=== PATIENT | male | born 1945 | race Caucasian/White ===

== ENCOUNTER 2017-04-16 01:32 | Inpatient (IN) | payer MEDICARE, OTHER ==
[~2017-04-16] VITALS: Ht 165.1 cm; Wt 58.0 kg
[~2017-04-16 01:32] MED LIST: CLOP75TA27 PO; GLU5XL PO; LISI40TA PO; METF500T4 PO; PIOG15TA4 PO; SIMV40TA3 PO
[2017-04-16] MEDS ORDERED: CEFEPIME 2GM/50 ML (PMX) 50 ML IVPB STA (02:23)
[2017-04-16] MEDS ORDERED: SODIUM CHLORIDE 0.9% 1L BAG IV* STA (02:23)
[2017-04-16 02:50] LABS: ADD SCAN DIFF NO
[2017-04-16 02:56] LABS: BASOPHILS % 0.2 % (0.0-2.0); EOSINOPHILS # 0.1 10^3/ul (0.0-0.5); EOSINOPHILS % 1.2 % (0.0-7.0); HEMATOCRIT 32.9 % (42.0-52.0); LYMPHOCYTES # 0.9 10^3/ul (0.8-2.9); LYMPHOCYTES % 8.9 % (15.0-51.0); MEAN CORPUSCULAR HGB CONC 33.4 g/dl (32.0-37.0); MEAN CORPUSCULAR VOLUME 86.8 fl (82.0-101.0); MEAN PLATELET VOLUME 12.1 fl (7.4-10.4); MONOCYTE # 1.3 10^3/ul (0.3-0.9); MONOCYTES % 12.8 % (0.0-11.0); NEUTROPHIL # 7.6 10^3/ul (1.6-7.5); NEUTROPHILS % 76.3 % (39.0-77.0); PLATELET COUNT 203 10^3/UL (140-415); RED BLOOD COUNT 3.79 10^6/ul (4.70-6.10); RED CELL DISTRIBUTION WIDTH 13.4 % (11.5-14.5); WHITE BLOOD COUNT 9.9 10^3/ul (4.8-10.8)
[2017-04-16 03:18] LABS: ALBUMIN 4.4 g/dl (3.3-4.9); ALBUMIN/GLOBULIN RATIO 1.25; BILIRUBIN,INDIRECT 0.6 mg/dl (0-1.1); BILIRUBIN,TOTAL 0.6 mg/dl (0.2-1.3); CALCIUM 8.8 mg/dl (8.4-10.2); CREATININE 1.98 mg/dl (0.61-1.24); POTASSIUM 4.2 mmol/L (3.5-5.1); TOTAL PROTEIN 7.9 g/dl (6.1-8.1)
[2017-04-16 03:29] LABS: TROPONIN-I 0.027 ng/ml (0.00-0.12)
[2017-04-16] MEDS ORDERED: ACETAMINOPHEN 500 MG TAB PO STA (03:39)
[2017-04-16 03:42] LABS: ADD UMIC YES; UR ASCORBIC ACID NEGATIVE (NEGATIVE); UR BACTERIA FEW /HPF (NONE SEEN); UR BILIRUBIN (Dip) NEGATIVE (NEGATIVE); UR BLOOD (Dip) 2+ mg/dL (NEGATIVE); UR CLARITY CLOUDY (CLEAR); UR COLOR YELLOW (YELLOW); UR GLUCOSE (Dip) 3+ mg/dL (NEGATIVE); UR KETONES (Dip) NEGATIVE (NEGATIVE); UR LEUKOCYTE ESTERASE (Dip) 3+ Leu/ul (NEGATIVE); UR NITRITE (Dip) NEGATIVE (NEGATIVE); UR RBC 16 /HPF (0-5); UR SPECIFIC GRAVITY (Dip) 1.009 (1.003-1.030); UR TOTAL PROTEIN (Dip) 2+ mg/dl (NEGATIVE); UR UROBILINOGEN (Dip) NEGATIVE (NEGATIVE); UR WBC CLUMPS MANY /HPF (NONE SEEN)
[2017-04-16] MEDS ORDERED: SOD CHLORIDE 0.9% 1,000 ML IV ONE (04:00)
--- NOTE | 2017-04-16 04:02 | RADRPT ---
PROCEDURE: CHEST - 1 VIEW CLINICAL INDICATION: 72-year-old male with shortness of breath and sepsis. TECHNIQUE: A single frontal AP portable view of the chest was performed. The images were reviewed on a PACS workstation. COMPARISON: Chest x-ray October 09, 2013. FINDINGS: The cardiomediastinal silhouette is within normal limits. There is a shallow inspiration. There is eventration of the right hemidiaphragm. There is minimal bibasilar subsegmental atelectasis. Ther e are small metallic radiopaque densities overlying the upper thorax and right lateral upper lung zo ne consistent with shrapnel as previously visualized. There is no evidence for an infiltrate. There is no evidence for congestive heart failure. There is no evidence for pneumothorax. The osseous str uctures are intact. IMPRESSION: 1. Shallow inspiration with minimal bibasilar subsegmental atelectasis. 2. Small foci of shrapnel overlying the mediastinal region and right lateral upper lung zone. .Varun Low MD, MD Date Time Electronically viewed and signed by .Varun Low MD, on 04/16/2017 04:02 .M/
[2017-04-16 04:16] LABS: INR 1.01; PROTIME 13.3 Sec (12.2-14.2)
[2017-04-16 04:17] LABS: PARTIAL THROMBOPLASTIN TIME 33.8 Sec (25.0-35.0)
[2017-04-16] MEDS ORDERED: ACETAMINOPHEN 325 MG TAB PO PRN (04:30)
[2017-04-16] MEDS ORDERED: ONDANSETRON 4 MG INJ IV PRN ×2 (04:30→07:00)
[2017-04-16 04:39] VITALS: TEMP 99.2
--- NOTE | 2017-04-16 05:44 | ERA ---
ER Documentation Chief Complaint Date/Time DATE: 04/16/17 TIME: 05:37 Chief Complaint cough, pain with urination for 4 days HPI This 72-year-old male presents with painful urination for 4 days as well as a cough. Has felt lightheaded as well. Has suprapubic abdominal pain and has had trouble urinating. Is also had chills and fever. Denies chest pain or shortness of breath . Family is present at bedside. ROS All systems reviewed and are negative except as per history of present illness. 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) Hx Respiratory Disorders: No Hx Cardiac Disorders: Yes (HTN) Hx Psychiatric Problems: No Hx Miscellaneous Medical Probl: Yes (DM) Hx Alcohol Use: Yes Hx Substance Use: No Hx Tobacco Use: Yes Smoking Status: Former smoker Physical Exam Vitals Vital Signs Date Time Temp Pulse Resp B/P Pulse Ox O2 Delivery O2 Flow Rate FiO2 04/16/17 04:39 99.2 79 18 109/54 97 Room Air 04/16/17 03:03 Nasal Cannula 2 04/16/17 03:03 102.1 81 20 146/83 96 Room Air 04/16/17 01:46 102.0 77 16 135/67 94 Physical Exam Const: [] Mild distress, appears uncomfortable Head: Atraumatic Eyes: Normal Conjunctiva ENT: Normal External Ears, Nose and Mouth. Neck: Full range of motion..~ No meningismus. Resp: Clear to auscultation bilaterally Cardio: Regular rate and rhythm, no murmurs Abd: Soft, mild suprapubic tenderness without guarding or rebound non distended. Normal bowel sounds Skin: No petechiae or rashes, warm to the touch, mild diaphoretic Back: No midline or flank tenderness Ext: No cyanosis, or edema Neur: Awake and alert and oriented 3, no focal deficits Psych: Normal Mood and Affect Result Diagram: 04/16/17 0230 04/16/17 0230 Results 24 hrs Laboratory Tests Test 04/16/17 02:20 04/16/17 02:30 04/16/17 03:00 04/16/17 04:30 Prothrombin Time 13.3Sec Prothrombin Time Ratio 1.0 INR International Normalized Ratio 1.01 Activated Partial Thromboplast Time 33.8Sec White Blood Count 9.910^3/ul Red Blood Count 3.7910^6/ul Hemoglobin 11.0g/dl Hematocrit 32.9% Mean Corpuscular Volume 86.8fl Mean Corpuscular Hemoglobin 29.0pg Mean Corpuscular Hemoglobin Concent 33.4g/dl Red Cell Distribution Width 13.4% Platelet Count 15901^3/UL Mean Platelet Volume 12.1fl Neutrophils % 76.3% Lymphocytes % 8.9% Monocytes % 12.8% Eosinophils % 1.2% Basophils % 0.2% Nucleated Red Blood Cells % 0.0/100WBC Neutrophils # 7.610^3/ul Lymphocytes # 0.910^3/ul Monocytes # 1.310^3/ul Eosinophils # 0.110^3/ul Basophils # 0.010^3/ul Nucleated Red Blood Cells # 0.010^3/ul Sodium Level 124mmol/L Potassium Level 4.2mmol/L Chloride Level 92mmol/L Carbon Dioxide Level 21mmol/L Anion Gap 15 Blood Urea Nitrogen 41mg/dl Creatinine 1.98mg/dl Glucose Level 293mg/dl Lactic Acid Level 1.1mmol/L 0.8mmol/L Calcium Level 8.8mg/dl Total Bilirubin 0.6mg/dl Direct Bilirubin 0.00mg/dl Indirect Bilirubin 0.6mg/dl Aspartate Amino Transf (AST/SGOT) 30IU/L Alanine Aminotransferase (ALT/SGPT) 36IU/L Alkaline Phosphatase 117IU/L Troponin I 0.027ng/ml Total Protein 7.9g/dl Albumin 4.4g/dl Globulin 3.50g/dl Albumin/Globulin Ratio 1.25 Urine Color YELLOW Urine Clarity CLOUDY Urine pH 5.0 Urine Specific Ackerman 1.009 Urine Ketones NEGATIVEmg/dL Urine Nitrite NEGATIVEmg/dL Urine Bilirubin NEGATIVEmg/dL Urine Urobilinogen NEGATIVEmg/dL Urine Leukocyte Esterase 3+Estephanie/ul Urine Microscopic RBC 16/HPF Urine Microscopic WBC > 182/HPF Urine Bacteria FEW/HPF Urine Hemoglobin 2+mg/dL Urine Glucose 3+mg/dL Urine Total Protein 2+mg/dl Current Medications Medications (Trade) Dose Ordered Sig/Birdie Route PRN Reason Start Time Stop Time Status Last Admin Dose Admin Sodium Chloride 1920 ml 1,920 ml BOLUS OVER 2 HOURS STAT IV* 04/16/17 02:23 04/16/17 02:24 DC 04/16/17 02:49 Cefepime HCl 50 ml @ 100 mls/hr ONCE STAT IVPB 04/16/17 02:23 04/16/17 02:52 DC 04/16/17 02:50 Sodium Chloride (NS) 1,000 ml @ 1,000 mls/hr Q1H ONCE IV 04/16/17 04:00 04/16/17 04:59 DC 04/16/17 03:50 Acetaminophen (Tylenol Tab) 1,000 mg ONCE STAT PO 04/16/17 03:39 04/16/17 03:44 DC 04/16/17 03:49 Ondansetron HCl (Zofran Inj) 4 mg BRIDGE ORDER PRN IV NAUSEA AND/OR VOMITING 04/16/17 04:30 04/17/17 04:29 Acetaminophen (Tylenol Tab) 650 mg ER BRIDGE PRN PO MILD PAIN/FEVER 04/16/17 04:30 04/17/17 04:29 Procedures/MDM UTI with acute kidney injury and hyponatremia. Patient was given cefepime IV for his urinary tract infection. Part of the hyponatremia pseudohyponatremia with sodium greater than 127 when corrected. Patient has had stable vital signs. He will need to be admitted for further hydration for protection of his kidneys as well as IV antibiotics for the urinary tract infection in the elderly diabetic male with poorly controlled sugars. I spoke with Dr. Henson who will be admitting the patient to medical surgical floor EKG interpretation: Normal sinus rhythm rate of 81, normal axis, no ST or T- wave changes concerning for acute ischemia, normal intervals assembler metal building interpretation: Normal sinus rhythm without arrhythmias Chest x-ray interpretation: I see no acute process, no widened mediastinum, no pneumothorax, no infiltrates, no fractures Departure Diagnosis: Primary Impression: UTI (urinary tract infection) Additional Impressions: Acute kidney injury Hyponatremia MAGDALENA WRIGHT DO Apr 16, 2017 05:44
[2017-04-16 06:15] VITALS: Ht 165.1 cm; Wt 58.0 kg
[2017-04-16 06:34] VITALS: BP 110/58; RESP 20
[2017-04-16] MEDS ORDERED: morphine 2 MG INJ IV PRN (07:00)
[2017-04-16] MEDS ORDERED: DEXTROSE 50% 50 ML SYRINGE IV PRN ×2 (08:00)
[2017-04-16] MEDS ORDERED: GLUCAGON 1 MG INJ IM PRN (08:00)
[2017-04-16] MEDS ORDERED: GLUCOSE GEL 15 GRAM TUBE PO PRN ×2 (08:00)
[2017-04-16] MEDS ORDERED: GLUCOSE GEL 15 GRAM TUBE BUCCAL PRN (08:00)
[2017-04-16 08:11] VITALS: BP 110/56; RESP 16
[2017-04-16] MEDS: SOD CHLORIDE 0.9% 1,000 ML IV SCH ×3 (08:34→19:38)
[2017-04-16] MEDS: INSULIN ASPART [NOVOLOG] 3 ML PEN SC SCH ×4 (08:45→22:09)
--- NOTE | 2017-04-16 11:24 | HP ---
Date/Time of Note Date/Time of Note DATE: 04/16/17 TIME: 11:21 Assessment/Plan VTE Prophylaxis VTE Prophylaxis Intervention: other Lines/Catheters IV [facility] Saline Lock Urinary Cath still in place: No Assessment/Plan Chief Complaint/Hosp Course 1) uti - intravenous antibiotics 2) diabetes - monitor blood sugar 3) hypertension - monitor blood sugar Problems: HPI/ROS Admit Date/Time Admit Date/Time Apr 16, 2017 at 04:16 Hx of Present Illness Patient with hypertension, hypercholesterolemia, diabetes comes in with evidence of fever, dysuria. Patient was found to have an urinary tract infection and was admitted for intravenous antibiotics. PMH/Family/Social Past Medical History Medical History: diabetes, high cholesterol, hypertension Social History Smoking Status: Former smoker Exam/Review of Systems Vital Signs Vitals Vital Signs Date Time Temp Pulse Resp B/P Pulse Ox O2 Delivery O2 Flow Rate FiO2 04/16/17 08:11 98.2 64 16 110/56 97 04/16/17 04:39 Room Air 04/16/17 03:03 2 Exam Constitutional: well developed Head: atraumatic, normocephalic Neck: supple Respiratory: clear to auscultation Cardiovascular: regular rate and rhythm Gastrointestinal: non-tender, soft Extremities: normal pulses Labs Result Diagram: 04/16/17 0230 04/16/17 0742 Medications Medications Current Medications Diagnostic Test (Pha) (Accu-Chek) 1 ea 02 XX ; Start 04/17/17 at 02:00 Diagnostic Test (Pha) 1 ea 1 ea 02 XX ; Start 04/17/17 at 02:00 Sodium Chloride (NS) 1,000 ml @ 100 mls/hr Q10H IV Last administered on t 08:34; Admin Dose 100 MLS/HR; Start 04/16/17 at 07:00 Morphine Sulfate (morphine) 2 mg Q4H PRN IV PAIN; Start 04/16/17 at 07:00 Ondansetron HCl (Zofran Inj) 4 mg Q6H PRN IV NAUSEA AND/OR VOMITING; Start 04/16 at 07:00 Miscellaneous Information 1 ea NOTE XX ; Start 04/16/17 at 08:00 Glucose (Glutose) 15 gm Q15M PRN PO DECREASED GLUCOSE; Start 04/16/17 at 08:00 Glucose (Glutose) 22.5 gm Q15M PRN PO DECREASED GLUCOSE; Start 04/16/17 at 08:00 Dextrose (D50w Syringe) 25 ml Q15M PRN IV DECREASED GLUCOSE; Start 04/16/17 at 08:00 Dextrose (D50w Syringe) 50 ml Q15M PRN IV DECREASED GLUCOSE; Start 04/16/17 at 08:00 Glucagon (Glucagen) 1 mg Q15M PRN IM DECREASED GLUCOSE; Start 04/16/17 at 08:00 Glucose (Glutose) 15 gm Q15M PRN BUCCAL DECREASED GLUCOSE; Start 04/16/17 at 08: 00 MICHELE RUIZ Apr 16, 2017 11:24
[2017-04-16] MEDS: CLOPIDOGREL 75 MG TAB PO SCH (11:53)
[2017-04-16] MEDS ORDERED: LEVOFLOXACIN 500MG/D5W (PMX) 100 ML IVPB SCH (12:00)
[2017-04-16] MEDS: PIOGLITAZONE 15 MG TAB PO SCH (13:25)
[2017-04-16] MEDS: glipiZIDE (XL) 2.5 MG TAB PO SCH (17:31)
[2017-04-16 20:00] VITALS: BP 132/63; RESP 18
[2017-04-16] MEDS: LISINOPRIL 20 MG TAB PO SCH (22:04)
[2017-04-16] MEDS: ATORVASTATIN 20 MG TAB PO SCH (22:04)
[2017-04-17] VITALS (7 sets, daily range): BP systolic 96–146; BP diastolic 57–91; PULSE 90–112; RESP 18–27
[2017-04-17] MEDS: GUAIFENESIN 20 MG/ML 5ML CUP PO PRN ×2 (01:26→13:02)
[2017-04-17] MEDS ORDERED: ACCU-CHEK XX SCH (02:00)
[2017-04-17] MEDS: ACCU-CHEK XX SCH (02:00)
[2017-04-17] MEDS ORDERED: ACETAMINOPHEN 325 MG TAB PO PRN (03:30)
[2017-04-17] MEDS: SOD CHLORIDE 0.9% 1,000 ML IV SCH ×2 (05:34→17:23)
[2017-04-17] MEDS: INSULIN ASPART [NOVOLOG] 3 ML PEN SC SCH ×4 (08:15→21:02)
[2017-04-17] MEDS: glipiZIDE (XL) 2.5 MG TAB PO SCH ×3 (08:23→17:45)
[2017-04-17] MEDS: PIOGLITAZONE 15 MG TAB PO SCH (08:24)
[2017-04-17] MEDS: LISINOPRIL 20 MG TAB PO SCH ×2 (08:24→20:49)
[2017-04-17] MEDS: CLOPIDOGREL 75 MG TAB PO SCH (08:24)
[2017-04-17 11:53] LABS: ADD SCAN DIFF NO
[2017-04-17 12:08] LABS: BASOPHILS % 0.3 % (0.0-2.0); EOSINOPHILS # 0.2 10^3/ul (0.0-0.5); EOSINOPHILS % 2.4 % (0.0-7.0); HEMATOCRIT 29.1 % (42.0-52.0); HEMOGLOBIN 9.7 g/dl (14.0-18.0); LYMPHOCYTES # 1.1 10^3/ul (0.8-2.9); LYMPHOCYTES % 12.5 % (15.0-51.0); MEAN CORPUSCULAR HEMOGLOBIN 29.8 pg (29.0-33.0); MEAN CORPUSCULAR HGB CONC 33.3 g/dl (32.0-37.0); MEAN CORPUSCULAR VOLUME 89.3 fl (82.0-101.0); MEAN PLATELET VOLUME 11.6 fl (7.4-10.4); MONOCYTE # 1.4 10^3/ul (0.3-0.9); MONOCYTES % 15.3 % (0.0-11.0); NEUTROPHIL # 6.3 10^3/ul (1.6-7.5); NEUTROPHILS % 69.2 % (39.0-77.0); PLATELET COUNT 206 10^3/UL (140-415); RED BLOOD COUNT 3.26 10^6/ul (4.70-6.10)
[2017-04-17 12:40] LABS: CALCIUM 7.7 mg/dl (8.4-10.2); CREATININE 1.25 mg/dl (0.61-1.24); POTASSIUM 4.4 mmol/L (3.5-5.1)
[2017-04-17] MEDS ORDERED: VANCOMYCIN IV PER PHARMACY XX SCH (16:00)
[2017-04-17] MEDS ORDERED: VANCOMYCIN 1 GM (PMX) 250 ML IVPB ONE (16:30)
[2017-04-17] MEDS ORDERED: ALBUTEROL 0.083% (NEB) 2.5 MG/3 ML AMP ONE (17:42)
[2017-04-17] MEDS ORDERED: ALBUTEROL/IPRATROPIUM (NEB) 3 ML AMP HHN STA (17:45)
[2017-04-17] MEDS ORDERED: FUROSEMIDE 20 MG INJ IV ONE (18:00)
[2017-04-17] MEDS ORDERED: FUROSEMIDE 40 MG INJ ONE (18:17)
[2017-04-17] MEDS ORDERED: LEVALBUTEROL (NEB) 1.25 MG/0.5 ML AMP ONE (18:22)
[2017-04-17] MEDS ORDERED: FUROSEMIDE 40 MG INJ IV ONE ×2 (18:30→19:00)
[2017-04-17] MEDS ORDERED: LEVALBUTEROL (NEB) 1.25 MG/0.5 ML AMP HHN ONE (18:30)
--- NOTE | 2017-04-17 18:48 | RADRPT ---
PROCEDURE: XR Chest. CLINICAL INDICATION: Dyspnea and wheezing. TECHNIQUE: PA and Lateral views of the chest were obtained. COMPARISON: 10/09/2013. FINDINGS: Cardiomegaly. Bilateral patchy air space disease, right much greater than left. No signs of pleural fluid or pneumothorax are seen. The osseous structures and soft tissues are unremarkable. IMPRESSION: Bilateral patchy pneumonias, right much greater than left. RPTAT: [facility]U Physician Nigel Date Time Electronically viewed and signed by Jim Owens Physician on 04/17/2017 18:47 RS/
--- NOTE | 2017-04-17 18:49 | QN ---
Documentation Comment RADIATION PHYSICIST Note Date: April 17, 2017 Indication: acute SOB Findings: Acute shortness of breath with tachycardia and elevated blood pressures in the patient admitted for urinary tract infection and acute kidney disease Patient is on IV normal saline at 100 cc/h Vitals: 3 view revealed elevated systolic blood pressure in the 180s, elevated diastolics in the 110s, elevated pulse rate in the 130s, and oxygen saturations at 95% but requiring facemask at 100% FiO2 Quick Physical Exam: GENERAL: Alert, oriented, significant respiratory distress, patient states that he feels like an elephant is sitting on his chest HEENT: NC/AT, ANUSHA SKIN: Gross inspection of the skin reveals no rashes, ulcerations or petechiae. NECK: Supple and symmetric. CHEST: Normal AP diameter and movement . LUNGS: Auscultation of the lungs revealed diffuse crackles and rhonchi with diminished breath sounds CARDIOVASCULAR: Tachycardia without murmurs radial pulses were 2+ and symmetric. ABDOMEN: Soft and nontender with normal bowel sounds. No ascites was noted. MUSCULOSKELETAL: There was no tenderness or effusions noted. Muscle strength and tone were normal. EXTREMITIES: No cyanosis, clubbing or edema. NEUROLOGIC: Anxious, no gross focal deficit PSYCHIATRIC:Unable to assess LABs: Recent Labs were reviewed and compared with prior and the following interventions were done 1. IV Lasix 40 mg was given 2. IV metoprolol 2.5 mg 3. Xopenex breathing treatment 4. Stat chest x-ray which was reviewed by myself at bedside that showed significant pulmonary edema Results: Patient improved with Lasix and beta-jabier therapy, vital signs also improved slightly heart rate came down to the 110s. Patient's primary attending Dr. Paz came to the bedside, review chest x- ray together, Dr. Paz prefers patient to be transferred to the intensive care unit for continued diuresis and management. Recommendations are for complete ACS rule out, continue diuresis. Care handed off to him. Critical care time: 25mins Please review chart and notes for further information if needed DILIP BOWER Apr 17, 2017 18:49
--- NOTE | 2017-04-17 18:52 | PN ---
Date/Time of Note Date/Time of Note DATE: 04/17/17 TIME: 18:44 Assessment/Plan VTE Prophylaxis VTE Prophylaxis Intervention: SCD's Lines/Catheters IV Catheter Type (from Nrs): Peripheral IV Urinary Cath still in place: No Assessment/Plan Chief Complaint/Hosp Course Patient seen earlier today with no complaints, was comfortable and supplemental oxygen, afebrile good urine output from Carmona catheter. Later in the day RN called me with patient's complains of shortness of breath, will obtain chest x- ray stat, breathing treatment as needed, administer Lasix, will obtain cardiac enzymes every 8 hours 3, twelve-lead EKG to rule out acute coronary syndrome. Problems: Assessment/Plan -UTI, continue current antibiotics follow-up on urine culture, Dr. Hodge is following infection disease consultation. -Coronary artery disease status post PTCI, continue Plavix. -Hypertension, continue lisinopril. -CVA with left-sided residual weakness -COPD, continue breathing treatments -Chronic kidney disease, avoid nephrotoxic medication. -Diabetes mellitus type 2, continue Lantus and NovoLog. Further recommendations based on clinical course. Plan of care discussed with Dr. Paz. Exam/Review of Systems Vital Signs Vitals Vital Signs Date Time Temp Pulse Resp B/P Pulse Ox O2 Delivery O2 Flow Rate FiO2 04/17/17 18:36 132 04/17/17 18:27 33 Non Rebreather Mask 15.0 04/17/17 18:03 88 04/17/17 18:01 36 04/17/17 07:36 97.5 131/62 Intake and Output 04/16/17 04/16/17 04/17/17 14:59 22:59 06:59 Intake Total 1700 ml 1820 ml Output Total 600 ml Balance 1100 ml 1820 ml Exam Constitutional: alert, oriented Head: normocephalic Neck: supple Respiratory: diminished breath sounds Cardiovascular: nl pulses Gastrointestinal: non-tender, soft Genitourinary - Male: other (Carmona catheter) Musculoskeletal: muscle weakness Extremities: normal pulses Skin: nl turgor Results Result Diagram: 04/17/17 1110 04/17/17 1110 Results 24 hrs Laboratory Tests Test 04/16/17 22:08 04/17/17 08:25 04/17/17 11:10 04/17/17 12:19 Bedside Glucose 99 76 134 White Blood Count 9.0 Red Blood Count 3.26 L Hemoglobin 9.7 L Hematocrit 29.1 L Mean Corpuscular Volume 89.3 Mean Corpuscular Hemoglobin 29.8 Mean Corpuscular Hemoglobin Concent 33.3 Red Cell Distribution Width 14.0 Platelet Count 206 Mean Platelet Volume 11.6 H Neutrophils % 69.2 Lymphocytes % 12.5 L Monocytes % 15.3 H Eosinophils % 2.4 Basophils % 0.3 Nucleated Red Blood Cells % 0.0 Neutrophils # 6.3 Lymphocytes # 1.1 Monocytes # 1.4 H Eosinophils # 0.2 Basophils # 0.0 Nucleated Red Blood Cells # 0.0 Sodium Level 133 L Potassium Level 4.4 Chloride Level 110 # Carbon Dioxide Level 19 L Anion Gap 8 Blood Urea Nitrogen 24 #H Creatinine 1.25 H Glucose Level 151 # Calcium Level 7.7 L Test 04/17/17 17:31 Bedside Glucose 146 Medications Medications Current Medications Diagnostic Test (Pha) (Accu-Chek) 1 ea 02 XX ; Start 04/17/17 at 02:00 Morphine Sulfate (morphine) 2 mg Q4H PRN IV PAIN; Start 04/16/17 at 07:00 Ondansetron HCl (Zofran Inj) 4 mg Q6H PRN IV NAUSEA AND/OR VOMITING; Start 04/16 at 07:00 Miscellaneous Information 1 ea NOTE XX ; Start 04/16/17 at 08:00 Glucose (Glutose) 15 gm Q15M PRN PO DECREASED GLUCOSE; Start 04/16/17 at 08:00 Glucose (Glutose) 22.5 gm Q15M PRN PO DECREASED GLUCOSE; Start 04/16/17 at 08:00 Dextrose (D50w Syringe) 25 ml Q15M PRN IV DECREASED GLUCOSE; Start 04/16/17 at 08:00 Dextrose (D50w Syringe) 50 ml Q15M PRN IV DECREASED GLUCOSE; Start 04/16/17 at 08:00 Glucagon (Glucagen) 1 mg Q15M PRN IM DECREASED GLUCOSE; Start 04/16/17 at 08:00 Glucose (Glutose) 15 gm Q15M PRN BUCCAL DECREASED GLUCOSE; Start 04/16/17 at 08: 00 Clopidogrel Bisulfate (plaVIX) 75 mg DAILY PO Last administered on 04/17/17t 08 :24; Admin Dose 75 MG; Start 04/16/17 at 11:30 Lisinopril (Zestril) 40 mg BID PO Last administered on 04/17/17 08:24; Admin Dose 40 MG; Start 04/16/17 at 21:00 Pioglitazone HCl (Actos) 15 mg DAILY PO Last administered on 04/17/17 08:24; Admin Dose 15 MG; Start 04/16/17 at 12:00 Atorvastatin Calcium 20 mg 20 mg DAILY@21 PO Last administered on 04/16/17 22: 04; Admin Dose 20 MG; Start 04/16/17 at 21:00 Levofloxacin/ Dextrose (Levaquin 500mg/ D5W 100 ml (Pmx)) 100 ml @ 100 mls/hr Q48H IVPB Last administered on 04/16/17 11:54; Admin Dose 100 MLS/HR; Start 04/16/17 at 12:00 Guaifenesin (Robitussin Liquid Cup) 100 mg Q6 PRN PO COUGH Last administered on 04/17/17 13:02; Admin Dose 100 MG; Start 04/17/17 at 01:30 Acetaminophen 650 mg 650 mg Q6H PRN PO PAIN AND OR ELEVATED TEMP; Start at 03:30 Vancomycin HCl/ Sodium Chloride (Vancocin/NS) 150 ml @ 75 mls/hr Q24H IVPB ; Start 04/18/17 at 18:00 Docusate Sodium (Colace) 100 mg BID PO ; Start 04/17/17 at 21:00 Polyethylene Glycol (Miralax) 17 gm DAILY PRN PO CONSTIPATION; Start 04/17/17 at 18:30 Miscellaneous Information (* Miscellaneous Pharmacy Order) Discontinue current oral sulfonylur... ONCE ONCE XX ; Start 04/17/17 at 19:00; Stop 04/17/17 at 19: 01; Status UNV Diagnostic Test (Pha) (Accu-Chek) 1 XX ; Start 04/18/17 at 02:00; Status UNV Insulin Glargine (Lantus) 9 unit DAILY@08 SC ; Start 04/18/17 at 08:00; Status UNV Miscellaneous Information (* Miscellaneous Pharmacy Order) HYPOGLYCEMIA PROTOCOL w... ONCE ONCE XX ; Start 04/17/17 at 19:00; Stop 04/17/17 at 19:01; Status UNV Miscellaneous Information (* Miscellaneous Pharmacy Order) Discontinue all previ... ONCE ONCE XX ; Start 04/17/17 at 19:00; Stop 04/17/17 at 19:01; Status UNV Furosemide (Lasix) 40 mg ONCE ONCE IV ; Start 04/17/17 at 19:00; Stop 04/17/17 at 19:01; Status UNV CALVIN CIFUENTES Apr 17, 2017 18:52
[2017-04-17] MEDS ORDERED: METOPROLOL 5 MG INJ IV PRN (20:30)
[2017-04-17] MEDS ORDERED: hydrALAzine 20 MG INJ IV PRN (20:30)
[2017-04-17] MEDS: DOCUSATE SODIUM 100 MG CAP PO SCH (20:48)
[2017-04-17] MEDS: ATORVASTATIN 20 MG TAB PO SCH (20:49)
[2017-04-17] MEDS ORDERED: ALBUTEROL/IPRATROPIUM (NEB) 3 ML AMP HHN PRN (21:30)
[2017-04-18] VITALS (24 sets, daily range): BP systolic 89–127; BP diastolic 42–79; PULSE 57–81; RESP 13–21
[2017-04-18 01:40] LABS: CK-MB 10.2 ng/ml (0.0-2.4)
[2017-04-18 01:43] LABS: TROPONIN-I 5.62 ng/ml (0.00-0.12)
[2017-04-18] MEDS ORDERED: ACCU-CHEK XX SCH (02:00)
[2017-04-18] MEDS: ACCU-CHEK XX SCH (02:11)
[2017-04-18 05:46] LABS: ADD SCAN DIFF NO
[2017-04-18 05:49] LABS: BASOPHILS % 0.2 % (0.0-2.0); EOSINOPHILS % 0.1 % (0.0-7.0); HEMATOCRIT 32.3 % (42.0-52.0); HEMOGLOBIN 10.4 g/dl (14.0-18.0); LYMPHOCYTES # 1.4 10^3/ul (0.8-2.9); LYMPHOCYTES % 11.6 % (15.0-51.0); MEAN CORPUSCULAR HEMOGLOBIN 29.1 pg (29.0-33.0); MEAN CORPUSCULAR HGB CONC 32.2 g/dl (32.0-37.0); MEAN CORPUSCULAR VOLUME 90.2 fl (82.0-101.0); MEAN PLATELET VOLUME 11.1 fl (7.4-10.4); MONOCYTES % 7.9 % (0.0-11.0); NEUTROPHIL # 9.6 10^3/ul (1.6-7.5); NEUTROPHILS % 79.6 % (39.0-77.0); PLATELET COUNT 272 10^3/UL (140-415); RED BLOOD COUNT 3.58 10^6/ul (4.70-6.10); RED CELL DISTRIBUTION WIDTH 14.3 % (11.5-14.5); WHITE BLOOD COUNT 12.1 10^3/ul (4.8-10.8)
[2017-04-18] MEDS: DIGOXIN 500 MCG INJ IV SCH ×2 (06:00)
[2017-04-18 06:26] LABS: CALCIUM 8.4 mg/dl (8.4-10.2); CREATININE 1.49 mg/dl (0.61-1.24); POTASSIUM 4.5 mmol/L (3.5-5.1)
[2017-04-18 06:59] LABS: CK-MB 11.9 ng/ml (0.0-2.4); TROPONIN-I 5.64 ng/ml (0.00-0.12)
[2017-04-18] MEDS ORDERED: METOPROLOL 5 MG INJ ONE (07:00)
[2017-04-18] MEDS ORDERED: INSULIN GLARGINE [LANtus] 3 ML PEN SC SCH (08:00)
[2017-04-18] MEDS: LISINOPRIL 20 MG TAB PO SCH ×2 (09:00→20:50)
[2017-04-18] MEDS: DOCUSATE SODIUM 100 MG CAP PO SCH ×2 (09:07→20:51)
[2017-04-18] MEDS: ASPIRIN 81 MG TAB PO SCH (09:07)
[2017-04-18] MEDS: CLOPIDOGREL 75 MG TAB PO SCH (09:07)
[2017-04-18] MEDS: INSULIN ASPART [NOVOLOG] 3 ML PEN SC SCH ×7 (09:18→20:54)
[2017-04-18] MEDS: PIOGLITAZONE 15 MG TAB PO SCH (09:33)
--- NOTE | 2017-04-18 11:11 | RADRPT ---
Echocardiogram Report Patient Name: CHOLO DOUGLAS Gender: Male Date: 1945 Study Date: 18-Apr-2017 Steward/Stewardess Wine: Shilpa [facility] Location: 103 Ref. Physician: QUIANA MURCIA Quality: Adequate Procedures: Transthoracic echocardiogram with complete 2D, M-Mode, and doppler examination. Indications: Congestive Heart Failure. 2D/M Mode Doppler Measurement Value Normal Ranges Measurement Value Normal Ranges LVIDd 2D 4.3 3.5 - 5.6 cm AV Peak Miko 1.0 m/sec LVIDs 2D 3.1 2.1 - 4.1 cm AV Peak PG 4.0 mmHg FS 2D 27.4 % LVOT Peak Miko 0.7 m/sec LVPWd 2D 1.3 0.6 - 1.1 cm LVOT Peak PG 2.0 mmHg IVSd 2D 1.3 0.6 - 1.1 cm MV E Peak Miko 0.6 m/sec IVS/LVPW 2D 1.0 MV A Peak Miko 0.8 m/sec AoR Diam 2D 3.3 2.0 - 3.7 cm MV E/A 0.7 LA/Ao 2D 1 0 - 1 MV Decel Time 215 msec EDV 2D 80.1 cm3 MV E/A 0.7 ESV 2D 30.7 cm3 MR Peak PG 52.0 mmHg LA Dimen 2D 4.1 2.3 - 4.0 cm MR Peak Miko 3.6 m/sec TR Peak Miko 3.7 m/sec TR Peak PG 54.0 mmHg RVSP 57.0 mmHg Findings Left Ventricle: Normal left ventricular systolic function. Normal left ventricular cavity size. Mild concentric left ventricular hypertrophy. Ejection fraction is visually estimated at 25 %. Tissue Doppler/Mitral Doppler indices are consistent with impaired relaxation (Stage I diastolic dysfunction). Right Ventricle: Normal right ventricular size. Normal right ventricular systolic function. Left Atrium: There is mild enlargement of left atrium. Right Atrium: The right atrium is normal in size. Mitral Valve: Mitral valve leaflets appear mildly thickened. Mild mitral annular calcification. Mild mitral valve regurgitation. Aortic Valve: No significant aortic stenosis or insufficiency. Aortic cusps appear mildly calcified. Tricuspid Valve: Normal appearance of the tricuspid valve. Estimated peak PA systolic pressure 57 mmHg. There is mild tricuspid regurgitation. Pulmonic Valve: Pulmonic valve not well visualized. There is trace pulmonic regurgitation. Pericardium: Normal pericardium with no significant pericardial effusion. Aorta: Normal aortic root. IVC: Normal size and normal respiratory collapse consistent with normal right atrial pressure. Conclusions 1.Normal left ventricular systolic function. Normal left ventricular cavity size. Mild concentric left ventricular hypertrophy. Ejection fraction is visually estimated at 25 %. Tissue Doppler/Mitral Doppler indices are consistent with impaired relaxation (Stage I diastolic dysfunction). 2.Mitral valve leaflets appear mildly thickened. Mild mitral annular calcification. Mild mitral valve regurgitation. 3.No significant aortic stenosis or insufficiency. Aortic cusps appear mildly calcified. 4.Normal appearance of the tricuspid valve. Estimated peak PA systolic pressure 57 mmHg. There is mild tricuspid regurgitation. Electronically Signed By: Eduin Le 18-Apr-2017 11:10:47 -0700 Patient Name: CHOLO DOUGLAS Study Date: 18-Apr-2017 [id number]
[2017-04-18] MEDS: LEVOFLOXACIN 250MG/D5W (PMX) 50 ML IVPB SCH (11:19)
--- NOTE | 2017-04-18 11:35 | CONS ---
Date/Time of Note Date/Time of Note DATE: 04/18/17 TIME: 11:32 Assessment/Plan Assessment/Plan Additional Assessment/Plan 1. CHF - syst HF - low RF 25%, con't to keep euvolemic. 2. UT - on anti-bx . Dr. Hodge is following infection disease consultation. 3. Coronary artery disease status post PTCI, continue Plavix- no CP now. 4. Hypertension, continue lisinopril. BETTER now. 5. CVA with left-sided residual weakness 6. COPD, continue breathing treatments 7 . Chronic kidney disease, avoid nephrotoxic medication. Consultation Date/Type/Reason Admit Date/Time Apr 16, 2017 at 04:16 Initial Consult Date 24 HR Interval Summary Free Text/Dictation No acute change - con't ICU care. ROS: No fever, no chills, no nausea, no vomiting, no diarrhea/constipation No recent weight changes No chest pain, no PND, no orthopnea No dizziness, blurred vision No thirst, no heat or cold intolerance (per nurse) Exam/Review of Systems Vital Signs Vitals Vital Signs Date Time Temp Pulse Resp B/P Pulse Ox O2 Delivery O2 Flow Rate FiO2 04/18/17 08:00 57 04/18/17 07:00 18 115/71 98 Nasal Cannula 3.0 04/18/17 05:43 21 04/18/17 04:00 96.1 Intake and Output 04/17/17 04/17/17 04/18/17 15:00 23:00 07:00 Intake Total 2730 ml 0 ml Output Total 1100 ml 805 ml Balance 1630 ml -805 ml Exam General: WN/WD/NAD, AOx comfortable HEENT: Unicetric/atraumatic/EOMI (does not follow commands) NECK: JVD elevated, no thyromegaly Lymph: no lymphadenopathy HEART: regular with no S3, II/ systolic murmur at apex LUNGS: Coarse sounds ABD: soft, NT, ND, +BS : Intact Neuro: non focal SKIN: chronic changes EXT: trace edema Results Result Diagram: 04/18/17 0525 04/18/17 0525 Results 24 hrs Laboratory Tests Test 04/17/17 12:19 04/17/17 17:31 04/17/17 18:30 04/17/17 20:58 Bedside Glucose 134 146 200 Troponin I 0.080 Test 04/18/17 00:48 04/18/17 02:10 04/18/17 05:25 04/18/17 08:59 Creatine Kinase 338 H 333 H Creatine Kinase Index 3.0 3.6 Creatinine Kinase MB (Mass) 10.20 H 11.90 H Troponin I 5.620 *H 5.640 *H Bedside Glucose 195 162 White Blood Count 12.1 #H Red Blood Count 3.58 L Hemoglobin 10.4 L Hematocrit 32.3 L Mean Corpuscular Volume 90.2 Mean Corpuscular Hemoglobin 29.1 Mean Corpuscular Hemoglobin Concent 32.2 Red Cell Distribution Width 14.3 Platelet Count 272 # Mean Platelet Volume 11.1 H Neutrophils % 79.6 H Lymphocytes % 11.6 L Monocytes % 7.9 Eosinophils % 0.1 Basophils % 0.2 Nucleated Red Blood Cells % 0.0 Neutrophils # 9.6 H Lymphocytes # 1.4 Monocytes # 1.0 H Eosinophils # 0.0 Basophils # 0.0 Nucleated Red Blood Cells # 0.0 Sodium Level 136 Potassium Level 4.5 Chloride Level 106 Carbon Dioxide Level 20 L Anion Gap 15 # Blood Urea Nitrogen 28 H Creatinine 1.49 H Glucose Level 212 Hemoglobin A1c 8.6 H Calcium Level 8.4 Medications Medications Current Medications Diagnostic Test (Pha) (Accu-Chek) 1 ea 02 XX Last administered on 04/18/17t 02: 11; Admin Dose 1 EA; Start 04/17/17 at 02:00 Morphine Sulfate (morphine) 2 mg Q4H PRN IV PAIN; Start 04/16/17 at 07:00 Ondansetron HCl (Zofran Inj) 4 mg Q6H PRN IV NAUSEA AND/OR VOMITING; Start 04/16 at 07:00 Miscellaneous Information 1 ea NOTE XX ; Start 04/16/17 at 08:00 Glucose (Glutose) 15 gm Q15M PRN PO DECREASED GLUCOSE; Start 04/16/17 at 08:00 Glucose (Glutose) 22.5 gm Q15M PRN PO DECREASED GLUCOSE; Start 04/16/17 at 08:00 Dextrose (D50w Syringe) 25 ml Q15M PRN IV DECREASED GLUCOSE; Start 04/16/17 at 08:00 Dextrose (D50w Syringe) 50 ml Q15M PRN IV DECREASED GLUCOSE; Start 04/16/17 at 08:00 Glucagon (Glucagen) 1 mg Q15M PRN IM DECREASED GLUCOSE; Start 04/16/17 at 08:00 Glucose (Glutose) 15 gm Q15M PRN BUCCAL DECREASED GLUCOSE; Start 04/16/17 at 08: 00 Clopidogrel Bisulfate (plaVIX) 75 mg DAILY PO Last administered on 04/18/17 09 :07; Admin Dose 75 MG; Start 04/16/17 at 11:30 Lisinopril (Zestril) 40 mg BID PO Last administered on 04/17/17 20:49; Admin Dose 40 MG; Start 04/16/17 at 21:00 Pioglitazone HCl (Actos) 15 mg DAILY PO Last administered on 04/18/17 09:33; Admin Dose 15 MG; Start 04/16/17 at 12:00 Atorvastatin Calcium (Lipitor) 20 mg DAILY@21 PO Last administered on 20:49; Admin Dose 20 MG; Start 04/16/17 at 21:00 Guaifenesin (Robitussin Liquid Cup) 100 mg Q6 PRN PO COUGH Last administered on 04/17/17 13:02; Admin Dose 100 MG; Start 04/17/17 at 01:30 Acetaminophen 650 mg 650 mg Q6H PRN PO PAIN AND OR ELEVATED TEMP Last administered on 04/17/17 20:48; Admin Dose 650 MG; Start 04/17/17 at 03:30 Vancomycin HCl/ Sodium Chloride (Vancocin/NS) 150 ml @ 75 mls/hr Q24H IVPB ; Start 04/18/17 at 18:00 Docusate Sodium (Colace) 100 mg BID PO Last administered on 04/18/17 09:07; Admin Dose 100 MG; Start 04/17/17 at 21:00 Polyethylene Glycol (Miralax) 17 gm DAILY PRN PO CONSTIPATION; Start 04/17/17 at 18:30 Diagnostic Test (Pha) (Accu-Chek) 1 ea 02 XX ; Start 04/18/17 at 02:00 Insulin Glargine (Lantus) 9 unit DAILY@08 SC Last administered on 04/18/17 09: 19; Admin Dose 9 UNIT; Start 04/18/17 at 08:00 Furosemide (Lasix) 40 mg DAILY IV ; Start 04/19/17 at 01:00 Metoprolol Tartrate (Lopressor) 5 mg Q4H PRN IV hr>110 hOLD sbp<100; Start 07/25 at 20:30 Hydralazine HCl (Apresoline) 10 mg Q4H PRN IV sbp>170; Start 04/17/17 at 20:30 Aspirin 81 mg 81 mg DAILY PO Last administered on 04/18/17 09:07; Admin Dose 81 MG; Start 04/18/17 at 09:00 Levofloxacin/ Dextrose (Levaquin 250 Mg/ D5W 50 ml (Pmx)) 50 ml @ 100 mls/hr Q24H IVPB Last administered on 04/18/17 11:19; Admin Dose 100 MLS/HR; Start at 10:30 MITCHELL CASTILLO MD Apr 18, 2017 11:34
[2017-04-18 13:16] LABS: CK-MB 10.4 ng/ml (0.0-2.4); TROPONIN-I 3.56 ng/ml (0.00-0.12)
--- NOTE | 2017-04-18 14:16 | CONS ---
Date/Time of Note Date/Time of Note DATE: 04/18/17 TIME: 14:15 Assessment/Plan Assessment/Plan Chief Complaint/Hosp Course Patient was transferred to ICU secondary to symptomatic hypotension status post rapid response. He is awake, denies pain, looks comfortable, no vomiting no diarrhea T-max 102.4 T-current 99.3 pulse 75 respirations 18 blood pressure 115/71 saturation 98 on 3 L WBC 12.1 H&H 10.4 and 32.3 platelets 272 neutrophils 79.6, BUN 28 creatinine 1.49 Microbiology: Blood culture grew staph species urine culture growing E. coli resistant only to ampicillin Chest x-ray from yesterday revealed bilateral patchy pneumonias right December greater than left Antibiotics: Vancomycin and Levaquin Allergies: Penicillins Physical examination: Well-developed well-nourished elderly man who is awake in no distress. Head atraumatic normocephalic, sclera nonicteric. Neck is supple trachea midline. Chest rise symmetrical, breath sounds diminished basis. Heart S1-S2. Abdomen soft bowel tones present. Extremities without cyanosis. Assessment: 1. Sepsis 2. E. coli UTI 3. Pneumonia 4. Acute [place] 5. History of CVA with left-sided weakness 6. Coronary artery disease, status post PTCI Plan: Hemodynamically stable, continue antibiotics, anti-aspiration precautions , follow cardiology recommendations, repeat chest x-ray in a.m. [facility] staff Problems: Consultation Date/Type/Reason Admit Date/Time Apr 16, 2017 at 04:16 Initial Consult Date Type of Consultation: ID Exam/Review of Systems Vital Signs Vitals Vital Signs Date Time Temp Pulse Resp B/P Pulse Ox O2 Delivery O2 Flow Rate FiO2 04/18/17 12:00 70 04/18/17 07:00 18 115/71 98 Nasal Cannula 3.0 04/18/17 05:43 21 04/18/17 04:00 96.1 Intake and Output 04/17/17 04/17/17 04/18/17 15:00 23:00 07:00 Intake Total 2730 ml 0 ml Output Total 1100 ml 805 ml Balance 1630 ml -805 ml Results Result Diagram: 04/18/17 0525 04/18/17 0525 Results 24 hrs Laboratory Tests Test 04/17/17 17:31 04/17/17 18:30 04/17/17 20:58 04/18/17 00:48 Bedside Glucose 146 200 Troponin I 0.080 5.620 *H Creatine Kinase 338 H Creatine Kinase Index 3.0 Creatinine Kinase MB (Mass) 10.20 H Test 04/18/17 02:10 04/18/17 05:25 04/18/17 08:59 04/18/17 12:20 Bedside Glucose 195 162 183 White Blood Count 12.1 #H Red Blood Count 3.58 L Hemoglobin 10.4 L Hematocrit 32.3 L Mean Corpuscular Volume 90.2 Mean Corpuscular Hemoglobin 29.1 Mean Corpuscular Hemoglobin Concent 32.2 Red Cell Distribution Width 14.3 Platelet Count 272 # Mean Platelet Volume 11.1 H Neutrophils % 79.6 H Lymphocytes % 11.6 L Monocytes % 7.9 Eosinophils % 0.1 Basophils % 0.2 Nucleated Red Blood Cells % 0.0 Neutrophils # 9.6 H Lymphocytes # 1.4 Monocytes # 1.0 H Eosinophils # 0.0 Basophils # 0.0 Nucleated Red Blood Cells # 0.0 Sodium Level 136 Potassium Level 4.5 Chloride Level 106 Carbon Dioxide Level 20 L Anion Gap 15 # Blood Urea Nitrogen 28 H Creatinine 1.49 H Glucose Level 212 Hemoglobin A1c 8.6 H Calcium Level 8.4 Creatine Kinase 333 H Creatine Kinase Index 3.6 Creatinine Kinase MB (Mass) 11.90 H Troponin I 5.640 *H Test 04/18/17 12:30 Creatine Kinase 270 H Creatine Kinase Index 3.9 Creatinine Kinase MB (Mass) 10.40 H Troponin I 3.560 *H Medications Medications Current Medications Diagnostic Test (Pha) (Accu-Chek) 1 ea 02 XX Last administered on 04/18/17t 02: 11; Admin Dose 1 EA; Start 04/17/17 at 02:00 Morphine Sulfate (morphine) 2 mg Q4H PRN IV PAIN; Start 04/16/17 at 07:00 Ondansetron HCl (Zofran Inj) 4 mg Q6H PRN IV NAUSEA AND/OR VOMITING; Start 04/16 at 07:00 Miscellaneous Information 1 ea NOTE XX ; Start 04/16/17 at 08:00 Glucose (Glutose) 15 gm Q15M PRN PO DECREASED GLUCOSE; Start 04/16/17 at 08:00 Glucose (Glutose) 22.5 gm Q15M PRN PO DECREASED GLUCOSE; Start 04/16/17 at 08:00 Dextrose (D50w Syringe) 25 ml Q15M PRN IV DECREASED GLUCOSE; Start 04/16/17 at 08:00 Dextrose (D50w Syringe) 50 ml Q15M PRN IV DECREASED GLUCOSE; Start 04/16/17 at 08:00 Glucagon (Glucagen) 1 mg Q15M PRN IM DECREASED GLUCOSE; Start 04/16/17 at 08:00 Glucose (Glutose) 15 gm Q15M PRN BUCCAL DECREASED GLUCOSE; Start 04/16/17 at 08: 00 Clopidogrel Bisulfate (plaVIX) 75 mg DAILY PO Last administered on 04/18/17 09 :07; Admin Dose 75 MG; Start 04/16/17 at 11:30 Lisinopril (Zestril) 40 mg BID PO Last administered on 04/17/17 20:49; Admin Dose 40 MG; Start 04/16/17 at 21:00 Pioglitazone HCl (Actos) 15 mg DAILY PO Last administered on 04/18/17 09:33; Admin Dose 15 MG; Start 04/16/17 at 12:00 Atorvastatin Calcium (Lipitor) 20 mg DAILY@21 PO Last administered on 20:49; Admin Dose 20 MG; Start 04/16/17 at 21:00 Guaifenesin (Robitussin Liquid Cup) 100 mg Q6 PRN PO COUGH Last administered on 04/17/17 13:02; Admin Dose 100 MG; Start 04/17/17 at 01:30 Acetaminophen 650 mg 650 mg Q6H PRN PO PAIN AND OR ELEVATED TEMP Last administered on 04/17/17 20:48; Admin Dose 650 MG; Start 04/17/17 at 03:30 Vancomycin HCl/ Sodium Chloride (Vancocin/NS) 150 ml @ 75 mls/hr Q24H IVPB ; Start 04/18/17 at 18:00 Docusate Sodium (Colace) 100 mg BID PO Last administered on 04/18/17 09:07; Admin Dose 100 MG; Start 04/17/17 at 21:00 Polyethylene Glycol (Miralax) 17 gm DAILY PRN PO CONSTIPATION; Start 04/17/17 at 18:30 Diagnostic Test (Pha) (Accu-Chek) 1 ea 02 XX ; Start 04/18/17 at 02:00 Insulin Glargine (Lantus) 9 unit DAILY@08 SC Last administered on 04/18/17 09: 19; Admin Dose 9 UNIT; Start 04/18/17 at 08:00 Furosemide (Lasix) 40 mg DAILY IV ; Start 04/19/17 at 01:00 Metoprolol Tartrate (Lopressor) 5 mg Q4H PRN IV hr>110 hOLD sbp<100; Start 07/25 at 20:30 Hydralazine HCl (Apresoline) 10 mg Q4H PRN IV sbp>170; Start 04/17/17 at 20:30 Aspirin 81 mg 81 mg DAILY PO Last administered on 04/18/17 09:07; Admin Dose 81 MG; Start 04/18/17 at 09:00 Levofloxacin/ Dextrose (Levaquin 250 Mg/ D5W 50 ml (Pmx)) 50 ml @ 100 mls/hr Q24H IVPB Last administered on 04/18/17 11:19; Admin Dose 100 MLS/HR; Start at 10:30 WILLIAM OWENS NP Apr 18, 2017 14:15
[2017-04-18 14:38] LABS: ADD SCAN DIFF NO
[2017-04-18 14:40] LABS: BASOPHILS % 0.2 % (0.0-2.0); EOSINOPHILS # 0.2 10^3/ul (0.0-0.5); EOSINOPHILS % 2.7 % (0.0-7.0); HEMATOCRIT 29.9 % (42.0-52.0); HEMOGLOBIN 10.1 g/dl (14.0-18.0); LYMPHOCYTES # 1.5 10^3/ul (0.8-2.9); LYMPHOCYTES % 17.8 % (15.0-51.0); MEAN CORPUSCULAR HEMOGLOBIN 29.6 pg (29.0-33.0); MEAN CORPUSCULAR HGB CONC 33.8 g/dl (32.0-37.0); MEAN CORPUSCULAR VOLUME 87.7 fl (82.0-101.0); MEAN PLATELET VOLUME 10.8 fl (7.4-10.4); MONOCYTE # 1.1 10^3/ul (0.3-0.9); MONOCYTES % 13.3 % (0.0-11.0); NEUTROPHIL # 5.5 10^3/ul (1.6-7.5); NEUTROPHILS % 65.5 % (39.0-77.0); PLATELET COUNT 267 10^3/UL (140-415); RED BLOOD COUNT 3.41 10^6/ul (4.70-6.10); RED CELL DISTRIBUTION WIDTH 14.4 % (11.5-14.5); WHITE BLOOD COUNT 8.4 10^3/ul (4.8-10.8)
--- NOTE | 2017-04-18 17:15 | RADRPT ---
Vent Rate: 110 bpm RR Interval: 0 msec SD Interval: 144 msec QRS Duration: 72 msec QT Interval: 320 msec QTC Interval: 433 msec P-R-T [place]: 47 - 23 - 41 degrees Sinus tachycardia Anterior infarct , age undetermined Abnormal ECG Electronically Signed By: Cyril Samano [id number]
[2017-04-18] MEDS ORDERED: INSULIN ASPART [NOVOLOG] 3 ML PEN SC SCH (17:35)
[2017-04-18] MEDS: metFORMIN 500 MG TAB PO SCH (17:53)
[2017-04-18] MEDS: VANCOMYCIN 750 MG in SOD CHLORIDE 0.9% 150 ML IVPB SCH (18:15)
[2017-04-18] MEDS: ATORVASTATIN 20 MG TAB PO SCH (20:51)
[2017-04-19] VITALS (22 sets, daily range): BP systolic 100–133; BP diastolic 45–84; PULSE 64–85; RESP 14–24
[2017-04-19] MEDS ORDERED: FUROSEMIDE 40 MG INJ IV SCH (01:00)
[2017-04-19] MEDS: ACCU-CHEK XX SCH (02:00)
[2017-04-19] MEDS ORDERED: ACCU-CHEK XX SCH (02:00)
[2017-04-19] MEDS: FUROSEMIDE 40 MG INJ IV SCH (06:26)
[2017-04-19 06:34] LABS: CALCIUM 8.4 mg/dl (8.4-10.2); CREATININE 1.22 mg/dl (0.61-1.24); POTASSIUM 3.8 mmol/L (3.5-5.1)
[2017-04-19] MEDS: INSULIN ASPART [NOVOLOG] 3 ML PEN SC SCH ×7 (07:35→20:21)
[2017-04-19] MEDS: INSULIN GLARGINE [LANtus] 3 ML PEN SC SCH (08:29)
--- NOTE | 2017-04-19 08:29 | RADRPT ---
PROCEDURE: XR Chest 1 View. CLINICAL INDICATION: Shortness of breath, pneumonia TECHNIQUE: AP view of the chest was obtained. COMPARISON: April 17, 2017 FINDINGS: The heart size is within normal limits. Calcified atherosclerosis is noted in the aorta. Elevation of the right hemidiaphragm is identified. Patchy infiltrates are seen throughout the right lung. D iffuse mild interstitial prominence is noted in both lungs. Patchy atelectasis versus minimal infil trates in the left lower lobe are stable. Scattered punctate metallic densities over the chest are unchanged and may reflect retained foreign bodies in the soft tissues. The osseous structures are o steopenic, but appear grossly intact. IMPRESSION: Calcified atherosclerosis in the aorta. Elevation of the right hemidiaphragm. Continued patchy infiltrates throughout the right lung. Infiltrates have mildly decreased when mikhail red with prior exam. Stable atelectasis versus mild infiltrates in the left lower lobe. Continued diffuse mild interstitial prominence in both lungs. RPTAT: AA .Chino Desai MD, Date Time Electronically viewed and signed by .Chino Desai MD, on 04/19/2017 08:29 .P/
[2017-04-19] MEDS: LISINOPRIL 20 MG TAB PO SCH ×2 (08:42→20:25)
[2017-04-19] MEDS: ASPIRIN 81 MG TAB PO SCH (08:42)
[2017-04-19] MEDS: PIOGLITAZONE 15 MG TAB PO SCH (08:42)
[2017-04-19] MEDS: CLOPIDOGREL 75 MG TAB PO SCH (08:42)
[2017-04-19] MEDS: DOCUSATE SODIUM 100 MG CAP PO SCH ×2 (08:43→20:24)
[2017-04-19] MEDS: metFORMIN 500 MG TAB PO SCH ×2 (08:43→17:51)
[2017-04-19] MEDS: LEVOFLOXACIN 250MG/D5W (PMX) 50 ML IVPB SCH (10:18)
--- NOTE | 2017-04-19 11:14 | CONS ---
Date/Time of Note Date/Time of Note DATE: 04/19/17 TIME: 11:05 Assessment/Plan Assessment/Plan Chief Complaint/Hosp Course IMp: 1.CHF 2.Nstemi-now downtrending 3.HTN 4.UTI 5. H/O prior stent 6.renal failure 7. Hyponatremia 8. Cardiomyopathy-LVEF 25% by echo 04/18 Recc: -Tele -serial ecg's -Continue asa/plavix/statin -Continue ACEI -start BB -Continue lasix -Contineu abx's and f/u cx data -Will consider [facility] when renal failure improved./stable and patient SIRS/sepsis improved -trend cardiac enzymes Problems: Consultation Date/Type/Reason Admit Date/Time Apr 16, 2017 at 04:16 Initial Consult Date 04/17/17 Type of Consultation: Cardiology Reason for Consultation CHF/positive troponin Referring Provider: QUIANA MURCIA MD Exam/Review of Systems Vital Signs Vitals Vital Signs Date Time Temp Pulse Resp B/P Pulse Ox O2 Delivery O2 Flow Rate FiO2 04/19/17 09:00 82 15 126/75 97 04/19/17 08:00 97.5 Room Air 04/18/17 20:52 21 04/18/17 07:00 3.0 Intake and Output 04/18/17 04/18/17 04/19/17 15:00 23:00 07:00 Intake Total 275 ml 350 ml 175 ml Output Total 350 ml 450 ml 380 ml Balance -75 ml -100 ml -205 ml Exam Review of Systems: CONSTITUTIONAL: No fevers, chills. PULMONARY: No sob CARDIOVASCULAR: No chest pain/palpitations GASTROINTESTINAL: No nausea/vomiting. GENITOURINARY: No hematuria/dysuria. MUSCULOSKELETAL: No myagias/arthalgias. PSYCHIATRIC: The patient denies depression. NEUROLOGIC: No weakness Constitutional: alert Psych: no complaints Head: normocephalic ENMT: mucosa pink and moist Neck: jvd (9 cm water), supple Respiratory: diminished breath sounds (at bases/B) Cardiovascular: regular rate and rhythm Gastrointestinal: non-tender, soft Musculoskeletal: muscle tone (normaql) Extremities: edema (none) Neurological: other (No focal deficits) Results Result Diagram: 04/18/17 1430 04/19/17 0530 Results 24 hrs Laboratory Tests Test 04/18/17 12:20 04/18/17 12:30 04/18/17 14:30 04/18/17 17:50 Bedside Glucose 183 104 Creatine Kinase 270 H Creatine Kinase Index 3.9 Creatinine Kinase MB (Mass) 10.40 H Troponin I 3.560 *H White Blood Count 8.4 # Red Blood Count 3.41 L Hemoglobin 10.1 L Hematocrit 29.9 L Mean Corpuscular Volume 87.7 Mean Corpuscular Hemoglobin 29.6 Mean Corpuscular Hemoglobin Concent 33.8 Red Cell Distribution Width 14.4 Platelet Count 267 Mean Platelet Volume 10.8 H Neutrophils % 65.5 Lymphocytes % 17.8 Monocytes % 13.3 H Eosinophils % 2.7 Basophils % 0.2 Nucleated Red Blood Cells % 0.0 Neutrophils # 5.5 Lymphocytes # 1.5 Monocytes # 1.1 H Eosinophils # 0.2 Basophils # 0.0 Nucleated Red Blood Cells # 0.0 Test 04/18/17 20:51 04/19/17 05:30 04/19/17 08:24 Bedside Glucose 97 92 Sodium Level 130 L Potassium Level 3.8 Chloride Level 103 Carbon Dioxide Level 23 Anion Gap 8 Blood Urea Nitrogen 25 H Creatinine 1.22 Glucose Level 90 # Calcium Level 8.4 Medications Medications Current Medications Diagnostic Test (Pha) (Accu-Chek) 1 ea 02 XX Last administered on 04/18/17t 02: 11; Admin Dose 1 EA; Start 04/17/17 at 02:00 Morphine Sulfate (morphine) 2 mg Q4H PRN IV PAIN; Start 04/16/17 at 07:00 Ondansetron HCl (Zofran Inj) 4 mg Q6H PRN IV NAUSEA AND/OR VOMITING; Start 04/16 at 07:00 Miscellaneous Information 1 ea NOTE XX ; Start 04/16/17 at 08:00 Glucose (Glutose) 15 gm Q15M PRN PO DECREASED GLUCOSE; Start 04/16/17 at 08:00 Glucose (Glutose) 22.5 gm Q15M PRN PO DECREASED GLUCOSE; Start 04/16/17 at 08:00 Dextrose (D50w Syringe) 25 ml Q15M PRN IV DECREASED GLUCOSE; Start 04/16/17 at 08:00 Dextrose (D50w Syringe) 50 ml Q15M PRN IV DECREASED GLUCOSE; Start 04/16/17 at 08:00 Glucagon (Glucagen) 1 mg Q15M PRN IM DECREASED GLUCOSE; Start 04/16/17 at 08:00 Glucose (Glutose) 15 gm Q15M PRN BUCCAL DECREASED GLUCOSE; Start 04/16/17 at 08: 00 Clopidogrel Bisulfate (plaVIX) 75 mg DAILY PO Last administered on 04/19/17 08 :42; Admin Dose 75 MG; Start 04/16/17 at 11:30 Lisinopril (Zestril) 40 mg BID PO Last administered on 04/19/17 08:42; Admin Dose 40 MG; Start 04/16/17 at 21:00 Pioglitazone HCl (Actos) 15 mg DAILY PO Last administered on 04/19/17 08:42; Admin Dose 15 MG; Start 04/16/17 at 12:00 Atorvastatin Calcium (Lipitor) 20 mg DAILY@21 PO Last administered on 20:51; Admin Dose 20 MG; Start 04/16/17 at 21:00 Guaifenesin (Robitussin Liquid Cup) 100 mg Q6 PRN PO COUGH Last administered on 04/17/17 13:02; Admin Dose 100 MG; Start 04/17/17 at 01:30 Acetaminophen 650 mg 650 mg Q6H PRN PO PAIN AND OR ELEVATED TEMP Last administered on 04/17/17 20:48; Admin Dose 650 MG; Start 04/17/17 at 03:30 Vancomycin HCl/ Sodium Chloride (Vancocin/NS) 150 ml @ 75 mls/hr Q24H IVPB Last administered on 04/18/17 18:15; Admin Dose 75 MLS/HR; Start 04/18/17 at 18 :00 Docusate Sodium (Colace) 100 mg BID PO Last administered on 04/19/17 08:43; Admin Dose 100 MG; Start 04/17/17 at 21:00 Polyethylene Glycol (Miralax) 17 gm DAILY PRN PO CONSTIPATION; Start 04/17/17 at 18:30 Metoprolol Tartrate (Lopressor) 5 mg Q4H PRN IV hr>110 hOLD sbp<100; Start 07/25 at 20:30 Hydralazine HCl (Apresoline) 10 mg Q4H PRN IV sbp>170; Start 04/17/17 at 20:30 Aspirin 81 mg 81 mg DAILY PO Last administered on 04/19/17 08:42; Admin Dose 81 MG; Start 04/18/17 at 09:00 Levofloxacin/ Dextrose (Levaquin 250 Mg/ D5W 50 ml (Pmx)) 50 ml @ 100 mls/hr Q24H IVPB Last administered on 04/19/17 10:18; Admin Dose 100 MLS/HR; Start at 10:30 Insulin Glargine (Lantus) 15 unit DAILY@08 SC Last administered on 04/19/17 08 :29; Admin Dose 15 UNIT; Start 04/19/17 at 08:00 Furosemide (Lasix) 40 mg DAILY@06 IV Last administered on 04/19/17 06:26; Admin Dose 40 MG; Start 04/19/17 at 06:00 LESLIE LEONG Apr 19, 2017 11:14
--- NOTE | 2017-04-19 11:41 | CONS ---
Date/Time of Note Date/Time of Note DATE: 04/19/17 TIME: 11:40 Assessment/Plan Assessment/Plan Chief Complaint/Hosp Course No acute events overnight, alert, looks comfortable, denies nausea vomiting diarrhea no pain Temperature 97.5 pulse 70 respirations 20 blood pressure 125/50 saturation 95 on room air Microbiology: Blood culture grew staph species urine culture growing E. coli resistant only to ampicillin Chest x-ray from 04/17/17 revealed bilateral patchy pneumonias right greater than left Antibiotics: Vancomycin and Levaquin Allergies: Penicillins Physical examination: Well-developed well-nourished elderly man who is awake in no distress. Head atraumatic normocephalic, sclera nonicteric. Neck is supple trachea midline. Chest rise symmetrical, breath sounds diminished basis. Heart S1-S2. Abdomen soft bowel tones present. Extremities without cyanosis. Assessment: 1. Sepsis, resolving 2. E. coli UTI 3. Pneumonia 4. Acute [place] 5. History of CVA with left-sided weakness 6. Coronary artery disease, status post PTCI 7. Staph bacteremia, likely contaminant Plan: Hemodynamically stable, continue antibiotics, anti-aspiration precautions , follow cardiology recommendations, repeat repeat blood cultures. DW staff Problems: Consultation Date/Type/Reason Admit Date/Time Apr 16, 2017 at 04:16 Type of Consultation: ID Referring Provider: QUIANA MURCIA MD Exam/Review of Systems Vital Signs Vitals Vital Signs Date Time Temp Pulse Resp B/P Pulse Ox O2 Delivery O2 Flow Rate FiO2 04/19/17 11:00 83 18 108/84 92 04/19/17 08:00 97.5 Room Air 04/18/17 20:52 21 04/18/17 07:00 3.0 Intake and Output 04/18/17 04/18/17 04/19/17 15:00 23:00 07:00 Intake Total 275 ml 350 ml 175 ml Output Total 350 ml 450 ml 380 ml Balance -75 ml -100 ml -205 ml Results Result Diagram: 04/18/17 1430 04/19/17 0530 Results 24 hrs Laboratory Tests Test 04/18/17 12:20 04/18/17 12:30 04/18/17 14:30 04/18/17 17:50 Bedside Glucose 183 104 Creatine Kinase 270 H Creatine Kinase Index 3.9 Creatinine Kinase MB (Mass) 10.40 H Troponin I 3.560 *H White Blood Count 8.4 # Red Blood Count 3.41 L Hemoglobin 10.1 L Hematocrit 29.9 L Mean Corpuscular Volume 87.7 Mean Corpuscular Hemoglobin 29.6 Mean Corpuscular Hemoglobin Concent 33.8 Red Cell Distribution Width 14.4 Platelet Count 267 Mean Platelet Volume 10.8 H Neutrophils % 65.5 Lymphocytes % 17.8 Monocytes % 13.3 H Eosinophils % 2.7 Basophils % 0.2 Nucleated Red Blood Cells % 0.0 Neutrophils # 5.5 Lymphocytes # 1.5 Monocytes # 1.1 H Eosinophils # 0.2 Basophils # 0.0 Nucleated Red Blood Cells # 0.0 Test 04/18/17 20:51 04/19/17 05:30 04/19/17 08:24 Bedside Glucose 97 92 Sodium Level 130 L Potassium Level 3.8 Chloride Level 103 Carbon Dioxide Level 23 Anion Gap 8 Blood Urea Nitrogen 25 H Creatinine 1.22 Glucose Level 90 # Calcium Level 8.4 Medications Medications Current Medications Diagnostic Test (Pha) (Accu-Chek) 1 ea 02 XX Last administered on 04/18/17t 02: 11; Admin Dose 1 EA; Start 04/17/17 at 02:00 Morphine Sulfate (morphine) 2 mg Q4H PRN IV PAIN; Start 04/16/17 at 07:00 Ondansetron HCl (Zofran Inj) 4 mg Q6H PRN IV NAUSEA AND/OR VOMITING; Start 04/16 at 07:00 Miscellaneous Information 1 ea NOTE XX ; Start 04/16/17 at 08:00 Glucose (Glutose) 15 gm Q15M PRN PO DECREASED GLUCOSE; Start 04/16/17 at 08:00 Glucose (Glutose) 22.5 gm Q15M PRN PO DECREASED GLUCOSE; Start 04/16/17 at 08:00 Dextrose (D50w Syringe) 25 ml Q15M PRN IV DECREASED GLUCOSE; Start 04/16/17 at 08:00 Dextrose (D50w Syringe) 50 ml Q15M PRN IV DECREASED GLUCOSE; Start 04/16/17 at 08:00 Glucagon (Glucagen) 1 mg Q15M PRN IM DECREASED GLUCOSE; Start 04/16/17 at 08:00 Glucose (Glutose) 15 gm Q15M PRN BUCCAL DECREASED GLUCOSE; Start 04/16/17 at 08: 00 Clopidogrel Bisulfate (plaVIX) 75 mg DAILY PO Last administered on 04/19/17 08 :42; Admin Dose 75 MG; Start 04/16/17 at 11:30 Lisinopril (Zestril) 40 mg BID PO Last administered on 04/19/17 08:42; Admin Dose 40 MG; Start 04/16/17 at 21:00 Pioglitazone HCl (Actos) 15 mg DAILY PO Last administered on 04/19/17 08:42; Admin Dose 15 MG; Start 04/16/17 at 12:00 Atorvastatin Calcium (Lipitor) 20 mg DAILY@21 PO Last administered on 20:51; Admin Dose 20 MG; Start 04/16/17 at 21:00 Guaifenesin (Robitussin Liquid Cup) 100 mg Q6 PRN PO COUGH Last administered on 04/17/17 13:02; Admin Dose 100 MG; Start 04/17/17 at 01:30 Acetaminophen 650 mg 650 mg Q6H PRN PO PAIN AND OR ELEVATED TEMP Last administered on 04/17/17 20:48; Admin Dose 650 MG; Start 04/17/17 at 03:30 Vancomycin HCl/ Sodium Chloride (Vancocin/NS) 150 ml @ 75 mls/hr Q24H IVPB Last administered on 04/18/17 18:15; Admin Dose 75 MLS/HR; Start 04/18/17 at 18 :00 Docusate Sodium (Colace) 100 mg BID PO Last administered on 04/19/17 08:43; Admin Dose 100 MG; Start 04/17/17 at 21:00 Polyethylene Glycol (Miralax) 17 gm DAILY PRN PO CONSTIPATION; Start 04/17/17 at 18:30 Metoprolol Tartrate (Lopressor) 5 mg Q4H PRN IV hr>110 hOLD sbp<100; Start 07/25 at 20:30 Hydralazine HCl (Apresoline) 10 mg Q4H PRN IV sbp>170; Start 04/17/17 at 20:30 Aspirin 81 mg 81 mg DAILY PO Last administered on 04/19/17 08:42; Admin Dose 81 MG; Start 04/18/17 at 09:00 Levofloxacin/ Dextrose (Levaquin 250 Mg/ D5W 50 ml (Pmx)) 50 ml @ 100 mls/hr Q24H IVPB Last administered on 04/19/17 10:18; Admin Dose 100 MLS/HR; Start at 10:30 Insulin Glargine (Lantus) 15 unit DAILY@08 SC Last administered on 04/19/17 08 :29; Admin Dose 15 UNIT; Start 04/19/17 at 08:00 Furosemide (Lasix) 40 mg DAILY@06 IV Last administered on 04/19/17 06:26; Admin Dose 40 MG; Start 04/19/17 at 06:00 Carvedilol (Coreg) 3.125 mg BID PO ; Start 04/19/17 at 12:00 WILLIAM OWENS NP Apr 19, 2017 11:41
[2017-04-19] MEDS: POLYETHYLENE GLYCOL 17 GM PACKET PO PRN (12:16)
--- NOTE | 2017-04-19 14:35 | PN ---
Date/Time of Note Date/Time of Note DATE: 04/19/17 TIME: 14:31 Assessment/Plan VTE Prophylaxis VTE Prophylaxis Intervention: SCD's Lines/Catheters IV [facility]ter Type (from [facility]): Peripheral IV Urinary Cath still in place: Yes Reason Cath still needed: urinary retention Assessment/Plan Chief Complaint/Hosp Course Patient denies any chest pain, denies shortness of breath, continue to monitor on telemetry floor. Assessment/Plan -NSTEMI, continue aspirin and Plavix. Dr. Monae is following in cardiology consultation. Plan is for cardiac cath upon or availability. -Coronary artery disease status post PTCI, continue Plavix. -UTI, continue current antibiotics follow-up on urine culture, Dr. Hodge is following infection disease consultation. -Hypertension, patient is currently normotensive -CVA with left-sided residual weakness -COPD, continue breathing treatments -Chronic kidney disease, avoid nephrotoxic medication. -Diabetes mellitus type 2, hemoglobin A1c is 8.6, continue Lantus and NovoLog. Further recommendations based on clinical course. Plan of care discussed with Dr. Paz. Problems: Exam/Review of Systems Vital Signs Vitals Vital Signs Date Time Temp Pulse Resp B/P Pulse Ox O2 Delivery O2 Flow Rate FiO2 04/19/17 14:00 76 14 119/45 100 04/19/17 12:00 98.5 Room Air 04/18/17 20:52 21 04/18/17 07:00 3.0 Intake and Output 04/18/17 04/18/17 04/19/17 15:00 23:00 07:00 Intake Total 275 ml 350 ml 175 ml Output Total 350 ml 450 ml 680 ml Balance -75 ml -100 ml -505 ml Exam Constitutional: alert, oriented Head: normocephalic Neck: supple Respiratory: diminished breath sounds Cardiovascular: nl pulses Gastrointestinal: non-tender, soft Genitourinary - Male: other ([place] catheter) Musculoskeletal: muscle weakness Extremities: normal pulses Skin: nl turgor Results Result Diagram: 04/18/17 1430 04/19/17 0530 Results 24 hrs Laboratory Tests Test 04/18/17 17:50 04/18/17 20:51 04/19/17 05:30 04/19/17 08:24 Bedside Glucose 104 97 92 Sodium Level 130 L Potassium Level 3.8 Chloride Level 103 Carbon Dioxide Level 23 Anion Gap 8 Blood Urea Nitrogen 25 H Creatinine 1.22 Glucose Level 90 # Calcium Level 8.4 Test 04/19/17 12:00 Bedside Glucose 136 Medications Medications Current Medications Diagnostic Test (Pha) (Accu-Chek) 1 ea 02 XX Last administered on 04/18/17 02: 11; Admin Dose 1 EA; Start 04/17/17 at 02:00 Morphine Sulfate (morphine) 2 mg Q4H PRN IV PAIN; Start 04/16/17 at 07:00 Ondansetron HCl (Zofran Inj) 4 mg Q6H PRN IV NAUSEA AND/OR VOMITING; Start 04/16 at 07:00 Miscellaneous Information 1 ea NOTE XX ; Start 04/16/17 at 08:00 Glucose (Glutose) 15 gm Q15M PRN PO DECREASED GLUCOSE; Start 04/16/17 at 08:00 Glucose (Glutose) 22.5 gm Q15M PRN PO DECREASED GLUCOSE; Start 04/16/17 at 08:00 Dextrose (D50w Syringe) 25 ml Q15M PRN IV DECREASED GLUCOSE; Start 04/16/17 at 08:00 Dextrose (D50w Syringe) 50 ml Q15M PRN IV DECREASED GLUCOSE; Start 04/16/17 at 08:00 Glucagon (Glucagen) 1 mg Q15M PRN IM DECREASED GLUCOSE; Start 04/16/17 at 08:00 Glucose (Glutose) 15 gm Q15M PRN BUCCAL DECREASED GLUCOSE; Start 04/16/17 at 08: 00 Clopidogrel Bisulfate (plaVIX) 75 mg DAILY PO Last administered on 04/19/17 08 :42; Admin Dose 75 MG; Start 04/16/17 at 11:30 Lisinopril (Zestril) 40 mg BID PO Last administered on 04/19/17 08:42; Admin Dose 40 MG; Start 04/16/17 at 21:00 Pioglitazone HCl (Actos) 15 mg DAILY PO Last administered on 04/19/17 08:42; Admin Dose 15 MG; Start 04/16/17 at 12:00 Atorvastatin Calcium (Lipitor) 20 mg DAILY@21 PO Last administered on 20:51; Admin Dose 20 MG; Start 04/16/17 at 21:00 Guaifenesin (Robitussin Liquid Cup) 100 mg Q6 PRN PO COUGH Last administered on 04/17/17 13:02; Admin Dose 100 MG; Start 04/17/17 at 01:30 Acetaminophen 650 mg 650 mg Q6H PRN PO PAIN AND OR ELEVATED TEMP Last administered on 04/17/17 20:48; Admin Dose 650 MG; Start 04/17/17 at 03:30 Vancomycin HCl/ Sodium Chloride (Vancocin/NS) 150 ml @ 75 mls/hr Q24H IVPB Last administered on 04/18/17 18:15; Admin Dose 75 MLS/HR; Start 04/18/17 at 18 :00 Docusate Sodium (Colace) 100 mg BID PO Last administered on 04/19/17 08:43; Admin Dose 100 MG; Start 04/17/17 at 21:00 Polyethylene Glycol (Miralax) 17 gm DAILY PRN PO CONSTIPATION Last administered on 04/19/17 12:16; Admin Dose 17 GM; Start 04/17/17 at 18:30 Metoprolol Tartrate (Lopressor) 5 mg Q4H PRN IV hr>110 hOLD sbp<100; Start 07/25 at 20:30 Hydralazine HCl (Apresoline) 10 mg Q4H PRN IV sbp>170; Start 04/17/17 at 20:30 Aspirin 81 mg 81 mg DAILY PO Last administered on 04/19/17 08:42; Admin Dose 81 MG; Start 04/18/17 at 09:00 Levofloxacin/ Dextrose (Levaquin 250 Mg/ D5W 50 ml (Pmx)) 50 ml @ 100 mls/hr Q24H IVPB Last administered on 04/19/17 10:18; Admin Dose 100 MLS/HR; Start at 10:30 Insulin Glargine (Lantus) 15 unit DAILY@08 SC Last administered on 04/19/17 08 :29; Admin Dose 15 UNIT; Start 04/19/17 at 08:00 Furosemide (Lasix) 40 mg DAILY@06 IV Last administered on 04/19/17 06:26; Admin Dose 40 MG; Start 04/19/17 at 06:00 Carvedilol (Coreg) 3.125 mg BID PO ; Start 04/19/17 at 12:00 CALVIN CIFUENTES Apr 19, 2017 14:35
[2017-04-19] MEDS: VANCOMYCIN 750 MG in SOD CHLORIDE 0.9% 150 ML IVPB SCH (17:53)
[2017-04-19] MEDS: ATORVASTATIN 20 MG TAB PO SCH (20:24)
[2017-04-20] VITALS (11 sets, daily range): BP systolic 118–150; BP diastolic 59–79; PULSE 59–80; RESP 19
[2017-04-20] MEDS: ACCU-CHEK XX SCH (02:00)
[2017-04-20] MEDS: FUROSEMIDE 40 MG INJ IV SCH (05:40)
[2017-04-20] MEDS: metFORMIN 500 MG TAB PO SCH ×2 (07:48→17:40)
[2017-04-20] MEDS: INSULIN ASPART [NOVOLOG] 3 ML PEN SC SCH ×7 (07:52→20:31)
[2017-04-20] MEDS: DIAZEPAM 5 MG TAB PO SCH (08:00)
[2017-04-20 08:38] LABS: ADD SCAN DIFF NO
[2017-04-20 08:44] LABS: BASOPHILS % 0.4 % (0.0-2.0); EOSINOPHILS # 0.3 10^3/ul (0.0-0.5); EOSINOPHILS % 4.7 % (0.0-7.0); HEMATOCRIT 33.1 % (42.0-52.0); HEMOGLOBIN 10.6 g/dl (14.0-18.0); LYMPHOCYTES % 28.8 % (15.0-51.0); MEAN CORPUSCULAR HEMOGLOBIN 28.4 pg (29.0-33.0); MEAN CORPUSCULAR VOLUME 88.7 fl (82.0-101.0); MEAN PLATELET VOLUME 10.6 fl (7.4-10.4); MONOCYTE # 0.9 10^3/ul (0.3-0.9); MONOCYTES % 12.5 % (0.0-11.0); NEUTROPHIL # 3.7 10^3/ul (1.6-7.5); NEUTROPHILS % 52.7 % (39.0-77.0); PLATELET COUNT 380 10^3/UL (140-415); RED BLOOD COUNT 3.73 10^6/ul (4.70-6.10); RED CELL DISTRIBUTION WIDTH 14.5 % (11.5-14.5)
[2017-04-20 09:18] LABS: CALCIUM 8.9 mg/dl (8.4-10.2); CREATININE 1.21 mg/dl (0.61-1.24); POTASSIUM 4.4 mmol/L (3.5-5.1)
[2017-04-20 09:27] LABS: TROPONIN-I 1.1 ng/ml (0.00-0.12)
[2017-04-20 09:28] LABS: CK-MB 1.8 ng/ml (0.0-2.4)
[2017-04-20] MEDS: INSULIN GLARGINE [LANtus] 3 ML PEN SC SCH (09:55)
[2017-04-20] MEDS: CLOPIDOGREL 75 MG TAB PO SCH (10:35)
[2017-04-20] MEDS: DOCUSATE SODIUM 100 MG CAP PO SCH ×2 (10:35→20:38)
[2017-04-20] MEDS: ASPIRIN 81 MG TAB PO SCH (10:35)
[2017-04-20] MEDS: LISINOPRIL 20 MG TAB PO SCH ×2 (10:35→20:38)
--- NOTE | 2017-04-20 12:37 | CONS ---
Date/Time of Note Date/Time of Note DATE: 04/20/17 TIME: 12:36 Assessment/Plan Assessment/Plan Chief Complaint/Hosp Course No acute events overnight, alert, looks comfortable, denies nausea vomiting diarrhea no pain Microbiology: Blood culture grew staph species urine culture growing E. coli resistant only to ampicillin Chest x-ray from 04/17/17 revealed bilateral patchy pneumonias right greater than left Antibiotics: Vancomycin and Levaquin Allergies: Penicillins Physical examination: Well-developed well-nourished elderly man who is awake in no distress. Head atraumatic normocephalic, sclera nonicteric. Neck is supple trachea midline. Chest rise symmetrical, breath sounds diminished basis. Heart S1-S2. Abdomen soft bowel tones present. Extremities without cyanosis. Assessment: 1. Sepsis, resolving 2. E. coli UTI 3. Pneumonia 4. Acute [place] 5. History of CVA with left-sided weakness 6. Coronary artery disease, status post PTCI 7. Staph bacteremia, likely contaminant Plan: Hemodynamically stable, repeat blood cultures negative, DC Vanco, continue Levaquin, continue anti-aspiration precautions, follow cardiology recommendations [facility] staff Problems: Consultation Date/Type/Reason Admit Date/Time Apr 16, 2017 at 04:16 Type of Consultation: ID Referring Provider: QUIANA MURCIA MD Exam/Review of Systems Vital Signs Vitals Vital Signs Date Time Temp Pulse Resp B/P Pulse Ox O2 Delivery O2 Flow Rate FiO2 04/20/17 12:11 80 04/20/17 07:17 98.4 19 129/75 98 04/19/17 17:45 21 04/19/17 16:52 Room Air 04/18/17 07:00 3.0 Intake and Output 04/19/17 04/19/17 04/20/17 15:00 23:00 07:00 Intake Total 700 ml 810 ml 120 ml Output Total 1450 ml 200 ml 800 ml Balance -750 ml 610 ml -680 ml Results Result Diagram: 04/20/17 0740 04/20/17 0740 Results 24 hrs Laboratory Tests Test 04/19/17 17:07 04/19/17 20:10 04/20/17 07:40 04/20/17 07:46 Bedside Glucose 137 83 110 White Blood Count 7.0 Red Blood Count 3.73 L Hemoglobin 10.6 L Hematocrit 33.1 L Mean Corpuscular Volume 88.7 Mean Corpuscular Hemoglobin 28.4 L Mean Corpuscular Hemoglobin Concent 32.0 Red Cell Distribution Width 14.5 Platelet Count 380 # Mean Platelet Volume 10.6 H Neutrophils % 52.7 Lymphocytes % 28.8 Monocytes % 12.5 H Eosinophils % 4.7 Basophils % 0.4 Nucleated Red Blood Cells % 0.0 Neutrophils # 3.7 Lymphocytes # 2.0 Monocytes # 0.9 Eosinophils # 0.3 Basophils # 0.0 Nucleated Red Blood Cells # 0.0 Sodium Level 131 L Potassium Level 4.4 Chloride Level 102 Carbon Dioxide Level 25 Anion Gap 8 Blood Urea Nitrogen 26 H Creatinine 1.21 Glucose Level 106 Calcium Level 8.9 Creatine Kinase 72 # Creatine Kinase Index 2.5 Creatinine Kinase MB (Mass) 1.80 Troponin I 1.100 *H Test 04/20/17 09:43 Bedside Glucose 140 Medications Medications Current Medications Diagnostic Test (Pha) (Accu-Chek) 1 ea 02 XX Last administered on 04/18/17 02: 11; Admin Dose 1 EA; Start 04/17/17 at 02:00 Morphine Sulfate (morphine) 2 mg Q4H PRN IV PAIN; Start 04/16/17 at 07:00 Ondansetron HCl (Zofran Inj) 4 mg Q6H PRN IV NAUSEA AND/OR VOMITING; Start 04/16 at 07:00 Miscellaneous Information 1 ea NOTE XX ; Start 04/16/17 at 08:00 Glucose (Glutose) 15 gm Q15M PRN PO DECREASED GLUCOSE; Start 04/16/17 at 08:00 Glucose (Glutose) 22.5 gm Q15M PRN PO DECREASED GLUCOSE; Start 04/16/17 at 08:00 Dextrose (D50w Syringe) 25 ml Q15M PRN IV DECREASED GLUCOSE; Start 04/16/17 at 08:00 Dextrose (D50w Syringe) 50 ml Q15M PRN IV DECREASED GLUCOSE; Start 04/16/17 at 08:00 Glucagon (Glucagen) 1 mg Q15M PRN IM DECREASED GLUCOSE; Start 04/16/17 at 08:00 Glucose (Glutose) 15 gm Q15M PRN BUCCAL DECREASED GLUCOSE; Start 04/16/17 at 08: 00 Clopidogrel Bisulfate (plaVIX) 75 mg DAILY PO Last administered on 04/20/17 10 :35; Admin Dose 75 MG; Start 04/16/17 at 11:30 Lisinopril (Zestril) 40 mg BID PO Last administered on 04/20/17 10:35; Admin Dose 40 MG; Start 04/16/17 at 21:00 Pioglitazone HCl (Actos) 15 mg DAILY PO Last administered on 04/19/17 08:42; Admin Dose 15 MG; Start 04/16/17 at 12:00 Atorvastatin Calcium (Lipitor) 20 mg DAILY@21 PO Last administered on 20:24; Admin Dose 20 MG; Start 04/16/17 at 21:00 Guaifenesin (Robitussin Liquid Cup) 100 mg Q6 PRN PO COUGH Last administered on 04/17/17 13:02; Admin Dose 100 MG; Start 04/17/17 at 01:30 Acetaminophen 650 mg 650 mg Q6H PRN PO PAIN AND OR ELEVATED TEMP Last administered on 04/17/17 20:48; Admin Dose 650 MG; Start 04/17/17 at 03:30 Vancomycin HCl/ Sodium Chloride (Vancocin/NS) 150 ml @ 75 mls/hr Q24H IVPB Last administered on 04/19/17 17:53; Admin Dose 75 MLS/HR; Start 04/18/17 at 18 :00 Docusate Sodium (Colace) 100 mg BID PO Last administered on 04/20/17 10:35; Admin Dose 100 MG; Start 04/17/17 at 21:00 Polyethylene Glycol (Miralax) 17 gm DAILY PRN PO CONSTIPATION Last administered on 04/19/17 12:16; Admin Dose 17 GM; Start 04/17/17 at 18:30 Metoprolol Tartrate (Lopressor) 5 mg Q4H PRN IV hr>110 hOLD sbp<100; Start 07/25 at 20:30 Hydralazine HCl (Apresoline) 10 mg Q4H PRN IV sbp>170; Start 04/17/17 at 20:30 Aspirin 81 mg 81 mg DAILY PO Last administered on 04/20/17 10:35; Admin Dose 81 MG; Start 04/18/17 at 09:00 Levofloxacin/ Dextrose (Levaquin 250 Mg/ D5W 50 ml (Pmx)) 50 ml @ 100 mls/hr Q24H IVPB Last administered on 04/19/17 10:18; Admin Dose 100 MLS/HR; Start at 10:30 Insulin Glargine (Lantus) 15 unit DAILY@08 SC Last administered on 04/20/17 09 :55; Admin Dose 15 UNIT; Start 04/19/17 at 08:00 Furosemide (Lasix) 40 mg DAILY@06 IV Last administered on 04/20/17 05:40; Admin Dose 40 MG; Start 04/19/17 at 06:00 Carvedilol (Coreg) 3.125 mg BID PO Last administered on 04/20/17 10:35; Admin Dose 3.125 MG; Start 04/19/17 at 12:00 Miscellaneous Information (*Rx Drug Level Order Reminder*) VANCO TR LEVEL PRIOR... ONCE ONCE XX ; Start 04/20/17 at 17:00; Stop 04/20/17 at 17:01 WILLIAM OWENS NP Apr 20, 2017 12:37
[2017-04-20] MEDS: LEVOFLOXACIN 250MG/D5W (PMX) 50 ML IVPB SCH (12:51)
[2017-04-20] MEDS: PIOGLITAZONE 15 MG TAB PO SCH (12:51)
--- NOTE | 2017-04-20 13:46 | CONS ---
Date/Time of Note Date/Time of Note DATE: 04/20/17 TIME: 13:42 Assessment/Plan Assessment/Plan Chief Complaint/Hosp Course IMp: 1.CHF 2.Nstemi-now downtrending 3.HTN 4.UTI 5. H/O prior stent 6.renal failure 7. Hyponatremia 8. Cardiomyopathy-LVEF 25% by echo 04/18 Recc: -Tele -serial ecg's -Continue asa/plavix/statin -Continue ACEI -start BB -Continue lasix -Continue abx's and f/u cx data -[facility] scheduled for tomorrow -trend cardiac enzymes Problems: Consultation Date/Type/Reason Admit Date/Time Apr 16, 2017 at 04:16 Initial Consult Date 04/17/17 Type of Consultation: cardiology Reason for Consultation CHF/Nstemi Referring Provider: QUIANA MURCIA MD Exam/Review of Systems Vital Signs Vitals Vital Signs Date Time Temp Pulse Resp B/P Pulse Ox O2 Delivery O2 Flow Rate FiO2 04/20/17 12:38 98.4 80 19 131/67 98 04/19/17 17:45 21 04/19/17 16:52 Room Air 04/18/17 07:00 3.0 Intake and Output 04/19/17 04/19/17 04/20/17 15:00 23:00 07:00 Intake Total 700 ml 810 ml 120 ml Output Total 1450 ml 200 ml 800 ml Balance -750 ml 610 ml -680 ml Exam Review of Systems: CONSTITUTIONAL: No fevers, chills. PULMONARY: No sob CARDIOVASCULAR: No chest pain/palpitations GASTROINTESTINAL: No nausea/vomiting. GENITOURINARY: No hematuria/dysuria. MUSCULOSKELETAL: No myagias/arthalgias. PSYCHIATRIC: The patient denies depression. NEUROLOGIC: No weakness Constitutional: alert, oriented Psych: no complaints Head: normocephalic ENMT: mucosa pink and moist Neck: jvd (9 cm water), supple Respiratory: diminished breath sounds Cardiovascular: regular rate and rhythm Gastrointestinal: non-tender, soft Musculoskeletal: muscle tone (normal) Extremities: edema (none) Neurological: other (No focal deficits) Results Result Diagram: 04/20/17 0740 04/20/17 0740 Results 24 hrs Laboratory Tests Test 04/19/17 17:07 04/19/17 20:10 04/20/17 07:40 04/20/17 07:46 Bedside Glucose 137 83 110 White Blood Count 7.0 Red Blood Count 3.73 L Hemoglobin 10.6 L Hematocrit 33.1 L Mean Corpuscular Volume 88.7 Mean Corpuscular Hemoglobin 28.4 L Mean Corpuscular Hemoglobin Concent 32.0 Red Cell Distribution Width 14.5 Platelet Count 380 # Mean Platelet Volume 10.6 H Neutrophils % 52.7 Lymphocytes % 28.8 Monocytes % 12.5 H Eosinophils % 4.7 Basophils % 0.4 Nucleated Red Blood Cells % 0.0 Neutrophils # 3.7 Lymphocytes # 2.0 Monocytes # 0.9 Eosinophils # 0.3 Basophils # 0.0 Nucleated Red Blood Cells # 0.0 Sodium Level 131 L Potassium Level 4.4 Chloride Level 102 Carbon Dioxide Level 25 Anion Gap 8 Blood Urea Nitrogen 26 H Creatinine 1.21 Glucose Level 106 Calcium Level 8.9 Creatine Kinase 72 # Creatine Kinase Index 2.5 Creatinine Kinase MB (Mass) 1.80 Troponin I 1.100 *H Test 04/20/17 09:43 04/20/17 12:49 Bedside Glucose 140 118 Medications Medications Current Medications Diagnostic Test (Pha) (Accu-Chek) 1 ea 02 XX Last administered on 04/18/17t 02: 11; Admin Dose 1 EA; Start 04/17/17 at 02:00 Morphine Sulfate (morphine) 2 mg Q4H PRN IV PAIN; Start 04/16/17 at 07:00 Ondansetron HCl (Zofran Inj) 4 mg Q6H PRN IV NAUSEA AND/OR VOMITING; Start 04/16 at 07:00 Miscellaneous Information 1 ea NOTE XX ; Start 04/16/17 at 08:00 Glucose (Glutose) 15 gm Q15M PRN PO DECREASED GLUCOSE; Start 04/16/17 at 08:00 Glucose (Glutose) 22.5 gm Q15M PRN PO DECREASED GLUCOSE; Start 04/16/17 at 08:00 Dextrose (D50w Syringe) 25 ml Q15M PRN IV DECREASED GLUCOSE; Start 04/16/17 at 08:00 Dextrose (D50w Syringe) 50 ml Q15M PRN IV DECREASED GLUCOSE; Start 04/16/17 at 08:00 Glucagon (Glucagen) 1 mg Q15M PRN IM DECREASED GLUCOSE; Start 04/16/17 at 08:00 Glucose (Glutose) 15 gm Q15M PRN BUCCAL DECREASED GLUCOSE; Start 04/16/17 at 08: 00 Clopidogrel Bisulfate (plaVIX) 75 mg DAILY PO Last administered on 04/20/17 10 :35; Admin Dose 75 MG; Start 04/16/17 at 11:30 Lisinopril (Zestril) 40 mg BID PO Last administered on 04/20/17 10:35; Admin Dose 40 MG; Start 04/16/17 at 21:00 Pioglitazone HCl (Actos) 15 mg DAILY PO Last administered on 04/20/17 12:51; Admin Dose 15 MG; Start 04/16/17 at 12:00 Atorvastatin Calcium (Lipitor) 20 mg DAILY@21 PO Last administered on 20:24; Admin Dose 20 MG; Start 04/16/17 at 21:00 Guaifenesin (Robitussin Liquid Cup) 100 mg Q6 PRN PO COUGH Last administered on 04/17/17 13:02; Admin Dose 100 MG; Start 04/17/17 at 01:30 Acetaminophen (Tylenol Tab) 650 mg Q6H PRN PO PAIN AND OR ELEVATED TEMP Last administered on 04/17/17 20:48; Admin Dose 650 MG; Start 04/17/17 at 03:30 Docusate Sodium (Colace) 100 mg BID PO Last administered on 04/20/17 10:35; Admin Dose 100 MG; Start 04/17/17 at 21:00 Polyethylene Glycol (Miralax) 17 gm DAILY PRN PO CONSTIPATION Last administered on 04/19/17 12:16; Admin Dose 17 GM; Start 04/17/17 at 18:30 Metoprolol Tartrate (Lopressor) 5 mg Q4H PRN IV hr>110 hOLD sbp<100; Start 07/25 at 20:30 Hydralazine HCl (Apresoline) 10 mg Q4H PRN IV sbp>170; Start 04/17/17 at 20:30 Aspirin 81 mg 81 mg DAILY PO Last administered on 04/20/17 10:35; Admin Dose 81 MG; Start 04/18/17 at 09:00 Levofloxacin/ Dextrose (Levaquin 250 Mg/ D5W 50 ml (Pmx)) 50 ml @ 100 mls/hr Q24H IVPB Last administered on 04/20/17 12:51; Admin Dose 100 MLS/HR; Start at 10:30 Insulin Glargine (Lantus) 15 unit DAILY@08 SC Last administered on 04/20/17 09 :55; Admin Dose 15 UNIT; Start 04/19/17 at 08:00 Furosemide (Lasix) 40 mg DAILY@06 IV Last administered on 04/20/17 05:40; Admin Dose 40 MG; Start 04/19/17 at 06:00 Carvedilol (Coreg) 3.125 mg BID PO Last administered on 04/20/17 10:35; Admin Dose 3.125 MG; Start 04/19/17 at 12:00 LESLIE LEONG Apr 20, 2017 13:46
--- NOTE | 2017-04-20 15:12 | PN ---
Date/Time of Note Date/Time of Note DATE: 04/20/17 TIME: 15:09 Assessment/Plan Lines/Catheters IV C[facility]ter Type (from [facility]): Peripheral IV Urinary Cath still in place: Yes Assessment/Plan Assessment/Plan -NSTEMI, continue aspirin and Plavix. Dr. Monae is following in cardiology consultation. Plan is for cardiac cath upon or availability. -Coronary artery disease status post PTCI, continue Plavix. -UTI, continue current antibiotics follow-up on urine culture, Dr. Hodge is following infection disease consultation. -Hypertension, patient is currently normotensive -CVA with left-sided residual weakness -COPD, continue breathing treatments -Chronic kidney disease, avoid nephrotoxic medication. -Diabetes mellitus type 2, hemoglobin A1c is 8.6, continue Lantus and NovoLog. Further recommendations based on clinical course. Plan of care discussed with Dr. Paz. Subjective 24 Hr Interval Summary Free Text/Dictation resting, Troponin elevated- cardiology follows denies chest pain, shortness of breath, dw staff- no new issues reported. ENT: no complaints Respiratory: no complaints Cardiovascular: no complaints Gastrointestinal: no complaints Musculoskeletal: no complaints Exam/Review of Systems Vital Signs Vitals Vital Signs Date Time Temp Pulse Resp B/P Pulse Ox O2 Delivery O2 Flow Rate FiO2 04/20/17 12:38 98.4 80 19 131/67 98 04/19/17 17:45 21 04/19/17 16:52 Room Air 04/18/17 07:00 3.0 Intake and Output 04/19/17 04/19/17 04/20/17 15:00 23:00 07:00 Intake Total 700 ml 810 ml 120 ml Output Total 1450 ml 200 ml 800 ml Balance -750 ml 610 ml -680 ml Exam Constitutional: alert, oriented, well developed Respiratory: clear to auscultation, normal air movement Cardiovascular: nl pulses, regular rate and rhythm Gastrointestinal: non-tender, soft Musculoskeletal: nl extremities to inspection Extremities: normal pulses Neurological: nl mental status, nl speech Results Result Diagram: 04/20/17 0740 04/20/17 0740 Results 24 hrs Laboratory Tests Test 04/19/17 17:07 04/19/17 20:10 04/20/17 07:40 04/20/17 07:46 Bedside Glucose 137 83 110 White Blood Count 7.0 Red Blood Count 3.73 L Hemoglobin 10.6 L Hematocrit 33.1 L Mean Corpuscular Volume 88.7 Mean Corpuscular Hemoglobin 28.4 L Mean Corpuscular Hemoglobin Concent 32.0 Red Cell Distribution Width 14.5 Platelet Count 380 # Mean Platelet Volume 10.6 H Neutrophils % 52.7 Lymphocytes % 28.8 Monocytes % 12.5 H Eosinophils % 4.7 Basophils % 0.4 Nucleated Red Blood Cells % 0.0 Neutrophils # 3.7 Lymphocytes # 2.0 Monocytes # 0.9 Eosinophils # 0.3 Basophils # 0.0 Nucleated Red Blood Cells # 0.0 Sodium Level 131 L Potassium Level 4.4 Chloride Level 102 Carbon Dioxide Level 25 Anion Gap 8 Blood Urea Nitrogen 26 H Creatinine 1.21 Glucose Level 106 Calcium Level 8.9 Creatine Kinase 72 # Creatine Kinase Index 2.5 Creatinine Kinase MB (Mass) 1.80 Troponin I 1.100 *H Test 04/20/17 09:43 04/20/17 12:49 Bedside Glucose 140 118 Medications Medications Current Medications Diagnostic Test (Pha) (Accu-Chek) 1 ea 02 XX Last administered on 04/18/17t 02: 11; Admin Dose 1 EA; Start 04/17/17 at 02:00 Morphine Sulfate (morphine) 2 mg Q4H PRN IV PAIN; Start 04/16/17 at 07:00 Ondansetron HCl (Zofran Inj) 4 mg Q6H PRN IV NAUSEA AND/OR VOMITING; Start 04/16 at 07:00 Miscellaneous Information 1 ea NOTE XX ; Start 04/16/17 at 08:00 Glucose (Glutose) 15 gm Q15M PRN PO DECREASED GLUCOSE; Start 04/16/17 at 08:00 Glucose (Glutose) 22.5 gm Q15M PRN PO DECREASED GLUCOSE; Start 04/16/17 at 08:00 Dextrose (D50w Syringe) 25 ml Q15M PRN IV DECREASED GLUCOSE; Start 04/16/17 at 08:00 Dextrose (D50w Syringe) 50 ml Q15M PRN IV DECREASED GLUCOSE; Start 04/16/17 at 08:00 Glucagon (Glucagen) 1 mg Q15M PRN IM DECREASED GLUCOSE; Start 04/16/17 at 08:00 Glucose (Glutose) 15 gm Q15M PRN BUCCAL DECREASED GLUCOSE; Start 04/16/17 at 08: 00 Clopidogrel Bisulfate (plaVIX) 75 mg DAILY PO Last administered on 04/20/17 10 :35; Admin Dose 75 MG; Start 04/16/17 at 11:30 Lisinopril (Zestril) 40 mg BID PO Last administered on 04/20/17 10:35; Admin Dose 40 MG; Start 04/16/17 at 21:00 Pioglitazone HCl (Actos) 15 mg DAILY PO Last administered on 04/20/17 12:51; Admin Dose 15 MG; Start 04/16/17 at 12:00 Atorvastatin Calcium (Lipitor) 20 mg DAILY@21 PO Last administered on 20:24; Admin Dose 20 MG; Start 04/16/17 at 21:00 Guaifenesin (Robitussin Liquid Cup) 100 mg Q6 PRN PO COUGH Last administered on 04/17/17 13:02; Admin Dose 100 MG; Start 04/17/17 at 01:30 Acetaminophen (Tylenol Tab) 650 mg Q6H PRN PO PAIN AND OR ELEVATED TEMP Last administered on 04/17/17 20:48; Admin Dose 650 MG; Start 04/17/17 at 03:30 Docusate Sodium (Colace) 100 mg BID PO Last administered on 04/20/17 10:35; Admin Dose 100 MG; Start 04/17/17 at 21:00 Polyethylene Glycol (Miralax) 17 gm DAILY PRN PO CONSTIPATION Last administered on 04/19/17 12:16; Admin Dose 17 GM; Start 04/17/17 at 18:30 Metoprolol Tartrate (Lopressor) 5 mg Q4H PRN IV hr>110 hOLD sbp<100; Start 07/25 at 20:30 Hydralazine HCl (Apresoline) 10 mg Q4H PRN IV sbp>170; Start 04/17/17 at 20:30 Aspirin 81 mg 81 mg DAILY PO Last administered on 04/20/17 10:35; Admin Dose 81 MG; Start 04/18/17 at 09:00 Levofloxacin/ Dextrose (Levaquin 250 Mg/ D5W 50 ml (Pmx)) 50 ml @ 100 mls/hr Q24H IVPB Last administered on 04/20/17 12:51; Admin Dose 100 MLS/HR; Start at 10:30 Insulin Glargine (Lantus) 15 unit DAILY@08 SC Last administered on 04/20/17 09 :55; Admin Dose 15 UNIT; Start 04/19/17 at 08:00 Furosemide (Lasix) 40 mg DAILY@06 IV Last administered on 04/20/17 05:40; Admin Dose 40 MG; Start 04/19/17 at 06:00 Carvedilol (Coreg) 3.125 mg BID PO Last administered on 04/20/17 10:35; Admin Dose 3.125 MG; Start 04/19/17 at 12:00 Diazepam (Valium) 5 mg OC PO ; Start 04/20/17 at 08:00; Stop 04/21/17 at 20:00 Diphenhydramine HCl (Benadryl) 50 mg OC PO ; Start 04/21/17 at 08:00; Stop 04/21 at 20:00 EUFEMIA WALKER Apr 20, 2017 15:12
[2017-04-20] MEDS: ATORVASTATIN 20 MG TAB PO SCH (20:38)
[2017-04-21] VITALS (31 sets, daily range): BP systolic 95–133; BP diastolic 44–68; PULSE 54–65; RESP 10–21
[2017-04-21] MEDS: ACCU-CHEK XX SCH (02:00)
[2017-04-21] MEDS: FUROSEMIDE 40 MG INJ IV SCH (05:28)
[2017-04-21 07:03] LABS: ADD SCAN DIFF NO
[2017-04-21 07:15] LABS: BASOPHILS % 0.4 % (0.0-2.0); EOSINOPHILS # 0.4 10^3/ul (0.0-0.5); EOSINOPHILS % 4.7 % (0.0-7.0); HEMATOCRIT 30.4 % (42.0-52.0); HEMOGLOBIN 9.9 g/dl (14.0-18.0); LYMPHOCYTES # 2.5 10^3/ul (0.8-2.9); LYMPHOCYTES % 33.3 % (15.0-51.0); MEAN CORPUSCULAR HEMOGLOBIN 29.1 pg (29.0-33.0); MEAN CORPUSCULAR HGB CONC 32.6 g/dl (32.0-37.0); MEAN CORPUSCULAR VOLUME 89.4 fl (82.0-101.0); MEAN PLATELET VOLUME 10.5 fl (7.4-10.4); MONOCYTE # 0.8 10^3/ul (0.3-0.9); MONOCYTES % 11.1 % (0.0-11.0); NEUTROPHIL # 3.7 10^3/ul (1.6-7.5); NEUTROPHILS % 49.4 % (39.0-77.0); PLATELET COUNT 394 10^3/UL (140-415); RED CELL DISTRIBUTION WIDTH 14.5 % (11.5-14.5); WHITE BLOOD COUNT 7.4 10^3/ul (4.8-10.8)
[2017-04-21 07:46] LABS: INR 1.19; PROTIME 15.2 Sec (12.2-14.2); PT RATIO 1.2
[2017-04-21 07:47] LABS: CALCIUM 8.4 mg/dl (8.4-10.2); CREATININE 1.5 mg/dl (0.61-1.24); POTASSIUM 3.9 mmol/L (3.5-5.1)
[2017-04-21] MEDS: INSULIN ASPART [NOVOLOG] 3 ML PEN SC SCH ×7 (07:55→20:37)
[2017-04-21] MEDS: metFORMIN 500 MG TAB PO SCH ×2 (07:55→17:35)
[2017-04-21] MEDS: PIOGLITAZONE 15 MG TAB PO SCH (07:59)
[2017-04-21] MEDS ORDERED: DIPHENHYDRAMINE 50 MG CAP PO SCH (08:00)
[2017-04-21] MEDS: DIAZEPAM 5 MG TAB PO SCH (08:00)
[2017-04-21] MEDS: DOCUSATE SODIUM 100 MG CAP PO SCH ×2 (08:49→20:29)
[2017-04-21] MEDS: CLOPIDOGREL 75 MG TAB PO SCH (09:29)
[2017-04-21] MEDS: ASPIRIN 81 MG TAB PO SCH (09:29)
[2017-04-21] MEDS: LISINOPRIL 20 MG TAB PO SCH ×2 (09:31→20:30)
[2017-04-21] MEDS: INSULIN GLARGINE [LANtus] 3 ML PEN SC SCH (09:34)
[2017-04-21] MEDS: LEVOFLOXACIN 250MG/D5W (PMX) 50 ML IVPB SCH (09:35)
--- NOTE | 2017-04-21 11:35 | RADRPT ---
PROCEDURE: XR Chest 1 View. CLINICAL INDICATION: Shortness of breath. TECHNIQUE: AP view of the chest was obtained. COMPARISON: April 19, 2017 FINDINGS: The heart size is within normal limits. Calcified atherosclerosis is noted in the aorta. Elevation of the right hemidiaphragm is unchanged. Atelectasis is noted at the lung bases. No consolidations are identified. No pneumothorax is seen. Osseous structures are intact. IMPRESSION: Calcified atherosclerosis in the aorta. Elevation of the right hemidiaphragm. Atelectasis at the lung bases. Interval resolution in right lung infiltrates. RPTAT: AA .Chino Desai MD, Date Time Electronically viewed and signed by .Chino Desai MD, MD on 04/21/2017 11:35 .P/
[2017-04-21] MEDS ORDERED: NITROGLYCERIN (IC) 100 MCG/ML INJ ONE (13:13)
[2017-04-21] MEDS ORDERED: LIDOCAINE 1% (MDV) 20 ML INJ ONE (13:13)
[2017-04-21] MEDS ORDERED: HEPARIN 1000 UNITS/ML 10 ML INJ ONE ×2 (13:13→14:42)
[2017-04-21] MEDS ORDERED: VERAPAMIL 5 MG INJ ONE (13:13)
[2017-04-21] MEDS ORDERED: FENTAnyl 50 MCG/ML VIAL ONE (13:13)
[2017-04-21] MEDS ORDERED: MIDAZOLAM 1 MG/ML 2 ML INJ ONE (13:13)
[2017-04-21] MEDS ORDERED: IODIXANOL LOCM 100 ML BTL ONE ×2 (13:13→14:42)
--- NOTE | 2017-04-21 14:00 | RADRPT ---
Vent Rate: 60 bpm RR Interval: 0 msec MN Interval: 154 msec QRS Duration: 78 msec QT Interval: 518 msec QTC Interval: 518 msec P-R-T [place]: 39 - 39 - 136 degrees Normal sinus rhythm ST amp; T wave abnormality, consider anterolateral ischemia Prolonged QT Abnormal ECG Electronically Signed By: Cyril Samano [id number]
--- NOTE | 2017-04-21 14:35 | CONS ---
Date/Time of Note Date/Time of Note DATE: 04/21/17 TIME: 14:33 Assessment/Plan Assessment/Plan Chief Complaint/Hosp Course No acute events overnight, looks comfortable, no fevers Antibiotics: Levaquin Allergies: Penicillins Physical examination: Well-developed well-nourished elderly man who is awake in no distress. Head atraumatic normocephalic, sclera nonicteric. Neck is supple trachea midline. Chest rise symmetrical, breath sounds diminished basis. Heart S1-S2. Abdomen soft bowel tones present. Extremities without cyanosis. Assessment: 1. Sepsis, resolving 2. E. coli UTI 3. Pneumonia 4. Acute [place] 5. History of CVA with left-sided weakness 6. Coronary artery disease, status post PTCI 7. Staph bacteremia, likely contaminant Plan: Hemodynamically stable, repeat blood cultures negative, chest x-ray improving, continue Levaquin, continue anti-aspiration precautions, follow cardiology recommendations [facility] staff Problems: Consultation Date/Type/Reason Admit Date/Time Apr 16, 2017 at 04:16 Type of Consultation: ID Referring Provider: QUIANA MURCIA MD Exam/Review of Systems Vital Signs Vitals Vital Signs Date Time Temp Pulse Resp B/P Pulse Ox O2 Delivery O2 Flow Rate FiO2 04/21/17 11:15 98.4 63 19 120/68 97 04/19/17 17:45 21 04/19/17 16:52 Room Air 04/18/17 07:00 3.0 Intake and Output 04/20/17 04/20/17 04/21/17 15:00 23:00 07:00 Intake Total 570 ml Output Total 2000 ml 500 ml Balance -1430 ml -500 ml Results Result Diagram: 04/21/17 0610 04/21/17 0610 Results 24 hrs Laboratory Tests Test 04/20/17 17:33 04/20/17 20:13 04/21/17 06:10 04/21/17 08:44 Bedside Glucose 88 89 129 White Blood Count 7.4 Red Blood Count 3.40 L Hemoglobin 9.9 L Hematocrit 30.4 L Mean Corpuscular Volume 89.4 Mean Corpuscular Hemoglobin 29.1 Mean Corpuscular Hemoglobin Concent 32.6 Red Cell Distribution Width 14.5 Platelet Count 394 Mean Platelet Volume 10.5 H Neutrophils % 49.4 Lymphocytes % 33.3 Monocytes % 11.1 H Eosinophils % 4.7 Basophils % 0.4 Nucleated Red Blood Cells % 0.0 Neutrophils # 3.7 Lymphocytes # 2.5 Monocytes # 0.8 Eosinophils # 0.4 Basophils # 0.0 Nucleated Red Blood Cells # 0.0 Prothrombin Time 15.2 H Prothrombin Time Ratio 1.2 INR International Normalized Ratio 1.19 Sodium Level 135 Potassium Level 3.9 Chloride Level 101 Carbon Dioxide Level 28 Anion Gap 10 Blood Urea Nitrogen 30 H Creatinine 1.50 H Glucose Level 102 Calcium Level 8.4 Test 04/21/17 09:29 Bedside Glucose 121 Medications Medications Current Medications Diagnostic Test (Pha) (Accu-Chek) 1 ea 02 XX Last administered on 04/18/17 02: 11; Admin Dose 1 EA; Start 04/17/17 at 02:00 Morphine Sulfate (morphine) 2 mg Q4H PRN IV PAIN Last administered on 16:22; Admin Dose 2 MG; Start 04/16/17 at 07:00 Ondansetron HCl (Zofran Inj) 4 mg Q6H PRN IV NAUSEA AND/OR VOMITING; Start 04/16 at 07:00 Miscellaneous Information 1 ea NOTE XX ; Start 04/16/17 at 08:00 Glucose (Glutose) 15 gm Q15M PRN PO DECREASED GLUCOSE; Start 04/16/17 at 08:00 Glucose (Glutose) 22.5 gm Q15M PRN PO DECREASED GLUCOSE; Start 04/16/17 at 08:00 Dextrose (D50w Syringe) 25 ml Q15M PRN IV DECREASED GLUCOSE; Start 04/16/17 at 08:00 Dextrose (D50w Syringe) 50 ml Q15M PRN IV DECREASED GLUCOSE; Start 04/16/17 at 08:00 Glucagon (Glucagen) 1 mg Q15M PRN IM DECREASED GLUCOSE; Start 04/16/17 at 08:00 Glucose (Glutose) 15 gm Q15M PRN BUCCAL DECREASED GLUCOSE; Start 04/16/17 at 08: 00 Clopidogrel Bisulfate (plaVIX) 75 mg DAILY PO Last administered on 04/21/17 09 :29; Admin Dose 75 MG; Start 04/16/17 at 11:30 Lisinopril (Zestril) 40 mg BID PO Last administered on 04/21/17 09:31; Admin Dose 40 MG; Start 04/16/17 at 21:00 Pioglitazone HCl (Actos) 15 mg DAILY PO Last administered on 04/20/17 12:51; Admin Dose 15 MG; Start 04/16/17 at 12:00 Atorvastatin Calcium (Lipitor) 20 mg DAILY@21 PO Last administered on 20:38; Admin Dose 20 MG; Start 04/16/17 at 21:00 Guaifenesin (Robitussin Liquid Cup) 100 mg Q6 PRN PO COUGH Last administered on 04/17/17 13:02; Admin Dose 100 MG; Start 04/17/17 at 01:30 Acetaminophen (Tylenol Tab) 650 mg Q6H PRN PO PAIN AND OR ELEVATED TEMP Last administered on 04/17/17 20:48; Admin Dose 650 MG; Start 04/17/17 at 03:30 Docusate Sodium (Colace) 100 mg BID PO Last administered on 04/20/17 20:38; Admin Dose 100 MG; Start 04/17/17 at 21:00 Polyethylene Glycol (Miralax) 17 gm DAILY PRN PO CONSTIPATION Last administered on 04/19/17 12:16; Admin Dose 17 GM; Start 04/17/17 at 18:30 Metoprolol Tartrate (Lopressor) 5 mg Q4H PRN IV hr>110 hOLD sbp<100; Start 07/25 at 20:30 Hydralazine HCl (Apresoline) 10 mg Q4H PRN IV sbp>170; Start 04/17/17 at 20:30 Aspirin 81 mg 81 mg DAILY PO Last administered on 04/21/17 09:29; Admin Dose 81 MG; Start 04/18/17 at 09:00 Levofloxacin/ Dextrose (Levaquin 250 Mg/ D5W 50 ml (Pmx)) 50 ml @ 100 mls/hr Q24H IVPB Last administered on 04/21/17 09:35; Admin Dose 100 MLS/HR; Start at 10:30 Insulin Glargine (Lantus) 15 unit DAILY@08 SC Last administered on 04/21/17 09 :34; Admin Dose 15 UNIT; Start 04/19/17 at 08:00 Furosemide (Lasix) 40 mg DAILY@06 IV Last administered on 04/20/17 05:40; Admin Dose 40 MG; Start 04/19/17 at 06:00 Carvedilol (Coreg) 3.125 mg BID PO Last administered on 04/21/17t 09:30; Admin Dose 3.125 MG; Start 04/19/17 at 12:00 Diazepam (Valium) 5 mg OC PO ; Start 04/20/17 at 08:00; Stop 04/21/17 at 20:00 Diphenhydramine HCl (Benadryl) 50 mg OC PO ; Start 04/21/17 at 08:00; Stop 04/21 at 20:00 WILLIAM OWENS NP Apr 21, 2017 14:34
[2017-04-21] MEDS ORDERED: IOHEXOL 350MG/ML 50 ML BTL ONE (14:42)
[2017-04-21] MEDS ORDERED: CLOPIDOGREL 300 MG TAB ONE (15:04)
--- NOTE | 2017-04-21 15:06 | CONS ---
Date/Time of Note Date/Time of Note DATE: 04/21/17 TIME: 15:05 Assessment/Plan Assessment/Plan Chief Complaint/Hosp Course IMp: 1.CHF 2.Nstemi-now downtrending 3.HTN 4.UTI 5. H/O prior stent 6.renal failure 7. Hyponatremia 8. Cardiomyopathy-LVEF 25% by echo 04/18 Recc: -Tele -serial ecg's -Continue asa/plavix/statin -Continue ACEI -start BB -Continue lasix -Continue abx's and f/u cx data -[facility] with probable PTCA/stent today Problems: Consultation Date/Type/Reason Admit Date/Time Apr 16, 2017 at 04:16 Initial Consult Date 04/17/17 Type of Consultation: cardiology Reason for Consultation Nstemi/CHF Referring Provider: QUIANA MURICA MD Exam/Review of Systems Vital Signs Vitals Vital Signs Date Time Temp Pulse Resp B/P Pulse Ox O2 Delivery O2 Flow Rate FiO2 04/21/17 11:15 98.4 63 19 120/68 97 04/19/17 17:45 21 04/19/17 16:52 Room Air 04/18/17 07:00 3.0 Intake and Output 04/20/17 04/20/17 04/21/17 15:00 23:00 07:00 Intake Total 570 ml Output Total 2000 ml 500 ml Balance -1430 ml -500 ml Exam Review of Systems: CONSTITUTIONAL: No fevers, chills. PULMONARY: mild sob CARDIOVASCULAR: No chest pain/palpitations GASTROINTESTINAL: No nausea/vomiting. GENITOURINARY: No hematuria/dysuria. MUSCULOSKELETAL: No myagias/arthalgias. PSYCHIATRIC: The patient denies depression. NEUROLOGIC: No weakness Constitutional: alert Psych: no complaints Head: normocephalic ENMT: mucosa pink and moist Neck: jvd (9 cm water), supple Respiratory: diminished breath sounds Cardiovascular: regular rate and rhythm Gastrointestinal: non-tender, soft Musculoskeletal: muscle tone (normal) Extremities: edema (none) Neurological: lethargic Results Result Diagram: 04/21/17 0610 04/21/17 0610 Results 24 hrs Laboratory Tests Test 04/20/17 17:33 04/20/17 20:13 04/21/17 06:10 04/21/17 08:44 Bedside Glucose 88 89 129 White Blood Count 7.4 Red Blood Count 3.40 L Hemoglobin 9.9 L Hematocrit 30.4 L Mean Corpuscular Volume 89.4 Mean Corpuscular Hemoglobin 29.1 Mean Corpuscular Hemoglobin Concent 32.6 Red Cell Distribution Width 14.5 Platelet Count 394 Mean Platelet Volume 10.5 H Neutrophils % 49.4 Lymphocytes % 33.3 Monocytes % 11.1 H Eosinophils % 4.7 Basophils % 0.4 Nucleated Red Blood Cells % 0.0 Neutrophils # 3.7 Lymphocytes # 2.5 Monocytes # 0.8 Eosinophils # 0.4 Basophils # 0.0 Nucleated Red Blood Cells # 0.0 Prothrombin Time 15.2 H Prothrombin Time Ratio 1.2 INR International Normalized Ratio 1.19 Sodium Level 135 Potassium Level 3.9 Chloride Level 101 Carbon Dioxide Level 28 Anion Gap 10 Blood Urea Nitrogen 30 H Creatinine 1.50 H Glucose Level 102 Calcium Level 8.4 Test 04/21/17 09:29 Bedside Glucose 121 Medications Medications Current Medications Diagnostic Test (Pha) (Accu-Chek) 1 ea 02 XX Last administered on 04/18/17 02: 11; Admin Dose 1 EA; Start 04/17/17 at 02:00 Morphine Sulfate (morphine) 2 mg Q4H PRN IV PAIN Last administered on 16:22; Admin Dose 2 MG; Start 04/16/17 at 07:00 Ondansetron HCl (Zofran Inj) 4 mg Q6H PRN IV NAUSEA AND/OR VOMITING; Start 04/16 at 07:00 Miscellaneous Information 1 ea NOTE XX ; Start 04/16/17 at 08:00 Glucose (Glutose) 15 gm Q15M PRN PO DECREASED GLUCOSE; Start 04/16/17 at 08:00 Glucose (Glutose) 22.5 gm Q15M PRN PO DECREASED GLUCOSE; Start 04/16/17 at 08:00 Dextrose (D50w Syringe) 25 ml Q15M PRN IV DECREASED GLUCOSE; Start 04/16/17 at 08:00 Dextrose (D50w Syringe) 50 ml Q15M PRN IV DECREASED GLUCOSE; Start 04/16/17 at 08:00 Glucagon (Glucagen) 1 mg Q15M PRN IM DECREASED GLUCOSE; Start 04/16/17 at 08:00 Glucose (Glutose) 15 gm Q15M PRN BUCCAL DECREASED GLUCOSE; Start 04/16/17 at 08: 00 Clopidogrel Bisulfate (plaVIX) 75 mg DAILY PO Last administered on 04/21/17 09 :29; Admin Dose 75 MG; Start 04/16/17 at 11:30 Lisinopril (Zestril) 40 mg BID PO Last administered on 04/21/17 09:31; Admin Dose 40 MG; Start 04/16/17 at 21:00 Pioglitazone HCl (Actos) 15 mg DAILY PO Last administered on 04/20/17 12:51; Admin Dose 15 MG; Start 04/16/17 at 12:00 Atorvastatin Calcium (Lipitor) 20 mg DAILY@21 PO Last administered on 20:38; Admin Dose 20 MG; Start 04/16/17 at 21:00 Guaifenesin (Robitussin Liquid Cup) 100 mg Q6 PRN PO COUGH Last administered on 04/17/17 13:02; Admin Dose 100 MG; Start 04/17/17 at 01:30 Acetaminophen (Tylenol Tab) 650 mg Q6H PRN PO PAIN AND OR ELEVATED TEMP Last administered on 04/17/17 20:48; Admin Dose 650 MG; Start 04/17/17 at 03:30 Docusate Sodium (Colace) 100 mg BID PO Last administered on 04/20/17 20:38; Admin Dose 100 MG; Start 04/17/17 at 21:00 Polyethylene Glycol (Miralax) 17 gm DAILY PRN PO CONSTIPATION Last administered on 04/19/17 12:16; Admin Dose 17 GM; Start 04/17/17 at 18:30 Metoprolol Tartrate (Lopressor) 5 mg Q4H PRN IV hr>110 hOLD sbp<100; Start 07/25 at 20:30 Hydralazine HCl (Apresoline) 10 mg Q4H PRN IV sbp>170; Start 04/17/17 at 20:30 Aspirin 81 mg 81 mg DAILY PO Last administered on 04/21/17 09:29; Admin Dose 81 MG; Start 04/18/17 at 09:00 Levofloxacin/ Dextrose (Levaquin 250 Mg/ D5W 50 ml (Pmx)) 50 ml @ 100 mls/hr Q24H IVPB Last administered on 04/21/17 09:35; Admin Dose 100 MLS/HR; Start at 10:30 Insulin Glargine (Lantus) 15 unit DAILY@08 SC Last administered on 04/21/17 09 :34; Admin Dose 15 UNIT; Start 04/19/17 at 08:00 Furosemide (Lasix) 40 mg DAILY@06 IV Last administered on 04/20/17 05:40; Admin Dose 40 MG; Start 04/19/17 at 06:00 Carvedilol (Coreg) 3.125 mg BID PO Last administered on 04/21/17 09:30; Admin Dose 3.125 MG; Start 04/19/17 at 12:00 Diazepam (Valium) 5 mg OC PO ; Start 04/20/17 at 08:00; Stop 04/21/17 at 20:00 Diphenhydramine HCl (Benadryl) 50 mg OC PO ; Start 04/21/17 at 08:00; Stop 04/21 at 20:00 LESLIE LEONG 14, 2017 15:06
[2017-04-21] MEDS ORDERED: SOD CHLORIDE 0.9% 1,000 ML IV SCH (15:07)
--- NOTE | 2017-04-21 15:23 | OPR ---
Date/Time of Note Date/Time of Note DATE: 04/21/17 TIME: 15:11 Operative Report Procedure Date: Apr 21, 2017 Preoperative Diagnosis Nstemi/cardiomyopathy Postoperative Diagnosis obstructive cad s/p ptca/stent x 3 to RCA/acute marginal Operation Performed 1.C 2.Coronary angiography 3.PTCA/stent x 3 to RCA/acute marginal(Alpine xience BOLA 2.25 x 18mm/2.25 x 15mm , Synergy BOLA 2.25 x 12mm) 4.60 minutes concious sedation Surgeon: LESLIE LEONG Anesthesia: other (concious sedation) Estimated Blood Loss: minimal Complications: None Pt Condition Post Procedure: stable Disposition: PACU Indications NSTEMI, CHF Operative\Procedure Findings 199% subtotal acute marginal, 100% proximal LAD, 100% proximal LCX, widely patent ramus stent with ramus providing L-L collateral flow to LAD territory and RCA providing L-R collateral flow to LAD/LCX territory 2.Successful PTCA/stent x 3 to RCA/acute marginal with no complications/no residual stenosis 3.LVEDP -23-24mmHG 4.No significant Procedure Description 5,000 units heparin plus additional 2,000 units for intervention. 5 [place]an FL 3.0 diagnostic and FR4 ^ arabic FR4 interventional guide LESLIE LEONG Apr 21, 2017 15:22
[2017-04-21] MEDS ORDERED: morphine 2 MG INJ IV PRN (15:30)
[2017-04-21] MEDS ORDERED: ACETAMINOPHEN 325 MG TAB PO PRN (15:30)
[2017-04-21] MEDS ORDERED: OXYCODONE/ACETAMINOPHEN (5/325) TAB PO PRN (15:30)
[2017-04-21] MEDS ORDERED: ONDANSETRON 4 MG INJ IV PRN (15:30)
[2017-04-21] MEDS ORDERED: AL HYDROX/MG HYDROX/SIMETH 30 ML CUP PO PRN (15:30)
--- NOTE | 2017-04-21 15:39 | PN ---
Date/Time of Note Date/Time of Note DATE: 04/21/17 TIME: 15:37 Assessment/Plan VTE Prophylaxis VTE Prophylaxis Intervention: LMWH Lines/Catheters IV Catheter Type (from [facility], [place]): Saline Lock Urinary Cath still in place: Yes Reason Cath still needed: urinary retention Assessment/Plan Chief Complaint/Hosp Course Patient was taking to cardiac cath, no acute events reported prior to procedure Assessment/Plan -NSTEMI, continue aspirin and Plavix. Dr. Monae is following in cardiology consultation. Plan is for cardiac cath today. -Coronary artery disease status post PTCI, continue Plavix. -E. coli UTI, continue Levaquin, Dr. Hodge is following infection disease consultation. -Hypertension, patient is currently normotensive -CVA with left-sided residual weakness -COPD, continue breathing treatments -Chronic kidney disease, avoid nephrotoxic medication. -Diabetes mellitus type 2, hemoglobin A1c is 8.6, continue Lantus and NovoLog. Further recommendations based on clinical course. Plan of care discussed with Dr. Paz. Problems: Exam/Review of Systems Vital Signs Vitals Vital Signs Date Time Temp Pulse Resp B/P Pulse Ox O2 Delivery O2 Flow Rate FiO2 04/21/17 11:15 98.4 63 19 120/68 97 04/19/17 17:45 21 04/19/17 16:52 Room Air 04/18/17 07:00 3.0 Intake and Output 04/20/17 04/20/17 04/21/17 15:00 23:00 07:00 Intake Total 570 ml Output Total 2000 ml 500 ml Balance -1430 ml -500 ml Results Result Diagram: 04/21/17 0610 04/21/17 0610 Results 24 hrs Laboratory Tests Test 04/20/17 17:33 04/20/17 20:13 04/21/17 06:10 04/21/17 08:44 Bedside Glucose 88 89 129 White Blood Count 7.4 Red Blood Count 3.40 L Hemoglobin 9.9 L Hematocrit 30.4 L Mean Corpuscular Volume 89.4 Mean Corpuscular Hemoglobin 29.1 Mean Corpuscular Hemoglobin Concent 32.6 Red Cell Distribution Width 14.5 Platelet Count 394 Mean Platelet Volume 10.5 H Neutrophils % 49.4 Lymphocytes % 33.3 Monocytes % 11.1 H Eosinophils % 4.7 Basophils % 0.4 Nucleated Red Blood Cells % 0.0 Neutrophils # 3.7 Lymphocytes # 2.5 Monocytes # 0.8 Eosinophils # 0.4 Basophils # 0.0 Nucleated Red Blood Cells # 0.0 Prothrombin Time 15.2 H Prothrombin Time Ratio 1.2 INR International Normalized Ratio 1.19 Sodium Level 135 Potassium Level 3.9 Chloride Level 101 Carbon Dioxide Level 28 Anion Gap 10 Blood Urea Nitrogen 30 H Creatinine 1.50 H Glucose Level 102 Calcium Level 8.4 Test 04/21/17 09:29 Bedside Glucose 121 Medications Medications Current Medications Diagnostic Test (Pha) (Accu-Chek) 1 ea 02 XX Last administered on 04/18/17 02: 11; Admin Dose 1 EA; Start 04/17/17 at 02:00 Miscellaneous Information 1 ea NOTE XX ; Start 04/16/17 at 08:00 Glucose (Glutose) 15 gm Q15M PRN PO DECREASED GLUCOSE; Start 04/16/17 at 08:00 Glucose (Glutose) 22.5 gm Q15M PRN PO DECREASED GLUCOSE; Start 04/16/17 at 08:00 Dextrose (D50w Syringe) 25 ml Q15M PRN IV DECREASED GLUCOSE; Start 04/16/17 at 08:00 Dextrose (D50w Syringe) 50 ml Q15M PRN IV DECREASED GLUCOSE; Start 04/16/17 at 08:00 Glucagon (Glucagen) 1 mg Q15M PRN IM DECREASED GLUCOSE; Start 04/16/17 at 08:00 Glucose (Glutose) 15 gm Q15M PRN BUCCAL DECREASED GLUCOSE; Start 04/16/17 at 08: 00 Lisinopril (Zestril) 40 mg BID PO Last administered on 04/21/17 09:31; Admin Dose 40 MG; Start 04/16/17 at 21:00 Pioglitazone HCl (Actos) 15 mg DAILY PO Last administered on 04/20/17 12:51; Admin Dose 15 MG; Start 04/16/17 at 12:00 Atorvastatin Calcium (Lipitor) 20 mg DAILY@21 PO Last administered on 20:38; Admin Dose 20 MG; Start 04/16/17 at 21:00 Guaifenesin (Robitussin Liquid Cup) 100 mg Q6 PRN PO COUGH Last administered on 04/17/17 13:02; Admin Dose 100 MG; Start 04/17/17 at 01:30 Docusate Sodium (Colace) 100 mg BID PO Last administered on 04/20/17 20:38; Admin Dose 100 MG; Start 04/17/17 at 21:00 Polyethylene Glycol (Miralax) 17 gm DAILY PRN PO CONSTIPATION Last administered on 04/19/17 12:16; Admin Dose 17 GM; Start 04/17/17 at 18:30 Metoprolol Tartrate (Lopressor) 5 mg Q4H PRN IV hr>110 hOLD sbp<100; Start 07/25 at 20:30 Hydralazine HCl 10 mg 10 mg Q4H PRN IV sbp>170; Start 04/17/17 at 20:30 Levofloxacin/ Dextrose (Levaquin 250 Mg/ D5W 50 ml (Pmx)) 50 ml @ 100 mls/hr Q24H IVPB Last administered on 04/21/17 09:35; Admin Dose 100 MLS/HR; Start at 10:30 Insulin Glargine (Lantus) 15 unit DAILY@08 SC Last administered on 04/21/17 09 :34; Admin Dose 15 UNIT; Start 04/19/17 at 08:00 Furosemide (Lasix) 40 mg DAILY@06 IV Last administered on 04/20/17 05:40; Admin Dose 40 MG; Start 04/19/17 at 06:00 Carvedilol (Coreg) 3.125 mg BID PO Last administered on 04/21/17 09:30; Admin Dose 3.125 MG; Start 04/19/17 at 12:00 Diazepam (Valium) 5 mg OC PO ; Start 04/20/17 at 08:00; Stop 04/21/17 at 20:00 Diphenhydramine HCl (Benadryl) 50 mg OC PO ; Start 04/21/17 at 08:00; Stop 04/21 at 20:00 Miscellaneous Information (* Miscellaneous Pharmacy Order) Hold all Metformin ... ONCE XX ; Start 04/21/17 at 15:30; Stop 04/23/17 at 15:29 Clopidogrel Bisulfate (plaVIX) 75 mg DAILY PO ; Start 04/22/17 at 09:00 Acetaminophen (Tylenol Tab) 650 mg Q4H PRN PO NON-CARDIAC PAIN LEVEL 1-3; Start 7/14/17 at 15:30 Oxycodone/ Acetaminophen (Percocet (5/ 325)) 1 tab Q4H PRN PO REPORTED NON- CARDIAC PAIN 4-7; Start 04/21/17 at 15:30 Morphine Sulfate (morphine) 1 mg Q1H PRN IV PAIN NOT RELIEVED BY OTHERS; Start 04/21/17 at 15:30 Al Hydrox/Mg Hydrox/Simethicone (Mag-Al Plus) 30 ml Q4H PRN PO GASTROINTESTINAL UPSET; Start 04/21/17 at 15:30 Ondansetron HCl 4 mg 4 mg Q4H PRN IV NAUSEA AND/OR VOMITING; Start 04/21/17 at 15:30 Sodium Chloride (NS) 1,000 ml @ 75 mls/hr [id number] IV ; Start 04/21/17 at 15:07 ; Stop 04/22/17 at 04:26 Aspirin (Aspirin) 325 mg DAILY PO ; Start 04/22/17 at 09:00 CALVIN CIFUENTES Apr 21, 2017 15:39
[2017-04-21] MEDS: ATORVASTATIN 20 MG TAB PO SCH (20:29)
[2017-04-22] VITALS (21 sets, daily range): BP systolic 91–144; BP diastolic 54–72; PULSE 58–83; RESP 10–20
[2017-04-22] MEDS: ACCU-CHEK XX SCH (02:00)
[2017-04-22 05:02] LABS: ADD SCAN DIFF NO
[2017-04-22 05:06] LABS: BASOPHILS % 0.3 % (0.0-2.0); EOSINOPHILS # 0.4 10^3/ul (0.0-0.5); HEMATOCRIT 32.2 % (42.0-52.0); HEMOGLOBIN 10.5 g/dl (14.0-18.0); LYMPHOCYTES # 1.5 10^3/ul (0.8-2.9); MEAN CORPUSCULAR HEMOGLOBIN 29.1 pg (29.0-33.0); MEAN CORPUSCULAR HGB CONC 32.6 g/dl (32.0-37.0); MEAN CORPUSCULAR VOLUME 89.2 fl (82.0-101.0); MONOCYTE # 0.8 10^3/ul (0.3-0.9); MONOCYTES % 9.7 % (0.0-11.0); NEUTROPHIL # 5.1 10^3/ul (1.6-7.5); NEUTROPHILS % 64.4 % (39.0-77.0); PLATELET COUNT 419 10^3/UL (140-415); RED BLOOD COUNT 3.61 10^6/ul (4.70-6.10); RED CELL DISTRIBUTION WIDTH 14.4 % (11.5-14.5)
[2017-04-22 05:45] LABS: CALCIUM 8.6 mg/dl (8.4-10.2); CREATININE 1.34 mg/dl (0.61-1.24)
[2017-04-22] MEDS: FUROSEMIDE 40 MG INJ IV SCH (06:41)
[2017-04-22] MEDS: metFORMIN 500 MG TAB PO SCH ×2 (07:35→17:24)
[2017-04-22] MEDS: INSULIN ASPART [NOVOLOG] 3 ML PEN SC SCH ×7 (07:35→21:00)
[2017-04-22] MEDS: INSULIN GLARGINE [LANtus] 3 ML PEN SC SCH (08:00)
[2017-04-22] MEDS: PIOGLITAZONE 15 MG TAB PO SCH (08:55)
[2017-04-22] MEDS ORDERED: ASPIRIN (EC) 325 MG TAB PO SCH (09:00)
--- NOTE | 2017-04-22 09:24 | RADRPT ---
Vent Rate: 60 bpm RR Interval: 0 msec MN Interval: 156 msec QRS Duration: 64 msec QT Interval: 496 msec QTC Interval: 496 msec P-R-T [place]: 29 - 24 - 136 degrees Normal sinus rhythm ST amp; T wave abnormality, consider anterolateral ischemia Prolonged QT Abnormal ECG Electronically Signed By: Trish Brennan [id number]
[2017-04-22] MEDS: CLOPIDOGREL 75 MG TAB PO SCH (09:28)
[2017-04-22] MEDS: ASPIRIN 325 MG TAB PO SCH (09:28)
[2017-04-22] MEDS: LISINOPRIL 20 MG TAB PO SCH ×2 (09:28→21:16)
[2017-04-22] MEDS: DOCUSATE SODIUM 100 MG CAP PO SCH ×2 (09:29→21:16)
[2017-04-22] MEDS: LEVOFLOXACIN 250MG/D5W (PMX) 50 ML IVPB SCH (11:02)
--- NOTE | 2017-04-22 11:44 | PN ---
Date/Time of Note Date/Time of Note DATE: 04/22/17 TIME: 11:07 Assessment/Plan VTE Prophylaxis VTE Prophylaxis Intervention: other Lines/Catheters IV [facility] Type (from [facility] Saline Lock Urinary Cath still in place: Yes Reason Cath still needed: urinary retention Assessment/Plan Assessment/Plan -NSTEMI, continue aspirin and Plavix. Dr. Monae is following in cardiology consultation. Plan is for cardiac cath today. -Coronary artery disease status post PTCI, continue Plavix. -- Acute Renal Insufficiency - per nephrology -E. coli UTI, continue Levaquin, Dr. Hodge is following infection disease consultation. -Hypertension, patient is currently normotensive -CVA with left-sided residual weakness -COPD, continue breathing treatments -Chronic kidney disease, avoid nephrotoxic medication. -Diabetes mellitus type 2, hemoglobin A1c is 8.6, continue Lantus and NovoLog. Further recommendations based on clinical course. Total critical care time spent- 35 mins. Plan of care discussed with Dr. Paz. Exam/Review of Systems Vital Signs Vitals Vital Signs Date Time Temp Pulse Resp B/P Pulse Ox O2 Delivery O2 Flow Rate FiO2 04/22/17 08:00 77 04/22/17 06:00 15 119/58 100 Room Air 04/22/17 04:00 98.2 04/19/17 17:45 21 04/18/17 07:00 3.0 Intake and Output 04/21/17 04/21/17 04/22/17 15:00 23:00 07:00 Intake Total 625 ml 150 ml Output Total 315 ml 415 ml Balance 310 ml -265 ml Exam Constitutional: alert, oriented, well developed Psych: nl mood/affect Respiratory: clear to auscultation, normal air movement Cardiovascular: nl pulses, regular rate and rhythm Gastrointestinal: non-tender, soft Musculoskeletal: nl extremities to inspection Extremities: normal pulses Neurological: nl speech Results Result Diagram: 04/22/17 0435 04/22/17 0437 Results 24 hrs Laboratory Tests Test 04/21/17 17:11 04/21/17 19:34 04/21/17 20:23 04/22/17 04:35 Bedside Glucose 91 71 89 White Blood Count 8.0 Red Blood Count 3.61 L Hemoglobin 10.5 L Hematocrit 32.2 L Mean Corpuscular Volume 89.2 Mean Corpuscular Hemoglobin 29.1 Mean Corpuscular Hemoglobin Concent 32.6 Red Cell Distribution Width 14.4 Platelet Count 419 H Mean Platelet Volume 10.0 Neutrophils % 64.4 Lymphocytes % 19.0 Monocytes % 9.7 Eosinophils % 5.0 Basophils % 0.3 Nucleated Red Blood Cells % 0.0 Neutrophils # 5.1 Lymphocytes # 1.5 Monocytes # 0.8 Eosinophils # 0.4 Basophils # 0.0 Nucleated Red Blood Cells # 0.0 Test 04/22/17 04:37 04/22/17 08:22 Sodium Level 140 Potassium Level 4.0 Chloride Level 101 Carbon Dioxide Level 27 Anion Gap 16 Blood Urea Nitrogen 25 H Creatinine 1.34 H Glucose Level 80 Calcium Level 8.6 Bedside Glucose 100 Medications Medications Current Medications Diagnostic Test (Pha) (Accu-Chek) 1 ea 02 XX Last administered on 04/18/17 02: 11; Admin Dose 1 EA; Start 04/17/17 at 02:00 Miscellaneous Information 1 ea NOTE XX ; Start 04/16/17 at 08:00 Glucose (Glutose) 15 gm Q15M PRN PO DECREASED GLUCOSE; Start 04/16/17 at 08:00 Glucose (Glutose) 22.5 gm Q15M PRN PO DECREASED GLUCOSE; Start 04/16/17 at 08:00 Dextrose (D50w Syringe) 25 ml Q15M PRN IV DECREASED GLUCOSE; Start 04/16/17 at 08:00 Dextrose (D50w Syringe) 50 ml Q15M PRN IV DECREASED GLUCOSE; Start 04/16/17 at 08:00 Glucagon (Glucagen) 1 mg Q15M PRN IM DECREASED GLUCOSE; Start 04/16/17 at 08:00 Glucose (Glutose) 15 gm Q15M PRN BUCCAL DECREASED GLUCOSE; Start 04/16/17 at 08: 00 Lisinopril (Zestril) 40 mg BID PO Last administered on 04/22/17 09:28; Admin Dose 40 MG; Start 04/16/17 at 21:00 Pioglitazone HCl (Actos) 15 mg DAILY PO Last administered on 04/20/17 12:51; Admin Dose 15 MG; Start 04/16/17 at 12:00 Atorvastatin Calcium (Lipitor) 20 mg DAILY@21 PO Last administered on 20:29; Admin Dose 20 MG; Start 04/16/17 at 21:00 Guaifenesin (Robitussin Liquid Cup) 100 mg Q6 PRN PO COUGH Last administered on 04/17/17 13:02; Admin Dose 100 MG; Start 04/17/17 at 01:30 Docusate Sodium (Colace) 100 mg BID PO Last administered on 04/22/17 09:29; Admin Dose 100 MG; Start 04/17/17 at 21:00 Polyethylene Glycol (Miralax) 17 gm DAILY PRN PO CONSTIPATION Last administered on 04/19/17 12:16; Admin Dose 17 GM; Start 04/17/17 at 18:30 Metoprolol Tartrate (Lopressor) 5 mg Q4H PRN IV hr>110 hOLD sbp<100; Start 07/25 at 20:30 Hydralazine HCl 10 mg 10 mg Q4H PRN IV sbp>170; Start 04/17/17 at 20:30 Levofloxacin/ Dextrose (Levaquin 250 Mg/ D5W 50 ml (Pmx)) 50 ml @ 100 mls/hr Q24H IVPB Last administered on 04/21/17 09:35; Admin Dose 100 MLS/HR; Start at 10:30 Insulin Glargine (Lantus) 15 unit DAILY@08 SC Last administered on 04/21/17 09 :34; Admin Dose 15 UNIT; Start 04/19/17 at 08:00 Furosemide (Lasix) 40 mg DAILY@06 IV Last administered on 04/22/17 06:41; Admin Dose 40 MG; Start 04/19/17 at 06:00 Carvedilol (Coreg) 3.125 mg BID PO Last administered on 04/22/17 09:29; Admin Dose 3.125 MG; Start 04/19/17 at 12:00 Miscellaneous Information (* Miscellaneous Pharmacy Order) Hold all Metformin ... ONCE XX ; Start 04/21/17 at 15:30; Stop 04/23/17 at 15:29 Clopidogrel Bisulfate (plaVIX) 75 mg DAILY PO Last administered on 04/22/17 09 :28; Admin Dose 75 MG; Start 04/22/17 at 09:00 Acetaminophen (Tylenol Tab) 650 mg Q4H PRN PO NON-CARDIAC PAIN LEVEL 1-3; Start 04/21/17 at 15:30 Oxycodone/ Acetaminophen (Percocet (5/ 325)) 1 tab Q4H PRN PO REPORTED NON- CARDIAC PAIN 4-7; Start 04/21/17 at 15:30 Morphine Sulfate (morphine) 1 mg Q1H PRN IV PAIN NOT RELIEVED BY OTHERS; Start 04/21/17 at 15:30 Al Hydrox/Mg Hydrox/Simethicone (Mag-Al Plus) 30 ml Q4H PRN PO GASTROINTESTINAL UPSET; Start 04/21/17 at 15:30 Ondansetron HCl (Zofran Inj) 4 mg Q4H PRN IV NAUSEA AND/OR VOMITING; Start at 15:30 Aspirin (Aspirin) 325 mg DAILY PO Last administered on 04/22/17t 09:28; Admin Dose 325 MG; Start 04/22/17 at 09:00 EUFEMIA WALKER Apr 22, 2017 11:18
--- NOTE | 2017-04-22 14:32 | CONS ---
Date/Time of Note Date/Time of Note DATE: 04/22/17 TIME: 14:28 Assessment/Plan Assessment/Plan Chief Complaint/Hosp Course IMp: 1.CHF 2.Nstemi-now downtrending. Now POD#1 s/p PTCA /stent to RCA.acute marginal x 3 3.HTN 4.UTI 5. H/O prior stent 6.renal failure-mild increase 7. Hyponatremia 8. Cardiomyopathy-LVEF 25% by echo 04/18 Recc: -OK to transfer to tele -serial ecg's -Continue asa/plavix/statin -Continue ACEI/BB -Continue lasix -Continue abx's and f/u cx data Problems: Consultation Date/Type/Reason Admit Date/Time Apr 16, 2017 at 04:16 Initial Consult Date 04/17/17 Type of Consultation: cardiology Reason for Consultation nstemi Referring Provider: QUIANA MURCIA MD Exam/Review of Systems Vital Signs Vitals Vital Signs Date Time Temp Pulse Resp B/P Pulse Ox O2 Delivery O2 Flow Rate FiO2 04/22/17 12:00 74 04/22/17 06:00 15 119/58 100 Room Air 04/22/17 04:00 98.2 04/19/17 17:45 21 04/18/17 07:00 3.0 Intake and Output 04/21/17 04/21/17 04/22/17 15:00 23:00 07:00 Intake Total 625 ml 150 ml Output Total 315 ml 415 ml Balance 310 ml -265 ml Exam Review of Systems: CONSTITUTIONAL: No fevers, chills. PULMONARY: No sob CARDIOVASCULAR: No chest pain/palpitations GASTROINTESTINAL: No nausea/vomiting. GENITOURINARY: No hematuria/dysuria. MUSCULOSKELETAL: No myagias/arthalgias. PSYCHIATRIC: The patient denies depression. NEUROLOGIC: No weakness Constitutional: alert Psych: no complaints Head: normocephalic ENMT: mucosa pink and moist Neck: jvd (9 cm water), supple Respiratory: diminished breath sounds (at bases/B) Cardiovascular: regular rate and rhythm Gastrointestinal: non-tender, soft Musculoskeletal: muscle tone (normal) Extremities: edema (none) Neurological: other (No focal deficits) Results Result Diagram: 04/22/17 0435 04/22/17 0437 Results 24 hrs Laboratory Tests Test 04/21/17 17:11 04/21/17 19:34 04/21/17 20:23 04/22/17 04:35 Bedside Glucose 91 71 89 White Blood Count 8.0 Red Blood Count 3.61 L Hemoglobin 10.5 L Hematocrit 32.2 L Mean Corpuscular Volume 89.2 Mean Corpuscular Hemoglobin 29.1 Mean Corpuscular Hemoglobin Concent 32.6 Red Cell Distribution Width 14.4 Platelet Count 419 H Mean Platelet Volume 10.0 Neutrophils % 64.4 Lymphocytes % 19.0 Monocytes % 9.7 Eosinophils % 5.0 Basophils % 0.3 Nucleated Red Blood Cells % 0.0 Neutrophils # 5.1 Lymphocytes # 1.5 Monocytes # 0.8 Eosinophils # 0.4 Basophils # 0.0 Nucleated Red Blood Cells # 0.0 Test 04/22/17 04:37 04/22/17 08:22 04/22/17 12:02 Sodium Level 140 Potassium Level 4.0 Chloride Level 101 Carbon Dioxide Level 27 Anion Gap 16 Blood Urea Nitrogen 25 H Creatinine 1.34 H Glucose Level 80 Calcium Level 8.6 Bedside Glucose 100 143 Medications Medications Current Medications Diagnostic Test (Pha) (Accu-Chek) 1 ea 02 XX Last administered on 04/18/17 02: 11; Admin Dose 1 EA; Start 04/17/17 at 02:00 Miscellaneous Information 1 ea NOTE XX ; Start 04/16/17 at 08:00 Glucose (Glutose) 15 gm Q15M PRN PO DECREASED GLUCOSE; Start 04/16/17 at 08:00 Glucose (Glutose) 22.5 gm Q15M PRN PO DECREASED GLUCOSE; Start 04/16/17 at 08:00 Dextrose (D50w Syringe) 25 ml Q15M PRN IV DECREASED GLUCOSE; Start 04/16/17 at 08:00 Dextrose (D50w Syringe) 50 ml Q15M PRN IV DECREASED GLUCOSE; Start 04/16/17 at 08:00 Glucagon (Glucagen) 1 mg Q15M PRN IM DECREASED GLUCOSE; Start 04/16/17 at 08:00 Glucose (Glutose) 15 gm Q15M PRN BUCCAL DECREASED GLUCOSE; Start 04/16/17 at 08: 00 Lisinopril (Zestril) 40 mg BID PO Last administered on 04/22/17 09:28; Admin Dose 40 MG; Start 04/16/17 at 21:00 Pioglitazone HCl (Actos) 15 mg DAILY PO Last administered on 04/20/17 12:51; Admin Dose 15 MG; Start 04/16/17 at 12:00 Atorvastatin Calcium (Lipitor) 20 mg DAILY@21 PO Last administered on 20:29; Admin Dose 20 MG; Start 04/16/17 at 21:00 Guaifenesin (Robitussin Liquid Cup) 100 mg Q6 PRN PO COUGH Last administered on 04/17/17 13:02; Admin Dose 100 MG; Start 04/17/17 at 01:30 Docusate Sodium (Colace) 100 mg BID PO Last administered on 04/22/17 09:29; Admin Dose 100 MG; Start 04/17/17 at 21:00 Polyethylene Glycol (Miralax) 17 gm DAILY PRN PO CONSTIPATION Last administered on 04/19/17 12:16; Admin Dose 17 GM; Start 04/17/17 at 18:30 Metoprolol Tartrate (Lopressor) 5 mg Q4H PRN IV hr>110 hOLD sbp<100; Start 07/25 at 20:30 Hydralazine HCl 10 mg 10 mg Q4H PRN IV sbp>170; Start 04/17/17 at 20:30 Levofloxacin/ Dextrose (Levaquin 250 Mg/ D5W 50 ml (Pmx)) 50 ml @ 100 mls/hr Q24H IVPB Last administered on 04/22/17 11:02; Admin Dose 100 MLS/HR; Start at 10:30 Insulin Glargine (Lantus) 15 unit DAILY@08 SC Last administered on 04/21/17 09 :34; Admin Dose 15 UNIT; Start 04/19/17 at 08:00 Furosemide (Lasix) 40 mg DAILY@06 IV Last administered on 04/22/17 06:41; Admin Dose 40 MG; Start 04/19/17 at 06:00 Carvedilol (Coreg) 3.125 mg BID PO Last administered on 04/22/17 09:29; Admin Dose 3.125 MG; Start 04/19/17 at 12:00 Miscellaneous Information (* Miscellaneous Pharmacy Order) Hold all Metformin ... ONCE XX ; Start 04/21/17 at 15:30; Stop 04/23/17 at 15:29 Clopidogrel Bisulfate (plaVIX) 75 mg DAILY PO Last administered on 04/22/17 09 :28; Admin Dose 75 MG; Start 04/22/17 at 09:00 Acetaminophen (Tylenol Tab) 650 mg Q4H PRN PO NON-CARDIAC PAIN LEVEL 1-3; Start 04/21/17 at 15:30 Oxycodone/ Acetaminophen (Percocet (5/ 325)) 1 tab Q4H PRN PO REPORTED NON- CARDIAC PAIN 4-7; Start 04/21/17 at 15:30 Morphine Sulfate (morphine) 1 mg Q1H PRN IV PAIN NOT RELIEVED BY OTHERS; Start 04/21/17 at 15:30 Al Hydrox/Mg Hydrox/Simethicone (Mag-Al Plus) 30 ml Q4H PRN PO GASTROINTESTINAL UPSET; Start 04/21/17 at 15:30 Ondansetron HCl (Zofran Inj) 4 mg Q4H PRN IV NAUSEA AND/OR VOMITING; Start at 15:30 Aspirin (Aspirin) 325 mg DAILY PO Last administered on 04/22/17 09:28; Admin Dose 325 MG; Start 04/22/17 at 09:00 LESLIE LEONG Apr 22, 2017 14:32
--- NOTE | 2017-04-22 16:06 | CONS ---
Date/Time of Note Date/Time of Note DATE: 04/22/17 TIME: 15:59 Assessment/Plan Assessment/Plan Chief Complaint/Hosp Course 1. CKD 2. S/p LHC with coronary angiography and stenting Problems: Additional Assessment/Plan 1. Optimization kidney function Consultation Date/Type/Reason Admit Date/Time Apr 16, 2017 at 04:16 Initial Consult Date 04/22/2017 Type of Consultation: nephrology Reason for Consultation dr [place] Referring Provider: QUIANA MURCIA MD Exam/Review of Systems Vital Signs Vitals Vital Signs Date Time Temp Pulse Resp B/P Pulse Ox O2 Delivery O2 Flow Rate FiO2 04/22/17 15:00 64 17 91/56 94 Room Air 04/22/17 12:00 98.2 04/19/17 17:45 21 04/18/17 07:00 3.0 Intake and Output 04/21/17 04/21/17 04/22/17 15:00 23:00 07:00 Intake Total 625 ml 150 ml Output Total 315 ml 415 ml Balance 310 ml -265 ml Exam Constitutional: alert, oriented ENMT: nl external ears & nose Neck: supple Genitourinary - Male: other (gruber) Results Result Diagram: 04/22/17 0435 04/22/17 0437 Results 24 hrs Laboratory Tests Test 04/21/17 17:11 04/21/17 19:34 04/21/17 20:23 04/22/17 04:35 Bedside Glucose 91 71 89 White Blood Count 8.0 Red Blood Count 3.61 L Hemoglobin 10.5 L Hematocrit 32.2 L Mean Corpuscular Volume 89.2 Mean Corpuscular Hemoglobin 29.1 Mean Corpuscular Hemoglobin Concent 32.6 Red Cell Distribution Width 14.4 Platelet Count 419 H Mean Platelet Volume 10.0 Neutrophils % 64.4 Lymphocytes % 19.0 Monocytes % 9.7 Eosinophils % 5.0 Basophils % 0.3 Nucleated Red Blood Cells % 0.0 Neutrophils # 5.1 Lymphocytes # 1.5 Monocytes # 0.8 Eosinophils # 0.4 Basophils # 0.0 Nucleated Red Blood Cells # 0.0 Test 04/22/17 04:37 04/22/17 08:22 04/22/17 12:02 Sodium Level 140 Potassium Level 4.0 Chloride Level 101 Carbon Dioxide Level 27 Anion Gap 16 Blood Urea Nitrogen 25 H Creatinine 1.34 H Glucose Level 80 Calcium Level 8.6 Bedside Glucose 100 143 Medications Medications Current Medications Diagnostic Test (Pha) (Accu-Chek) 1 ea 02 XX Last administered on 04/18/17 02: 11; Admin Dose 1 EA; Start 04/17/17 at 02:00 Miscellaneous Information 1 ea NOTE XX ; Start 04/16/17 at 08:00 Glucose (Glutose) 15 gm Q15M PRN PO DECREASED GLUCOSE; Start 04/16/17 at 08:00 Glucose (Glutose) 22.5 gm Q15M PRN PO DECREASED GLUCOSE; Start 04/16/17 at 08:00 Dextrose (D50w Syringe) 25 ml Q15M PRN IV DECREASED GLUCOSE; Start 04/16/17 at 08:00 Dextrose (D50w Syringe) 50 ml Q15M PRN IV DECREASED GLUCOSE; Start 04/16/17 at 08:00 Glucagon (Glucagen) 1 mg Q15M PRN IM DECREASED GLUCOSE; Start 04/16/17 at 08:00 Glucose (Glutose) 15 gm Q15M PRN BUCCAL DECREASED GLUCOSE; Start 04/16/17 at 08: 00 Lisinopril (Zestril) 40 mg BID PO Last administered on 04/22/17 09:28; Admin Dose 40 MG; Start 04/16/17 at 21:00 Pioglitazone HCl (Actos) 15 mg DAILY PO Last administered on 04/20/17 12:51; Admin Dose 15 MG; Start 04/16/17 at 12:00 Atorvastatin Calcium (Lipitor) 20 mg DAILY@21 PO Last administered on 20:29; Admin Dose 20 MG; Start 04/16/17 at 21:00 Guaifenesin (Robitussin Liquid Cup) 100 mg Q6 PRN PO COUGH Last administered on 04/17/17 13:02; Admin Dose 100 MG; Start 04/17/17 at 01:30 Docusate Sodium (Colace) 100 mg BID PO Last administered on 04/22/17 09:29; Admin Dose 100 MG; Start 04/17/17 at 21:00 Polyethylene Glycol (Miralax) 17 gm DAILY PRN PO CONSTIPATION Last administered on 04/19/17 12:16; Admin Dose 17 GM; Start 04/17/17 at 18:30 Metoprolol Tartrate (Lopressor) 5 mg Q4H PRN IV hr>110 hOLD sbp<100; Start 07/25 at 20:30 Hydralazine HCl 10 mg 10 mg Q4H PRN IV sbp>170; Start 04/17/17 at 20:30 Levofloxacin/ Dextrose (Levaquin 250 Mg/ D5W 50 ml (Pmx)) 50 ml @ 100 mls/hr Q24H IVPB Last administered on 04/22/17 11:02; Admin Dose 100 MLS/HR; Start at 10:30 Insulin Glargine (Lantus) 15 unit DAILY@08 SC Last administered on 04/21/17 09 :34; Admin Dose 15 UNIT; Start 04/19/17 at 08:00 Furosemide (Lasix) 40 mg DAILY@06 IV Last administered on 04/22/17 06:41; Admin Dose 40 MG; Start 04/19/17 at 06:00 Carvedilol (Coreg) 3.125 mg BID PO Last administered on 04/22/17 09:29; Admin Dose 3.125 MG; Start 04/19/17 at 12:00 Miscellaneous Information (* Miscellaneous Pharmacy Order) Hold all Metformin ... ONCE XX ; Start 04/21/17 at 15:30; Stop 04/23/17 at 15:29 Clopidogrel Bisulfate (plaVIX) 75 mg DAILY PO Last administered on 04/22/17 09 :28; Admin Dose 75 MG; Start 04/22/17 at 09:00 Acetaminophen (Tylenol Tab) 650 mg Q4H PRN PO NON-CARDIAC PAIN LEVEL 1-3; Start 04/21/17 at 15:30 Oxycodone/ Acetaminophen (Percocet (5/ 325)) 1 tab Q4H PRN PO REPORTED NON- CARDIAC PAIN 4-7; Start 04/21/17 at 15:30 Morphine Sulfate (morphine) 1 mg Q1H PRN IV PAIN NOT RELIEVED BY OTHERS; Start 04/21/17 at 15:30 Al Hydrox/Mg Hydrox/Simethicone (Mag-Al Plus) 30 ml Q4H PRN PO GASTROINTESTINAL UPSET; Start 04/21/17 at 15:30 Ondansetron HCl (Zofran Inj) 4 mg Q4H PRN IV NAUSEA AND/OR VOMITING; Start at 15:30 Aspirin (Aspirin) 325 mg DAILY PO Last administered on 04/22/17t 09:28; Admin Dose 325 MG; Start 04/22/17 at 09:00 IQRA ROMERO Apr 22, 2017 16:06
[2017-04-22] MEDS: ATORVASTATIN 20 MG TAB PO SCH (21:16)
[2017-04-23] VITALS (14 sets, daily range): BP systolic 101–141; BP diastolic 52–77; PULSE 59–78; RESP 18–20
[2017-04-23] MEDS: ACCU-CHEK XX SCH (01:36)
[2017-04-23] MEDS: FUROSEMIDE 40 MG INJ IV SCH (05:49)
[2017-04-23] MEDS: PIOGLITAZONE 15 MG TAB PO SCH (08:57)
[2017-04-23] MEDS: ASPIRIN 325 MG TAB PO SCH (08:58)
[2017-04-23] MEDS: CLOPIDOGREL 75 MG TAB PO SCH (08:58)
[2017-04-23] MEDS: DOCUSATE SODIUM 100 MG CAP PO SCH ×2 (08:58→20:36)
[2017-04-23] MEDS: metFORMIN 500 MG TAB PO SCH ×2 (08:59→17:33)
[2017-04-23] MEDS: LISINOPRIL 20 MG TAB PO SCH ×2 (09:04→20:38)
[2017-04-23 09:41] LABS: ADD SCAN DIFF NO
[2017-04-23 09:43] LABS: BASOPHILS % 0.1 % (0.0-2.0); EOSINOPHILS # 0.3 10^3/ul (0.0-0.5); HEMATOCRIT 34.1 % (42.0-52.0); LYMPHOCYTES # 1.9 10^3/ul (0.8-2.9); LYMPHOCYTES % 22.8 % (15.0-51.0); MEAN CORPUSCULAR HEMOGLOBIN 29.1 pg (29.0-33.0); MEAN CORPUSCULAR HGB CONC 32.3 g/dl (32.0-37.0); MEAN CORPUSCULAR VOLUME 90.2 fl (82.0-101.0); MEAN PLATELET VOLUME 9.5 fl (7.4-10.4); MONOCYTE # 0.8 10^3/ul (0.3-0.9); MONOCYTES % 9.3 % (0.0-11.0); NEUTROPHIL # 5.1 10^3/ul (1.6-7.5); NEUTROPHILS % 62.2 % (39.0-77.0); PLATELET COUNT 434 10^3/UL (140-415); RED BLOOD COUNT 3.78 10^6/ul (4.70-6.10); RED CELL DISTRIBUTION WIDTH 14.3 % (11.5-14.5); WHITE BLOOD COUNT 8.3 10^3/ul (4.8-10.8)
[2017-04-23 10:07] LABS: ALBUMIN 3.8 g/dl (3.3-4.9); ALBUMIN/GLOBULIN RATIO 1.11; BILIRUBIN,INDIRECT 0.3 mg/dl (0-1.1); BILIRUBIN,TOTAL 0.3 mg/dl (0.2-1.3); CALCIUM 9.1 mg/dl (8.4-10.2); CREATININE 1.72 mg/dl (0.61-1.24); POTASSIUM 4.3 mmol/L (3.5-5.1); TOTAL PROTEIN 7.2 g/dl (6.1-8.1)
[2017-04-23] MEDS: INSULIN ASPART [NOVOLOG] 3 ML PEN SC SCH ×7 (11:17→20:39)
[2017-04-23] MEDS: INSULIN GLARGINE [LANtus] 3 ML PEN SC SCH (12:27)
[2017-04-23] MEDS: LEVOFLOXACIN 250MG/D5W (PMX) 50 ML IVPB SCH (13:12)
--- NOTE | 2017-04-23 14:48 | CONS ---
Date/Time of Note Date/Time of Note DATE: 04/23/17 TIME: 14:45 Assessment/Plan Assessment/Plan Chief Complaint/Hosp Course IMp: 1.CHF 2.Nstemi-now downtrending. Now s/p PTCA /stent to RCA.acute marginal x 3 3.HTN 4.UTI 5. H/O prior stent 6.renal failure-ACUTE ON CHRONIC 7. Hyponatremia 8. Cardiomyopathy-LVEF 25% by echo 04/18 Recc: -Tele -serial ecg's -Continue asa/plavix/statin -Continue ACEI/BB -Hold laix and follow creatnine/volume status closeely -Continue abx's and f/u cx data Problems: Consultation Date/Type/Reason Admit Date/Time Apr 16, 2017 at 04:16 Initial Consult Date 04/17/17 Type of Consultation: cardiology Reason for Consultation CHF Referring Provider: QUIANA MURCIA MD Exam/Review of Systems Vital Signs Vitals Vital Signs Date Time Temp Pulse Resp B/P Pulse Ox O2 Delivery O2 Flow Rate FiO2 04/23/17 12:15 67 04/23/17 11:54 98.3 18 113/57 96 04/23/17 09:06 Room Air 04/19/17 17:45 21 Intake and Output 04/22/17 04/22/17 04/23/17 15:00 23:00 07:00 Output Total 1000 ml 375 ml Balance -1000 ml -375 ml Exam Review of Systems: CONSTITUTIONAL: No fevers, chills. PULMONARY: No sob CARDIOVASCULAR: No chest pain/palpitations GASTROINTESTINAL: No nausea/vomiting. GENITOURINARY: No hematuria/dysuria. MUSCULOSKELETAL: No myagias/arthalgias. PSYCHIATRIC: The patient denies depression. NEUROLOGIC: lethargic Constitutional: alert Psych: no complaints Head: normocephalic Neck: jvd (8-9 cm water), supple Respiratory: clear to auscultation Cardiovascular: regular rate and rhythm Gastrointestinal: non-tender, soft Musculoskeletal: muscle tone (normal) Extremities: edema (none) Neurological: lethargic Results Result Diagram: 04/23/17 0927 04/23/17 0500 Results 24 hrs Laboratory Tests Test 04/22/17 17:46 04/22/17 21:14 04/23/17 05:00 04/23/17 08:07 Bedside Glucose 258 H 83 176 Sodium Level 140 Potassium Level 4.3 Chloride Level 98 Carbon Dioxide Level 29 Anion Gap 17 H Blood Urea Nitrogen 28 H Creatinine 1.72 H Glucose Level 179 Calcium Level 9.1 Total Bilirubin 0.3 Direct Bilirubin 0.00 Indirect Bilirubin 0.3 Aspartate Amino Transf (AST/SGOT) 35 Alanine Aminotransferase (ALT/SGPT) 42 Alkaline Phosphatase 93 Total Protein 7.2 Albumin 3.8 Globulin 3.40 H Albumin/Globulin Ratio 1.11 Test 04/23/17 09:27 04/23/17 12:22 White Blood Count 8.3 Red Blood Count 3.78 L Hemoglobin 11.0 L Hematocrit 34.1 L Mean Corpuscular Volume 90.2 Mean Corpuscular Hemoglobin 29.1 Mean Corpuscular Hemoglobin Concent 32.3 Red Cell Distribution Width 14.3 Platelet Count 434 H Mean Platelet Volume 9.5 Neutrophils % 62.2 Lymphocytes % 22.8 Monocytes % 9.3 Eosinophils % 4.0 Basophils % 0.1 Nucleated Red Blood Cells % 0.0 Neutrophils # 5.1 Lymphocytes # 1.9 Monocytes # 0.8 Eosinophils # 0.3 Basophils # 0.0 Nucleated Red Blood Cells # 0.0 Bedside Glucose 215 Medications Medications Current Medications Diagnostic Test (Pha) (Accu-Chek) 1 ea 02 XX Last administered on 04/18/17t 02: 11; Admin Dose 1 EA; Start 04/17/17 at 02:00 Miscellaneous Information 1 ea NOTE XX ; Start 04/16/17 at 08:00 Glucose (Glutose) 15 gm Q15M PRN PO DECREASED GLUCOSE; Start 04/16/17 at 08:00 Glucose (Glutose) 22.5 gm Q15M PRN PO DECREASED GLUCOSE; Start 04/16/17 at 08:00 Dextrose (D50w Syringe) 25 ml Q15M PRN IV DECREASED GLUCOSE; Start 04/16/17 at 08:00 Dextrose (D50w Syringe) 50 ml Q15M PRN IV DECREASED GLUCOSE; Start 04/16/17 at 08:00 Glucagon (Glucagen) 1 mg Q15M PRN IM DECREASED GLUCOSE; Start 04/16/17 at 08:00 Glucose (Glutose) 15 gm Q15M PRN BUCCAL DECREASED GLUCOSE; Start 04/16/17 at 08: 00 Lisinopril (Zestril) 40 mg BID PO Last administered on 04/23/17 09:04; Admin Dose 40 MG; Start 04/16/17 at 21:00 Pioglitazone HCl (Actos) 15 mg DAILY PO Last administered on 04/23/17 08:57; Admin Dose 15 MG; Start 04/16/17 at 12:00 Atorvastatin Calcium (Lipitor) 20 mg DAILY@21 PO Last administered on 21:16; Admin Dose 20 MG; Start 04/16/17 at 21:00 Guaifenesin (Robitussin Liquid Cup) 100 mg Q6 PRN PO COUGH Last administered on 04/17/17 13:02; Admin Dose 100 MG; Start 04/17/17 at 01:30 Docusate Sodium (Colace) 100 mg BID PO Last administered on 04/23/17 08:58; Admin Dose 100 MG; Start 04/17/17 at 21:00 Polyethylene Glycol (Miralax) 17 gm DAILY PRN PO CONSTIPATION Last administered on 04/19/17 12:16; Admin Dose 17 GM; Start 04/17/17 at 18:30 Metoprolol Tartrate (Lopressor) 5 mg Q4H PRN IV hr>110 hOLD sbp<100; Start 07/25 at 20:30 Hydralazine HCl 10 mg 10 mg Q4H PRN IV sbp>170; Start 04/17/17 at 20:30 Levofloxacin/ Dextrose (Levaquin 250 Mg/ D5W 50 ml (Pmx)) 50 ml @ 100 mls/hr Q24H IVPB Last administered on 04/23/17 13:12; Admin Dose 100 MLS/HR; Start at 10:30 Insulin Glargine (Lantus) 15 unit DAILY@08 SC Last administered on 04/23/17 12 :27; Admin Dose 15 UNIT; Start 04/19/17 at 08:00 Furosemide (Lasix) 40 mg DAILY@06 IV Last administered on 04/23/17 05:49; Admin Dose 40 MG; Start 04/19/17 at 06:00 Carvedilol (Coreg) 3.125 mg BID PO Last administered on 04/23/17 09:04; Admin Dose 3.125 MG; Start 04/19/17 at 12:00 Miscellaneous Information (* Miscellaneous Pharmacy Order) Hold all Metformin ... ONCE XX ; Start 04/21/17 at 15:30; Stop 04/23/17 at 15:29 Clopidogrel Bisulfate (plaVIX) 75 mg DAILY PO Last administered on 04/23/17 08 :58; Admin Dose 75 MG; Start 04/22/17 at 09:00 Acetaminophen (Tylenol Tab) 650 mg Q4H PRN PO NON-CARDIAC PAIN LEVEL 1-3; Start 04/21/17 at 15:30 Oxycodone/ Acetaminophen (Percocet (5/ 325)) 1 tab Q4H PRN PO REPORTED NON- CARDIAC PAIN 4-7; Start 04/21/17 at 15:30 Morphine Sulfate (morphine) 1 mg Q1H PRN IV PAIN NOT RELIEVED BY OTHERS; Start 04/21/17 at 15:30 Al Hydrox/Mg Hydrox/Simethicone (Mag-Al Plus) 30 ml Q4H PRN PO GASTROINTESTINAL UPSET; Start 04/21/17 at 15:30 Ondansetron HCl (Zofran Inj) 4 mg Q4H PRN IV NAUSEA AND/OR VOMITING; Start at 15:30 Aspirin (Aspirin) 325 mg DAILY PO Last administered on 04/23/17 08:58; Admin Dose 325 MG; Start 04/22/17 at 09:00 LESLIE LEONG Apr 23, 2017 14:48
--- NOTE | 2017-04-23 15:22 | CONS ---
Date/Time of Note Date/Time of Note DATE: 04/23/17 TIME: 15:17 Assessment/Plan Assessment/Plan Chief Complaint/Hosp Course Assessment/Plan Chief Complaint/Hosp Course No Acute Events Overnight. Denies Pain. No Acute Distress. Antibiotics: Levaquin Allergies: Penicillins Physical examination: Well-developed well-nourished elderly man who is awake in no distress. Head atraumatic normocephalic, sclera nonicteric. Neck is supple trachea midline. Chest rise symmetrical, breath sounds diminished basis. Heart S1-S2. Abdomen soft bowel tones present. Extremities without cyanosis. Assessment: 1. Sepsis, resolving 2. E. coli UTI 3. Pneumonia 4. Acute CO 5. History of CVA with left-sided weakness 6. Coronary artery disease, status post PTCI 7. Staph bacteremia, likely contaminant Plan: 1. Hemodynamically Stable. 2. Repeat blood cultures negative. 3. Continue Levaquin, continue anti-aspiration precautions. 4. Follow Cardiology recommendations. 5. Monitor Labs. Problems: Consultation Date/Type/Reason Admit Date/Time Apr 16, 2017 at 04:16 Initial Consult Date Type of Consultation: id Referring Provider: QUIANA MURCIA MD Exam/Review of Systems Vital Signs Vitals Vital Signs Date Time Temp Pulse Resp B/P Pulse Ox O2 Delivery O2 Flow Rate FiO2 04/23/17 12:15 67 04/23/17 11:54 98.3 18 113/57 96 04/23/17 09:06 Room Air 04/19/17 17:45 21 Intake and Output 04/22/17 04/22/17 04/23/17 15:00 23:00 07:00 Output Total 1000 ml 375 ml Balance -1000 ml -375 ml Results Result Diagram: 04/23/17 0927 04/23/17 0500 Results 24 hrs Laboratory Tests Test 04/22/17 17:46 04/22/17 21:14 04/23/17 05:00 04/23/17 08:07 Bedside Glucose 258 H 83 176 Sodium Level 140 Potassium Level 4.3 Chloride Level 98 Carbon Dioxide Level 29 Anion Gap 17 H Blood Urea Nitrogen 28 H Creatinine 1.72 H Glucose Level 179 Calcium Level 9.1 Total Bilirubin 0.3 Direct Bilirubin 0.00 Indirect Bilirubin 0.3 Aspartate Amino Transf (AST/SGOT) 35 Alanine Aminotransferase (ALT/SGPT) 42 Alkaline Phosphatase 93 Total Protein 7.2 Albumin 3.8 Globulin 3.40 H Albumin/Globulin Ratio 1.11 Test 04/23/17 09:27 04/23/17 12:22 White Blood Count 8.3 Red Blood Count 3.78 L Hemoglobin 11.0 L Hematocrit 34.1 L Mean Corpuscular Volume 90.2 Mean Corpuscular Hemoglobin 29.1 Mean Corpuscular Hemoglobin Concent 32.3 Red Cell Distribution Width 14.3 Platelet Count 434 H Mean Platelet Volume 9.5 Neutrophils % 62.2 Lymphocytes % 22.8 Monocytes % 9.3 Eosinophils % 4.0 Basophils % 0.1 Nucleated Red Blood Cells % 0.0 Neutrophils # 5.1 Lymphocytes # 1.9 Monocytes # 0.8 Eosinophils # 0.3 Basophils # 0.0 Nucleated Red Blood Cells # 0.0 Bedside Glucose 215 Medications Medications Current Medications Diagnostic Test (Pha) (Accu-Chek) 1 ea 02 XX Last administered on 04/18/17 02: 11; Admin Dose 1 EA; Start 04/17/17 at 02:00 Miscellaneous Information 1 ea NOTE XX ; Start 04/16/17 at 08:00 Glucose (Glutose) 15 gm Q15M PRN PO DECREASED GLUCOSE; Start 04/16/17 at 08:00 Glucose (Glutose) 22.5 gm Q15M PRN PO DECREASED GLUCOSE; Start 04/16/17 at 08:00 Dextrose (D50w Syringe) 25 ml Q15M PRN IV DECREASED GLUCOSE; Start 04/16/17 at 08:00 Dextrose (D50w Syringe) 50 ml Q15M PRN IV DECREASED GLUCOSE; Start 04/16/17 at 08:00 Glucagon (Glucagen) 1 mg Q15M PRN IM DECREASED GLUCOSE; Start 04/16/17 at 08:00 Glucose (Glutose) 15 gm Q15M PRN BUCCAL DECREASED GLUCOSE; Start 04/16/17 at 08: 00 Lisinopril (Zestril) 40 mg BID PO Last administered on 04/23/17 09:04; Admin Dose 40 MG; Start 04/16/17 at 21:00 Pioglitazone HCl (Actos) 15 mg DAILY PO Last administered on 04/23/17 08:57; Admin Dose 15 MG; Start 04/16/17 at 12:00 Atorvastatin Calcium (Lipitor) 20 mg DAILY@21 PO Last administered on 21:16; Admin Dose 20 MG; Start 04/16/17 at 21:00 Guaifenesin (Robitussin Liquid Cup) 100 mg Q6 PRN PO COUGH Last administered on 04/17/17 13:02; Admin Dose 100 MG; Start 04/17/17 at 01:30 Docusate Sodium (Colace) 100 mg BID PO Last administered on 04/23/17 08:58; Admin Dose 100 MG; Start 04/17/17 at 21:00 Polyethylene Glycol (Miralax) 17 gm DAILY PRN PO CONSTIPATION Last administered on 04/19/17 12:16; Admin Dose 17 GM; Start 04/17/17 at 18:30 Metoprolol Tartrate (Lopressor) 5 mg Q4H PRN IV hr>110 hOLD sbp<100; Start 07/25 at 20:30 Hydralazine HCl 10 mg 10 mg Q4H PRN IV sbp>170; Start 04/17/17 at 20:30 Levofloxacin/ Dextrose (Levaquin 250 Mg/ D5W 50 ml (Pmx)) 50 ml @ 100 mls/hr Q24H IVPB Last administered on 04/23/17 13:12; Admin Dose 100 MLS/HR; Start at 10:30 Insulin Glargine (Lantus) 15 unit DAILY@08 SC Last administered on 04/23/17 12 :27; Admin Dose 15 UNIT; Start 04/19/17 at 08:00 Furosemide (Lasix) 40 mg DAILY@06 IV Last administered on 04/23/17 05:49; Admin Dose 40 MG; Start 04/19/17 at 06:00; Status Future Hold Carvedilol (Coreg) 3.125 mg BID PO Last administered on 04/23/17 09:04; Admin Dose 3.125 MG; Start 04/19/17 at 12:00 Miscellaneous Information (* Miscellaneous Pharmacy Order) Hold all Metformin ... ONCE XX ; Start 04/21/17 at 15:30; Stop 04/23/17 at 15:29 Clopidogrel Bisulfate (plaVIX) 75 mg DAILY PO Last administered on 04/23/17 08 :58; Admin Dose 75 MG; Start 04/22/17 at 09:00 Acetaminophen (Tylenol Tab) 650 mg Q4H PRN PO NON-CARDIAC PAIN LEVEL 1-3; Start 04/21/17 at 15:30 Oxycodone/ Acetaminophen (Percocet (5/ 325)) 1 tab Q4H PRN PO REPORTED NON- CARDIAC PAIN 4-7; Start 04/21/17 at 15:30 Morphine Sulfate (morphine) 1 mg Q1H PRN IV PAIN NOT RELIEVED BY OTHERS; Start 04/21/17 at 15:30 Al Hydrox/Mg Hydrox/Simethicone (Mag-Al Plus) 30 ml Q4H PRN PO GASTROINTESTINAL UPSET; Start 04/21/17 at 15:30 Ondansetron HCl (Zofran Inj) 4 mg Q4H PRN IV NAUSEA AND/OR VOMITING; Start at 15:30 Aspirin (Aspirin) 325 mg DAILY PO Last administered on 04/23/17t 08:58; Admin Dose 325 MG; Start 04/22/17 at 09:00 BAMBI ORDOÑEZ NP Apr 23, 2017 15:22
--- NOTE | 2017-04-23 17:58 | RADRPT ---
PROCEDURE: CT Brain without contrast. CLINICAL INDICATION: BLURRY VISION/HX STROKE TECHNIQUE: A multiplanar CT of the brain was performed on a CT scanner utilizing axial imaging fro m the skull base through the vertex without IV contrast. The CTDIvol is 45.01 mGy and the DLP is 72 0.23 mGycm. One or more of the following dose reduction techniques were utilized: Automated exposu re control, adjustment of the mA and/or kV according to patient size, use of iterative reconstructio n technique. COMPARISON: 09/29/2013 FINDINGS: No evidence of intracranial hemorrhage or abnormal extra-axial fluid collection. Right MCA territory encephalomalacia compatible with remote ischemic infarct and stable right frontal lobe calcificatio n likely related to prior hemorrhage. Ex vacuo dilatation of the right lateral ventricle. Preservation of remaining huerta white differentiation and chronic microvascular ischemic changes in t he deep white matter. Stable moderate central cerebral and cerebellar volume loss. Atherosclerotic c alcification of the internal carotid and vertebral arteries. The basal cisterns, posterior fossa contents, brainstem, craniocervical junction, orbits, pituitary axis, paranasal sinuses, mastoid air cells, and calvarium are unremarkable. IMPRESSION: 1. Right MCA territory remote ischemic infarct and encephalomalacia without significant interval ch catrachita. No acute intracranial abnormality. Dystrophic calcifications in the right frontal lobe most c ompatible with sequelae of prior intracranial hemorrhage. 2. Stable cerebral volume loss RPTAT:AAJJ Physician Summer Date Time Electronically viewed and signed by Physician Summer on 04/23/2017 17:58 LEANN/
--- NOTE | 2017-04-23 18:11 | PN ---
Date/Time of Note Date/Time of Note DATE: 04/23/17 TIME: 17:53 Assessment/Plan VTE Prophylaxis VTE Prophylaxis Intervention: other Lines/Catheters IV [facility] Saline Lock Urinary Cath still in place: Yes Assessment/Plan Assessment/Plan - C/O blurry vision- patient was found to have no new focal deficit. patient has left sided weakness already. Denies any shortness of breath, chest pain, facial numbness. - will do CT Head w/o contrast r/o any strokeas patient has Hx Stroke, being on anticoagulants -NSTEMI, continue aspirin and Plavix. Dr. Monae is following in cardiology consultation. Plan is for cardiac cath today. -Coronary artery disease status post PTCI, continue Plavix. - Acute Renal Insufficiency - per nephrology -E. coli UTI, continue Levaquin, Dr. Hodge is following infection disease consultation. -Hypertension, patient is currently normotensive -CVA with left-sided residual weakness -COPD, continue breathing treatments -Chronic kidney disease, avoid nephrotoxic medication. -Diabetes mellitus type 2, hemoglobin A1c is 8.6, continue Lantus and NovoLog. Further recommendations based on clinical course. Total critical care time spent- 35 mins. Plan of care discussed with Dr. Paz. Subjective 24 Hr Interval Summary Free Text/Dictation 1640- per staff patient has C/O blurry vision- patient was found to have no new focal deficit. patient has left sided weakness already. Denies any shortness of breath, chest pain, facial numbness. - will do CT Head w/o contrast r/o any strokeas patient has Hx Stroke, being on anticoagulants Eyes: visual change Cardiovascular: no complaints Gastrointestinal: no complaints Genitourinary: no complaints Musculoskeletal: no complaints Skin: no complaints Neurologic: no complaints Exam/Review of Systems Vital Signs Vitals Vital Signs Date Time Temp Pulse Resp B/P Pulse Ox O2 Delivery O2 Flow Rate FiO2 04/23/17 16:11 77 04/23/17 15:51 98.4 20 101/55 94 04/23/17 09:06 Room Air 04/19/17 17:45 21 Intake and Output 04/22/17 04/22/17 04/23/17 15:00 23:00 07:00 Output Total 1000 ml 375 ml Balance -1000 ml -375 ml Exam Constitutional: alert, well developed ENMT: nl external ears & nose Respiratory: clear to auscultation, normal air movement Cardiovascular: nl pulses, regular rate and rhythm Gastrointestinal: non-tender, soft Neurological: nl mental status, nl speech Results Result Diagram: 04/23/17 0927 04/23/17 0500 Results 24 hrs Laboratory Tests Test 04/22/17 21:14 04/23/17 05:00 04/23/17 08:07 04/23/17 09:27 Bedside Glucose 83 176 Sodium Level 140 Potassium Level 4.3 Chloride Level 98 Carbon Dioxide Level 29 Anion Gap 17 H Blood Urea Nitrogen 28 H Creatinine 1.72 H Glucose Level 179 Calcium Level 9.1 Total Bilirubin 0.3 Direct Bilirubin 0.00 Indirect Bilirubin 0.3 Aspartate Amino Transf (AST/SGOT) 35 Alanine Aminotransferase (ALT/SGPT) 42 Alkaline Phosphatase 93 Total Protein 7.2 Albumin 3.8 Globulin 3.40 H Albumin/Globulin Ratio 1.11 White Blood Count 8.3 Red Blood Count 3.78 L Hemoglobin 11.0 L Hematocrit 34.1 L Mean Corpuscular Volume 90.2 Mean Corpuscular Hemoglobin 29.1 Mean Corpuscular Hemoglobin Concent 32.3 Red Cell Distribution Width 14.3 Platelet Count 434 H Mean Platelet Volume 9.5 Neutrophils % 62.2 Lymphocytes % 22.8 Monocytes % 9.3 Eosinophils % 4.0 Basophils % 0.1 Nucleated Red Blood Cells % 0.0 Neutrophils # 5.1 Lymphocytes # 1.9 Monocytes # 0.8 Eosinophils # 0.3 Basophils # 0.0 Nucleated Red Blood Cells # 0.0 Test 04/23/17 12:22 04/23/17 15:31 04/23/17 17:32 Bedside Glucose 215 116 116 Medications Medications Current Medications Diagnostic Test (Pha) (Accu-Chek) 1 ea 02 XX Last administered on 04/18/17t 02: 11; Admin Dose 1 EA; Start 04/17/17 at 02:00 Miscellaneous Information 1 ea NOTE XX ; Start 04/16/17 at 08:00 Glucose (Glutose) 15 gm Q15M PRN PO DECREASED GLUCOSE; Start 04/16/17 at 08:00 Glucose (Glutose) 22.5 gm Q15M PRN PO DECREASED GLUCOSE; Start 04/16/17 at 08:00 Dextrose (D50w Syringe) 25 ml Q15M PRN IV DECREASED GLUCOSE; Start 04/16/17 at 08:00 Dextrose (D50w Syringe) 50 ml Q15M PRN IV DECREASED GLUCOSE; Start 04/16/17 at 08:00 Glucagon (Glucagen) 1 mg Q15M PRN IM DECREASED GLUCOSE; Start 04/16/17 at 08:00 Glucose (Glutose) 15 gm Q15M PRN BUCCAL DECREASED GLUCOSE; Start 04/16/17 at 08: 00 Lisinopril (Zestril) 40 mg BID PO Last administered on 04/23/17 09:04; Admin Dose 40 MG; Start 04/16/17 at 21:00 Pioglitazone HCl (Actos) 15 mg DAILY PO Last administered on 04/23/17 08:57; Admin Dose 15 MG; Start 04/16/17 at 12:00 Atorvastatin Calcium (Lipitor) 20 mg DAILY@21 PO Last administered on 21:16; Admin Dose 20 MG; Start 04/16/17 at 21:00 Guaifenesin (Robitussin Liquid Cup) 100 mg Q6 PRN PO COUGH Last administered on 04/17/17 13:02; Admin Dose 100 MG; Start 04/17/17 at 01:30 Docusate Sodium (Colace) 100 mg BID PO Last administered on 04/23/17 08:58; Admin Dose 100 MG; Start 04/17/17 at 21:00 Polyethylene Glycol (Miralax) 17 gm DAILY PRN PO CONSTIPATION Last administered on 04/19/17 12:16; Admin Dose 17 GM; Start 04/17/17 at 18:30 Metoprolol Tartrate (Lopressor) 5 mg Q4H PRN IV hr>110 hOLD sbp<100; Start 07/25 at 20:30 Hydralazine HCl 10 mg 10 mg Q4H PRN IV sbp>170; Start 04/17/17 at 20:30 Levofloxacin/ Dextrose (Levaquin 250 Mg/ D5W 50 ml (Pmx)) 50 ml @ 100 mls/hr Q24H IVPB Last administered on 04/23/17 13:12; Admin Dose 100 MLS/HR; Start at 10:30 Insulin Glargine (Lantus) 15 unit DAILY@08 SC Last administered on 04/23/17 12 :27; Admin Dose 15 UNIT; Start 04/19/17 at 08:00 Furosemide (Lasix) 40 mg DAILY@06 IV Last administered on 04/23/17 05:49; Admin Dose 40 MG; Start 04/19/17 at 06:00; Status Future Hold Carvedilol (Coreg) 3.125 mg BID PO Last administered on 04/23/17 09:04; Admin Dose 3.125 MG; Start 04/19/17 at 12:00 Clopidogrel Bisulfate (plaVIX) 75 mg DAILY PO Last administered on 04/23/17 08 :58; Admin Dose 75 MG; Start 04/22/17 at 09:00 Acetaminophen (Tylenol Tab) 650 mg Q4H PRN PO NON-CARDIAC PAIN LEVEL 1-3; Start 04/21/17 at 15:30 Oxycodone/ Acetaminophen (Percocet (5/ 325)) 1 tab Q4H PRN PO REPORTED NON- CARDIAC PAIN 4-7; Start 04/21/17 at 15:30 Morphine Sulfate (morphine) 1 mg Q1H PRN IV PAIN NOT RELIEVED BY OTHERS; Start 04/21/17 at 15:30 Al Hydrox/Mg Hydrox/Simethicone (Mag-Al Plus) 30 ml Q4H PRN PO GASTROINTESTINAL UPSET; Start 04/21/17 at 15:30 Ondansetron HCl (Zofran Inj) 4 mg Q4H PRN IV NAUSEA AND/OR VOMITING; Start at 15:30 Aspirin (Aspirin) 325 mg DAILY PO Last administered on 04/23/17 08:58; Admin Dose 325 MG; Start 04/22/17 at 09:00 EUFEMIA WALKER Apr 23, 2017 18:04
[2017-04-23] MEDS: ATORVASTATIN 20 MG TAB PO SCH (20:36)
[2017-04-24] VITALS (11 sets, daily range): BP systolic 82–126; BP diastolic 41–62; PULSE 62–70; RESP 16–19
[2017-04-24] MEDS: ACCU-CHEK XX SCH (00:30)
[2017-04-24 07:30] LABS: ADD SCAN DIFF NO
[2017-04-24 07:35] LABS: BASOPHILS % 0.2 % (0.0-2.0); EOSINOPHILS # 0.3 10^3/ul (0.0-0.5); EOSINOPHILS % 3.8 % (0.0-7.0); HEMATOCRIT 32.8 % (42.0-52.0); HEMOGLOBIN 10.3 g/dl (14.0-18.0); MEAN CORPUSCULAR HEMOGLOBIN 28.5 pg (29.0-33.0); MEAN CORPUSCULAR HGB CONC 31.4 g/dl (32.0-37.0); MEAN CORPUSCULAR VOLUME 90.6 fl (82.0-101.0); MEAN PLATELET VOLUME 10.1 fl (7.4-10.4); MONOCYTE # 0.8 10^3/ul (0.3-0.9); MONOCYTES % 9.6 % (0.0-11.0); NEUTROPHIL # 5.3 10^3/ul (1.6-7.5); NEUTROPHILS % 62.1 % (39.0-77.0); PLATELET COUNT 418 10^3/UL (140-415); RED BLOOD COUNT 3.62 10^6/ul (4.70-6.10); RED CELL DISTRIBUTION WIDTH 14.6 % (11.5-14.5); WHITE BLOOD COUNT 8.5 10^3/ul (4.8-10.8)
[2017-04-24] MEDS: metFORMIN 500 MG TAB PO SCH (08:00)
[2017-04-24] MEDS: INSULIN ASPART [NOVOLOG] 3 ML PEN SC SCH ×7 (08:00→20:22)
[2017-04-24 08:15] LABS: CALCIUM 8.6 mg/dl (8.4-10.2); CREATININE 1.96 mg/dl (0.61-1.24); POTASSIUM 4.6 mmol/L (3.5-5.1)
[2017-04-24] MEDS: CLOPIDOGREL 75 MG TAB PO SCH (08:38)
[2017-04-24] MEDS: LISINOPRIL 20 MG TAB PO SCH ×2 (08:42→20:22)
[2017-04-24] MEDS: ASPIRIN 325 MG TAB PO SCH (08:43)
[2017-04-24] MEDS: PIOGLITAZONE 15 MG TAB PO SCH (08:44)
[2017-04-24] MEDS: DOCUSATE SODIUM 100 MG CAP PO SCH ×2 (08:46→20:21)
[2017-04-24] MEDS: INSULIN GLARGINE [LANtus] 3 ML PEN SC SCH (09:53)
[2017-04-24] MEDS: LEVOFLOXACIN 250MG/D5W (PMX) 50 ML IVPB SCH (10:03)
--- NOTE | 2017-04-24 15:03 | CONS ---
Date/Time of Note Date/Time of Note DATE: 04/24/17 TIME: 15:02 Assessment/Plan Assessment/Plan Chief Complaint/Hosp Course No acute events overnight, looks comfortable, no fevers Antibiotics: Levaquin Allergies: Penicillins Physical examination: Well-developed well-nourished elderly man who is awake in no distress. Head atraumatic normocephalic, sclera nonicteric. Neck is supple trachea midline. Chest rise symmetrical, breath sounds diminished basis. Heart S1-S2. Abdomen soft bowel tones present. Extremities without cyanosis. Assessment: 1. Sepsis, resolving 2. E. coli UTI 3. Pneumonia 4. Acute VA 5. History of CVA with left-sided weakness 6. Coronary artery disease, status post PTCI 7. Staph bacteremia, likely contaminant Plan: Remains stable, completed antibiotics, continue present care, management per primary team and consultants DW staff Problems: Consultation Date/Type/Reason Admit Date/Time Apr 16, 2017 at 04:16 Type of Consultation: id Referring Provider: QUIANA MURCIA MD Exam/Review of Systems Vital Signs Vitals Vital Signs Date Time Temp Pulse Resp B/P Pulse Ox O2 Delivery O2 Flow Rate FiO2 04/24/17 12:17 64 04/24/17 11:39 97.9 19 110/61 96 04/23/17 09:06 Room Air Intake and Output 04/23/17 04/23/17 04/24/17 15:00 23:00 07:00 Intake Total 720 ml Output Total 800 ml Balance -80 ml Results Result Diagram: 04/24/17 0621 04/24/17 0621 Results 24 hrs Laboratory Tests Test 04/23/17 15:31 04/23/17 17:32 04/23/17 20:37 04/23/17 20:56 Bedside Glucose 116 116 65 L 77 Test 04/24/17 00:45 04/24/17 06:21 04/24/17 08:36 04/24/17 12:18 Bedside Glucose 138 114 146 White Blood Count 8.5 Red Blood Count 3.62 L Hemoglobin 10.3 L Hematocrit 32.8 L Mean Corpuscular Volume 90.6 Mean Corpuscular Hemoglobin 28.5 L Mean Corpuscular Hemoglobin Concent 31.4 L Red Cell Distribution Width 14.6 H Platelet Count 418 H Mean Platelet Volume 10.1 Neutrophils % 62.1 Lymphocytes % 23.0 Monocytes % 9.6 Eosinophils % 3.8 Basophils % 0.2 Nucleated Red Blood Cells % 0.0 Neutrophils # 5.3 Lymphocytes # 2.0 Monocytes # 0.8 Eosinophils # 0.3 Basophils # 0.0 Nucleated Red Blood Cells # 0.0 Sodium Level 142 Potassium Level 4.6 Chloride Level 100 Carbon Dioxide Level 29 Anion Gap 18 H Blood Urea Nitrogen 37 H Creatinine 1.96 H Glucose Level 101 # Calcium Level 8.6 Medications Medications Current Medications Diagnostic Test (Pha) (Accu-Chek) 1 ea 02 XX Last administered on 04/24/17 00: 30; Admin Dose 1 EA; Start 04/17/17 at 02:00 Miscellaneous Information 1 ea NOTE XX ; Start 04/16/17 at 08:00 Glucose (Glutose) 15 gm Q15M PRN PO DECREASED GLUCOSE; Start 04/16/17 at 08:00 Glucose (Glutose) 22.5 gm Q15M PRN PO DECREASED GLUCOSE; Start 04/16/17 at 08:00 Dextrose (D50w Syringe) 25 ml Q15M PRN IV DECREASED GLUCOSE; Start 04/16/17 at 08:00 Dextrose (D50w Syringe) 50 ml Q15M PRN IV DECREASED GLUCOSE; Start 04/16/17 at 08:00 Glucagon (Glucagen) 1 mg Q15M PRN IM DECREASED GLUCOSE; Start 04/16/17 at 08:00 Glucose (Glutose) 15 gm Q15M PRN BUCCAL DECREASED GLUCOSE; Start 04/16/17 at 08: 00 Lisinopril (Zestril) 40 mg BID PO Last administered on 04/24/17 08:42; Admin Dose 40 MG; Start 04/16/17 at 21:00 Pioglitazone HCl (Actos) 15 mg DAILY PO Last administered on 04/24/17 08:44; Admin Dose 15 MG; Start 04/16/17 at 12:00 Atorvastatin Calcium (Lipitor) 20 mg DAILY@21 PO Last administered on 20:36; Admin Dose 20 MG; Start 04/16/17 at 21:00 Guaifenesin (Robitussin Liquid Cup) 100 mg Q6 PRN PO COUGH Last administered on 04/17/17 13:02; Admin Dose 100 MG; Start 04/17/17 at 01:30 Docusate Sodium (Colace) 100 mg BID PO Last administered on 04/24/17 08:46; Admin Dose 100 MG; Start 04/17/17 at 21:00 Polyethylene Glycol (Miralax) 17 gm DAILY PRN PO CONSTIPATION Last administered on 04/19/17 12:16; Admin Dose 17 GM; Start 04/17/17 at 18:30 Metoprolol Tartrate (Lopressor) 5 mg Q4H PRN IV hr>110 hOLD sbp<100; Start 07/25 at 20:30 Hydralazine HCl (Apresoline) 10 mg Q4H PRN IV sbp>170; Start 04/17/17 at 20:30 Insulin Glargine (Lantus) 15 unit DAILY@08 SC Last administered on 04/24/17 09 :53; Admin Dose 15 UNIT; Start 04/19/17 at 08:00 Furosemide (Lasix) 40 mg DAILY@06 IV Last administered on 04/23/17 05:49; Admin Dose 40 MG; Start 04/19/17 at 06:00; Status Future Hold Carvedilol (Coreg) 3.125 mg BID PO Last administered on 04/23/17 20:39; Admin Dose 3.125 MG; Start 04/19/17 at 12:00 Clopidogrel Bisulfate (plaVIX) 75 mg DAILY PO Last administered on 04/24/17 08 :38; Admin Dose 75 MG; Start 04/22/17 at 09:00 Acetaminophen (Tylenol Tab) 650 mg Q4H PRN PO NON-CARDIAC PAIN LEVEL 1-3; Start 04/21/17 at 15:30 Oxycodone/ Acetaminophen (Percocet (5/ 325)) 1 tab Q4H PRN PO REPORTED NON- CARDIAC PAIN 4-7; Start 04/21/17 at 15:30 Morphine Sulfate (morphine) 1 mg Q1H PRN IV PAIN NOT RELIEVED BY OTHERS; Start 04/21/17 at 15:30 Al Hydrox/Mg Hydrox/Simethicone (Mag-Al Plus) 30 ml Q4H PRN PO GASTROINTESTINAL UPSET; Start 04/21/17 at 15:30 Ondansetron HCl (Zofran Inj) 4 mg Q4H PRN IV NAUSEA AND/OR VOMITING; Start at 15:30 Aspirin (Aspirin) 325 mg DAILY PO Last administered on 04/24/17t 08:43; Admin Dose 325 MG; Start 04/22/17 at 09:00 Levofloxacin (Levaquin) 250 mg DAILY@06 PO ; Start 04/25/17 at 06:00 WILLIAM OWENS NP Apr 24, 2017 15:03
--- NOTE | 2017-04-24 15:26 | PN ---
Date/Time of Note Date/Time of Note DATE: 04/24/17 TIME: 15:19 Assessment/Plan VTE Prophylaxis VTE Prophylaxis Intervention: SCD's Lines/Catheters IV [facility]from [facility] [place] [facility] Urinary Cath still in place: Yes Reason Cath still needed: urinary retention Assessment/Plan Chief Complaint/Hosp Course Patient denies any chest pain denies any shortness of breath denies any nausea vomiting, blood sugar is well controlled. Creatinine increased to 1.9, Lasix is held by cardiology gentle IV hydration. Assessment/Plan -Acute kidney injury, most likely secondary to contrast use, administer IV fluids, continue to monitor BUN and creatinine. -NSTEMI, continue aspirin and Plavix. Dr. Monae is following in cardiology consultation. Plan is for cardiac cath today. -Obstructive CAD, s/p ptca/stent x 3 to RCA/acute marginal by Dr. Monae on . -E. coli UTI, status post treatment with Levaquin. -Hypertension, patient is currently normotensive -CVA with left-sided residual weakness -COPD, continue breathing treatments -Chronic kidney disease, avoid nephrotoxic medication. -Diabetes mellitus type 2, hemoglobin A1c is 8.6, continue Lantus and NovoLog. Further recommendations based on clinical course. Plan of care discussed with Dr. Paz. Problems: Exam/Review of Systems Vital Signs Vitals Vital Signs Date Time Temp Pulse Resp B/P Pulse Ox O2 Delivery O2 Flow Rate FiO2 04/24/17 12:17 64 04/24/17 11:39 97.9 19 110/61 96 04/23/17 09:06 Room Air Intake and Output 04/23/17 04/23/17 04/24/17 15:00 23:00 07:00 Intake Total 720 ml Output Total 800 ml Balance -80 ml Exam Constitutional: alert, oriented Head: normocephalic Neck: supple Respiratory: diminished breath sounds Cardiovascular: nl pulses Gastrointestinal: non-tender, soft Musculoskeletal: muscle weakness Extremities: normal pulses Skin: nl turgor Results Result Diagram: 04/24/17 0604/24/1721 Results 24 hrs Laboratory Tests Test 04/23/17 15:31 04/23/17 17:32 04/23/17 20:37 04/23/17 20:56 Bedside Glucose 116 116 65 L 77 Test 04/24/17 00:45 04/24/17 06:21 04/24/17 08:36 04/24/17 12:18 Bedside Glucose 138 114 146 White Blood Count 8.5 Red Blood Count 3.62 L Hemoglobin 10.3 L Hematocrit 32.8 L Mean Corpuscular Volume 90.6 Mean Corpuscular Hemoglobin 28.5 L Mean Corpuscular Hemoglobin Concent 31.4 L Red Cell Distribution Width 14.6 H Platelet Count 418 H Mean Platelet Volume 10.1 Neutrophils % 62.1 Lymphocytes % 23.0 Monocytes % 9.6 Eosinophils % 3.8 Basophils % 0.2 Nucleated Red Blood Cells % 0.0 Neutrophils # 5.3 Lymphocytes # 2.0 Monocytes # 0.8 Eosinophils # 0.3 Basophils # 0.0 Nucleated Red Blood Cells # 0.0 Sodium Level 142 Potassium Level 4.6 Chloride Level 100 Carbon Dioxide Level 29 Anion Gap 18 H Blood Urea Nitrogen 37 H Creatinine 1.96 H Glucose Level 101 # Calcium Level 8.6 Medications Medications Current Medications Diagnostic Test (Pha) (Accu-Chek) 1 ea 02 XX Last administered on 04/24/17 00: 30; Admin Dose 1 EA; Start 04/17/17 at 02:00 Miscellaneous Information 1 ea NOTE XX ; Start 04/16/17 at 08:00 Glucose (Glutose) 15 gm Q15M PRN PO DECREASED GLUCOSE; Start 04/16/17 at 08:00 Glucose (Glutose) 22.5 gm Q15M PRN PO DECREASED GLUCOSE; Start 04/16/17 at 08:00 Dextrose (D50w Syringe) 25 ml Q15M PRN IV DECREASED GLUCOSE; Start 04/16/17 at 08:00 Dextrose (D50w Syringe) 50 ml Q15M PRN IV DECREASED GLUCOSE; Start 04/16/17 at 08:00 Glucagon (Glucagen) 1 mg Q15M PRN IM DECREASED GLUCOSE; Start 04/16/17 at 08:00 Glucose (Glutose) 15 gm Q15M PRN BUCCAL DECREASED GLUCOSE; Start 04/16/17 at 08: 00 Lisinopril (Zestril) 40 mg BID PO Last administered on 04/24/17 08:42; Admin Dose 40 MG; Start 04/16/17 at 21:00 Pioglitazone HCl (Actos) 15 mg DAILY PO Last administered on 04/24/17 08:44; Admin Dose 15 MG; Start 04/16/17 at 12:00 Atorvastatin Calcium (Lipitor) 20 mg DAILY@21 PO Last administered on 20:36; Admin Dose 20 MG; Start 04/16/17 at 21:00 Guaifenesin (Robitussin Liquid Cup) 100 mg Q6 PRN PO COUGH Last administered on 04/17/17 13:02; Admin Dose 100 MG; Start 04/17/17 at 01:30 Docusate Sodium (Colace) 100 mg BID PO Last administered on 04/24/17 08:46; Admin Dose 100 MG; Start 04/17/17 at 21:00 Polyethylene Glycol (Miralax) 17 gm DAILY PRN PO CONSTIPATION Last administered on 04/19/17 12:16; Admin Dose 17 GM; Start 04/17/17 at 18:30 Metoprolol Tartrate (Lopressor) 5 mg Q4H PRN IV hr>110 hOLD sbp<100; Start 07/25 at 20:30 Hydralazine HCl (Apresoline) 10 mg Q4H PRN IV sbp>170; Start 04/17/17 at 20:30 Insulin Glargine (Lantus) 15 unit DAILY@08 SC Last administered on 04/24/17 09 :53; Admin Dose 15 UNIT; Start 04/19/17 at 08:00 Furosemide (Lasix) 40 mg DAILY@06 IV Last administered on 04/23/17 05:49; Admin Dose 40 MG; Start 04/19/17 at 06:00; Status Future Hold Carvedilol (Coreg) 3.125 mg BID PO Last administered on 04/23/17 20:39; Admin Dose 3.125 MG; Start 04/19/17 at 12:00 Clopidogrel Bisulfate (plaVIX) 75 mg DAILY PO Last administered on 04/24/17 08 :38; Admin Dose 75 MG; Start 04/22/17 at 09:00 Acetaminophen (Tylenol Tab) 650 mg Q4H PRN PO NON-CARDIAC PAIN LEVEL 1-3; Start 04/21/17 at 15:30 Oxycodone/ Acetaminophen (Percocet (5/ 325)) 1 tab Q4H PRN PO REPORTED NON- CARDIAC PAIN 4-7; Start 04/21/17 at 15:30 Morphine Sulfate (morphine) 1 mg Q1H PRN IV PAIN NOT RELIEVED BY OTHERS; Start 04/21/17 at 15:30 Al Hydrox/Mg Hydrox/Simethicone (Mag-Al Plus) 30 ml Q4H PRN PO GASTROINTESTINAL UPSET; Start 04/21/17 at 15:30 Ondansetron HCl (Zofran Inj) 4 mg Q4H PRN IV NAUSEA AND/OR VOMITING; Start at 15:30 Aspirin (Aspirin) 325 mg DAILY PO Last administered on 04/24/17t 08:43; Admin Dose 325 MG; Start 04/22/17 at 09:00 CALVIN CIFUENTES Apr 24, 2017 15:25
[2017-04-24] MEDS: SOD CHLORIDE 0.45% 1,000 ML IV SCH (15:44)
--- NOTE | 2017-04-24 18:16 | CONS ---
Date/Time of Note Date/Time of Note DATE: 04/24/17 TIME: 18:13 Assessment/Plan Assessment/Plan Chief Complaint/Hosp Course IMp: 1.CHF 2.Nstemi-now downtrending. Now s/p PTCA /stent to RCA.acute marginal x 3 3.HTN 4.UTI 5. H/O prior stent 6.renal failure-ACUTE ON CHRONIC worseninig 7. Hyponatremia 8. Cardiomyopathy-LVEF 25% by echo 04/18 Recc: -Tele -serial ecg's -Continue asa/plavix/statin -Continue ACEI/BB -Hold lasix and follow creatnine/volume status closely on gentle IVF hydration -Continue abx's and f/u cx data Problems: Consultation Date/Type/Reason Admit Date/Time Apr 16, 2017 at 04:16 Initial Consult Date 04/17/17 Type of Consultation: cardiology Reason for Consultation nstemi s/p stent Referring Provider: QUIANA MURCIA MD Exam/Review of Systems Vital Signs Vitals Vital Signs Date Time Temp Pulse Resp B/P Pulse Ox O2 Delivery O2 Flow Rate FiO2 04/24/17 16:15 64 04/24/17 15:54 97.9 19 126/62 97 04/23/17 09:06 Room Air Intake and Output 04/23/17 04/23/17 04/24/17 15:00 23:00 07:00 Intake Total 720 ml Output Total 800 ml Balance -80 ml Exam Review of Systems: CONSTITUTIONAL: No fevers, chills. PULMONARY: No sob CARDIOVASCULAR: No chest pain/palpitations GASTROINTESTINAL: No nausea/vomiting. GENITOURINARY: No hematuria/dysuria. MUSCULOSKELETAL: No myagias/arthalgias. PSYCHIATRIC: The patient denies depression. NEUROLOGIC: lethargic Constitutional: alert Psych: no complaints Head: normocephalic ENMT: mucosa pink and moist Neck: jvd (8 cm water), supple Respiratory: diminished breath sounds (at bases/B) Cardiovascular: regular rate and rhythm Gastrointestinal: non-tender, soft Musculoskeletal: muscle weakness (generalized) Extremities: edema (none) Neurological: lethargic Results Result Diagram: 04/24/17 0621 04/24/17 0621 Results 24 hrs Laboratory Tests Test 04/23/17 20:37 04/23/17 20:56 04/24/17 00:45 04/24/17 06:21 Bedside Glucose 65 L 77 138 White Blood Count 8.5 Red Blood Count 3.62 L Hemoglobin 10.3 L Hematocrit 32.8 L Mean Corpuscular Volume 90.6 Mean Corpuscular Hemoglobin 28.5 L Mean Corpuscular Hemoglobin Concent 31.4 L Red Cell Distribution Width 14.6 H Platelet Count 418 H Mean Platelet Volume 10.1 Neutrophils % 62.1 Lymphocytes % 23.0 Monocytes % 9.6 Eosinophils % 3.8 Basophils % 0.2 Nucleated Red Blood Cells % 0.0 Neutrophils # 5.3 Lymphocytes # 2.0 Monocytes # 0.8 Eosinophils # 0.3 Basophils # 0.0 Nucleated Red Blood Cells # 0.0 Sodium Level 142 Potassium Level 4.6 Chloride Level 100 Carbon Dioxide Level 29 Anion Gap 18 H Blood Urea Nitrogen 37 H Creatinine 1.96 H Glucose Level 101 # Calcium Level 8.6 Test 04/24/17 08:36 04/24/17 12:18 04/24/17 17:26 Bedside Glucose 114 146 135 Medications Medications Current Medications Diagnostic Test (Pha) (Accu-Chek) 1 ea 02 XX Last administered on 04/24/17 00: 30; Admin Dose 1 EA; Start 04/17/17 at 02:00 Miscellaneous Information 1 ea NOTE XX ; Start 04/16/17 at 08:00 Glucose (Glutose) 15 gm Q15M PRN PO DECREASED GLUCOSE; Start 04/16/17 at 08:00 Glucose (Glutose) 22.5 gm Q15M PRN PO DECREASED GLUCOSE; Start 04/16/17 at 08:00 Dextrose (D50w Syringe) 25 ml Q15M PRN IV DECREASED GLUCOSE; Start 04/16/17 at 08:00 Dextrose (D50w Syringe) 50 ml Q15M PRN IV DECREASED GLUCOSE; Start 04/16/17 at 08:00 Glucagon (Glucagen) 1 mg Q15M PRN IM DECREASED GLUCOSE; Start 04/16/17 at 08:00 Glucose (Glutose) 15 gm Q15M PRN BUCCAL DECREASED GLUCOSE; Start 04/16/17 at 08: 00 Lisinopril (Zestril) 40 mg BID PO Last administered on 04/24/17 08:42; Admin Dose 40 MG; Start 04/16/17 at 21:00 Pioglitazone HCl (Actos) 15 mg DAILY PO Last administered on 04/24/17 08:44; Admin Dose 15 MG; Start 04/16/17 at 12:00 Atorvastatin Calcium (Lipitor) 20 mg DAILY@21 PO Last administered on 20:36; Admin Dose 20 MG; Start 04/16/17 at 21:00 Guaifenesin (Robitussin Liquid Cup) 100 mg Q6 PRN PO COUGH Last administered on 04/17/17 13:02; Admin Dose 100 MG; Start 04/17/17 at 01:30 Docusate Sodium (Colace) 100 mg BID PO Last administered on 04/24/17 08:46; Admin Dose 100 MG; Start 04/17/17 at 21:00 Polyethylene Glycol (Miralax) 17 gm DAILY PRN PO CONSTIPATION Last administered on 04/19/17 12:16; Admin Dose 17 GM; Start 04/17/17 at 18:30 Metoprolol Tartrate (Lopressor) 5 mg Q4H PRN IV hr>110 hOLD sbp<100; Start 07/25 at 20:30 Hydralazine HCl (Apresoline) 10 mg Q4H PRN IV sbp>170; Start 04/17/17 at 20:30 Insulin Glargine (Lantus) 15 unit DAILY@08 SC Last administered on 04/24/17 09 :53; Admin Dose 15 UNIT; Start 04/19/17 at 08:00 Furosemide (Lasix) 40 mg DAILY@06 IV Last administered on 04/23/17 05:49; Admin Dose 40 MG; Start 04/19/17 at 06:00; Status Future Hold Carvedilol (Coreg) 3.125 mg BID PO Last administered on 04/23/17 20:39; Admin Dose 3.125 MG; Start 04/19/17 at 12:00 Clopidogrel Bisulfate (plaVIX) 75 mg DAILY PO Last administered on 04/24/17 08 :38; Admin Dose 75 MG; Start 04/22/17 at 09:00 Acetaminophen (Tylenol Tab) 650 mg Q4H PRN PO NON-CARDIAC PAIN LEVEL 1-3; Start 04/21/17 at 15:30 Oxycodone/ Acetaminophen (Percocet (5/ 325)) 1 tab Q4H PRN PO REPORTED NON- CARDIAC PAIN 4-7; Start 04/21/17 at 15:30 Morphine Sulfate (morphine) 1 mg Q1H PRN IV PAIN NOT RELIEVED BY OTHERS; Start 04/21/17 at 15:30 Al Hydrox/Mg Hydrox/Simethicone (Mag-Al Plus) 30 ml Q4H PRN PO GASTROINTESTINAL UPSET; Start 04/21/17 at 15:30 Ondansetron HCl (Zofran Inj) 4 mg Q4H PRN IV NAUSEA AND/OR VOMITING; Start at 15:30 Aspirin 325 mg 325 mg DAILY PO Last administered on 04/24/17 08:43; Admin Dose 325 MG; Start 04/22/17 at 09:00 Sodium Chloride (1/2 NS) 1,000 ml @ 70 mls/hr [id number] IV Last administered on 04/24/17 15:44; Admin Dose 70 MLS/HR; Start 04/24/17 at 15:30 LESLIE LEONG Apr 24, 2017 18:15
[2017-04-24] MEDS: ATORVASTATIN 20 MG TAB PO SCH (20:21)
[2017-04-25] VITALS (10 sets, daily range): BP systolic 108–127; BP diastolic 55–68; PULSE 58–80; RESP 15–19
[2017-04-25] MEDS: ACCU-CHEK XX SCH (02:00)
[2017-04-25] MEDS: SOD CHLORIDE 0.45% 1,000 ML IV SCH (05:47)
[2017-04-25] MEDS ORDERED: LEVOFLOXACIN 250 MG TAB PO SCH (06:00)
[2017-04-25 08:07] LABS: ADD SCAN DIFF NO
[2017-04-25 08:13] LABS: BASOPHILS % 0.4 % (0.0-2.0); EOSINOPHILS # 0.3 10^3/ul (0.0-0.5); EOSINOPHILS % 4.6 % (0.0-7.0); HEMATOCRIT 32.1 % (42.0-52.0); HEMOGLOBIN 10.1 g/dl (14.0-18.0); LYMPHOCYTES # 2.1 10^3/ul (0.8-2.9); LYMPHOCYTES % 28.6 % (15.0-51.0); MEAN CORPUSCULAR HEMOGLOBIN 28.6 pg (29.0-33.0); MEAN CORPUSCULAR HGB CONC 31.5 g/dl (32.0-37.0); MEAN CORPUSCULAR VOLUME 90.9 fl (82.0-101.0); MONOCYTE # 0.8 10^3/ul (0.3-0.9); MONOCYTES % 11.2 % (0.0-11.0); PLATELET COUNT 405 10^3/UL (140-415); RED BLOOD COUNT 3.53 10^6/ul (4.70-6.10); RED CELL DISTRIBUTION WIDTH 14.6 % (11.5-14.5); WHITE BLOOD COUNT 7.3 10^3/ul (4.8-10.8)
[2017-04-25] MEDS: INSULIN ASPART [NOVOLOG] 3 ML PEN SC SCH ×7 (08:27→21:00)
[2017-04-25 08:37] LABS: CALCIUM 8.6 mg/dl (8.4-10.2); CREATININE 1.88 mg/dl (0.61-1.24); POTASSIUM 4.9 mmol/L (3.5-5.1)
--- NOTE | 2017-04-25 09:20 | CONS ---
DATE OF ADMISSION: 04/16/2017 DATE OF CONSULTATION: 04/16/2017 REASON FOR CONSULTATION: Antibiotic management. HISTORY OF PRESENT ILLNESS: Meño Crandall is a 72-year- old male who presents with painful urination x4 days as well as a cough. He has suprapubic abdominal pain and trouble urinating. He has fever and chills. He denies chest pain or shortness of breath. PAST MEDICAL HISTORY: Includes: 1. Adult-onset diabetes mellitus. 2. Hypertension. 3. Allergy to penicillin. 4. Status post appendectomy. 5. CVA with left-sided weakness. 6. Former smoker. PAST SURGICAL HISTORY: Operations as outlined. FAMILY HISTORY: Noncontributory. SOCIAL HISTORY: He is a former smoker. He does not drink or abuse drugs. ALLERGIES: PENICILLIN. MEDICATION: Per chart. REVIEW OF SYSTEMS: As per HPI. PHYSICAL EXAMINATION: GENERAL: Patient is an elderly-appearing male who is awake, lethargic but arousable, in no acute distress. VITAL SIGNS: Stable. T-max actually is 102.1. SKIN: Without generalized rash. HEENT: Within normal limits. NECK: Supple. Lymph nodes nonpalpable. CHEST: Decreased breath sounds at the bases. CARDIAC: Without murmur or gallop. ABDOMEN: Soft. He has mild suprapubic tenderness without guarding or rebound. Normal bowel sounds. EXTREMITIES: Without cyanosis, clubbing or edema. RECTAL AND GENITAL: Exams deferred. NEUROLOGIC: No focal neurological abnormalities. LABORATORY: White count 9.9, H and H 11 and 32.9, platelet count 203,000. Sodium 124, chloride 92, BUN and creatinine 41/1.98, glucose 293. His urine is growing gram-negative rods. His blood is gram-positive cocci in clusters, which may be a contaminant. Chest x-ray: Shallow inspiration, minimal bibasilar subsegmental atelectasis, small foci or shrapnel overlying the mediastinal region and right lateral upper lung zone. IMPRESSION/PLAN: Patient was begun on Levaquin. We probably should repeat blood cultures x2, continue his Levaquin, possibly add vancomycin. I will dictate my findings to Dr. Paz. Dictated By: Willie Hodge MD JD/asha/mireya /Document#: [id number]
[2017-04-25] MEDS: ASPIRIN 325 MG TAB PO SCH (09:28)
[2017-04-25] MEDS: PIOGLITAZONE 15 MG TAB PO SCH (09:28)
[2017-04-25] MEDS: CLOPIDOGREL 75 MG TAB PO SCH (09:28)
[2017-04-25] MEDS: DOCUSATE SODIUM 100 MG CAP PO SCH ×2 (09:28→21:12)
[2017-04-25] MEDS: LISINOPRIL 20 MG TAB PO SCH ×2 (09:28→21:12)
[2017-04-25] MEDS: INSULIN GLARGINE [LANtus] 3 ML PEN SC SCH (09:30)
--- NOTE | 2017-04-25 13:46 | RADRPT ---
Vent Rate: 87 bpm RR Interval: 0 msec MO Interval: 152 msec QRS Duration: 66 msec QT Interval: 380 msec QTC Interval: 457 msec P-R-T [place]: 43 - 7 - 115 degrees Normal sinus rhythm Left ventricular hypertrophy with repolarization abnormality Possible Inferior infarct , age undetermined Anteroseptal infarct , age undetermined Abnormal ECG Electronically Signed By: Cyril Samano [id number]
--- NOTE | 2017-04-25 16:42 | CONS ---
Date/Time of Note Date/Time of Note DATE: 04/25/17 TIME: 16:41 Assessment/Plan Assessment/Plan Chief Complaint/Hosp Course IMp: 1.CHF 2.Nstemi-now downtrending. Now s/p PTCA /stent to RCA.acute marginal x 3 3.HTN 4.UTI 5. H/O prior stent 6.renal failure-ACUTE ON CHRONIC worseninig/possible contrast nephropathy 7. Hyponatremia 8. Cardiomyopathy-LVEF 25% by echo 04/18 Recc: -Tele -serial ecg's -Continue asa/plavix/statin -Continue ACEI/BB -Hold lasix and follow creatnine/volume status closely on gentle IVF hydration -Continue abx's and f/u cx data Problems: Consultation Date/Type/Reason Admit Date/Time Apr 16, 2017 at 04:16 Initial Consult Date 04/17/17 Type of Consultation: cardiology Reason for Consultation nstemi Referring Provider: QUIANA MURCIA MD Exam/Review of Systems Vital Signs Vitals Vital Signs Date Time Temp Pulse Resp B/P Pulse Ox O2 Delivery O2 Flow Rate FiO2 04/25/17 16:38 61 04/25/17 16:04 97.7 18 127/58 94 04/23/17 09:06 Room Air Intake and Output 04/24/17 04/24/17 04/25/17 15:00 23:00 07:00 Intake Total 900 ml 1500 ml Output Total 250 ml 1200 ml Balance 650 ml 300 ml Exam Review of Systems: CONSTITUTIONAL: No fevers, chills. PULMONARY: No sob CARDIOVASCULAR: No chest pain/palpitations GASTROINTESTINAL: No nausea/vomiting. GENITOURINARY: No hematuria/dysuria. MUSCULOSKELETAL: No myagias/arthalgias. PSYCHIATRIC: The patient denies depression. NEUROLOGIC: lethargic Constitutional: alert Psych: no complaints Head: normocephalic ENMT: mucosa pink and moist Neck: supple Respiratory: clear to auscultation Cardiovascular: regular rate and rhythm Gastrointestinal: non-tender, soft Musculoskeletal: muscle tone (normal) Extremities: edema (none) Neurological: lethargic Results Result Diagram: 04/25/17 0750 04/25/17 0750 Results 24 hrs Laboratory Tests Test 04/24/17 17:26 04/24/17 20:15 04/25/17 02:09 04/25/17 07:50 Bedside Glucose 135 130 155 White Blood Count 7.3 Red Blood Count 3.53 L Hemoglobin 10.1 L Hematocrit 32.1 L Mean Corpuscular Volume 90.9 Mean Corpuscular Hemoglobin 28.6 L Mean Corpuscular Hemoglobin Concent 31.5 L Red Cell Distribution Width 14.6 H Platelet Count 405 Mean Platelet Volume 10.0 Neutrophils % 54.0 Lymphocytes % 28.6 Monocytes % 11.2 H Eosinophils % 4.6 Basophils % 0.4 Nucleated Red Blood Cells % 0.0 Neutrophils # 4.0 Lymphocytes # 2.1 Monocytes # 0.8 Eosinophils # 0.3 Basophils # 0.0 Nucleated Red Blood Cells # 0.0 Sodium Level 142 Potassium Level 4.9 Chloride Level 103 Carbon Dioxide Level 27 Anion Gap 17 H Blood Urea Nitrogen 31 H Creatinine 1.88 H Glucose Level 128 Calcium Level 8.6 Test 04/25/17 08:11 04/25/17 11:48 Bedside Glucose 144 231 H Medications Medications Current Medications Diagnostic Test (Pha) (Accu-Chek) 1 ea 02 XX Last administered on 04/24/17 00: 30; Admin Dose 1 EA; Start 04/17/17 at 02:00 Miscellaneous Information 1 ea NOTE XX ; Start 04/16/17 at 08:00 Glucose (Glutose) 15 gm Q15M PRN PO DECREASED GLUCOSE; Start 04/16/17 at 08:00 Glucose (Glutose) 22.5 gm Q15M PRN PO DECREASED GLUCOSE; Start 04/16/17 at 08:00 Dextrose (D50w Syringe) 25 ml Q15M PRN IV DECREASED GLUCOSE; Start 04/16/17 at 08:00 Dextrose (D50w Syringe) 50 ml Q15M PRN IV DECREASED GLUCOSE; Start 04/16/17 at 08:00 Glucagon (Glucagen) 1 mg Q15M PRN IM DECREASED GLUCOSE; Start 04/16/17 at 08:00 Glucose (Glutose) 15 gm Q15M PRN BUCCAL DECREASED GLUCOSE; Start 04/16/17 at 08: 00 Lisinopril (Zestril) 40 mg BID PO Last administered on 04/25/17 09:28; Admin Dose 40 MG; Start 04/16/17 at 21:00 Pioglitazone HCl (Actos) 15 mg DAILY PO Last administered on 04/25/17 09:28; Admin Dose 15 MG; Start 04/16/17 at 12:00 Atorvastatin Calcium (Lipitor) 20 mg DAILY@21 PO Last administered on 20:21; Admin Dose 20 MG; Start 04/16/17 at 21:00 Guaifenesin (Robitussin Liquid Cup) 100 mg Q6 PRN PO COUGH Last administered on 04/17/17 13:02; Admin Dose 100 MG; Start 04/17/17 at 01:30 Docusate Sodium (Colace) 100 mg BID PO Last administered on 04/25/17 09:28; Admin Dose 100 MG; Start 04/17/17 at 21:00 Polyethylene Glycol (Miralax) 17 gm DAILY PRN PO CONSTIPATION Last administered on 04/19/17 12:16; Admin Dose 17 GM; Start 04/17/17 at 18:30 Metoprolol Tartrate (Lopressor) 5 mg Q4H PRN IV hr>110 hOLD sbp<100; Start 07/25 at 20:30 Hydralazine HCl (Apresoline) 10 mg Q4H PRN IV sbp>170; Start 04/17/17 at 20:30 Insulin Glargine (Lantus) 15 unit DAILY@08 SC Last administered on 04/25/17 09 :30; Admin Dose 15 UNIT; Start 04/19/17 at 08:00 Furosemide (Lasix) 40 mg DAILY@06 IV Last administered on 04/23/17 05:49; Admin Dose 40 MG; Start 04/19/17 at 06:00; Status Future Hold Carvedilol (Coreg) 3.125 mg BID PO Last administered on 04/25/17 09:28; Admin Dose 3.125 MG; Start 04/19/17 at 12:00 Clopidogrel Bisulfate (plaVIX) 75 mg DAILY PO Last administered on 04/25/17 09 :28; Admin Dose 75 MG; Start 04/22/17 at 09:00 Acetaminophen (Tylenol Tab) 650 mg Q4H PRN PO NON-CARDIAC PAIN LEVEL 1-3; Start 04/21/17 at 15:30 Oxycodone/ Acetaminophen (Percocet (5/ 325)) 1 tab Q4H PRN PO REPORTED NON- CARDIAC PAIN 4-7; Start 04/21/17 at 15:30 Morphine Sulfate (morphine) 1 mg Q1H PRN IV PAIN NOT RELIEVED BY OTHERS Last administered on 04/25/17 03:54; Admin Dose 1 MG; Start 04/21/17 at 15:30 Al Hydrox/Mg Hydrox/Simethicone (Mag-Al Plus) 30 ml Q4H PRN PO GASTROINTESTINAL UPSET; Start 04/21/17 at 15:30 Ondansetron HCl (Zofran Inj) 4 mg Q4H PRN IV NAUSEA AND/OR VOMITING; Start at 15:30 Aspirin 325 mg 325 mg DAILY PO Last administered on 04/25/17 09:28; Admin Dose 325 MG; Start 04/22/17 at 09:00 Sodium Chloride (1/2 NS) 1,000 ml @ 70 mls/hr [id number] IV Last administered on 04/25/17 05:47; Admin Dose 70 MLS/HR; Start 04/24/17 at 15:30 LESLIE LEONG Apr 25, 2017 16:42
--- NOTE | 2017-04-25 17:03 | PN ---
Date/Time of Note Date/Time of Note DATE: 04/25/17 TIME: 16:58 Assessment/Plan VTE Prophylaxis VTE Prophylaxis Intervention: SCD's Lines/Catheters [facility]from [facility] Peripheral IV Urinary Cath still in place: Yes Reason Cath still needed: urinary retention Assessment/Plan Chief Complaint/Hosp Course BUN and creatinine slightly improved, continue gentle hydration, patient remains hemodynamically stable, denies any shortness of breath denies chest pain. Assessment/Plan -Acute kidney injury, most likely secondary to contrast use, administer IV fluids, continue to monitor BUN and creatinine. -NSTEMI, continue aspirin and Plavix. Dr. Monae is following in cardiology consultation. Plan is for cardiac cath today. -Obstructive CAD, s/p ptca/stent x 3 to RCA/acute marginal by Dr. Monae on . -E. coli UTI, status post treatment with Levaquin. -Hypertension, patient is currently normotensive -CVA with left-sided residual weakness -COPD, continue breathing treatments -Chronic kidney disease, avoid nephrotoxic medication. -Diabetes mellitus type 2, hemoglobin A1c is 8.6, continue Lantus and NovoLog. Further recommendations based on clinical course. Plan of care discussed with Dr. Paz. Problems: Exam/Review of Systems Vital Signs Vitals Vital Signs Date Time Temp Pulse Resp B/P Pulse Ox O2 Delivery O2 Flow Rate FiO2 04/25/17 16:38 61 04/25/17 16:04 97.7 18 127/58 94 04/23/17 09:06 Room Air Intake and Output 04/24/17 04/24/17 04/25/17 15:00 23:00 07:00 Intake Total 900 ml 1500 ml Output Total 250 ml 1200 ml Balance 650 ml 300 ml Exam Constitutional: alert, oriented Head: normocephalic Neck: supple Respiratory: diminished breath sounds Cardiovascular: nl pulses Gastrointestinal: non-tender, soft Musculoskeletal: muscle weakness Extremities: normal pulses Skin: nl turgor Results Result Diagram: 04/25/17 0750 04/25/17 0750 Results 24 hrs Laboratory Tests Test 04/24/17 17:26 04/24/17 20:15 04/25/17 02:09 04/25/17 07:50 Bedside Glucose 135 130 155 White Blood Count 7.3 Red Blood Count 3.53 L Hemoglobin 10.1 L Hematocrit 32.1 L Mean Corpuscular Volume 90.9 Mean Corpuscular Hemoglobin 28.6 L Mean Corpuscular Hemoglobin Concent 31.5 L Red Cell Distribution Width 14.6 H Platelet Count 405 Mean Platelet Volume 10.0 Neutrophils % 54.0 Lymphocytes % 28.6 Monocytes % 11.2 H Eosinophils % 4.6 Basophils % 0.4 Nucleated Red Blood Cells % 0.0 Neutrophils # 4.0 Lymphocytes # 2.1 Monocytes # 0.8 Eosinophils # 0.3 Basophils # 0.0 Nucleated Red Blood Cells # 0.0 Sodium Level 142 Potassium Level 4.9 Chloride Level 103 Carbon Dioxide Level 27 Anion Gap 17 H Blood Urea Nitrogen 31 H Creatinine 1.88 H Glucose Level 128 Calcium Level 8.6 Test 04/25/17 08:11 04/25/17 11:48 Bedside Glucose 144 231 H Medications Medications Current Medications Diagnostic Test (Pha) (Accu-Chek) 1 ea 02 XX Last administered on 04/24/17 00: 30; Admin Dose 1 EA; Start 04/17/17 at 02:00 Miscellaneous Information 1 ea NOTE XX ; Start 04/16/17 at 08:00 Glucose (Glutose) 15 gm Q15M PRN PO DECREASED GLUCOSE; Start 04/16/17 at 08:00 Glucose (Glutose) 22.5 gm Q15M PRN PO DECREASED GLUCOSE; Start 04/16/17 at 08:00 Dextrose (D50w Syringe) 25 ml Q15M PRN IV DECREASED GLUCOSE; Start 04/16/17 at 08:00 Dextrose (D50w Syringe) 50 ml Q15M PRN IV DECREASED GLUCOSE; Start 04/16/17 at 08:00 Glucagon (Glucagen) 1 mg Q15M PRN IM DECREASED GLUCOSE; Start 04/16/17 at 08:00 Glucose (Glutose) 15 gm Q15M PRN BUCCAL DECREASED GLUCOSE; Start 04/16/17 at 08: 00 Lisinopril (Zestril) 40 mg BID PO Last administered on 04/25/17 09:28; Admin Dose 40 MG; Start 04/16/17 at 21:00 Pioglitazone HCl (Actos) 15 mg DAILY PO Last administered on 04/25/17 09:28; Admin Dose 15 MG; Start 04/16/17 at 12:00 Atorvastatin Calcium (Lipitor) 20 mg DAILY@21 PO Last administered on 20:21; Admin Dose 20 MG; Start 04/16/17 at 21:00 Guaifenesin (Robitussin Liquid Cup) 100 mg Q6 PRN PO COUGH Last administered on 04/17/17 13:02; Admin Dose 100 MG; Start 04/17/17 at 01:30 Docusate Sodium (Colace) 100 mg BID PO Last administered on 04/25/17 09:28; Admin Dose 100 MG; Start 04/17/17 at 21:00 Polyethylene Glycol (Miralax) 17 gm DAILY PRN PO CONSTIPATION Last administered on 04/19/17 12:16; Admin Dose 17 GM; Start 04/17/17 at 18:30 Metoprolol Tartrate (Lopressor) 5 mg Q4H PRN IV hr>110 hOLD sbp<100; Start 07/25 at 20:30 Hydralazine HCl (Apresoline) 10 mg Q4H PRN IV sbp>170; Start 04/17/17 at 20:30 Insulin Glargine (Lantus) 15 unit DAILY@08 SC Last administered on 04/25/17 09 :30; Admin Dose 15 UNIT; Start 04/19/17 at 08:00 Furosemide (Lasix) 40 mg DAILY@06 IV Last administered on 04/23/17 05:49; Admin Dose 40 MG; Start 04/19/17 at 06:00; Status Future Hold Carvedilol (Coreg) 3.125 mg BID PO Last administered on 04/25/17 09:28; Admin Dose 3.125 MG; Start 04/19/17 at 12:00 Clopidogrel Bisulfate (plaVIX) 75 mg DAILY PO Last administered on 04/25/17 09 :28; Admin Dose 75 MG; Start 04/22/17 at 09:00 Acetaminophen (Tylenol Tab) 650 mg Q4H PRN PO NON-CARDIAC PAIN LEVEL 1-3; Start 04/21/17 at 15:30 Oxycodone/ Acetaminophen (Percocet (5/ 325)) 1 tab Q4H PRN PO REPORTED NON- CARDIAC PAIN 4-7; Start 04/21/17 at 15:30 Morphine Sulfate (morphine) 1 mg Q1H PRN IV PAIN NOT RELIEVED BY OTHERS Last administered on 04/25/17 03:54; Admin Dose 1 MG; Start 04/21/17 at 15:30 Al Hydrox/Mg Hydrox/Simethicone (Mag-Al Plus) 30 ml Q4H PRN PO GASTROINTESTINAL UPSET; Start 04/21/17 at 15:30 Ondansetron HCl (Zofran Inj) 4 mg Q4H PRN IV NAUSEA AND/OR VOMITING; Start at 15:30 Aspirin 325 mg 325 mg DAILY PO Last administered on 04/25/17 09:28; Admin Dose 325 MG; Start 04/22/17 at 09:00 Sodium Chloride (1/2 NS) 1,000 ml @ 70 mls/hr [id number] IV Last administered on 04/25/17 05:47; Admin Dose 70 MLS/HR; Start 04/24/17 at 15:30 CALVIN CIFUENTES Apr 25, 2017 17:03
[2017-04-25] MEDS: ATORVASTATIN 20 MG TAB PO SCH (21:12)
[2017-04-25] MEDS: POLYETHYLENE GLYCOL 17 GM PACKET PO PRN (21:13)
[2017-04-26] VITALS (12 sets, daily range): BP systolic 94–115; BP diastolic 50–62; PULSE 58–72; RESP 15–19
[2017-04-26] MEDS: ACCU-CHEK XX SCH (02:00)
[2017-04-26] MEDS: INSULIN ASPART [NOVOLOG] 3 ML PEN SC SCH ×7 (08:00→21:00)
[2017-04-26 08:31] LABS: ADD SCAN DIFF NO
[2017-04-26 08:42] LABS: BASOPHILS % 0.4 % (0.0-2.0); EOSINOPHILS # 0.3 10^3/ul (0.0-0.5); EOSINOPHILS % 4.2 % (0.0-7.0); HEMATOCRIT 32.4 % (42.0-52.0); HEMOGLOBIN 10.1 g/dl (14.0-18.0); LYMPHOCYTES # 2.2 10^3/ul (0.8-2.9); LYMPHOCYTES % 29.8 % (15.0-51.0); MEAN CORPUSCULAR HEMOGLOBIN 28.2 pg (29.0-33.0); MEAN CORPUSCULAR HGB CONC 31.2 g/dl (32.0-37.0); MEAN CORPUSCULAR VOLUME 90.5 fl (82.0-101.0); MEAN PLATELET VOLUME 10.2 fl (7.4-10.4); MONOCYTE # 0.9 10^3/ul (0.3-0.9); MONOCYTES % 11.8 % (0.0-11.0); NEUTROPHIL # 3.9 10^3/ul (1.6-7.5); NEUTROPHILS % 53.3 % (39.0-77.0); PLATELET COUNT 390 10^3/UL (140-415); RED BLOOD COUNT 3.58 10^6/ul (4.70-6.10); RED CELL DISTRIBUTION WIDTH 14.2 % (11.5-14.5); WHITE BLOOD COUNT 7.3 10^3/ul (4.8-10.8)
[2017-04-26 08:54] LABS: CREATININE 1.65 mg/dl (0.61-1.24); POTASSIUM 4.6 mmol/L (3.5-5.1)
[2017-04-26] MEDS: LISINOPRIL 20 MG TAB PO SCH (09:00)
[2017-04-26] MEDS: ASPIRIN 325 MG TAB PO SCH (09:44)
[2017-04-26] MEDS: CLOPIDOGREL 75 MG TAB PO SCH (09:55)
[2017-04-26] MEDS: DOCUSATE SODIUM 100 MG CAP PO SCH ×2 (09:55→21:05)
[2017-04-26] MEDS: PIOGLITAZONE 15 MG TAB PO SCH (09:55)
[2017-04-26] MEDS: INSULIN GLARGINE [LANtus] 3 ML PEN SC SCH (10:02)
--- NOTE | 2017-04-26 13:00 | CONS ---
Date/Time of Note Date/Time of Note DATE: 04/26/17 TIME: 12:56 Assessment/Plan Assessment/Plan Chief Complaint/Hosp Course IMp: 1.CHF 2.Nstemi-now downtrending. Now s/p PTCA /stent to RCA.acute marginal x 3 3.HTN 4.UTI 5. H/O prior stent 6.renal failure-ACUTE ON CHRONIC/possible contrast nephropathy-now improving 7. Hyponatremia 8. Cardiomyopathy-LVEF 25% by echo 04/18 Recc: -Tele -serial ecg's -Continue asa/plavix/statin -Continue ACEI/BB with slight decrease to acei given marginal BP -Hold lasix and continue to follow creatnine/volume status closely -Continue abx's and f/u cx data Problems: Consultation Date/Type/Reason Admit Date/Time Apr 16, 2017 at 04:16 Initial Consult Date 04/17/17 Type of Consultation: cardiology Reason for Consultation nstemi Referring Provider: QUIANA MURCIA MD Exam/Review of Systems Vital Signs Vitals Vital Signs Date Time Temp Pulse Resp B/P Pulse Ox O2 Delivery O2 Flow Rate FiO2 04/26/17 12:34 72 04/26/17 11:36 97.9 18 105/51 96 04/23/17 09:06 Room Air Intake and Output 04/25/17 04/25/17 04/26/17 15:00 23:00 07:00 Intake Total 600 ml 350 ml Output Total 800 ml 800 ml Balance -200 ml -450 ml Exam Review of Systems: CONSTITUTIONAL: No fevers, chills. PULMONARY: No sob CARDIOVASCULAR: No chest pain/palpitations GASTROINTESTINAL: No nausea/vomiting. GENITOURINARY: No hematuria/dysuria. MUSCULOSKELETAL: No myagias/arthalgias. PSYCHIATRIC: The patient denies depression. NEUROLOGIC: lethargic Constitutional: alert, oriented Psych: no complaints Head: normocephalic ENMT: mucosa pink and moist Neck: jvd (8-9 cm wter), supple Respiratory: diminished breath sounds (at bases/B) Cardiovascular: regular rate and rhythm Gastrointestinal: non-tender, soft Extremities: edema (none) Neurological: lethargic Results Result Diagram: 04/26/17 0754 04/26/17 0754 Results 24 hrs Laboratory Tests Test 04/25/17 16:56 04/25/17 21:09 04/26/17 02:12 04/26/17 07:50 Bedside Glucose 192 118 189 118 Test 04/26/17 07:54 White Blood Count 7.3 Red Blood Count 3.58 L Hemoglobin 10.1 L Hematocrit 32.4 L Mean Corpuscular Volume 90.5 Mean Corpuscular Hemoglobin 28.2 L Mean Corpuscular Hemoglobin Concent 31.2 L Red Cell Distribution Width 14.2 Platelet Count 390 Mean Platelet Volume 10.2 Neutrophils % 53.3 Lymphocytes % 29.8 Monocytes % 11.8 H Eosinophils % 4.2 Basophils % 0.4 Nucleated Red Blood Cells % 0.0 Neutrophils # 3.9 Lymphocytes # 2.2 Monocytes # 0.9 Eosinophils # 0.3 Basophils # 0.0 Nucleated Red Blood Cells # 0.0 Sodium Level 142 Potassium Level 4.6 Chloride Level 102 Carbon Dioxide Level 27 Anion Gap 18 H Blood Urea Nitrogen 36 H Creatinine 1.65 H Glucose Level 117 Calcium Level 9.0 Medications Medications Current Medications Diagnostic Test (Pha) (Accu-Chek) 1 ea 02 XX Last administered on 04/24/17 00: 30; Admin Dose 1 EA; Start 04/17/17 at 02:00 Miscellaneous Information 1 ea NOTE XX ; Start 04/16/17 at 08:00 Glucose (Glutose) 15 gm Q15M PRN PO DECREASED GLUCOSE; Start 04/16/17 at 08:00 Glucose (Glutose) 22.5 gm Q15M PRN PO DECREASED GLUCOSE; Start 04/16/17 at 08:00 Dextrose (D50w Syringe) 25 ml Q15M PRN IV DECREASED GLUCOSE; Start 04/16/17 at 08:00 Dextrose (D50w Syringe) 50 ml Q15M PRN IV DECREASED GLUCOSE; Start 04/16/17 at 08:00 Glucagon (Glucagen) 1 mg Q15M PRN IM DECREASED GLUCOSE; Start 04/16/17 at 08:00 Glucose (Glutose) 15 gm Q15M PRN BUCCAL DECREASED GLUCOSE; Start 04/16/17 at 08: 00 Lisinopril (Zestril) 40 mg BID PO Last administered on 04/25/17 21:12; Admin Dose 40 MG; Start 04/16/17 at 21:00 Pioglitazone HCl (Actos) 15 mg DAILY PO Last administered on 04/26/17 09:55; Admin Dose 15 MG; Start 04/16/17 at 12:00 Atorvastatin Calcium (Lipitor) 20 mg DAILY@21 PO Last administered on 21:12; Admin Dose 20 MG; Start 04/16/17 at 21:00 Guaifenesin (Robitussin Liquid Cup) 100 mg Q6 PRN PO COUGH Last administered on 04/17/17 13:02; Admin Dose 100 MG; Start 04/17/17 at 01:30 Docusate Sodium (Colace) 100 mg BID PO Last administered on 04/26/17 09:55; Admin Dose 100 MG; Start 04/17/17 at 21:00 Polyethylene Glycol (Miralax) 17 gm DAILY PRN PO CONSTIPATION Last administered on 04/25/17 21:13; Admin Dose 17 GM; Start 04/17/17 at 18:30 Metoprolol Tartrate (Lopressor) 5 mg Q4H PRN IV hr>110 hOLD sbp<100; Start 07/25 at 20:30 Hydralazine HCl (Apresoline) 10 mg Q4H PRN IV sbp>170; Start 04/17/17 at 20:30 Insulin Glargine (Lantus) 15 unit DAILY@08 SC Last administered on 04/26/17 10 :02; Admin Dose 15 UNIT; Start 04/19/17 at 08:00 Furosemide (Lasix) 40 mg DAILY@06 IV Last administered on 04/23/17 05:49; Admin Dose 40 MG; Start 04/19/17 at 06:00; Status Future Hold Carvedilol (Coreg) 3.125 mg BID PO Last administered on 04/25/17 21:12; Admin Dose 3.125 MG; Start 04/19/17 at 12:00 Clopidogrel Bisulfate (plaVIX) 75 mg DAILY PO Last administered on 04/26/17 09 :55; Admin Dose 75 MG; Start 04/22/17 at 09:00 Acetaminophen (Tylenol Tab) 650 mg Q4H PRN PO NON-CARDIAC PAIN LEVEL 1-3; Start 04/21/17 at 15:30 Oxycodone/ Acetaminophen (Percocet (5/ 325)) 1 tab Q4H PRN PO REPORTED NON- CARDIAC PAIN 4-7; Start 04/21/17 at 15:30 Morphine Sulfate (morphine) 1 mg Q1H PRN IV PAIN NOT RELIEVED BY OTHERS Last administered on 04/25/17 03:54; Admin Dose 1 MG; Start 04/21/17 at 15:30 Al Hydrox/Mg Hydrox/Simethicone (Mag-Al Plus) 30 ml Q4H PRN PO GASTROINTESTINAL UPSET; Start 04/21/17 at 15:30 Ondansetron HCl (Zofran Inj) 4 mg Q4H PRN IV NAUSEA AND/OR VOMITING; Start at 15:30 Aspirin (Aspirin) 325 mg DAILY PO Last administered on 04/26/17 09:44; Admin Dose 325 MG; Start 04/22/17 at 09:00 LESLIE LEONG Apr 26, 2017 13:00
--- NOTE | 2017-04-26 18:22 | PN ---
Date/Time of Note Date/Time of Note DATE: 04/26/17 TIME: 18:19 Assessment/Plan VTE Prophylaxis VTE Prophylaxis Intervention: SCD's Lines/Catheters IV Catheter Type (from [facility]): Peripheral IV Urinary Cath still in place: Yes Reason Cath still needed: urinary retention Assessment/Plan Chief Complaint/Hosp Course Patient denies any chest pain, denies any shortness of breath, blood sugar is better controlled, creatinine improved, continue to monitor renal function Assessment/Plan -Acute kidney injury, Lasix is held, continue to monitor BUN and creatinine. -NSTEMI, Obstructive CAD, s/p ptca/stent x 3 to RCA/acute marginal by Dr. Monae on 04/21. Continue aspirin and Plavix. -E. coli UTI, status post treatment with Levaquin. -Hypertension, patient is currently normotensive -CVA with left-sided residual weakness -COPD, continue breathing treatments -Chronic kidney disease, avoid nephrotoxic medication. -Diabetes mellitus type 2, hemoglobin A1c is 8.6, continue Lantus and NovoLog. Further recommendations based on clinical course. Plan of care discussed with Dr. Paz. Problems: Exam/Review of Systems Vital Signs Vitals Vital Signs Date Time Temp Pulse Resp B/P Pulse Ox O2 Delivery O2 Flow Rate FiO2 04/26/17 16:21 67 04/26/17 15:59 97.8 18 94/50 93 04/23/17 09:06 Room Air Intake and Output 04/25/17 04/25/17 04/26/17 14:59 22:59 06:59 Intake Total 600 ml 350 ml Output Total 800 ml 800 ml Balance -200 ml -450 ml Exam Constitutional: alert, oriented Head: normocephalic Neck: supple Respiratory: diminished breath sounds Cardiovascular: nl pulses Gastrointestinal: non-tender, soft Musculoskeletal: muscle weakness Extremities: normal pulses Skin: nl turgor Results Result Diagram: 04/26/17 0754 04/26/17 0754 Results 24 hrs Laboratory Tests Test 04/25/17 21:09 04/26/17 02:12 04/26/17 07:50 04/26/17 07:54 Bedside Glucose 118 189 118 White Blood Count 7.3 Red Blood Count 3.58 L Hemoglobin 10.1 L Hematocrit 32.4 L Mean Corpuscular Volume 90.5 Mean Corpuscular Hemoglobin 28.2 L Mean Corpuscular Hemoglobin Concent 31.2 L Red Cell Distribution Width 14.2 Platelet Count 390 Mean Platelet Volume 10.2 Neutrophils % 53.3 Lymphocytes % 29.8 Monocytes % 11.8 H Eosinophils % 4.2 Basophils % 0.4 Nucleated Red Blood Cells % 0.0 Neutrophils # 3.9 Lymphocytes # 2.2 Monocytes # 0.9 Eosinophils # 0.3 Basophils # 0.0 Nucleated Red Blood Cells # 0.0 Sodium Level 142 Potassium Level 4.6 Chloride Level 102 Carbon Dioxide Level 27 Anion Gap 18 H Blood Urea Nitrogen 36 H Creatinine 1.65 H Glucose Level 117 Calcium Level 9.0 Test 04/26/17 14:11 04/26/17 17:07 Bedside Glucose 163 93 Medications Medications Current Medications Diagnostic Test (Pha) (Accu-Chek) 1 ea 02 XX Last administered on 04/24/17 00: 30; Admin Dose 1 EA; Start 04/17/17 at 02:00 Miscellaneous Information 1 ea NOTE XX ; Start 04/16/17 at 08:00 Glucose (Glutose) 15 gm Q15M PRN PO DECREASED GLUCOSE; Start 04/16/17 at 08:00 Glucose (Glutose) 22.5 gm Q15M PRN PO DECREASED GLUCOSE; Start 04/16/17 at 08:00 Dextrose (D50w Syringe) 25 ml Q15M PRN IV DECREASED GLUCOSE; Start 04/16/17 at 08:00 Dextrose (D50w Syringe) 50 ml Q15M PRN IV DECREASED GLUCOSE; Start 04/16/17 at 08:00 Glucagon (Glucagen) 1 mg Q15M PRN IM DECREASED GLUCOSE; Start 04/16/17 at 08:00 Glucose (Glutose) 15 gm Q15M PRN BUCCAL DECREASED GLUCOSE; Start 04/16/17 at 08: 00 Pioglitazone HCl (Actos) 15 mg DAILY PO Last administered on 04/26/17 09:55; Admin Dose 15 MG; Start 04/16/17 at 12:00 Atorvastatin Calcium (Lipitor) 20 mg DAILY@21 PO Last administered on 21:12; Admin Dose 20 MG; Start 04/16/17 at 21:00 Guaifenesin (Robitussin Liquid Cup) 100 mg Q6 PRN PO COUGH Last administered on 04/17/17 13:02; Admin Dose 100 MG; Start 04/17/17 at 01:30 Docusate Sodium (Colace) 100 mg BID PO Last administered on 04/26/17 09:55; Admin Dose 100 MG; Start 04/17/17 at 21:00 Polyethylene Glycol (Miralax) 17 gm DAILY PRN PO CONSTIPATION Last administered on 04/25/17 21:13; Admin Dose 17 GM; Start 04/17/17 at 18:30 Metoprolol Tartrate (Lopressor) 5 mg Q4H PRN IV hr>110 hOLD sbp<100; Start 07/25 at 20:30 Hydralazine HCl (Apresoline) 10 mg Q4H PRN IV sbp>170; Start 04/17/17 at 20:30 Insulin Glargine (Lantus) 15 unit DAILY@08 SC Last administered on 04/26/17 10 :02; Admin Dose 15 UNIT; Start 04/19/17 at 08:00 Furosemide (Lasix) 40 mg DAILY@06 IV Last administered on 04/23/17 05:49; Admin Dose 40 MG; Start 04/19/17 at 06:00; Status Future Hold Carvedilol (Coreg) 3.125 mg BID PO Last administered on 04/25/17 21:12; Admin Dose 3.125 MG; Start 04/19/17 at 12:00 Clopidogrel Bisulfate (plaVIX) 75 mg DAILY PO Last administered on 04/26/17 09 :55; Admin Dose 75 MG; Start 04/22/17 at 09:00 Acetaminophen (Tylenol Tab) 650 mg Q4H PRN PO NON-CARDIAC PAIN LEVEL 1-3; Start 04/21/17 at 15:30 Oxycodone/ Acetaminophen (Percocet (5/ 325)) 1 tab Q4H PRN PO REPORTED NON- CARDIAC PAIN 4-7; Start 04/21/17 at 15:30 Morphine Sulfate (morphine) 1 mg Q1H PRN IV PAIN NOT RELIEVED BY OTHERS Last administered on 04/25/17 03:54; Admin Dose 1 MG; Start 04/21/17 at 15:30 Al Hydrox/Mg Hydrox/Simethicone (Mag-Al Plus) 30 ml Q4H PRN PO GASTROINTESTINAL UPSET; Start 04/21/17 at 15:30 Ondansetron HCl (Zofran Inj) 4 mg Q4H PRN IV NAUSEA AND/OR VOMITING; Start at 15:30 Aspirin (Aspirin) 325 mg DAILY PO Last administered on 04/26/17t 09:44; Admin Dose 325 MG; Start 04/22/17 at 09:00 Lisinopril (Zestril) 40 mg DAILY PO ; Start 04/27/17 at 09:00 CALVIN CIFUENTES Apr 26, 2017 18:22 CALVIN CIFUENTES Apr 26, 2017 18:22
[2017-04-26] MEDS: ATORVASTATIN 20 MG TAB PO SCH (21:05)
[2017-04-27] VITALS (11 sets, daily range): BP systolic 92–140; BP diastolic 46–65; PULSE 59–76; RESP 16–19
[2017-04-27] MEDS: ACCU-CHEK XX SCH (02:00)
--- NOTE | 2017-04-27 06:44 | CONS ---
DATE OF ADMISSION: 04/16/2017 DATE OF CONSULTATION: 04/17/2017 REASON FOR CONSULTATION: Shortness of breath, assessment of congestive heart failure. HISTORY OF PRESENT ILLNESS: Mr. Crandall is a 72-year-old male with a history of myocardial infarction 2013, status post PTCA and stent placement with bare-metal stent to ramus, prior CVA, hypertension, dyslipidemia, who had initially presented with complaints of fever and dysuria. Upon arrival, temperature of 102, blood pressure 135/67, pulse 77, respiratory rate 16, satting 94 percent. Patient's labs showed a white blood cell count of 9.9, hemoglobin 11.0, platelet count of 203. Sodium of 124, potassium 4.2, creatinine 1.98, BUN of 41. AST 30, ALT 36. INR of 1.0. UA positive. Patient underwent a chest x-ray revealing shrapnel, subsegmental bibasilar atelectasis, small foci of shrapnel overlying the mediastinal region. Patient's electrocardiogram revealed sinus tachycardia at 110, with borderline anterior progression and borderline . Patient subsequently was admitted to the floor where he was treated with antibiotics and IV fluid hydration, developed worsening shortness of breath and has now been transferred to the ICU and started on Lasix diuresis. PAST MEDICAL HISTORY: As above in HPI. MEDICATION: Currently in the hospital, vancomycin, Lantus, Zestril 40 mg p.o. b.i.d., Lipitor 20 mg daily, Actos 15 mg daily, Plavix 75 mg daily. ALLERGIES: NO KNOWN DRUG ALLERGIES. SOCIAL HISTORY: No tobacco, EtOH, illicit drug use. FAMILY HISTORY: No history of sudden cardiac or early CAD. REVIEW OF SYSTEMS: As above in HPI. CONSTITUTIONAL: No fevers, chills. RESPIRATORY: Shortness of breath. CARDIOVASCULAR: Tachycardia. GASTROINTESTINAL: No vomiting. GENITOURINARY: No hematuria. MUSCULOSKELETAL: Degenerative joint disease. PSYCHIATRIC: Patient denies depression. NEUROLOGIC: Positive history of CVA. PHYSICAL EXAMINATION: VITAL SIGNS: Temperature of 97.5, blood pressure most recently 131/62, pulse 115, sinus tachycardia, satting 88 percent on a nonrebreather mask. GENERAL APPEARANCE: The patient is alert, awake, with shortness of breath. NECK: JVP approximately 10 cm of water. CHEST: Bibasilar crackles. CARDIAC: Tachycardic. Regular rhythm. Normal S1, S2. 1/6 systolic murmur. Nondisplaced PMI. ABDOMEN: Positive bowel sounds. Soft. EXTREMITIES: Trace edema. 1+ pulses bilateral posterior tibia. LABORATORY: As above in [facility] with most recent today. Sodium 133, potassium of 4.4, creatinine 1.25, BUN 24. White blood cell count 9.0, hemoglobin 9.7, platelet count of 206. UA positive. IMAGING STUDIES: As above in HPI. No further imaging studies are reviewed at this time. ELECTROCARDIOGRAM: As above in HPI. No further electrocardiograms are reviewed at this time. IMPRESSION: 1. Shortness of breath/congestive heart failure. 2. Hypertension. 3. Tachycardic. This was sinus tachycardia in the setting of respiratory distress. 4. Respiratory distress on nonrebreather. 5. Renal failure. 6. History of cerebrovascular accident and left-sided weakness. 7. Diabetes mellitus. 8. History of prior percutaneous transluminal coronary angioplasty and stent placement September 2013. RECOMMENDATIONS: 1. At this time, would maintain patient on telemetry monitoring in ICU. 2. Continue the patient's Lasix diuresis, following strict I's and O's, grade diuresis closely. 3. Hold all IV fluids at this time. 4. Check a 2D echo for further assessment of ejection fraction, wall motion and major valve abnormalities. 5. Complete rule out for myocardial infarction to ensure patient's symptoms are not the result of or not resulting in acute coronary syndrome, such as acute myocardial infarction. 6. Continue the patient's current Zestril, following blood pressure closely, and we will give the patient a dose of digoxin secondary to heart failure and tachycardia. 7. Continue patient's Plavix for stent patency. 8. Continue patient's antibiotics and follow up all culture date. 9. Continue patient's insulin and follow blood sugars closely. Thank you for allowing me to take part in this patient. I will continue to follow him very closely with you. Further recommendations will be made as patient progresses through his inpatient hospital course. Dictated By: Norberto Oneill /asha/mireya /Document#: [id number] CC: Andrew Paz MD;*EndCC*
[2017-04-27 07:49] LABS: CALCIUM 9.1 mg/dl (8.4-10.2); CREATININE 1.73 mg/dl (0.61-1.24); POTASSIUM 4.7 mmol/L (3.5-5.1)
[2017-04-27] MEDS: INSULIN ASPART [NOVOLOG] 3 ML PEN SC SCH ×7 (08:00→20:33)
[2017-04-27] MEDS: ASPIRIN 325 MG TAB PO SCH (08:47)
[2017-04-27] MEDS: CLOPIDOGREL 75 MG TAB PO SCH (08:49)
[2017-04-27] MEDS: PIOGLITAZONE 15 MG TAB PO SCH (08:50)
[2017-04-27] MEDS: LISINOPRIL 20 MG TAB PO SCH (08:52)
[2017-04-27] MEDS: DOCUSATE SODIUM 100 MG CAP PO SCH ×2 (09:00→20:32)
[2017-04-27] MEDS: INSULIN GLARGINE [LANtus] 3 ML PEN SC SCH (09:02)
--- NOTE | 2017-04-27 13:41 | PN ---
Date/Time of Note Date/Time of Note DATE: 04/27/17 TIME: 13:35 Assessment/Plan VTE Prophylaxis VTE Prophylaxis Intervention: other Lines/Catheters IV [facility]from [facility] Peripheral IV Urinary Cath still in place: Yes Assessment/Plan Assessment/Plan -Acute kidney injury, Lasix is held, continue to monitor BUN and creatinine. -NSTEMI, Obstructive CAD, s/p ptca/stent x 3 to RCA/acute marginal by Dr. Monae on 04/21. Continue aspirin and Plavix. -E. coli UTI, status post treatment with Levaquin. -Hypertension, patient is currently normotensive -CVA with left-sided residual weakness -COPD, continue breathing treatments -Chronic kidney disease, avoid nephrotoxic medication. -Diabetes mellitus type 2, hemoglobin A1c is 8.6, continue Lantus and NovoLog. Plan of care discussed with Dr. Paz, staff Subjective 24 Hr Interval Summary Constitutional: improved ENT: no complaints Respiratory: no complaints Cardiovascular: no complaints Gastrointestinal: no complaints Exam/Review of Systems Vital Signs Vitals Vital Signs Date Time Temp Pulse Resp B/P Pulse Ox O2 Delivery O2 Flow Rate FiO2 04/27/17 12:23 73 04/27/17 12:11 98.9 16 109/58 96 04/23/17 09:06 Room Air Intake and Output 04/26/17 04/26/17 04/27/17 15:00 23:00 07:00 Intake Total 600 ml 200 ml Output Total 400 ml 600 ml Balance 200 ml -400 ml Exam Constitutional: alert, oriented, well developed Respiratory: clear to auscultation, normal air movement Cardiovascular: other (SR, HR 90) Gastrointestinal: non-tender, soft Musculoskeletal: nl extremities to inspection Results Result Diagram: 04/26/17 0754 04/27/17 0659 Results 24 hrs Laboratory Tests Test 04/26/17 14:11 04/26/17 17:07 04/26/17 21:04 04/27/17 06:59 Bedside Glucose 163 93 111 Sodium Level 143 Potassium Level 4.7 Chloride Level 101 Carbon Dioxide Level 28 Anion Gap 19 H Blood Urea Nitrogen 46 H Creatinine 1.73 H Glucose Level 116 Calcium Level 9.1 Test 04/27/17 07:55 04/27/17 11:44 Bedside Glucose 116 245 H Medications Medications Current Medications Diagnostic Test (Pha) (Accu-Chek) 1 ea 02 XX Last administered on 04/24/17 00: 30; Admin Dose 1 EA; Start 04/17/17 at 02:00 Miscellaneous Information 1 ea NOTE XX ; Start 04/16/17 at 08:00 Glucose (Glutose) 15 gm Q15M PRN PO DECREASED GLUCOSE; Start 04/16/17 at 08:00 Glucose (Glutose) 22.5 gm Q15M PRN PO DECREASED GLUCOSE; Start 04/16/17 at 08:00 Dextrose (D50w Syringe) 25 ml Q15M PRN IV DECREASED GLUCOSE; Start 04/16/17 at 08:00 Dextrose (D50w Syringe) 50 ml Q15M PRN IV DECREASED GLUCOSE; Start 04/16/17 at 08:00 Glucagon (Glucagen) 1 mg Q15M PRN IM DECREASED GLUCOSE; Start 04/16/17 at 08:00 Glucose (Glutose) 15 gm Q15M PRN BUCCAL DECREASED GLUCOSE; Start 04/16/17 at 08: 00 Pioglitazone HCl (Actos) 15 mg DAILY PO Last administered on 04/27/17 08:50; Admin Dose 15 MG; Start 04/16/17 at 12:00 Atorvastatin Calcium (Lipitor) 20 mg DAILY@21 PO Last administered on 21:05; Admin Dose 20 MG; Start 04/16/17 at 21:00 Guaifenesin (Robitussin Liquid Cup) 100 mg Q6 PRN PO COUGH Last administered on 04/17/17 13:02; Admin Dose 100 MG; Start 04/17/17 at 01:30 Docusate Sodium (Colace) 100 mg BID PO Last administered on 04/27/17 09:00; Admin Dose 100 MG; Start 04/17/17 at 21:00 Polyethylene Glycol (Miralax) 17 gm DAILY PRN PO CONSTIPATION Last administered on 04/25/17 21:13; Admin Dose 17 GM; Start 04/17/17 at 18:30 Metoprolol Tartrate (Lopressor) 5 mg Q4H PRN IV hr>110 hOLD sbp<100; Start 07/25 at 20:30 Hydralazine HCl (Apresoline) 10 mg Q4H PRN IV sbp>170; Start 04/17/17 at 20:30 Insulin Glargine (Lantus) 15 unit DAILY@08 SC Last administered on 04/27/17 09 :02; Admin Dose 15 UNIT; Start 04/19/17 at 08:00 Furosemide (Lasix) 40 mg DAILY@06 IV Last administered on 04/23/17 05:49; Admin Dose 40 MG; Start 04/19/17 at 06:00; Status Future Hold Carvedilol (Coreg) 3.125 mg BID PO Last administered on 04/27/17 08:56; Admin Dose 3.125 MG; Start 04/19/17 at 12:00 Clopidogrel Bisulfate (plaVIX) 75 mg DAILY PO Last administered on 04/27/17 08 :49; Admin Dose 75 MG; Start 04/22/17 at 09:00 Acetaminophen (Tylenol Tab) 650 mg Q4H PRN PO NON-CARDIAC PAIN LEVEL 1-3; Start 04/21/17 at 15:30 Oxycodone/ Acetaminophen (Percocet (5/ 325)) 1 tab Q4H PRN PO REPORTED NON- CARDIAC PAIN 4-7; Start 04/21/17 at 15:30 Morphine Sulfate (morphine) 1 mg Q1H PRN IV PAIN NOT RELIEVED BY OTHERS Last administered on 04/25/17 03:54; Admin Dose 1 MG; Start 04/21/17 at 15:30 Al Hydrox/Mg Hydrox/Simethicone (Mag-Al Plus) 30 ml Q4H PRN PO GASTROINTESTINAL UPSET; Start 04/21/17 at 15:30 Ondansetron HCl (Zofran Inj) 4 mg Q4H PRN IV NAUSEA AND/OR VOMITING; Start at 15:30 Aspirin (Aspirin) 325 mg DAILY PO Last administered on 04/27/17 08:47; Admin Dose 325 MG; Start 04/22/17 at 09:00 Lisinopril (Zestril) 40 mg DAILY PO Last administered on 04/27/17 08:52; Admin Dose 40 MG; Start 04/27/17 at 09:00 EUFEMIA WALKER Apr 27, 2017 13:40
--- NOTE | 2017-04-27 18:05 | CONS ---
Date/Time of Note Date/Time of Note DATE: 04/27/17 TIME: 18:04 Assessment/Plan Assessment/Plan Chief Complaint/Hosp Course IMp: 1.CHF 2.Nstemi-now downtrending. Now s/p PTCA /stent to RCA.acute marginal x 3/no cp 3.HTN 4.UTI 5. H/O prior stent 6.renal failure-ACUTE ON CHRONIC/possible contrast nephropathy-now improving 7. Hyponatremia 8. Cardiomyopathy-LVEF 25% by echo 04/18 Recc: -Tele -Continue asa/plavix/statin -Continue ACEI/BB with slight decrease to acei given marginal BP -Hold lasix and continue to follow creatnine/volume status closely -Continue abx's and f/u cx data Problems: Consultation Date/Type/Reason Admit Date/Time Apr 16, 2017 at 04:16 Initial Consult Date 04/17/17 Type of Consultation: cardiology Reason for Consultation nstemi Referring Provider: QUIANA MURCIA MD Exam/Review of Systems Vital Signs Vitals Vital Signs Date Time Temp Pulse Resp B/P Pulse Ox O2 Delivery O2 Flow Rate FiO2 04/27/17 16:36 76 04/27/17 15:56 98.3 16 110/57 97 04/23/17 09:06 Room Air Intake and Output 04/26/17 04/26/17 04/27/17 15:00 23:00 07:00 Intake Total 600 ml 200 ml Output Total 400 ml 600 ml Balance 200 ml -400 ml Exam Review of Systems: CONSTITUTIONAL: No fevers, chills. PULMONARY: No sob CARDIOVASCULAR: No chest pain/palpitations GASTROINTESTINAL: No nausea/vomiting. GENITOURINARY: No hematuria/dysuria. MUSCULOSKELETAL: No myagias/arthalgias. PSYCHIATRIC: The patient denies depression. NEUROLOGIC: lethargic Constitutional: alert Psych: no complaints Head: normocephalic ENMT: mucosa pink and moist Neck: jvd (9 cm water), supple Respiratory: clear to auscultation Cardiovascular: regular rate and rhythm Gastrointestinal: non-tender, soft Musculoskeletal: muscle tone (normal) Extremities: edema (none) Neurological: other (No focal deficits) Results Result Diagram: 04/26/17 0754 04/27/17 0659 Results 24 hrs Laboratory Tests Test 04/26/17 21:04 04/27/17 06:59 04/27/17 07:55 04/27/17 11:44 Bedside Glucose 111 116 245 H Sodium Level 143 Potassium Level 4.7 Chloride Level 101 Carbon Dioxide Level 28 Anion Gap 19 H Blood Urea Nitrogen 46 H Creatinine 1.73 H Glucose Level 116 Calcium Level 9.1 Test 04/27/17 17:11 Bedside Glucose 138 Medications Medications Current Medications Diagnostic Test (Pha) (Accu-Chek) 1 ea 02 XX Last administered on 04/24/17 00: 30; Admin Dose 1 EA; Start 04/17/17 at 02:00 Miscellaneous Information 1 ea NOTE XX ; Start 04/16/17 at 08:00 Glucose (Glutose) 15 gm Q15M PRN PO DECREASED GLUCOSE; Start 04/16/17 at 08:00 Glucose (Glutose) 22.5 gm Q15M PRN PO DECREASED GLUCOSE; Start 04/16/17 at 08:00 Dextrose (D50w Syringe) 25 ml Q15M PRN IV DECREASED GLUCOSE; Start 04/16/17 at 08:00 Dextrose (D50w Syringe) 50 ml Q15M PRN IV DECREASED GLUCOSE; Start 04/16/17 at 08:00 Glucagon (Glucagen) 1 mg Q15M PRN IM DECREASED GLUCOSE; Start 04/16/17 at 08:00 Glucose (Glutose) 15 gm Q15M PRN BUCCAL DECREASED GLUCOSE; Start 04/16/17 at 08: 00 Pioglitazone HCl (Actos) 15 mg DAILY PO Last administered on 04/27/17 08:50; Admin Dose 15 MG; Start 04/16/17 at 12:00 Atorvastatin Calcium (Lipitor) 20 mg DAILY@21 PO Last administered on 21:05; Admin Dose 20 MG; Start 04/16/17 at 21:00 Guaifenesin (Robitussin Liquid Cup) 100 mg Q6 PRN PO COUGH Last administered on 04/17/17 13:02; Admin Dose 100 MG; Start 04/17/17 at 01:30 Docusate Sodium (Colace) 100 mg BID PO Last administered on 04/27/17 09:00; Admin Dose 100 MG; Start 04/17/17 at 21:00 Polyethylene Glycol (Miralax) 17 gm DAILY PRN PO CONSTIPATION Last administered on 7/18/17at 21:13; Admin Dose 17 GM; Start 04/17/17 at 18:30 Metoprolol Tartrate (Lopressor) 5 mg Q4H PRN IV hr>110 hOLD sbp<100; Start 07/25 at 20:30 Hydralazine HCl (Apresoline) 10 mg Q4H PRN IV sbp>170; Start 04/17/17 at 20:30 Furosemide (Lasix) 40 mg DAILY@06 IV Last administered on 04/23/17 05:49; Admin Dose 40 MG; Start 04/19/17 at 06:00; Status Future Hold Carvedilol (Coreg) 3.125 mg BID PO Last administered on 04/27/17 08:56; Admin Dose 3.125 MG; Start 04/19/17 at 12:00 Clopidogrel Bisulfate (plaVIX) 75 mg DAILY PO Last administered on 04/27/17 08 :49; Admin Dose 75 MG; Start 04/22/17 at 09:00 Acetaminophen (Tylenol Tab) 650 mg Q4H PRN PO NON-CARDIAC PAIN LEVEL 1-3; Start 04/21/17 at 15:30 Oxycodone/ Acetaminophen (Percocet (5/ 325)) 1 tab Q4H PRN PO REPORTED NON- CARDIAC PAIN 4-7; Start 04/21/17 at 15:30 Morphine Sulfate (morphine) 1 mg Q1H PRN IV PAIN NOT RELIEVED BY OTHERS Last administered on 04/25/17 03:54; Admin Dose 1 MG; Start 04/21/17 at 15:30 Al Hydrox/Mg Hydrox/Simethicone (Mag-Al Plus) 30 ml Q4H PRN PO GASTROINTESTINAL UPSET; Start 04/21/17 at 15:30 Ondansetron HCl (Zofran Inj) 4 mg Q4H PRN IV NAUSEA AND/OR VOMITING; Start at 15:30 Aspirin (Aspirin) 325 mg DAILY PO Last administered on 04/27/17 08:47; Admin Dose 325 MG; Start 04/22/17 at 09:00 Lisinopril (Zestril) 40 mg DAILY PO Last administered on 04/27/17 08:52; Admin Dose 40 MG; Start 04/27/17 at 09:00 Insulin Glargine (Lantus) 18 unit DAILY@08 SC ; Start 04/28/17 at 08:00 LESLIE LEONG Apr 27, 2017 18:05
[2017-04-27] MEDS: ATORVASTATIN 20 MG TAB PO SCH (20:32)
[2017-04-28] VITALS (13 sets, daily range): BP systolic 95–138; BP diastolic 57–66; PULSE 71–80; RESP 16–19
[2017-04-28] MEDS: ACCU-CHEK XX SCH (02:00)
[2017-04-28] MEDS: INSULIN ASPART [NOVOLOG] 3 ML PEN SC SCH ×7 (08:00→21:00)
[2017-04-28 08:33] LABS: ADD SCAN DIFF NO
[2017-04-28 08:35] LABS: BASOPHILS % 0.4 % (0.0-2.0); EOSINOPHILS # 0.2 10^3/ul (0.0-0.5); EOSINOPHILS % 1.7 % (0.0-7.0); HEMATOCRIT 34.2 % (42.0-52.0); HEMOGLOBIN 10.9 g/dl (14.0-18.0); LYMPHOCYTES # 1.5 10^3/ul (0.8-2.9); MEAN CORPUSCULAR HEMOGLOBIN 28.5 pg (29.0-33.0); MEAN CORPUSCULAR HGB CONC 31.9 g/dl (32.0-37.0); MEAN CORPUSCULAR VOLUME 89.3 fl (82.0-101.0); MEAN PLATELET VOLUME 10.5 fl (7.4-10.4); MONOCYTES % 9.6 % (0.0-11.0); NEUTROPHIL # 7.4 10^3/ul (1.6-7.5); NEUTROPHILS % 72.9 % (39.0-77.0); PLATELET COUNT 353 10^3/UL (140-415); RED BLOOD COUNT 3.83 10^6/ul (4.70-6.10); RED CELL DISTRIBUTION WIDTH 14.6 % (11.5-14.5); WHITE BLOOD COUNT 10.1 10^3/ul (4.8-10.8)
[2017-04-28] MEDS: ASPIRIN 325 MG TAB PO SCH (08:52)
[2017-04-28] MEDS: DOCUSATE SODIUM 100 MG CAP PO SCH ×2 (08:53→21:09)
[2017-04-28] MEDS: PIOGLITAZONE 15 MG TAB PO SCH (08:53)
[2017-04-28] MEDS: CLOPIDOGREL 75 MG TAB PO SCH (08:53)
[2017-04-28] MEDS: LISINOPRIL 20 MG TAB PO SCH (08:54)
[2017-04-28 09:02] LABS: CREATININE 1.49 mg/dl (0.61-1.24); POTASSIUM 4.5 mmol/L (3.5-5.1)
[2017-04-28] MEDS: INSULIN GLARGINE [LANtus] 3 ML PEN SC SCH (09:09)
--- NOTE | 2017-04-28 10:47 | CONS ---
Date/Time of Note Date/Time of Note DATE: 04/28/17 TIME: 10:46 Assessment/Plan Assessment/Plan Chief Complaint/Hosp Course 1. CKD 2. S/p C with coronary angiography and stenting Problems: Additional Assessment/Plan 1. Kidney function optimization Consultation Date/Type/Reason Admit Date/Time Apr 16, 2017 at 04:16 Initial Consult Date 04/22/2017 Type of Consultation: nephrology Reason for Consultation Dr [place] Referring Provider: QUIANA MURCIA MD Exam/Review of Systems Vital Signs Vitals Vital Signs Date Time Temp Pulse Resp B/P Pulse Ox O2 Delivery O2 Flow Rate FiO2 04/28/17 08:21 98.6 76 18 137/63 94 Intake and Output 04/27/17 04/27/17 04/28/17 15:00 23:00 07:00 Intake Total 880 ml 500 ml Output Total 650 ml 900 ml Balance 230 ml -400 ml Exam Constitutional: oriented Neck: supple Respiratory: clear to auscultation Cardiovascular: regular rate and rhythm Gastrointestinal: soft Genitourinary - Male: nl penis, nl scrotum Results Result Diagram: 04/28/17 0747 04/28/17 0747 Results 24 hrs Laboratory Tests Test 04/27/17 11:44 04/27/17 17:11 04/27/17 20:16 04/28/17 07:47 Bedside Glucose 245 H 138 93 White Blood Count 10.1 # Red Blood Count 3.83 L Hemoglobin 10.9 L Hematocrit 34.2 L Mean Corpuscular Volume 89.3 Mean Corpuscular Hemoglobin 28.5 L Mean Corpuscular Hemoglobin Concent 31.9 L Red Cell Distribution Width 14.6 H Platelet Count 353 Mean Platelet Volume 10.5 H Neutrophils % 72.9 Lymphocytes % 15.0 Monocytes % 9.6 Eosinophils % 1.7 Basophils % 0.4 Neutrophils # 7.4 Lymphocytes # 1.5 Monocytes # 1.0 H Eosinophils # 0.2 Basophils # 0.0 Nucleated Red Blood Cells # 0.0 Sodium Level 141 Potassium Level 4.5 Chloride Level 103 Carbon Dioxide Level 25 Anion Gap 18 H Blood Urea Nitrogen 40 H Creatinine 1.49 H Glucose Level 133 Calcium Level 9.0 Test 04/28/17 08:32 Bedside Glucose 124 Medications Medications Current Medications Diagnostic Test (Pha) (Accu-Chek) 1 ea 02 XX Last administered on 04/24/17 00: 30; Admin Dose 1 EA; Start 04/17/17 at 02:00 Miscellaneous Information 1 ea NOTE XX ; Start 04/16/17 at 08:00 Glucose (Glutose) 15 gm Q15M PRN PO DECREASED GLUCOSE; Start 04/16/17 at 08:00 Glucose (Glutose) 22.5 gm Q15M PRN PO DECREASED GLUCOSE; Start 04/16/17 at 08:00 Dextrose (D50w Syringe) 25 ml Q15M PRN IV DECREASED GLUCOSE; Start 04/16/17 at 08:00 Dextrose (D50w Syringe) 50 ml Q15M PRN IV DECREASED GLUCOSE; Start 04/16/17 at 08:00 Glucagon (Glucagen) 1 mg Q15M PRN IM DECREASED GLUCOSE; Start 04/16/17 at 08:00 Glucose (Glutose) 15 gm Q15M PRN BUCCAL DECREASED GLUCOSE; Start 04/16/17 at 08: 00 Pioglitazone HCl (Actos) 15 mg DAILY PO Last administered on 04/28/17 08:53; Admin Dose 15 MG; Start 04/16/17 at 12:00 Atorvastatin Calcium (Lipitor) 20 mg DAILY@21 PO Last administered on 20:32; Admin Dose 20 MG; Start 04/16/17 at 21:00 Guaifenesin (Robitussin Liquid Cup) 100 mg Q6 PRN PO COUGH Last administered on 04/17/17 13:02; Admin Dose 100 MG; Start 04/17/17 at 01:30 Docusate Sodium (Colace) 100 mg BID PO Last administered on 04/28/17 08:53; Admin Dose 100 MG; Start 04/17/17 at 21:00 Polyethylene Glycol (Miralax) 17 gm DAILY PRN PO CONSTIPATION Last administered on 04/25/17 21:13; Admin Dose 17 GM; Start 04/17/17 at 18:30 Metoprolol Tartrate (Lopressor) 5 mg Q4H PRN IV hr>110 hOLD sbp<100; Start 07/25 at 20:30 Hydralazine HCl (Apresoline) 10 mg Q4H PRN IV sbp>170; Start 04/17/17 at 20:30 Furosemide (Lasix) 40 mg DAILY@06 IV Last administered on 04/23/17 05:49; Admin Dose 40 MG; Start 04/19/17 at 06:00; Status Future Hold Carvedilol (Coreg) 3.125 mg BID PO Last administered on 04/28/17 08:54; Admin Dose 3.125 MG; Start 04/19/17 at 12:00 Clopidogrel Bisulfate (plaVIX) 75 mg DAILY PO Last administered on 04/28/17 08 :53; Admin Dose 75 MG; Start 04/22/17 at 09:00 Acetaminophen (Tylenol Tab) 650 mg Q4H PRN PO NON-CARDIAC PAIN LEVEL 1-3; Start 04/21/17 at 15:30 Oxycodone/ Acetaminophen (Percocet (5/ 325)) 1 tab Q4H PRN PO REPORTED NON- CARDIAC PAIN 4-7; Start 04/21/17 at 15:30 Morphine Sulfate (morphine) 1 mg Q1H PRN IV PAIN NOT RELIEVED BY OTHERS Last administered on 04/25/17 03:54; Admin Dose 1 MG; Start 04/21/17 at 15:30 Al Hydrox/Mg Hydrox/Simethicone (Mag-Al Plus) 30 ml Q4H PRN PO GASTROINTESTINAL UPSET; Start 04/21/17 at 15:30 Ondansetron HCl (Zofran Inj) 4 mg Q4H PRN IV NAUSEA AND/OR VOMITING; Start at 15:30 Aspirin (Aspirin) 325 mg DAILY PO Last administered on 04/28/17 08:52; Admin Dose 325 MG; Start 04/22/17 at 09:00 Lisinopril (Zestril) 40 mg DAILY PO Last administered on 04/28/17 08:54; Admin Dose 40 MG; Start 04/27/17 at 09:00 Insulin Glargine (Lantus) 18 unit DAILY@08 SC Last administered on 04/28/17 09 :09; Admin Dose 18 UNIT; Start 04/28/17 at 08:00 IQRA ROMERO Apr 28, 2017 10:47
--- NOTE | 2017-04-28 15:57 | PN ---
Date/Time of Note Date/Time of Note DATE: 04/28/17 TIME: 15:55 Assessment/Plan VTE Prophylaxis VTE Prophylaxis Intervention: SCD's Lines/Catheters IV C[facility]ter Type (from [facility] Urinary Cath still in place: No Assessment/Plan Chief Complaint/Hosp Course Patient with slow improvement in renal function, continue to monitor, DC for [place] tomorrow if creatinine continues to drop in anticipation for discharge planning, monitor postvoid residual closely. Assessment/Plan -Acute kidney injury, Lasix is held, continue to monitor BUN and creatinine. -NSTEMI, Obstructive CAD, s/p ptca/stent x 3 to RCA/acute marginal by Dr. Monae on 04/21. Continue aspirin and Plavix. -E. coli UTI, status post treatment with Levaquin. -Hypertension, patient is currently normotensive -CVA with left-sided residual weakness -COPD, continue breathing treatments -Chronic kidney disease, avoid nephrotoxic medication. -Diabetes mellitus type 2, hemoglobin A1c is 8.6, continue Lantus and NovoLog. Further recommendations based on clinical course. Plan of care discussed with Dr. Paz. Problems: Exam/Review of Systems Vital Signs Vitals Vital Signs Date Time Temp Pulse Resp B/P Pulse Ox O2 Delivery O2 Flow Rate FiO2 04/28/17 12:13 98.6 76 18 123/57 94 Intake and Output 04/27/17 04/27/17 04/28/17 15:00 23:00 07:00 Intake Total 880 ml 500 ml Output Total 650 ml 900 ml Balance 230 ml -400 ml Exam Constitutional: alert, oriented Head: normocephalic Neck: supple Respiratory: diminished breath sounds Cardiovascular: nl pulses Gastrointestinal: non-tender, soft Musculoskeletal: muscle weakness Extremities: normal pulses Skin: nl turgor Results Result Diagram: 04/28/17 0747 04/28/17 0747 Results 24 hrs Laboratory Tests Test 04/27/17 17:11 04/27/17 20:16 04/28/17 07:47 04/28/17 08:32 Bedside Glucose 138 93 124 White Blood Count 10.1 # Red Blood Count 3.83 L Hemoglobin 10.9 L Hematocrit 34.2 L Mean Corpuscular Volume 89.3 Mean Corpuscular Hemoglobin 28.5 L Mean Corpuscular Hemoglobin Concent 31.9 L Red Cell Distribution Width 14.6 H Platelet Count 353 Mean Platelet Volume 10.5 H Neutrophils % 72.9 Lymphocytes % 15.0 Monocytes % 9.6 Eosinophils % 1.7 Basophils % 0.4 Neutrophils # 7.4 Lymphocytes # 1.5 Monocytes # 1.0 H Eosinophils # 0.2 Basophils # 0.0 Nucleated Red Blood Cells # 0.0 Sodium Level 141 Potassium Level 4.5 Chloride Level 103 Carbon Dioxide Level 25 Anion Gap 18 H Blood Urea Nitrogen 40 H Creatinine 1.49 H Glucose Level 133 Calcium Level 9.0 Test 04/28/17 12:15 Bedside Glucose 127 Medications Medications Current Medications Diagnostic Test (Pha) (Accu-Chek) 1 ea 02 XX Last administered on 04/24/17 00: 30; Admin Dose 1 EA; Start 04/17/17 at 02:00 Miscellaneous Information 1 ea NOTE XX ; Start 04/16/17 at 08:00 Glucose (Glutose) 15 gm Q15M PRN PO DECREASED GLUCOSE; Start 04/16/17 at 08:00 Glucose (Glutose) 22.5 gm Q15M PRN PO DECREASED GLUCOSE; Start 04/16/17 at 08:00 Dextrose (D50w Syringe) 25 ml Q15M PRN IV DECREASED GLUCOSE; Start 04/16/17 at 08:00 Dextrose (D50w Syringe) 50 ml Q15M PRN IV DECREASED GLUCOSE; Start 04/16/17 at 08:00 Glucagon (Glucagen) 1 mg Q15M PRN IM DECREASED GLUCOSE; Start 04/16/17 at 08:00 Glucose (Glutose) 15 gm Q15M PRN BUCCAL DECREASED GLUCOSE; Start 04/16/17 at 08: 00 Pioglitazone HCl (Actos) 15 mg DAILY PO Last administered on 04/28/17 08:53; Admin Dose 15 MG; Start 04/16/17 at 12:00 Atorvastatin Calcium (Lipitor) 20 mg DAILY@21 PO Last administered on 20:32; Admin Dose 20 MG; Start 04/16/17 at 21:00 Guaifenesin (Robitussin Liquid Cup) 100 mg Q6 PRN PO COUGH Last administered on 04/17/17 13:02; Admin Dose 100 MG; Start 04/17/17 at 01:30 Docusate Sodium (Colace) 100 mg BID PO Last administered on 04/28/17 08:53; Admin Dose 100 MG; Start 04/17/17 at 21:00 Polyethylene Glycol (Miralax) 17 gm DAILY PRN PO CONSTIPATION Last administered on 04/25/17 21:13; Admin Dose 17 GM; Start 04/17/17 at 18:30 Metoprolol Tartrate (Lopressor) 5 mg Q4H PRN IV hr>110 hOLD sbp<100; Start 07/25 at 20:30 Hydralazine HCl (Apresoline) 10 mg Q4H PRN IV sbp>170; Start 04/17/17 at 20:30 Furosemide (Lasix) 40 mg DAILY@06 IV Last administered on 04/23/17 05:49; Admin Dose 40 MG; Start 04/19/17 at 06:00; Status Future Hold Carvedilol (Coreg) 3.125 mg BID PO Last administered on 04/28/17 08:54; Admin Dose 3.125 MG; Start 04/19/17 at 12:00 Clopidogrel Bisulfate (plaVIX) 75 mg DAILY PO Last administered on 04/28/17 08 :53; Admin Dose 75 MG; Start 04/22/17 at 09:00 Acetaminophen (Tylenol Tab) 650 mg Q4H PRN PO NON-CARDIAC PAIN LEVEL 1-3; Start 04/21/17 at 15:30 Oxycodone/ Acetaminophen (Percocet (5/ 325)) 1 tab Q4H PRN PO REPORTED NON- CARDIAC PAIN 4-7; Start 04/21/17 at 15:30 Morphine Sulfate (morphine) 1 mg Q1H PRN IV PAIN NOT RELIEVED BY OTHERS Last administered on 04/25/17 03:54; Admin Dose 1 MG; Start 04/21/17 at 15:30 Al Hydrox/Mg Hydrox/Simethicone (Mag-Al Plus) 30 ml Q4H PRN PO GASTROINTESTINAL UPSET; Start 04/21/17 at 15:30 Ondansetron HCl (Zofran Inj) 4 mg Q4H PRN IV NAUSEA AND/OR VOMITING; Start at 15:30 Aspirin (Aspirin) 325 mg DAILY PO Last administered on 04/28/17 08:52; Admin Dose 325 MG; Start 04/22/17 at 09:00 Lisinopril (Zestril) 40 mg DAILY PO Last administered on 04/28/17 08:54; Admin Dose 40 MG; Start 04/27/17 at 09:00 Insulin Glargine (Lantus) 18 unit DAILY@08 SC Last administered on 04/28/17 09 :09; Admin Dose 18 UNIT; Start 04/28/17 at 08:00 CALVIN CIFUENTES Apr 28, 2017 15:57
[2017-04-28] MEDS: POLYETHYLENE GLYCOL 17 GM PACKET PO PRN (17:01)
--- NOTE | 2017-04-28 17:39 | CONS ---
Date/Time of Note Date/Time of Note DATE: 04/28/17 TIME: 17:36 Assessment/Plan Assessment/Plan Chief Complaint/Hosp Course IMp: 1.CHF 2.Nstemi-now downtrending. Now s/p PTCA /stent to RCA.acute marginal x 3/no cp 3.HTN-reasonable control 4.UTI 5. H/O prior stent 6.renal failure-ACUTE ON CHRONIC/possible contrast nephropathy-now improving sl; owly 7. Hyponatremia-improved 8. Cardiomyopathy-LVEF 25% by echo 04/18 Recc: -Tele -Continue asa/plavix/statin -Continue ACEI/BB -Still Holding lasix and continue to follow creatnine/volume status closely -Continue abx's and f/u cx data Problems: Consultation Date/Type/Reason Admit Date/Time Apr 16, 2017 at 04:16 Initial Consult Date 04/17/17 Type of Consultation: cardiology Reason for Consultation Nstemi Referring Provider: QUIANA MURCIA MD Exam/Review of Systems Vital Signs Vitals Vital Signs Date Time Temp Pulse Resp B/P Pulse Ox O2 Delivery O2 Flow Rate FiO2 04/28/17 16:00 75 04/28/17 15:54 99.3 18 135/63 96 Intake and Output 04/27/17 04/27/17 04/28/17 15:00 23:00 07:00 Intake Total 880 ml 500 ml Output Total 650 ml 900 ml Balance 230 ml -400 ml Exam Review of Systems: CONSTITUTIONAL: No fevers, chills. PULMONARY: No sob CARDIOVASCULAR: No chest pain/palpitations GASTROINTESTINAL: No nausea/vomiting. GENITOURINARY: No hematuria/dysuria. MUSCULOSKELETAL: No myagias/arthalgias. PSYCHIATRIC: The patient denies depression. NEUROLOGIC: No weakness Constitutional: alert Psych: no complaints Head: normocephalic ENMT: mucosa pink and moist Neck: jvd (8 cm water), supple Respiratory: clear to auscultation Cardiovascular: regular rate and rhythm Gastrointestinal: non-tender, soft Musculoskeletal: muscle weakness (mild generalized) Extremities: edema (none) Neurological: lethargic Results Result Diagram: 04/28/17 0747 04/28/17 0747 Results 24 hrs Laboratory Tests Test 04/27/17 20:16 04/28/17 07:47 04/28/17 08:32 04/28/17 12:15 Bedside Glucose 93 124 127 White Blood Count 10.1 # Red Blood Count 3.83 L Hemoglobin 10.9 L Hematocrit 34.2 L Mean Corpuscular Volume 89.3 Mean Corpuscular Hemoglobin 28.5 L Mean Corpuscular Hemoglobin Concent 31.9 L Red Cell Distribution Width 14.6 H Platelet Count 353 Mean Platelet Volume 10.5 H Neutrophils % 72.9 Lymphocytes % 15.0 Monocytes % 9.6 Eosinophils % 1.7 Basophils % 0.4 Neutrophils # 7.4 Lymphocytes # 1.5 Monocytes # 1.0 H Eosinophils # 0.2 Basophils # 0.0 Nucleated Red Blood Cells # 0.0 Sodium Level 141 Potassium Level 4.5 Chloride Level 103 Carbon Dioxide Level 25 Anion Gap 18 H Blood Urea Nitrogen 40 H Creatinine 1.49 H Glucose Level 133 Calcium Level 9.0 Medications Medications Current Medications Diagnostic Test (Pha) (Accu-Chek) 1 ea 02 XX Last administered on 04/24/17 00: 30; Admin Dose 1 EA; Start 04/17/17 at 02:00 Miscellaneous Information 1 ea NOTE XX ; Start 04/16/17 at 08:00 Glucose (Glutose) 15 gm Q15M PRN PO DECREASED GLUCOSE; Start 04/16/17 at 08:00 Glucose (Glutose) 22.5 gm Q15M PRN PO DECREASED GLUCOSE; Start 04/16/17 at 08:00 Dextrose (D50w Syringe) 25 ml Q15M PRN IV DECREASED GLUCOSE; Start 04/16/17 at 08:00 Dextrose (D50w Syringe) 50 ml Q15M PRN IV DECREASED GLUCOSE; Start 04/16/17 at 08:00 Glucagon (Glucagen) 1 mg Q15M PRN IM DECREASED GLUCOSE; Start 04/16/17 at 08:00 Glucose (Glutose) 15 gm Q15M PRN BUCCAL DECREASED GLUCOSE; Start 04/16/17 at 08: 00 Pioglitazone HCl (Actos) 15 mg DAILY PO Last administered on 04/28/17 08:53; Admin Dose 15 MG; Start 04/16/17 at 12:00 Atorvastatin Calcium (Lipitor) 20 mg DAILY@21 PO Last administered on 20:32; Admin Dose 20 MG; Start 04/16/17 at 21:00 Guaifenesin (Robitussin Liquid Cup) 100 mg Q6 PRN PO COUGH Last administered on 04/17/17 13:02; Admin Dose 100 MG; Start 04/17/17 at 01:30 Docusate Sodium (Colace) 100 mg BID PO Last administered on 04/28/17 08:53; Admin Dose 100 MG; Start 04/17/17 at 21:00 Polyethylene Glycol (Miralax) 17 gm DAILY PRN PO CONSTIPATION Last administered on 04/25/17 21:13; Admin Dose 17 GM; Start 04/17/17 at 18:30 Metoprolol Tartrate (Lopressor) 5 mg Q4H PRN IV hr>110 hOLD sbp<100; Start 07/25 at 20:30 Hydralazine HCl (Apresoline) 10 mg Q4H PRN IV sbp>170; Start 04/17/17 at 20:30 Furosemide (Lasix) 40 mg DAILY@06 IV Last administered on 04/23/17 05:49; Admin Dose 40 MG; Start 04/19/17 at 06:00; Status Future Hold Carvedilol (Coreg) 3.125 mg BID PO Last administered on 04/28/17 08:54; Admin Dose 3.125 MG; Start 04/19/17 at 12:00 Clopidogrel Bisulfate (plaVIX) 75 mg DAILY PO Last administered on 04/28/17 08 :53; Admin Dose 75 MG; Start 04/22/17 at 09:00 Acetaminophen (Tylenol Tab) 650 mg Q4H PRN PO NON-CARDIAC PAIN LEVEL 1-3; Start 04/21/17 at 15:30 Oxycodone/ Acetaminophen (Percocet (5/ 325)) 1 tab Q4H PRN PO REPORTED NON- CARDIAC PAIN 4-7; Start 04/21/17 at 15:30 Morphine Sulfate (morphine) 1 mg Q1H PRN IV PAIN NOT RELIEVED BY OTHERS Last administered on 04/25/17 03:54; Admin Dose 1 MG; Start 04/21/17 at 15:30 Al Hydrox/Mg Hydrox/Simethicone (Mag-Al Plus) 30 ml Q4H PRN PO GASTROINTESTINAL UPSET; Start 04/21/17 at 15:30 Ondansetron HCl (Zofran Inj) 4 mg Q4H PRN IV NAUSEA AND/OR VOMITING; Start at 15:30 Aspirin (Aspirin) 325 mg DAILY PO Last administered on 04/28/17 08:52; Admin Dose 325 MG; Start 04/22/17 at 09:00 Lisinopril (Zestril) 40 mg DAILY PO Last administered on 04/28/17 08:54; Admin Dose 40 MG; Start 04/27/17 at 09:00 Insulin Glargine (Lantus) 18 unit DAILY@08 SC Last administered on 04/28/17 09 :09; Admin Dose 18 UNIT; Start 04/28/17 at 08:00 Polyethylene Glycol (Miralax) 17 gm DAILY PRN PO CONSTIPATION Last administered on 04/28/17 17:01; Admin Dose 17 GM; Start 04/28/17 at 16:30 LESLIE LEONG Apr 28, 2017 17:39
[2017-04-28] MEDS: ATORVASTATIN 20 MG TAB PO SCH (21:09)
[2017-04-29] VITALS (10 sets, daily range): BP systolic 106–140; BP diastolic 54–62; PULSE 69–74; RESP 16–20
[2017-04-29] MEDS: ACCU-CHEK XX SCH (01:16)
[2017-04-29] MEDS: INSULIN ASPART [NOVOLOG] 3 ML PEN SC SCH ×7 (08:00→21:00)
[2017-04-29] MEDS: DOCUSATE SODIUM 100 MG CAP PO SCH ×2 (08:34→21:12)
[2017-04-29] MEDS: PIOGLITAZONE 15 MG TAB PO SCH (08:35)
[2017-04-29] MEDS: ASPIRIN 325 MG TAB PO SCH (08:35)
[2017-04-29] MEDS: LISINOPRIL 20 MG TAB PO SCH (08:36)
[2017-04-29] MEDS: CLOPIDOGREL 75 MG TAB PO SCH (08:36)
[2017-04-29] MEDS: INSULIN GLARGINE [LANtus] 3 ML PEN SC SCH (08:42)
[2017-04-29 08:51] LABS: CALCIUM 8.9 mg/dl (8.4-10.2); CREATININE 1.47 mg/dl (0.61-1.24); POTASSIUM 4.8 mmol/L (3.5-5.1)
--- NOTE | 2017-04-29 13:11 | CONS ---
Date/Time of Note Date/Time of Note DATE: 04/29/17 TIME: 13:10 Assessment/Plan Assessment/Plan Chief Complaint/Hosp Course 1. CKD 2. S/p C with coronary angiography and stenting Problems: Additional Assessment/Plan 1. Kidney function optimization Consultation Date/Type/Reason Admit Date/Time Apr 16, 2017 at 04:16 Initial Consult Date 04/22/2017 Type of Consultation: nephrology Reason for Consultation dr [place] Referring Provider: QUIANA MURCIA MD Exam/Review of Systems Vital Signs Vitals Vital Signs Date Time Temp Pulse Resp B/P Pulse Ox O2 Delivery O2 Flow Rate FiO2 04/29/17 12:24 69 04/29/17 12:19 98.1 17 122/59 97 Intake and Output 04/28/17 04/28/17 04/29/17 15:00 23:00 07:00 Intake Total 880 ml 300 ml Output Total 600 ml 600 ml Balance 280 ml -300 ml Exam Constitutional: alert, oriented Neck: supple Cardiovascular: No S3, No S4, No bruits, No diastolic murmur, No edema, No gallop, No irregular rhythm, No jugular venous distention (JVD), No murmurs/ extra sounds, No nl pulses, No other, No regular rate and rhythm, No rub, No systolic murmur Results Result Diagram: 04/28/17 0747 04/29/17 0703 Results 24 hrs Laboratory Tests Test 04/28/17 17:49 04/28/17 21:01 04/29/17 07:03 04/29/17 08:32 Bedside Glucose 106 117 119 Sodium Level 141 Potassium Level 4.8 Chloride Level 100 Carbon Dioxide Level 28 Anion Gap 18 H Blood Urea Nitrogen 32 H Creatinine 1.47 H Glucose Level 96 Calcium Level 8.9 Test 04/29/17 12:14 Bedside Glucose 139 Medications Medications Current Medications Diagnostic Test (Pha) (Accu-Chek) 1 ea 02 XX Last administered on 04/24/17t 00: 30; Admin Dose 1 EA; Start 04/17/17 at 02:00 Miscellaneous Information 1 ea NOTE XX ; Start 04/16/17 at 08:00 Glucose (Glutose) 15 gm Q15M PRN PO DECREASED GLUCOSE; Start 04/16/17 at 08:00 Glucose (Glutose) 22.5 gm Q15M PRN PO DECREASED GLUCOSE; Start 04/16/17 at 08:00 Dextrose (D50w Syringe) 25 ml Q15M PRN IV DECREASED GLUCOSE; Start 04/16/17 at 08:00 Dextrose (D50w Syringe) 50 ml Q15M PRN IV DECREASED GLUCOSE; Start 04/16/17 at 08:00 Glucagon (Glucagen) 1 mg Q15M PRN IM DECREASED GLUCOSE; Start 04/16/17 at 08:00 Glucose (Glutose) 15 gm Q15M PRN BUCCAL DECREASED GLUCOSE; Start 04/16/17 at 08: 00 Pioglitazone HCl (Actos) 15 mg DAILY PO Last administered on 04/29/17 08:35; Admin Dose 15 MG; Start 04/16/17 at 12:00 Atorvastatin Calcium (Lipitor) 20 mg DAILY@21 PO Last administered on 21:09; Admin Dose 20 MG; Start 04/16/17 at 21:00 Guaifenesin (Robitussin Liquid Cup) 100 mg Q6 PRN PO COUGH Last administered on 04/17/17 13:02; Admin Dose 100 MG; Start 04/17/17 at 01:30 Docusate Sodium (Colace) 100 mg BID PO Last administered on 04/29/17 08:34; Admin Dose 100 MG; Start 04/17/17 at 21:00 Polyethylene Glycol (Miralax) 17 gm DAILY PRN PO CONSTIPATION Last administered on 04/25/17 21:13; Admin Dose 17 GM; Start 04/17/17 at 18:30 Metoprolol Tartrate (Lopressor) 5 mg Q4H PRN IV hr>110 hOLD sbp<100; Start 07/25 at 20:30 Hydralazine HCl (Apresoline) 10 mg Q4H PRN IV sbp>170; Start 04/17/17 at 20:30 Furosemide (Lasix) 40 mg DAILY@06 IV Last administered on 04/23/17 05:49; Admin Dose 40 MG; Start 04/19/17 at 06:00; Status Future Hold Carvedilol (Coreg) 3.125 mg BID PO Last administered on 04/29/17 08:35; Admin Dose 3.125 MG; Start 04/19/17 at 12:00 Clopidogrel Bisulfate (plaVIX) 75 mg DAILY PO Last administered on 04/29/17 08 :36; Admin Dose 75 MG; Start 04/22/17 at 09:00 Acetaminophen (Tylenol Tab) 650 mg Q4H PRN PO NON-CARDIAC PAIN LEVEL 1-3; Start 04/21/17 at 15:30 Oxycodone/ Acetaminophen (Percocet (5/ 325)) 1 tab Q4H PRN PO REPORTED NON- CARDIAC PAIN 4-7; Start 04/21/17 at 15:30 Morphine Sulfate (morphine) 1 mg Q1H PRN IV PAIN NOT RELIEVED BY OTHERS Last administered on 04/25/17 03:54; Admin Dose 1 MG; Start 04/21/17 at 15:30 Al Hydrox/Mg Hydrox/Simethicone (Mag-Al Plus) 30 ml Q4H PRN PO GASTROINTESTINAL UPSET; Start 04/21/17 at 15:30 Ondansetron HCl (Zofran Inj) 4 mg Q4H PRN IV NAUSEA AND/OR VOMITING; Start at 15:30 Aspirin (Aspirin) 325 mg DAILY PO Last administered on 04/29/17 08:35; Admin Dose 325 MG; Start 04/22/17 at 09:00 Lisinopril (Zestril) 40 mg DAILY PO Last administered on 04/29/17 08:36; Admin Dose 40 MG; Start 04/27/17 at 09:00 Insulin Glargine (Lantus) 18 unit DAILY@08 SC Last administered on 04/29/17 08 :42; Admin Dose 18 UNIT; Start 04/28/17 at 08:00 Polyethylene Glycol (Miralax) 17 gm DAILY PRN PO CONSTIPATION Last administered on 04/28/17 17:01; Admin Dose 17 GM; Start 04/28/17 at 16:30 IQRA ROMERO Apr 29, 2017 13:11
--- NOTE | 2017-04-29 13:28 | CONS ---
Date/Time of Note Date/Time of Note DATE: 04/29/17 TIME: 13:25 Assessment/Plan Assessment/Plan Additional Assessment/Plan NSTEMI s/p stenting CHF HTN UTI Renal failure Ischemic Cardiomyopathy-LVEF 25% Continue asa/Plavix Continue Coreg and Lisinopril Continue Lipitor Continue Insulin Consultation Date/Type/Reason Admit Date/Time Apr 16, 2017 at 04:16 Constitutional: improved Eyes: visual change ENT: no complaints Respiratory: no complaints Cardiovascular: no complaints Gastrointestinal: no complaints Genitourinary: no complaints Musculoskeletal: no complaints Skin: no complaints Neurologic: no complaints Psychological: no complaints Past Medical History Medical History: diabetes, high cholesterol, hypertension Social History Smoking Status: Former smoker Exam/Review of Systems Vital Signs Vitals Vital Signs Date Time Temp Pulse Resp B/P Pulse Ox O2 Delivery O2 Flow Rate FiO2 04/29/17 12:24 69 04/29/17 12:19 98.1 17 122/59 97 Intake and Output 04/28/17 04/28/17 04/29/17 15:00 23:00 07:00 Intake Total 880 ml 300 ml Output Total 600 ml 600 ml Balance 280 ml -300 ml Exam Constitutional: alert Head: atraumatic, normocephalic Neck: non-tender, supple Respiratory: clear to auscultation Cardiovascular: regular rate and rhythm Gastrointestinal: nl liver, spleen, non-tender, soft Extremities: normal pulses Results Result Diagram: 04/28/17 0747 04/29/17 0703 Results 24 hrs Laboratory Tests Test 04/28/17 17:49 04/28/17 21:01 04/29/17 07:03 04/29/17 08:32 Bedside Glucose 106 117 119 Sodium Level 141 Potassium Level 4.8 Chloride Level 100 Carbon Dioxide Level 28 Anion Gap 18 H Blood Urea Nitrogen 32 H Creatinine 1.47 H Glucose Level 96 Calcium Level 8.9 Test 04/29/17 12:14 Bedside Glucose 139 Medications Medications Current Medications Diagnostic Test (Pha) (Accu-Chek) 1 ea 02 XX Last administered on 04/24/17t 00: 30; Admin Dose 1 EA; Start 04/17/17 at 02:00 Miscellaneous Information 1 ea NOTE XX ; Start 04/16/17 at 08:00 Glucose (Glutose) 15 gm Q15M PRN PO DECREASED GLUCOSE; Start 04/16/17 at 08:00 Glucose (Glutose) 22.5 gm Q15M PRN PO DECREASED GLUCOSE; Start 04/16/17 at 08:00 Dextrose (D50w Syringe) 25 ml Q15M PRN IV DECREASED GLUCOSE; Start 04/16/17 at 08:00 Dextrose (D50w Syringe) 50 ml Q15M PRN IV DECREASED GLUCOSE; Start 04/16/17 at 08:00 Glucagon (Glucagen) 1 mg Q15M PRN IM DECREASED GLUCOSE; Start 04/16/17 at 08:00 Glucose (Glutose) 15 gm Q15M PRN BUCCAL DECREASED GLUCOSE; Start 04/16/17 at 08: 00 Pioglitazone HCl (Actos) 15 mg DAILY PO Last administered on 04/29/17 08:35; Admin Dose 15 MG; Start 04/16/17 at 12:00 Atorvastatin Calcium (Lipitor) 20 mg DAILY@21 PO Last administered on 21:09; Admin Dose 20 MG; Start 04/16/17 at 21:00 Guaifenesin (Robitussin Liquid Cup) 100 mg Q6 PRN PO COUGH Last administered on 04/17/17 13:02; Admin Dose 100 MG; Start 04/17/17 at 01:30 Docusate Sodium (Colace) 100 mg BID PO Last administered on 04/29/17 08:34; Admin Dose 100 MG; Start 04/17/17 at 21:00 Polyethylene Glycol (Miralax) 17 gm DAILY PRN PO CONSTIPATION Last administered on 04/25/17 21:13; Admin Dose 17 GM; Start 04/17/17 at 18:30 Metoprolol Tartrate (Lopressor) 5 mg Q4H PRN IV hr>110 hOLD sbp<100; Start 07/25 at 20:30 Hydralazine HCl (Apresoline) 10 mg Q4H PRN IV sbp>170; Start 04/17/17 at 20:30 Furosemide (Lasix) 40 mg DAILY@06 IV Last administered on 04/23/17 05:49; Admin Dose 40 MG; Start 04/19/17 at 06:00; Status Future Hold Carvedilol (Coreg) 3.125 mg BID PO Last administered on 04/29/17 08:35; Admin Dose 3.125 MG; Start 04/19/17 at 12:00 Clopidogrel Bisulfate (plaVIX) 75 mg DAILY PO Last administered on 04/29/17 08 :36; Admin Dose 75 MG; Start 04/22/17 at 09:00 Acetaminophen (Tylenol Tab) 650 mg Q4H PRN PO NON-CARDIAC PAIN LEVEL 1-3; Start 04/21/17 at 15:30 Oxycodone/ Acetaminophen (Percocet (5/ 325)) 1 tab Q4H PRN PO REPORTED NON- CARDIAC PAIN 4-7; Start 04/21/17 at 15:30 Morphine Sulfate (morphine) 1 mg Q1H PRN IV PAIN NOT RELIEVED BY OTHERS Last administered on 04/25/17 03:54; Admin Dose 1 MG; Start 04/21/17 at 15:30 Al Hydrox/Mg Hydrox/Simethicone (Mag-Al Plus) 30 ml Q4H PRN PO GASTROINTESTINAL UPSET; Start 04/21/17 at 15:30 Ondansetron HCl (Zofran Inj) 4 mg Q4H PRN IV NAUSEA AND/OR VOMITING; Start at 15:30 Aspirin (Aspirin) 325 mg DAILY PO Last administered on 04/29/17 08:35; Admin Dose 325 MG; Start 04/22/17 at 09:00 Lisinopril (Zestril) 40 mg DAILY PO Last administered on 04/29/17 08:36; Admin Dose 40 MG; Start 04/27/17 at 09:00 Insulin Glargine (Lantus) 18 unit DAILY@08 SC Last administered on 04/29/17 08 :42; Admin Dose 18 UNIT; Start 04/28/17 at 08:00 Polyethylene Glycol (Miralax) 17 gm DAILY PRN PO CONSTIPATION Last administered on 04/28/17 17:01; Admin Dose 17 GM; Start 04/28/17 at 16:30 BURT GARCIA M.D. Apr 29, 2017 13:28
--- NOTE | 2017-04-29 15:42 | PN ---
Date/Time of Note Date/Time of Note DATE: 04/29/17 TIME: 15:36 Assessment/Plan VTE Prophylaxis VTE Prophylaxis Intervention: SCD's Lines/Catheters IV [facility]from [facility] [place] Urinary Cath still in place: Yes Assessment/Plan Assessment/Plan -Acute kidney injury, Lasix is held, continue to monitor BUN and creatinine. -NSTEMI, Obstructive CAD, s/p ptca/stent x 3 to RCA/acute marginal by Dr. Monae on 04/21. Continue aspirin and Plavix. -E. coli UTI, status post treatment with Levaquin. -Hypertension, patient is currently normotensive -CVA with left-sided residual weakness -COPD, continue breathing treatments -Chronic kidney disease, avoid nephrotoxic medication. -Diabetes mellitus type 2, hemoglobin A1c is 8.6, continue Lantus and NovoLog. Transfer to [place] today. Further recommendations based on clinical course. Plan of care discussed with Dr. Paz. Subjective 24 Hr Interval Summary Free Text/Dictation Patient with slow improvement in renal function, continue to monitor, DC for [place] tomorrow if creatinine continues to drop in anticipation for discharge planning, monitor postvoid residual closely. Eyes: no complaints Respiratory: no complaints Cardiovascular: no complaints Genitourinary: no complaints Exam/Review of Systems Vital Signs Vitals Vital Signs Date Time Temp Pulse Resp B/P Pulse Ox O2 Delivery O2 Flow Rate FiO2 04/29/17 12:24 69 04/29/17 12:19 98.1 17 122/59 97 Intake and Output 04/28/17 04/28/17 04/29/17 15:00 23:00 07:00 Intake Total 880 ml 300 ml Output Total 600 ml 600 ml Balance 280 ml -300 ml Exam Constitutional: alert, oriented Respiratory: clear to auscultation, normal air movement Cardiovascular: nl pulses Gastrointestinal: non-tender, soft Musculoskeletal: nl extremities to inspection Neurological: nl speech, other Results Result Diagram: 04/28/17 0747 04/29/17 0703 Results 24 hrs Laboratory Tests Test 04/28/17 17:49 04/28/17 21:01 04/29/17 07:03 04/29/17 08:32 Bedside Glucose 106 117 119 Sodium Level 141 Potassium Level 4.8 Chloride Level 100 Carbon Dioxide Level 28 Anion Gap 18 H Blood Urea Nitrogen 32 H Creatinine 1.47 H Glucose Level 96 Calcium Level 8.9 Test 04/29/17 12:14 Bedside Glucose 139 Medications Medications Current Medications Diagnostic Test (Pha) (Accu-Chek) 1 ea 02 XX Last administered on 04/24/17 00: 30; Admin Dose 1 EA; Start 04/17/17 at 02:00 Miscellaneous Information 1 ea NOTE XX ; Start 04/16/17 at 08:00 Glucose (Glutose) 15 gm Q15M PRN PO DECREASED GLUCOSE; Start 04/16/17 at 08:00 Glucose (Glutose) 22.5 gm Q15M PRN PO DECREASED GLUCOSE; Start 04/16/17 at 08:00 Dextrose (D50w Syringe) 25 ml Q15M PRN IV DECREASED GLUCOSE; Start 04/16/17 at 08:00 Dextrose (D50w Syringe) 50 ml Q15M PRN IV DECREASED GLUCOSE; Start 04/16/17 at 08:00 Glucagon (Glucagen) 1 mg Q15M PRN IM DECREASED GLUCOSE; Start 04/16/17 at 08:00 Glucose (Glutose) 15 gm Q15M PRN BUCCAL DECREASED GLUCOSE; Start 04/16/17 at 08: 00 Pioglitazone HCl (Actos) 15 mg DAILY PO Last administered on 04/29/17 08:35; Admin Dose 15 MG; Start 04/16/17 at 12:00 Atorvastatin Calcium (Lipitor) 20 mg DAILY@21 PO Last administered on 21:09; Admin Dose 20 MG; Start 04/16/17 at 21:00 Guaifenesin (Robitussin Liquid Cup) 100 mg Q6 PRN PO COUGH Last administered on 04/17/17 13:02; Admin Dose 100 MG; Start 04/17/17 at 01:30 Docusate Sodium (Colace) 100 mg BID PO Last administered on 04/29/17 08:34; Admin Dose 100 MG; Start 04/17/17 at 21:00 Polyethylene Glycol (Miralax) 17 gm DAILY PRN PO CONSTIPATION Last administered on 04/25/17 21:13; Admin Dose 17 GM; Start 04/17/17 at 18:30 Metoprolol Tartrate (Lopressor) 5 mg Q4H PRN IV hr>110 hOLD sbp<100; Start 07/25 at 20:30 Hydralazine HCl (Apresoline) 10 mg Q4H PRN IV sbp>170; Start 04/17/17 at 20:30 Furosemide (Lasix) 40 mg DAILY@06 IV Last administered on 04/23/17 05:49; Admin Dose 40 MG; Start 04/19/17 at 06:00; Status Future Hold Carvedilol (Coreg) 3.125 mg BID PO Last administered on 04/29/17 08:35; Admin Dose 3.125 MG; Start 04/19/17 at 12:00 Clopidogrel Bisulfate (plaVIX) 75 mg DAILY PO Last administered on 04/29/17 08 :36; Admin Dose 75 MG; Start 04/22/17 at 09:00 Acetaminophen (Tylenol Tab) 650 mg Q4H PRN PO NON-CARDIAC PAIN LEVEL 1-3; Start 04/21/17 at 15:30 Oxycodone/ Acetaminophen (Percocet (5/ 325)) 1 tab Q4H PRN PO REPORTED NON- CARDIAC PAIN 4-7; Start 04/21/17 at 15:30 Morphine Sulfate (morphine) 1 mg Q1H PRN IV PAIN NOT RELIEVED BY OTHERS Last administered on 04/25/17 03:54; Admin Dose 1 MG; Start 04/21/17 at 15:30 Al Hydrox/Mg Hydrox/Simethicone (Mag-Al Plus) 30 ml Q4H PRN PO GASTROINTESTINAL UPSET; Start 04/21/17 at 15:30 Ondansetron HCl (Zofran Inj) 4 mg Q4H PRN IV NAUSEA AND/OR VOMITING; Start at 15:30 Aspirin (Aspirin) 325 mg DAILY PO Last administered on 04/29/17 08:35; Admin Dose 325 MG; Start 04/22/17 at 09:00 Lisinopril (Zestril) 40 mg DAILY PO Last administered on 04/29/17 08:36; Admin Dose 40 MG; Start 04/27/17 at 09:00 Insulin Glargine (Lantus) 18 unit DAILY@08 SC Last administered on 04/29/17 08 :42; Admin Dose 18 UNIT; Start 04/28/17 at 08:00 Polyethylene Glycol (Miralax) 17 gm DAILY PRN PO CONSTIPATION Last administered on 04/28/17 17:01; Admin Dose 17 GM; Start 04/28/17 at 16:30 EUFEMIA WALKER Apr 29, 2017 15:42
[2017-04-29] MEDS: POLYETHYLENE GLYCOL 17 GM PACKET PO PRN (21:10)
[2017-04-29] MEDS: ATORVASTATIN 20 MG TAB PO SCH (21:13)
[2017-04-30 02:00] VITALS: BP 104/55; RESP 20
[2017-04-30] MEDS: ACCU-CHEK XX SCH ×2 (02:22→20:21)
--- NOTE | 2017-04-30 07:10 | PN ---
DATE: 04/17/2017 ADDENDUM: REEVALUATION FOR RESPIRATORY FAILURE AND HYPOXEMIA: The patient is a 72-year-old gentleman with a history of coronary artery disease status post PCI, and cardiomyopathy with the last EF reported three years ago at 30 to 35 percent. The patient is being treated for urinary tract infection and was noted to have gram-positive cocci in the blood cultures, one out of two. The patient upon arrival to the ER was noted to have sodium of 124. The patient also had acute kidney injury with BUN of 41, creatinine of 1.9, up from his baseline of 1. The patient was being given IV fluids as well as IV antibiotics. The patient was noted to have progressive shortness of breath this afternoon and became progressively more hypoxemic. Initially he was managed with nasal cannula and subsequently required nonrebreather mask. The patient had a stat chest x-ray done which was reviewed by me. The patient was noted to be in flash pulmonary edema. Immediately, IV fluids have been stopped. The patient has been given one dose IV Lasix. I will repeat another dose after four hours. The patient will be transferred to ICU. The patient is awake and responsive. was called and the patient will be moved to the intensive care unit. The patient denies any chest pain. OBJECTIVE DATA: The patient is conscious, awake, appears short of breath. Vital signs: Temperature 97.5. Pulse rate 134. Sodium 132. The patient is on nonrebreather mask, saturating 88 percent. HEENT: Atraumatic, normocephalic. Conjunctivae normal. Oropharyngeal examination was deferred due to face mask. The chest revealed bilateral rales and rhonchi. CVS: S1, S2 normal. Sinus tachycardia. Abdomen soft, nontender, nondistended. Extremities: No leg edema. Neuro: The patient is awake, alert, follows simple commands. LABORATORY AND DIAGNOSTIC DATA: Sodium 133, potassium 4.4, BUN 24, creatinine 1.2, glucose 151. Troponin and EKG have been ordered. IMPRESSION: 1. Acute pulmonary edema in the setting of cardiomyopathy with a history of known coronary disease, probably due to fluid overload. The patient will be transferred to ICU. Will give IV Lasix. IV fluids have been discontinued. I spoke with Dr. Gustavo Monae for cardiology consultation. Diabetes. The patient should be put on long-acting insulin and insulin. Will obtain hemoglobin A1C. Will also discontinue Glucophage. Will evaluate creatinine. Will hold off on beta- 2. jabier due to acute pulmonary edema. 3. Continue Plavix and John inhibitor. 4. Total critical care time spent 30 minutes. Plan has been discussed with nursing staff. Dictated By: Andrew Paz MD /asha/jie /Document#: [id number]
[2017-04-30 07:22] LABS: CALCIUM 9.1 mg/dl (8.4-10.2); CREATININE 1.51 mg/dl (0.61-1.24); POTASSIUM 4.5 mmol/L (3.5-5.1)
[2017-04-30] MEDS: INSULIN ASPART [NOVOLOG] 3 ML PEN SC SCH ×7 (07:56→20:21)
[2017-04-30 08:00] VITALS: BP 119/60; RESP 19
[2017-04-30] MEDS: INSULIN GLARGINE [LANtus] 3 ML PEN SC SCH (08:03)
[2017-04-30] MEDS: ASPIRIN 325 MG TAB PO SCH (08:57)
[2017-04-30] MEDS: DOCUSATE SODIUM 100 MG CAP PO SCH ×2 (08:57→20:22)
[2017-04-30] MEDS: CLOPIDOGREL 75 MG TAB PO SCH (08:57)
[2017-04-30] MEDS: LISINOPRIL 20 MG TAB PO SCH (08:58)
[2017-04-30] MEDS: PIOGLITAZONE 15 MG TAB PO SCH (08:58)
--- NOTE | 2017-04-30 11:17 | CONS ---
Date/Time of Note Date/Time of Note DATE: 04/30/17 TIME: 11:16 Assessment/Plan Assessment/Plan Chief Complaint/Hosp Course 1. CKD 2. S/p LHC with coronary angiography and stenting Problems: Additional Assessment/Plan 1. Kidney function optimization Consultation Date/Type/Reason Admit Date/Time Apr 16, 2017 at 04:16 Initial Consult Date 04/22/2017 Type of Consultation: nephrology Reason for Consultation Dr Tol[place] Referring Provider: QUIANA MURCIA MD Exam/Review of Systems Vital Signs Vitals Vital Signs Date Time Temp Pulse Resp B/P Pulse Ox O2 Delivery O2 Flow Rate FiO2 04/30/17 08:00 98.5 67 19 119/60 97 Intake and Output 04/29/17 04/29/17 04/30/17 15:00 23:00 07:00 Intake Total 450 ml 550 ml Output Total 160 ml 400 ml 300 ml Balance -160 ml 50 ml 250 ml Exam Constitutional: alert Neck: supple Respiratory: clear to auscultation Genitourinary - Male: CVA tenderness, No discharge, No nl penis, No nl scrotum , No other Results Result Diagram: 04/28/17 0747 04/30/17 0518 Results 24 hrs Laboratory Tests Test 04/29/17 12:14 04/29/17 17:31 04/29/17 21:07 04/29/17 21:19 Bedside Glucose 139 84 53 L 63 L Test 04/29/17 21:29 04/29/17 21:47 04/29/17 22:00 04/30/17 02:21 Bedside Glucose 78 93 119 229 H Test 04/30/17 05:18 04/30/17 07:55 Sodium Level 138 Potassium Level 4.5 Chloride Level 95 L Carbon Dioxide Level 29 Anion Gap 19 H Blood Urea Nitrogen 35 H Creatinine 1.51 H Glucose Level 116 Calcium Level 9.1 Bedside Glucose 117 Medications Medications Current Medications Diagnostic Test (Pha) (Accu-Chek) 1 ea 02 XX Last administered on 04/30/17t 02: 22; Admin Dose 1 EA; Start 04/17/17 at 02:00 Miscellaneous Information 1 ea NOTE XX ; Start 04/16/17 at 08:00 Glucose (Glutose) 15 gm Q15M PRN PO DECREASED GLUCOSE; Start 04/16/17 at 08:00 Glucose (Glutose) 22.5 gm Q15M PRN PO DECREASED GLUCOSE; Start 04/16/17 at 08:00 Dextrose (D50w Syringe) 25 ml Q15M PRN IV DECREASED GLUCOSE; Start 04/16/17 at 08:00 Dextrose (D50w Syringe) 50 ml Q15M PRN IV DECREASED GLUCOSE; Start 04/16/17 at 08:00 Glucagon (Glucagen) 1 mg Q15M PRN IM DECREASED GLUCOSE; Start 04/16/17 at 08:00 Glucose (Glutose) 15 gm Q15M PRN BUCCAL DECREASED GLUCOSE Last administered on 04/29/17 21:23; Admin Dose 15 GM; Start 04/16/17 at 08:00 Pioglitazone HCl (Actos) 15 mg DAILY PO Last administered on 04/30/17 08:58; Admin Dose 15 MG; Start 04/16/17 at 12:00 Atorvastatin Calcium (Lipitor) 20 mg DAILY@21 PO Last administered on 21:13; Admin Dose 20 MG; Start 04/16/17 at 21:00 Guaifenesin (Robitussin Liquid Cup) 100 mg Q6 PRN PO COUGH Last administered on 04/17/17 13:02; Admin Dose 100 MG; Start 04/17/17 at 01:30 Docusate Sodium (Colace) 100 mg BID PO Last administered on 04/30/17 08:57; Admin Dose 100 MG; Start 04/17/17 at 21:00 Polyethylene Glycol (Miralax) 17 gm DAILY PRN PO CONSTIPATION Last administered on 04/25/17 21:13; Admin Dose 17 GM; Start 04/17/17 at 18:30 Metoprolol Tartrate (Lopressor) 5 mg Q4H PRN IV hr>110 hOLD sbp<100; Start 07/25 at 20:30 Hydralazine HCl (Apresoline) 10 mg Q4H PRN IV sbp>170; Start 04/17/17 at 20:30 Furosemide (Lasix) 40 mg DAILY@06 IV Last administered on 04/23/17 05:49; Admin Dose 40 MG; Start 04/19/17 at 06:00; Status Future Hold Carvedilol (Coreg) 3.125 mg BID PO Last administered on 04/30/17 08:58; Admin Dose 3.125 MG; Start 04/19/17 at 12:00 Clopidogrel Bisulfate (plaVIX) 75 mg DAILY PO Last administered on 04/30/17 08 :57; Admin Dose 75 MG; Start 04/22/17 at 09:00 Acetaminophen (Tylenol Tab) 650 mg Q4H PRN PO NON-CARDIAC PAIN LEVEL 1-3; Start 04/21/17 at 15:30 Oxycodone/ Acetaminophen (Percocet (5/ 325)) 1 tab Q4H PRN PO REPORTED NON- CARDIAC PAIN 4-7; Start 04/21/17 at 15:30 Morphine Sulfate (morphine) 1 mg Q1H PRN IV PAIN NOT RELIEVED BY OTHERS Last administered on 04/25/17 03:54; Admin Dose 1 MG; Start 04/21/17 at 15:30 Al Hydrox/Mg Hydrox/Simethicone (Mag-Al Plus) 30 ml Q4H PRN PO GASTROINTESTINAL UPSET; Start 04/21/17 at 15:30 Ondansetron HCl (Zofran Inj) 4 mg Q4H PRN IV NAUSEA AND/OR VOMITING; Start at 15:30 Aspirin (Aspirin) 325 mg DAILY PO Last administered on 04/30/17 08:57; Admin Dose 325 MG; Start 04/22/17 at 09:00 Lisinopril (Zestril) 40 mg DAILY PO Last administered on 04/30/17 08:58; Admin Dose 40 MG; Start 04/27/17 at 09:00 Polyethylene Glycol (Miralax) 17 gm DAILY PRN PO CONSTIPATION Last administered on 04/29/17 21:10; Admin Dose 17 GM; Start 04/28/17 at 16:30 Insulin Glargine (Lantus) 12 unit DAILY@08 SC Last administered on 04/30/17 08 :03; Admin Dose 12 UNIT; Start 04/30/17 at 08:00 IQRA ROMERO Apr 30, 2017 11:16
--- NOTE | 2017-04-30 13:25 | CONS ---
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% Anemia Clinically and hemodynamically stable Continue ASA and Plavix Continue Coreg and Lisinopril Continue Lipitor Continue Insulin Consultation Date/Type/Reason Admit Date/Time Apr 16, 2017 at 04:16 Initial Consult Date Type of Consultation: nephrology Referring Provider: QUIANA MURCIA MD Exam/Review of Systems Vital Signs Vitals Vital Signs Date Time Temp Pulse Resp B/P Pulse Ox O2 Delivery O2 Flow Rate FiO2 04/30/17 08:00 98.5 67 19 119/60 97 Intake and Output 04/29/17 04/29/17 04/30/17 15:00 23:00 07:00 Intake Total 450 ml 550 ml Output Total 160 ml 400 ml 300 ml Balance -160 ml 50 ml 250 ml Exam Constitutional: alert Head: atraumatic, normocephalic Neck: non-tender, supple Respiratory: clear to auscultation Cardiovascular: regular rate and rhythm Gastrointestinal: nl liver, spleen, non-tender, soft Extremities: normal pulses Results Result Diagram: 04/28/17 0747 04/30/17 0518 Results 24 hrs Laboratory Tests Test 04/29/17 17:31 04/29/17 21:07 04/29/17 21:19 04/29/17 21:29 Bedside Glucose 84 53 L 63 L 78 Test 04/29/17 21:47 04/29/17 22:00 04/30/17 02:21 04/30/17 05:18 Bedside Glucose 93 119 229 H Sodium Level 138 Potassium Level 4.5 Chloride Level 95 L Carbon Dioxide Level 29 Anion Gap 19 H Blood Urea Nitrogen 35 H Creatinine 1.51 H Glucose Level 116 Calcium Level 9.1 Test 04/30/17 07:55 04/30/17 11:50 Bedside Glucose 117 220 Medications Medications Current Medications Diagnostic Test (Pha) (Accu-Chek) 1 ea 02 XX Last administered on 04/30/17t 02: 22; Admin Dose 1 EA; Start 04/17/17 at 02:00 Miscellaneous Information 1 ea NOTE XX ; Start 04/16/17 at 08:00 Glucose (Glutose) 15 gm Q15M PRN PO DECREASED GLUCOSE; Start 04/16/17 at 08:00 Glucose (Glutose) 22.5 gm Q15M PRN PO DECREASED GLUCOSE; Start 04/16/17 at 08:00 Dextrose (D50w Syringe) 25 ml Q15M PRN IV DECREASED GLUCOSE; Start 04/16/17 at 08:00 Dextrose (D50w Syringe) 50 ml Q15M PRN IV DECREASED GLUCOSE; Start 04/16/17 at 08:00 Glucagon (Glucagen) 1 mg Q15M PRN IM DECREASED GLUCOSE; Start 04/16/17 at 08:00 Glucose (Glutose) 15 gm Q15M PRN BUCCAL DECREASED GLUCOSE Last administered on 04/29/17 21:23; Admin Dose 15 GM; Start 04/16/17 at 08:00 Pioglitazone HCl (Actos) 15 mg DAILY PO Last administered on 04/30/17 08:58; Admin Dose 15 MG; Start 04/16/17 at 12:00 Atorvastatin Calcium (Lipitor) 20 mg DAILY@21 PO Last administered on 21:13; Admin Dose 20 MG; Start 04/16/17 at 21:00 Guaifenesin (Robitussin Liquid Cup) 100 mg Q6 PRN PO COUGH Last administered on 04/17/17 13:02; Admin Dose 100 MG; Start 04/17/17 at 01:30 Docusate Sodium (Colace) 100 mg BID PO Last administered on 04/30/17 08:57; Admin Dose 100 MG; Start 04/17/17 at 21:00 Polyethylene Glycol (Miralax) 17 gm DAILY PRN PO CONSTIPATION Last administered on 04/25/17 21:13; Admin Dose 17 GM; Start 04/17/17 at 18:30 Metoprolol Tartrate (Lopressor) 5 mg Q4H PRN IV hr>110 hOLD sbp<100; Start 07/25 at 20:30 Hydralazine HCl (Apresoline) 10 mg Q4H PRN IV sbp>170; Start 04/17/17 at 20:30 Furosemide (Lasix) 40 mg DAILY@06 IV Last administered on 04/23/17 05:49; Admin Dose 40 MG; Start 04/19/17 at 06:00; Status Future Hold Carvedilol (Coreg) 3.125 mg BID PO Last administered on 04/30/17 08:58; Admin Dose 3.125 MG; Start 04/19/17 at 12:00 Clopidogrel Bisulfate (plaVIX) 75 mg DAILY PO Last administered on 04/30/17 08 :57; Admin Dose 75 MG; Start 04/22/17 at 09:00 Acetaminophen (Tylenol Tab) 650 mg Q4H PRN PO NON-CARDIAC PAIN LEVEL 1-3; Start 04/21/17 at 15:30 Oxycodone/ Acetaminophen (Percocet (5/ 325)) 1 tab Q4H PRN PO REPORTED NON- CARDIAC PAIN 4-7; Start 04/21/17 at 15:30 Morphine Sulfate (morphine) 1 mg Q1H PRN IV PAIN NOT RELIEVED BY OTHERS Last administered on 04/25/17 03:54; Admin Dose 1 MG; Start 04/21/17 at 15:30 Al Hydrox/Mg Hydrox/Simethicone (Mag-Al Plus) 30 ml Q4H PRN PO GASTROINTESTINAL UPSET; Start 04/21/17 at 15:30 Ondansetron HCl (Zofran Inj) 4 mg Q4H PRN IV NAUSEA AND/OR VOMITING; Start at 15:30 Aspirin (Aspirin) 325 mg DAILY PO Last administered on 04/30/17 08:57; Admin Dose 325 MG; Start 04/22/17 at 09:00 Lisinopril (Zestril) 40 mg DAILY PO Last administered on 04/30/17 08:58; Admin Dose 40 MG; Start 04/27/17 at 09:00 Polyethylene Glycol (Miralax) 17 gm DAILY PRN PO CONSTIPATION Last administered on 04/29/17 21:10; Admin Dose 17 GM; Start 04/28/17 at 16:30 Insulin Glargine (Lantus) 12 unit DAILY@08 SC Last administered on 04/30/17 08 :03; Admin Dose 12 UNIT; Start 04/30/17 at 08:00 BUTR GARCIA M.D. Apr 30, 2017 13:25
[2017-04-30 14:00] VITALS: BP 100/56; RESP 18
[2017-04-30] MEDS ORDERED: BISACODYL 10 MG SUPP PR ONE (14:30)
--- NOTE | 2017-04-30 14:49 | PN ---
Date/Time of Note Date/Time of Note DATE: 04/30/17 TIME: 14:47 Assessment/Plan VTE Prophylaxis VTE Prophylaxis Intervention: other Lines/Catheters IV [facility] Type (from [facility] Peripheral IV Urinary Cath still in place: No Assessment/Plan Assessment/Plan -Acute kidney injury, Lasix is held, continue to monitor BUN and creatinine. -NSTEMI, Obstructive CAD, s/p ptca/stent x 3 to RCA/acute marginal by Dr. Monae on 04/21. Continue aspirin and Plavix. -E. coli UTI, status post treatment with Levaquin. -Hypertension, patient is currently normotensive -CVA with left-sided residual weakness -COPD, continue breathing treatments -Chronic kidney disease, avoid nephrotoxic medication. -Diabetes mellitus type 2, hemoglobin A1c is 8.6, continue Lantus and NovoLog. Further recommendations based on clinical course. Plan of care discussed with Dr. Paz. Subjective 24 Hr Interval Summary Free Text/Dictation Cr up- 1.51 today, nephrology follows.continue to monitor, dw staff. Respiratory: no complaints Cardiovascular: no complaints Gastrointestinal: no complaints Genitourinary: no complaints Exam/Review of Systems Vital Signs Vitals Vital Signs Date Time Temp Pulse Resp B/P Pulse Ox O2 Delivery O2 Flow Rate FiO2 04/30/17 08:00 98.5 67 19 119/60 97 Intake and Output 04/29/17 04/29/17 04/30/17 15:00 23:00 07:00 Intake Total 450 ml 550 ml Output Total 160 ml 400 ml 300 ml Balance -160 ml 50 ml 250 ml Exam Constitutional: alert, oriented, well developed Respiratory: clear to auscultation, normal air movement Cardiovascular: nl pulses, regular rate and rhythm Gastrointestinal: non-tender, soft Musculoskeletal: nl extremities to inspection Extremities: normal pulses Neurological: nl mental status, nl speech Results Result Diagram: 04/28/17 0747 04/30/17 0518 Results 24 hrs Laboratory Tests Test 04/29/17 17:31 04/29/17 21:07 04/29/17 21:19 04/29/17 21:29 Bedside Glucose 84 53 L 63 L 78 Test 04/29/17 21:47 04/29/17 22:00 04/30/17 02:21 04/30/17 05:18 Bedside Glucose 93 119 229 H Sodium Level 138 Potassium Level 4.5 Chloride Level 95 L Carbon Dioxide Level 29 Anion Gap 19 H Blood Urea Nitrogen 35 H Creatinine 1.51 H Glucose Level 116 Calcium Level 9.1 Test 04/30/17 07:55 04/30/17 11:50 Bedside Glucose 117 220 Medications Medications Current Medications Diagnostic Test (Pha) (Accu-Chek) 1 ea 02 XX Last administered on 04/30/17 02: 22; Admin Dose 1 EA; Start 04/17/17 at 02:00 Miscellaneous Information 1 ea NOTE XX ; Start 04/16/17 at 08:00 Glucose (Glutose) 15 gm Q15M PRN PO DECREASED GLUCOSE; Start 04/16/17 at 08:00 Glucose (Glutose) 22.5 gm Q15M PRN PO DECREASED GLUCOSE; Start 04/16/17 at 08:00 Dextrose (D50w Syringe) 25 ml Q15M PRN IV DECREASED GLUCOSE; Start 04/16/17 at 08:00 Dextrose (D50w Syringe) 50 ml Q15M PRN IV DECREASED GLUCOSE; Start 04/16/17 at 08:00 Glucagon (Glucagen) 1 mg Q15M PRN IM DECREASED GLUCOSE; Start 04/16/17 at 08:00 Glucose (Glutose) 15 gm Q15M PRN BUCCAL DECREASED GLUCOSE Last administered on 04/29/17 21:23; Admin Dose 15 GM; Start 04/16/17 at 08:00 Pioglitazone HCl (Actos) 15 mg DAILY PO Last administered on 04/30/17 08:58; Admin Dose 15 MG; Start 04/16/17 at 12:00 Atorvastatin Calcium (Lipitor) 20 mg DAILY@21 PO Last administered on 21:13; Admin Dose 20 MG; Start 04/16/17 at 21:00 Guaifenesin (Robitussin Liquid Cup) 100 mg Q6 PRN PO COUGH Last administered on 04/17/17 13:02; Admin Dose 100 MG; Start 04/17/17 at 01:30 Docusate Sodium (Colace) 100 mg BID PO Last administered on 04/30/17 08:57; Admin Dose 100 MG; Start 04/17/17 at 21:00 Polyethylene Glycol (Miralax) 17 gm DAILY PRN PO CONSTIPATION Last administered on 04/25/17 21:13; Admin Dose 17 GM; Start 04/17/17 at 18:30 Metoprolol Tartrate (Lopressor) 5 mg Q4H PRN IV hr>110 hOLD sbp<100; Start 07/25 at 20:30 Hydralazine HCl (Apresoline) 10 mg Q4H PRN IV sbp>170; Start 04/17/17 at 20:30 Furosemide (Lasix) 40 mg DAILY@06 IV Last administered on 04/23/17 05:49; Admin Dose 40 MG; Start 04/19/17 at 06:00; Status Future Hold Carvedilol (Coreg) 3.125 mg BID PO Last administered on 04/30/17 08:58; Admin Dose 3.125 MG; Start 04/19/17 at 12:00 Clopidogrel Bisulfate (plaVIX) 75 mg DAILY PO Last administered on 04/30/17 08 :57; Admin Dose 75 MG; Start 04/22/17 at 09:00 Acetaminophen (Tylenol Tab) 650 mg Q4H PRN PO NON-CARDIAC PAIN LEVEL 1-3; Start 04/21/17 at 15:30 Oxycodone/ Acetaminophen (Percocet (5/ 325)) 1 tab Q4H PRN PO REPORTED NON- CARDIAC PAIN 4-7; Start 04/21/17 at 15:30 Morphine Sulfate (morphine) 1 mg Q1H PRN IV PAIN NOT RELIEVED BY OTHERS Last administered on 04/25/17 03:54; Admin Dose 1 MG; Start 04/21/17 at 15:30 Al Hydrox/Mg Hydrox/Simethicone (Mag-Al Plus) 30 ml Q4H PRN PO GASTROINTESTINAL UPSET; Start 04/21/17 at 15:30 Ondansetron HCl (Zofran Inj) 4 mg Q4H PRN IV NAUSEA AND/OR VOMITING; Start at 15:30 Aspirin (Aspirin) 325 mg DAILY PO Last administered on 04/30/17 08:57; Admin Dose 325 MG; Start 04/22/17 at 09:00 Lisinopril (Zestril) 40 mg DAILY PO Last administered on 04/30/17 08:58; Admin Dose 40 MG; Start 04/27/17 at 09:00 Polyethylene Glycol (Miralax) 17 gm DAILY PRN PO CONSTIPATION Last administered on 7/22/17at 21:10; Admin Dose 17 GM; Start 04/28/17 at 16:30 Insulin Glargine (Lantus) 12 unit DAILY@08 SC Last administered on 04/30/17t 08 :03; Admin Dose 12 UNIT; Start 04/30/17 at 08:00 EUFEMIA WALKER Apr 30, 2017 14:49
--- NOTE | 2017-04-30 15:33 | QN ---
Documentation Comment [id number] Brewer MD Apr 30, 2017 15:33
--- NOTE | 2017-04-30 17:32 | RADRPT ---
PROCEDURE: Renal US. CLINICAL INDICATION: Renal dysfunction. TECHNIQUE: Multiple sonographic images of the kidneys and urinary bladder were obtained. The imag es were reviewed on a PACS workstation. COMPARISON: No prior studies are available for comparison. FINDINGS: The right kidney measures 10.2 cm. The left kidney measures 10.2 cm. There is no solid renal mass. There are benign bilateral renal cysts with the largest on the right measuring 4.3 cm and the largest on the left measuring 2.9 cm. There is no hydronephrosis. There is no renal calculus. Renal parenchymal thickness is normal bilaterally. Both kidneys are hyperechoic consistent with medical renal disease. The perirenal regions are normal with no fluid collection or mass. The urinary bladder is unremarkable. IMPRESSION: 1. Benign bilateral renal cysts. 2. No hydronephrosis. 3. Bilateral hyperechoic kidneys consistent with medical renal disease. RPTAT: QQ .Norberto Suazo MD, MD Date Time Electronically viewed and signed by .Norberto Suazo MD, on 04/30/2017 17:31 .R/
[2017-04-30] MEDS: ATORVASTATIN 20 MG TAB PO SCH (20:22)
[2017-04-30 20:24] VITALS: BP 100/55; RESP 16
[2017-04-30 20:28] LABS: PROTEIN/CREAT RATIO 0.39 RATIO
[2017-04-30 20:37] LABS: ADD UMIC YES; UR ASCORBIC ACID NEGATIVE (NEGATIVE); UR BACTERIA FEW /HPF (NONE SEEN); UR BILIRUBIN (Dip) NEGATIVE (NEGATIVE); UR BLOOD (Dip) 1+ mg/dL (NEGATIVE); UR CLARITY CLEAR (CLEAR); UR COLOR YELLOW (YELLOW); UR GLUCOSE (Dip) 1+ mg/dL (NEGATIVE); UR KETONES (Dip) NEGATIVE (NEGATIVE); UR LEUKOCYTE ESTERASE (Dip) NEGATIVE Leu/ul (NEGATIVE); UR NITRITE (Dip) NEGATIVE (NEGATIVE); UR RBC 0 /HPF (0-5); UR TOTAL PROTEIN (Dip) NEGATIVE (NEGATIVE); UR UROBILINOGEN (Dip) NEGATIVE (NEGATIVE)
[2017-04-30] MEDS ORDERED: BISACODYL 10 MG SUPP PR PRN (23:00)
[2017-05-01 02:47] VITALS: BP 115/55; RESP 18
[2017-05-01 05:57] LABS: BASOPHILS % 0.3 % (0.0-2.0); EOSINOPHILS # 0.5 10^3/ul (0.0-0.5); EOSINOPHILS % 5.2 % (0.0-7.0); HEMATOCRIT 30.4 % (42.0-52.0); HEMOGLOBIN 9.8 g/dl (14.0-18.0); LYMPHOCYTES # 1.8 10^3/ul (0.8-2.9); LYMPHOCYTES % 19.4 % (15.0-51.0); MEAN CORPUSCULAR HEMOGLOBIN 28.7 pg (29.0-33.0); MEAN CORPUSCULAR HGB CONC 32.2 g/dl (32.0-37.0); MEAN CORPUSCULAR VOLUME 89.1 fl (82.0-101.0); MEAN PLATELET VOLUME 11.1 fl (7.4-10.4); MONOCYTE # 1.3 10^3/ul (0.3-0.9); MONOCYTES % 14.2 % (0.0-11.0); NEUTROPHIL # 5.7 10^3/ul (1.6-7.5); NEUTROPHILS % 60.7 % (39.0-77.0); PLATELET COUNT 287 10^3/UL (140-415); RED BLOOD COUNT 3.41 10^6/ul (4.70-6.10); RED CELL DISTRIBUTION WIDTH 14.1 % (11.5-14.5); WHITE BLOOD COUNT 9.3 10^3/ul (4.8-10.8)
[2017-05-01 06:46] LABS: CALCIUM 8.9 mg/dl (8.4-10.2); CREATININE 1.49 mg/dl (0.61-1.24)
[2017-05-01 07:20] VITALS: BP 112/56; RESP 16
[2017-05-01] MEDS ORDERED: LACTULOSE 30ML CUP PO SCH (09:00)
[2017-05-01] MEDS: DOCUSATE SODIUM 100 MG CAP PO SCH (10:00)
[2017-05-01] MEDS: PIOGLITAZONE 15 MG TAB PO SCH (10:01)
[2017-05-01] MEDS: CLOPIDOGREL 75 MG TAB PO SCH (10:01)
[2017-05-01] MEDS: ASPIRIN 325 MG TAB PO SCH (10:01)
[2017-05-01] MEDS: INSULIN ASPART [NOVOLOG] 3 ML PEN SC SCH ×6 (10:03→17:27)
[2017-05-01] MEDS: INSULIN GLARGINE [LANtus] 3 ML PEN SC SCH (10:04)
[2017-05-01] MEDS: LISINOPRIL 20 MG TAB PO SCH (10:10)
--- NOTE | 2017-05-01 13:20 | CONS ---
Date/Time of Note Date/Time of Note DATE: 05/01/17 TIME: 13:19 Assessment/Plan Assessment/Plan Chief Complaint/Hosp Course IMp: 1.CHF 2.Nstemi-now downtrending. Now s/p PTCA /stent to RCA.acute marginal x 3/no cp 3.HTN-reasonable control 4.UTI 5. H/O prior stent 6.renal failure-ACUTE ON CHRONIC/possible contrast nephropathy-improving slowly 7. Hyponatremia-improved 8. Cardiomyopathy-LVEF 25% by echo 04/18 Recc: -Now on med-surg -Continue asa/plavix/statin -Continue ACEI/BB -Still Holding lasix and continue to follow creatnine/volume status closely -Continue abx's and f/u cx data Problems: Consultation Date/Type/Reason Admit Date/Time Apr 16, 2017 at 04:16 Initial Consult Date 04/17/17 Type of Consultation: cardiology Reason for Consultation CHF/nstemi Referring Provider: QUIANA MURCIA MD Exam/Review of Systems Vital Signs Vitals Vital Signs Date Time Temp Pulse Resp B/P Pulse Ox O2 Delivery O2 Flow Rate FiO2 05/01/17 07:20 97.7 55 16 112/56 94 04/30/17 21:15 21 Intake and Output 04/30/17 04/30/17 05/01/17 15:00 23:00 07:00 Intake Total 960 ml 500 ml Balance 960 ml 500 ml Exam Review of Systems: CONSTITUTIONAL: No fevers, chills. PULMONARY: No sob CARDIOVASCULAR: No chest pain/palpitations GASTROINTESTINAL: No nausea/vomiting. GENITOURINARY: No hematuria/dysuria. MUSCULOSKELETAL: No myagias/arthalgias. PSYCHIATRIC: The patient denies depression. NEUROLOGIC: No weakness Constitutional: alert Psych: no complaints Head: normocephalic ENMT: mucosa pink and moist Neck: jvd (8-9 cm water), supple Respiratory: diminished breath sounds (at bases/B) Cardiovascular: regular rate and rhythm Gastrointestinal: non-tender, soft Musculoskeletal: muscle tone (normal) Extremities: edema (none) Neurological: other (No focal deficits) Results Result Diagram: 05/01/17 0457 05/01/17 0457 Results 24 hrs Laboratory Tests Test 04/30/17 17:00 04/30/17 17:13 04/30/17 20:19 05/01/17 04:57 Urine Color YELLOW Urine Clarity CLEAR Urine pH 5.0 Urine Specific [place] 1.010 Urine Ketones NEGATIVE Urine Nitrite NEGATIVE Urine Bilirubin NEGATIVE Urine Urobilinogen NEGATIVE Urine Leukocyte Esterase NEGATIVE Urine Microscopic RBC 0 Urine Microscopic WBC 0 Urine Bacteria FEW A Urine Hemoglobin 1+ H Urine Random Creatinine 76.06 Urine Protein/Creatinine Ratio 0.39 Urine Glucose 1+ H Urine Total Protein 30.0 H Bedside Glucose 256 H 109 White Blood Count 9.3 Red Blood Count 3.41 L Hemoglobin 9.8 L Hematocrit 30.4 L Mean Corpuscular Volume 89.1 Mean Corpuscular Hemoglobin 28.7 L Mean Corpuscular Hemoglobin Concent 32.2 Red Cell Distribution Width 14.1 Platelet Count 287 Mean Platelet Volume 11.1 H Neutrophils % 60.7 Lymphocytes % 19.4 Monocytes % 14.2 H Eosinophils % 5.2 Basophils % 0.3 Nucleated Red Blood Cells % 0.0 Neutrophils # 5.7 Lymphocytes # 1.8 Monocytes # 1.3 H Eosinophils # 0.5 Basophils # 0.0 Nucleated Red Blood Cells # 0.0 Sodium Level 137 Potassium Level 5.0 Chloride Level 96 L Carbon Dioxide Level 28 Anion Gap 18 H Blood Urea Nitrogen 36 H Creatinine 1.49 H Glucose Level 124 Calcium Level 8.9 Test 05/01/17 07:53 05/01/17 11:51 Bedside Glucose 141 196 Medications Medications Current Medications Diagnostic Test (Pha) (Accu-Chek) 1 ea 02 XX Last administered on 04/30/17t 02: 22; Admin Dose 1 EA; Start 04/17/17 at 02:00 Miscellaneous Information 1 ea NOTE XX ; Start 04/16/17 at 08:00 Glucose (Glutose) 15 gm Q15M PRN PO DECREASED GLUCOSE; Start 04/16/17 at 08:00 Glucose (Glutose) 22.5 gm Q15M PRN PO DECREASED GLUCOSE; Start 04/16/17 at 08:00 Dextrose (D50w Syringe) 25 ml Q15M PRN IV DECREASED GLUCOSE; Start 04/16/17 at 08:00 Dextrose (D50w Syringe) 50 ml Q15M PRN IV DECREASED GLUCOSE; Start 04/16/17 at 08:00 Glucagon (Glucagen) 1 mg Q15M PRN IM DECREASED GLUCOSE; Start 04/16/17 at 08:00 Glucose (Glutose) 15 gm Q15M PRN BUCCAL DECREASED GLUCOSE Last administered on 04/29/17 21:23; Admin Dose 15 GM; Start 04/16/17 at 08:00 Pioglitazone HCl (Actos) 15 mg DAILY PO Last administered on 05/01/17 10:01; Admin Dose 15 MG; Start 04/16/17 at 12:00 Atorvastatin Calcium (Lipitor) 20 mg DAILY@21 PO Last administered on 20:22; Admin Dose 20 MG; Start 04/16/17 at 21:00 Guaifenesin (Robitussin Liquid Cup) 100 mg Q6 PRN PO COUGH Last administered on 04/17/17 13:02; Admin Dose 100 MG; Start 04/17/17 at 01:30 Docusate Sodium (Colace) 100 mg BID PO Last administered on 05/01/17 10:00; Admin Dose 100 MG; Start 04/17/17 at 21:00 Polyethylene Glycol (Miralax) 17 gm DAILY PRN PO CONSTIPATION Last administered on 04/25/17 21:13; Admin Dose 17 GM; Start 04/17/17 at 18:30 Metoprolol Tartrate (Lopressor) 5 mg Q4H PRN IV hr>110 hOLD sbp<100; Start 07/25 at 20:30 Hydralazine HCl (Apresoline) 10 mg Q4H PRN IV sbp>170; Start 04/17/17 at 20:30 Furosemide (Lasix) 40 mg DAILY@06 IV Last administered on 04/23/17 05:49; Admin Dose 40 MG; Start 04/19/17 at 06:00; Status Future Hold Carvedilol (Coreg) 3.125 mg BID PO Last administered on 05/01/17 10:15; Admin Dose 3.125 MG; Start 04/19/17 at 12:00 Clopidogrel Bisulfate (plaVIX) 75 mg DAILY PO Last administered on 05/01/17 10 :01; Admin Dose 75 MG; Start 04/22/17 at 09:00 Acetaminophen (Tylenol Tab) 650 mg Q4H PRN PO NON-CARDIAC PAIN LEVEL 1-3; Start 04/21/17 at 15:30 Oxycodone/ Acetaminophen (Percocet (5/ 325)) 1 tab Q4H PRN PO REPORTED NON- CARDIAC PAIN 4-7; Start 04/21/17 at 15:30 Morphine Sulfate (morphine) 1 mg Q1H PRN IV PAIN NOT RELIEVED BY OTHERS Last administered on 04/25/17 03:54; Admin Dose 1 MG; Start 04/21/17 at 15:30 Al Hydrox/Mg Hydrox/Simethicone (Mag-Al Plus) 30 ml Q4H PRN PO GASTROINTESTINAL UPSET; Start 04/21/17 at 15:30 Ondansetron HCl (Zofran Inj) 4 mg Q4H PRN IV NAUSEA AND/OR VOMITING; Start at 15:30 Aspirin (Aspirin) 325 mg DAILY PO Last administered on 05/01/17 10:01; Admin Dose 325 MG; Start 04/22/17 at 09:00 Lisinopril (Zestril) 40 mg DAILY PO Last administered on 05/01/17 10:10; Admin Dose 40 MG; Start 04/27/17 at 09:00 Polyethylene Glycol (Miralax) 17 gm DAILY PRN PO CONSTIPATION Last administered on 04/29/17 21:10; Admin Dose 17 GM; Start 04/28/17 at 16:30 Insulin Glargine (Lantus) 12 unit DAILY@08 SC Last administered on 05/01/17 10 :04; Admin Dose 12 UNIT; Start 04/30/17 at 08:00 Bisacodyl (Dulcolax Supp) 10 mg DAILY PRN [place] CONSTIPATION; Start 04/30/17 at 23 :00 Lactulose (Enulose) 20 gm DAILY PO Last administered on 05/01/17 10:00; Admin Dose 20 GM; Start 05/01/17 at 09:00 LESLIE LEONG May 01, 2017 13:20
[2017-05-01 14:06] VITALS: BP 102/59; RESP 18
[2017-05-01] MEDS ORDERED: LINA5TAB PO (18:04)
[2017-05-01] MEDS ORDERED: LANT3I SC (18:04)
[2017-05-01] MEDS ORDERED: LISI20TA11 PO (18:04)
[2017-05-01] MEDS ORDERED: NOVO3I SC (18:04)
[2017-05-01] MEDS ORDERED: PIOG15TA4 PO (18:04)
[2017-05-01] MEDS ORDERED: ASPI-664 PO (18:04)
[2017-05-01] MEDS ORDERED: CLOP75TA28 PO (18:04)
--- NOTE | 2017-05-01 18:45 | CONS ---
Date/Time of Note Date/Time of Note DATE: 05/01/17 TIME: 18:44 Assessment/Plan Assessment/Plan Chief Complaint/Hosp Course CKD LOW EF S/P CATH CAD PLAN LYTES STABLE Problems: Consultation Date/Type/Reason Admit Date/Time Apr 16, 2017 at 04:16 Initial Consult Date Type of Consultation: RENAL Referring Provider: QUIANA MURCIA MD 24 HR Interval Summary Constitutional: no complaints Exam/Review of Systems Vital Signs Vitals Vital Signs Date Time Temp Pulse Resp B/P Pulse Ox O2 Delivery O2 Flow Rate FiO2 05/01/17 14:06 98.3 72 18 102/59 05/01/17 07:20 94 04/30/17 21:15 21 Intake and Output 04/30/17 04/30/17 05/01/17 15:00 23:00 07:00 Intake Total 960 ml 500 ml Balance 960 ml 500 ml Exam Neck: supple Respiratory: clear to auscultation Cardiovascular: regular rate and rhythm Gastrointestinal: soft Extremities: normal pulses Results Result Diagram: 05/01/17 0457 05/01/17 0457 Results 24 hrs Laboratory Tests Test 04/30/17 20:19 05/01/17 04:57 05/01/17 07:53 05/01/17 11:51 Bedside Glucose 109 141 196 White Blood Count 9.3 Red Blood Count 3.41 L Hemoglobin 9.8 L Hematocrit 30.4 L Mean Corpuscular Volume 89.1 Mean Corpuscular Hemoglobin 28.7 L Mean Corpuscular Hemoglobin Concent 32.2 Red Cell Distribution Width 14.1 Platelet Count 287 Mean Platelet Volume 11.1 H Neutrophils % 60.7 Lymphocytes % 19.4 Monocytes % 14.2 H Eosinophils % 5.2 Basophils % 0.3 Nucleated Red Blood Cells % 0.0 Neutrophils # 5.7 Lymphocytes # 1.8 Monocytes # 1.3 H Eosinophils # 0.5 Basophils # 0.0 Nucleated Red Blood Cells # 0.0 Sodium Level 137 Potassium Level 5.0 Chloride Level 96 L Carbon Dioxide Level 28 Anion Gap 18 H Blood Urea Nitrogen 36 H Creatinine 1.49 H Glucose Level 124 Calcium Level 8.9 Test 05/01/17 17:06 Bedside Glucose 197 Medications Medications Current Medications Diagnostic Test (Pha) (Accu-Chek) 1 ea 02 XX Last administered on 04/30/17t 02: 22; Admin Dose 1 EA; Start 04/17/17 at 02:00 Miscellaneous Information 1 ea NOTE XX ; Start 04/16/17 at 08:00 Glucose (Glutose) 15 gm Q15M PRN PO DECREASED GLUCOSE; Start 04/16/17 at 08:00 Glucose (Glutose) 22.5 gm Q15M PRN PO DECREASED GLUCOSE; Start 04/16/17 at 08:00 Dextrose (D50w Syringe) 25 ml Q15M PRN IV DECREASED GLUCOSE; Start 04/16/17 at 08:00 Dextrose (D50w Syringe) 50 ml Q15M PRN IV DECREASED GLUCOSE; Start 04/16/17 at 08:00 Glucagon (Glucagen) 1 mg Q15M PRN IM DECREASED GLUCOSE; Start 04/16/17 at 08:00 Glucose (Glutose) 15 gm Q15M PRN BUCCAL DECREASED GLUCOSE Last administered on 04/29/17 21:23; Admin Dose 15 GM; Start 04/16/17 at 08:00 Pioglitazone HCl (Actos) 15 mg DAILY PO Last administered on 05/01/17 10:01; Admin Dose 15 MG; Start 04/16/17 at 12:00 Atorvastatin Calcium (Lipitor) 20 mg DAILY@21 PO Last administered on 20:22; Admin Dose 20 MG; Start 04/16/17 at 21:00 Guaifenesin (Robitussin Liquid Cup) 100 mg Q6 PRN PO COUGH Last administered on 04/17/17 13:02; Admin Dose 100 MG; Start 04/17/17 at 01:30 Docusate Sodium (Colace) 100 mg BID PO Last administered on 05/01/17 10:00; Admin Dose 100 MG; Start 04/17/17 at 21:00 Polyethylene Glycol (Miralax) 17 gm DAILY PRN PO CONSTIPATION Last administered on 04/25/17 21:13; Admin Dose 17 GM; Start 04/17/17 at 18:30 Metoprolol Tartrate (Lopressor) 5 mg Q4H PRN IV hr>110 hOLD sbp<100; Start 07/25 at 20:30 Hydralazine HCl (Apresoline) 10 mg Q4H PRN IV sbp>170; Start 04/17/17 at 20:30 Furosemide (Lasix) 40 mg DAILY@06 IV Last administered on 04/23/17 05:49; Admin Dose 40 MG; Start 04/19/17 at 06:00; Status Future Hold Carvedilol (Coreg) 3.125 mg BID PO Last administered on 05/01/17 10:15; Admin Dose 3.125 MG; Start 04/19/17 at 12:00 Clopidogrel Bisulfate (plaVIX) 75 mg DAILY PO Last administered on 05/01/17 10 :01; Admin Dose 75 MG; Start 04/22/17 at 09:00 Acetaminophen (Tylenol Tab) 650 mg Q4H PRN PO NON-CARDIAC PAIN LEVEL 1-3; Start 04/21/17 at 15:30 Oxycodone/ Acetaminophen (Percocet (5/ 325)) 1 tab Q4H PRN PO REPORTED NON- CARDIAC PAIN 4-7; Start 04/21/17 at 15:30 Morphine Sulfate (morphine) 1 mg Q1H PRN IV PAIN NOT RELIEVED BY OTHERS Last administered on 04/25/17 03:54; Admin Dose 1 MG; Start 04/21/17 at 15:30 Al Hydrox/Mg Hydrox/Simethicone (Mag-Al Plus) 30 ml Q4H PRN PO GASTROINTESTINAL UPSET; Start 04/21/17 at 15:30 Ondansetron HCl (Zofran Inj) 4 mg Q4H PRN IV NAUSEA AND/OR VOMITING; Start at 15:30 Aspirin (Aspirin) 325 mg DAILY PO Last administered on 05/01/17 10:01; Admin Dose 325 MG; Start 04/22/17 at 09:00 Lisinopril (Zestril) 40 mg DAILY PO Last administered on 05/01/17 10:10; Admin Dose 40 MG; Start 04/27/17 at 09:00 Polyethylene Glycol (Miralax) 17 gm DAILY PRN PO CONSTIPATION Last administered on 04/29/17 21:10; Admin Dose 17 GM; Start 04/28/17 at 16:30 Insulin Glargine (Lantus) 12 unit DAILY@08 SC Last administered on 05/01/17 10 :04; Admin Dose 12 UNIT; Start 04/30/17 at 08:00 Bisacodyl (Dulcolax Supp) 10 mg DAILY PRN [place] CONSTIPATION; Start 04/30/17 at 23 :00 Lactulose (Enulose) 20 gm DAILY PO Last administered on 05/01/17t 10:00; Admin Dose 20 GM; Start 05/01/17 at 09:00 ELISSA NINO MD May 01, 2017 18:45
--- NOTE | 2017-05-02 18:12 | DS ---
Date/Time of Note Date/Time of Note DATE: 05/02/17 TIME: 18:03 Discharge Summary Admission/Discharge Info Admit Date/Time Apr 16, 2017 at 04:16 Discharge Date/Time May 01, 2017 at 19:15 Patient Condition: Good Hx of Present Illness Patient with hypertension, hypercholesterolemia, diabetes comes in with evidence of fever, dysuria. Patient was found to have an urinary tract infection and was admitted for intravenous antibiotics. Hospital Course Patient was admitted for urinary tract infection, subsequently completed the treatment for E. coli UTI, during hospitalization patient complains of shortness of breath and was transferred to ICU. Patient's troponin found to be elevated, and patient was evaluated by Dr. Monae in cardiology consultation. When patient condition improved patient was taken to cardiac cath, status post PTCA with stent placement 3 to RCA/acute marginal. Patient tolerated procedure well. Postprocedure patient noted to have some increase in creatinine , was evaluated by Dr. Toledo in nephrology consultation, patient renal function was monitored. Patient was giving IV fluids renal function improved. Patient' s condition improved and patient was discharged home with home health physical therapy services. -Acute kidney injury on chronic kidney disease, continue to monitor BUN and creatinine. -NSTEMI, Obstructive CAD, s/p ptca/stent x 3 to RCA/acute marginal by Dr. Monae on 04/21. Continue aspirin and Plavix. -E. coli UTI, status post treatment with Levaquin. -Hypertension, patient is currently normotensive -CVA with left-sided residual weakness -COPD, continue breathing treatments -Chronic kidney disease, avoid nephrotoxic medication. Dr. Toledo was following in nephrology consultation. -Diabetes mellitus type 2, hemoglobin A1c is 8.6, continue Lantus and NovoLog. Home Meds Active Scripts Linagliptin (TRADJENTA) 5 Mg Tablet, 5 MG PO DAILY for 30 Days, TAB Prov:CALVIN CIFUENTES 05/01/17 Aspirin* (Aspirin* EC) 81 Mg Tablet.dr 81 MG PO DAILY for 30 Days, TAB Prov:CALVIN CIFUENTES 05/01/17 Pioglitazone Hcl* (Actos*) 15 Mg Tablet, 15 MG PO DAILY for 30 Days, TAB Prov:CALVIN CIFUENTES 05/01/17 Lisinopril* (Lisinopril*) 20 Mg Tablet, 40 MG PO DAILY for 30 Days, TAB Prov:CALVIN CIFUENTES 05/01/17 Insulin Glargine* (Lantus*) 100 Unit/Ml Soln, 12 UNIT SC DAILY@08 for 30 Days Prov:CALVIN CIFUENTES 05/01/17 Insulin Aspart* (Novolog Insulin Pen*) 100 Unit/Ml Soln, 4 UNIT SC WITH MEALS for 30 Days Prov:CALVIN CIFUENTES 05/01/17 Clopidogrel Bisulfate (Clopidogrel) 75 Mg Tablet, 75 MG PO DAILY for 30 Days, TAB Prov:CALVIN CIFUENTES 05/01/17 Reported Medications Simvastatin (Simvastatin) 40 Mg Tablet, 40 MG PO HS 09/29/13 Discontinued Reported Medications Metformin* (Glucophage*) 500 Mg Tab, 500 MG PO BID 09/29/13 Clopidogrel Bisulfate (Clopidogrel) 75 Mg Tablet, 75 MG PO DAILY 09/29/13 Pioglitazone Hcl* (Actos*) 15 Mg Tablet, 15 MG PO DAILY 09/29/13 Lisinopril* (Prinivil*) 40 Mg Tablet, 40 MG PO BID 09/29/13 Glipizide XL* (Glipizide XL*) 5 Mg Tabsr, 5 MG PO BID 09/29/13 Follow-up Plan Follow-up with PMD in 1 to2 weeks, follow-up with Dr. Monae in cardiology in 2 weeks. Primary Care Provider CALVIN Marie May 02, 2017 18:12
== END 2017-05-01 19:15 | disposition home health service (06) | DRG 853 ==
LOC: E/R 01:32 → MS2 04:16 → ICU 04-17 19:04 → TEL 04-19 16:45 → ICU 04-21 15:42 → MS4 04-22 18:30 → PP2 04-29 17:32
PROVIDERS: ADMIT Internal Medicine Nephrology; ATTEND Internal Medicine
PROC: B2011ZZ Plain Radiography of Multiple Coronary Arteries using Low Osmolar Contrast (ICD-10-PCS; 2017-04-21)
PROC: 027036Z Dilation of Coronary Artery, One Artery with Three Drug-eluting Intraluminal Devices, Percutaneous Approach (ICD-10-PCS; principal; 2017-04-21 13:30)
PROC: 4A023N7 Measurement of Cardiac Sampling and Pressure, Left Heart, Percutaneous Approach (ICD-10-PCS; 2017-04-21 13:30)
DX: A41.9 Sepsis, unspecified organism (principal); I21.4 Non-ST elevation (NSTEMI) myocardial infarction; N17.9 Acute kidney failure, unspecified; N39.0 Urinary tract infection, site not specified; I13.0 Hypertensive heart and chronic kidney disease with heart failure and stage 1 through stage 4 chronic kidney disease, or unspecified chronic kidney disease; I50.20 Unspecified systolic (congestive) heart failure; E11.9 Type 2 diabetes mellitus without complications; B96.20 Unspecified Escherichia coli [E. coli] as the cause of diseases classified elsewhere; E87.1 Hypo-osmolality and hyponatremia; I69.954 Hemiplegia and hemiparesis following unspecified cerebrovascular disease affecting left non-dominant side; I42.9 Cardiomyopathy, unspecified; Z87.891 Personal history of nicotine dependence; J44.9 Chronic obstructive pulmonary disease, unspecified; N18.9 Chronic kidney disease, unspecified; Z79.4 Long term (current) use of insulin; I25.10 Atherosclerotic heart disease of native coronary artery without angina pectoris; H53.8 Other visual disturbances; I25.2 Old myocardial infarction; Z95.5 Presence of coronary angioplasty implant and graft
CPT/HCPCS: 36415; 70450; 71010; 76775; 80048; 80053; 81001; 81003; 82550; 82553; 82570; 82962; 83036; 83605; 84295; 84484; 85025; 85610; 85730; 87040; 87081; 87086; 93005; 93306; 93458; 94640; 94664; 96374; 97110; 97116; 97162; 97530; J1940; C1725; C1769; C1874; C1887; C9600; C9601; J0692; J1644; J1815; J1956; J2250; J2270; J3010; J3370; J7030; Q9967

== ENCOUNTER 2017-05-13 09:58 | Inpatient (IN) | payer MEDICARE, OTHER ==
[~2017-05-13] VITALS: Ht 157.5 cm; Wt 40.4 kg
[~2017-05-13 09:58] MED LIST changes: +ASPI-664 PO; -CLOP75TA27 PO; +CLOP75TA28 PO; -GLU5XL PO; +LANT3I SC; +LINA5TAB PO; +LISI20TA11 PO; -LISI40TA PO; -METF500T4 PO; +NOVO3I SC
--- NOTE | 2017-05-13 10:32 | ERD ---
ER Documentation Chief Complaint Date/Time DATE: 05/13/17 TIME: 10:29 Chief Complaint LOWER ABD PAIN SINCE LAST NIGHT. SUDDEN ONSET. NO N/V/D. NO DYSURIA HPI Patient is a 72-year-old male who presents with sudden onset, constant, colicky right lower quadrant pain for 8 hours. He denies fever. He reports nausea but no vomiting. He denies diarrhea or constipation. He reports difficulty urinating and mild dysuria. He denies hematuria. Symptoms are similar to when he presented to the hospital a few weeks ago with urinary tract infection and urinary retention. ROS All systems reviewed and are negative except as per history of present illness. Medications Home Meds Active Scripts Linagliptin (TRADJENTA) 5 Mg Tablet, 5 MG PO DAILY for 30 Days, TAB Prov:CALVIN CIFUENTES 05/01/17 Aspirin* (Aspirin* EC) 81 Mg Tablet.dr, 81 MG PO DAILY for 30 Days, TAB Prov:CALVIN CIFUENTES 05/01/17 Pioglitazone Hcl* (Actos*) 15 Mg Tablet, 15 MG PO DAILY for 30 Days, TAB Prov:CALVIN CIFUENTES 05/01/17 Lisinopril* (Lisinopril*) 20 Mg Tablet, 40 MG PO DAILY for 30 Days, TAB Prov:CALVIN CIFUENTES 05/01/17 Insulin Glargine* (Lantus*) 100 Unit/Ml Soln, 12 UNIT SC DAILY@08 for 30 Days Prov:CALVIN CIFUENTES 05/01/17 Insulin Aspart* (Novolog Insulin Pen*) 100 Unit/Ml Soln, 4 UNIT SC WITH MEALS for 30 Days Prov:CALVIN CIFUENTES 05/01/17 Clopidogrel Bisulfate (Clopidogrel) 75 Mg Tablet, 75 MG PO DAILY for 30 Days, TAB Prov:CALVIN CIFUENTES 05/01/17 Reported Medications Simvastatin (Simvastatin) 40 Mg Tablet, 40 MG PO HS 09/29/13 Allergies Allergies: Coded Allergies: Penicillins (Verified Allergy, 10/02/13) PMhx/Soc Past medical history: Chronic kidney disease, CAD with NSTEMI, Obstructive CAD , hypertension, CVA, COPD, diabetes mellitus Past surgical history: Appendectomy, coronary stent 3 Social history: Denies tobacco or alcohol History of Surgery: Yes (Appendectomy 30 years ago) Anesthesia Reaction: No Hx Neurological Disorder: No Hx Respiratory Disorders: No Hx Cardiac Disorders: Yes (stroke) Hx Psychiatric Problems: No Hx Miscellaneous Medical Probl: Yes (HTN, COPD, CVA L hemiplegia, kidney disease) Hx Alcohol Use: No Hx Substance Use: No Hx Tobacco Use: Yes FmHx Family History: diabetes, No coronary disease Physical Exam Vitals Vital Signs Date Time Temp Pulse Resp B/P Pulse Ox O2 Delivery O2 Flow Rate FiO2 05/13/17 12:21 85 21 145/60 98 05/13/17 10:46 90 15 147/65 100 05/13/17 09:59 98.9 90 20 170/81 96 Physical Exam Const: Alert, mild distress Head: Atraumatic Eyes: Normal Conjunctiva, conjunctival pallor, no icterus ENT: Normal External Ears, Nose and Mouth. Mucous membranes moist Neck: Full range of motion..~ No meningismus. Resp: Clear to auscultation bilaterally, no wheezes, no rales Cardio: Regular rate and rhythm, no murmurs Abd: Soft, tender in the right lower quadrant and suprapubic region with mild suprapubic distention. No rebound or guarding. Skin: No petechiae or rashes Back: No midline or flank tenderness Ext: No cyanosis, trace bilateral pretibial edema. Neur: Awake and alert, cranial nerves II through XII intact bilaterally, strength and sensation full in 4 extremities. Psych: Normal Mood and Affect Result Diagram: 05/13/17 1122 05/13/17 1122 Results 24 hrs Laboratory Tests Test 05/13/17 11:22 White Blood Count 14.210^3/ul Red Blood Count 3.6810^6/ul Hemoglobin 10.3g/dl Hematocrit 32.5% Mean Corpuscular Volume 88.3fl Mean Corpuscular Hemoglobin 28.0pg Mean Corpuscular Hemoglobin Concent 31.7g/dl Red Cell Distribution Width 14.6% Platelet Count 44300^3/UL Mean Platelet Volume 11.4fl Neutrophils % 84.5% Lymphocytes % 5.1% Monocytes % 9.6% Eosinophils % 0.1% Basophils % 0.2% Nucleated Red Blood Cells % 0.0/100WBC Neutrophils # 12.010^3/ul Lymphocytes # 0.710^3/ul Monocytes # 1.410^3/ul Eosinophils # 0.010^3/ul Basophils # 0.010^3/ul Nucleated Red Blood Cells # 0.010^3/ul Urine Color YELLOW Urine Clarity SLIGHTLY CLOUDY Urine pH 5.0 Urine Specific [place] 1.014 Urine Ketones NEGATIVEmg/dL Urine Nitrite NEGATIVEmg/dL Urine Bilirubin NEGATIVEmg/dL Urine Urobilinogen NEGATIVEmg/dL Urine Leukocyte Esterase NEGATIVELeu/ul Urine Microscopic RBC 38/HPF Urine Microscopic WBC 1/HPF Urine Amorphous Crystals FEW/HPF Urine Bacteria FEW/HPF Urine Hemoglobin 2+mg/dL Urine Glucose 2+mg/dL Urine Total Protein 2+mg/dl Sodium Level 139mmol/L Potassium Level 4.8mmol/L Chloride Level 100mmol/L Carbon Dioxide Level 22mmol/L Anion Gap 22 Blood Urea Nitrogen 30mg/dl Creatinine 1.60mg/dl Glucose Level 207mg/dl Calcium Level 9.2mg/dl Total Bilirubin 1.1mg/dl Direct Bilirubin 0.00mg/dl Indirect Bilirubin 1.1mg/dl Aspartate Amino Transf (AST/SGOT) 29IU/L Alanine Aminotransferase (ALT/SGPT) 30IU/L Alkaline Phosphatase 86IU/L Total Protein 8.1g/dl Albumin 4.2g/dl Globulin 3.90g/dl Albumin/Globulin Ratio 1.07 Lipase 135U/L Current Medications Medications (Trade) Dose Ordered Sig/Birdie Route PRN Reason Start Time Stop Time Status Last Admin Dose Admin Morphine Sulfate (morphine) 4 mg ONCE STAT IV 05/13/17 11:00 05/13/17 11:02 DC 05/13/17 11:07 Ondansetron HCl 4 mg 4 mg ONCE STAT IV 05/13/17 11:01 05/13/17 11:02 DC 05/13/17 11:07 Ceftriaxone Sodium 50 ml @ 100 mls/hr ONCE ONCE IVPB 05/13/17 14:00 05/13/17 14:05 DC Sodium Chloride 1,000 ml @ 1,000 mls/hr Q1H ONCE IV 05/13/17 14:30 05/13/17 15:29 05/13/17 14:18 Levofloxacin/ Dextrose 100 ml @ 100 mls/hr ONCE ONCE IVPB 05/13/17 14:30 05/13/17 15:29 Metronidazole (Flagyl 500 Mg (Pmx)) 100 ml @ 100 mls/hr ONCE ONCE IVPB 05/13/17 14:30 05/13/17 15:29 Ondansetron HCl (Zofran Inj) 4 mg ER BRIDGE PRN IV NAUSEA AND/OR VOMITING 05/13/17 14:30 05/14/17 14:29 Acetaminophen (Tylenol Tab) 650 mg ER BRIDGE PRN PO MILD PAIN/FEVER 05/13/17 14:30 05/14/17 14:29 Procedures/MDM EKG read by me: Time 1418, rate 99 Rhythm: Normal sinus [place]: Normal Intervals: Normal ST-T waves: Nonspecific STT wave changes in lateral leads Ectopy: No Q-waves: Anterior Q waves Impression: Normal sinus rhythm with borderline LVH and nonspecific ST-T wave changes, evidence of prior anterior DE MDM: Patient is a 72-year-old male who presents with acute right-sided abdominal pain for several hours. He had difficulty voiding in the ER, so a Carmona catheter was placed to evaluate for urinary retention. PVR was only 150 cc, and there is no evidence of UTI. The patient was given morphine for pain, and labs showed leukocytosis with a white blood cell count of 14,000. LFTs were unremarkable. Lipase was not elevated. On reassessment, the patient had ongoing abdominal pain and guarding on exam, so a CT scan was performed. The CT shows evidence of cholecystitis without perforation or pneumatosis. I spoke with Dr. Harden, the surgeon on-call who recommended IR consultation for possible transhepatic biliary drain. I called radiology, who will attempt to contact the interventional radiologist for consultation. The patient was given IV fluids and broad-spectrum antibiotics, and was made n.p.o. He is hemodynamically stable. He will be admitted to Dr. Henson, covering for Dr. Paz. Departure Diagnosis: Primary Impression: Acute cholecystitis Condition: Stable SHANA HERNANDEZ MD May 13, 2017 10:32
[2017-05-13] MEDS ORDERED: morphine 4 MG/ML VIAL IV STA ×2 (11:00→14:27)
[2017-05-13] MEDS ORDERED: ONDANSETRON 4 MG INJ IV STA (11:01)
[2017-05-13 11:33] LABS: BASOPHILS % 0.2 % (0.0-2.0); EOSINOPHILS % 0.1 % (0.0-7.0); HEMATOCRIT 32.5 % (42.0-52.0); HEMOGLOBIN 10.3 g/dl (14.0-18.0); LYMPHOCYTES # 0.7 10^3/ul (0.8-2.9); LYMPHOCYTES % 5.1 % (15.0-51.0); MEAN CORPUSCULAR HGB CONC 31.7 g/dl (32.0-37.0); MEAN CORPUSCULAR VOLUME 88.3 fl (82.0-101.0); MEAN PLATELET VOLUME 11.4 fl (7.4-10.4); MONOCYTE # 1.4 10^3/ul (0.3-0.9); MONOCYTES % 9.6 % (0.0-11.0); NEUTROPHILS % 84.5 % (39.0-77.0); PLATELET COUNT 266 10^3/UL (140-415); RED BLOOD COUNT 3.68 10^6/ul (4.70-6.10); RED CELL DISTRIBUTION WIDTH 14.6 % (11.5-14.5); WHITE BLOOD COUNT 14.2 10^3/ul (4.8-10.8)
[2017-05-13 11:45] LABS: UR BACTERIA FEW /HPF (NONE SEEN); UR RBC 38 /HPF (0-5)
[2017-05-13 11:58] LABS: ADD UMIC YES; UR AMORPHOUS CRYSTAL FEW /HPF (NONE SEEN); UR ASCORBIC ACID NEGATIVE (NEGATIVE); UR BILIRUBIN (Dip) NEGATIVE (NEGATIVE); UR BLOOD (Dip) 2+ mg/dL (NEGATIVE); UR CLARITY SLIGHTLY CLOUDY (CLEAR); UR COLOR YELLOW (YELLOW); UR GLUCOSE (Dip) 2+ mg/dL (NEGATIVE); UR KETONES (Dip) NEGATIVE (NEGATIVE); UR LEUKOCYTE ESTERASE (Dip) NEGATIVE Leu/ul (NEGATIVE); UR NITRITE (Dip) NEGATIVE (NEGATIVE); UR SPECIFIC GRAVITY (Dip) 1.014 (1.003-1.030); UR TOTAL PROTEIN (Dip) 2+ mg/dl (NEGATIVE); UR UROBILINOGEN (Dip) NEGATIVE (NEGATIVE)
[2017-05-13 12:06] LABS: ALBUMIN 4.2 g/dl (3.3-4.9); ALBUMIN/GLOBULIN RATIO 1.07; BILIRUBIN,INDIRECT 1.1 mg/dl (0-1.1); BILIRUBIN,TOTAL 1.1 mg/dl (0.2-1.3); CALCIUM 9.2 mg/dl (8.4-10.2); CREATININE 1.6 mg/dl (0.61-1.24); POTASSIUM 4.8 mmol/L (3.5-5.1); TOTAL PROTEIN 8.1 g/dl (6.1-8.1)
--- NOTE | 2017-05-13 13:38 | RADRPT ---
PROCEDURE: CT scan of the abdomen and pelvis without IV contrast. CLINICAL INDICATION: 72-year-old male with abdominal pain. TECHNIQUE: Thin section axial, coronal and sagittal images were performed through the abdomen and pelvis without contrast. Radiation Dose: CTDI: 6.5 and DLP: 364 One or more of the following dose reduction techniques were used: - Automated exposure control. - Adjustment of the mA and/or kV according to patient size. Use of iterative reconstruction technique. COMPARISON: Chest x-ray 11/11/2016 06:18 a.m. FINDINGS: Soft tissues: There are bilateral inguinal hernias which contain fat but no intra-abdominal. There is a small midline umbilical hernia.. Lungs and pleural spaces: There is peripheral compressive atelectasis in the left lower lobe. The r emaining lung sow are clear. No pleural effusion is identified. Heart: The heart is upper limits of normal for size. The right diaphragm is elevated. The liver, common bile duct and gallbladder: The gallbladder is distended measuring up to 5 cm AP by 11.6 cm in length.. There is gallbladder wall thickening measuring at least 3.9 mm. A 4.8 mm gall stone is seen in the neck of the gallbladder. Pancreas is unremarkable. The extrahepatic common bi le duct is normal. Gastrointestinal: There is stranding of the fat between the gallbladder and hepatic flexure. The he patic flexure is interposed between the diaphragm and right lobe of the liver. Pancreas: Normal. The extrahepatic common bile duct is normal. Kidneys, bladder and adrenal glands : There is a complex cyst arising from the ventral upper third o f the right kidney containing internal calcifications. This measures at least 4.6 cm transverse by 5.8 cm AP by 7.6 cm sagittal. A triple phase contrast-enhanced CT scan is recommended for further c haracterization. There are vascular calcifications in the renal arteries. There is a 3.5 x 3.3 cm subcapsular cyst rising from the dorsal upper portion of the lower third of the left kidney. An adjacent 1.5 cm cyst is noted in the midpole of the left kidney. The adrenal glands are normal. The urinary bladder is unremarkable. A Carmona catheter is identified in the urinary bladder. Spleen: There are multiple calcifications in the spleen. There is trace ascitic fluid dorsal to the spleen. Lymph nodes: No enlarged periportal, mesenteric, retroperitoneal, pelvic sidewall or inguinal lymph nodes are identified. Reproductive system and pelvis : The prostate gland is enlarged. It measures 4.6 x 4.7 by 4.1 cm. Bony elements: There are degenerative changes in the thoracic and lumbar spine. There are degenerat tai changes in the sacroiliac joints. No acute bony fracture or bone metastasis is identified. Vasculature: There are vascular calcifications in the abdominal aorta and near the origins of the re nal arteries. There are vascular calcifications in the more distal branches of the renal arteries. There are vascular calcifications in the distal left common iliac artery, internal and external evelin ac and common femoral arteries. IMPRESSION: 1. Gallbladder wall thickening with stranding in the fat adjacent to the gallbladder and hepatic fl exure. Findings are suspicious for acute cholecystitis with a 4.8 mm gallstone lodged in the neck o f the gallbladder. An abdominal ultrasound can be performed for confirmation if indicated. Clinical correlation is needed. 2. Chilaiditi syndrome. 3. Trace ascites. 4. 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 5. Complex calcified predominately cystic mass arising from the ventral upper third of the right ki dney. A contrast-enhanced triple phase CT scan of the kidneys is recommended for further characteri zation. Additional renal cysts are identified in the left kidney some of which which may contain in ternal septations. 6. Enlarged prostate gland. 7. Atherosclerotic vascular disease. 8. Bilateral inguinal hernias containing fat. Small midline umbilical hernia containing fat. 9. A Carmona catheter is identified in the urinary bladder. RPTAT:AAJJ Physician Tamanna Date Time Electronically viewed and signed by Physician Tamanna on 05/13/2017 13:38 MANISH/
[2017-05-13] MEDS ORDERED: CEFTRIAXONE 1 GM/50 ML (PMX) 50 ML IVPB ONE (14:00)
[2017-05-13] MEDS ORDERED: LEVOFLOXACIN 500MG/D5W (PMX) 100 ML IVPB ONE (14:30)
[2017-05-13] MEDS ORDERED: SOD CHLORIDE 0.9% 1,000 ML IV ONE (14:30)
[2017-05-13] MEDS ORDERED: ACETAMINOPHEN 325 MG TAB PO PRN ×2 (14:30→16:00)
[2017-05-13] MEDS ORDERED: metroNIDAZOLE 500 MG/NS (PMX) 100 ML IVPB ONE (14:30)
[2017-05-13] MEDS ORDERED: ONDANSETRON 4 MG INJ IV PRN ×2 (14:30→16:00)
--- NOTE | 2017-05-13 15:17 | RADRPT ---
PROCEDURE: US Abdomen. CLINICAL INDICATION: Suspected cholecystitis TECHNIQUE: Multiple real-time images were acquired of the patient's abdomen utilizing a high reso lution transducer. COMPARISON: 05/13/2017 FINDINGS: This is limited study secondary to overlying bowel gas with partially obscures the liver and the gal lbladder is not visualized. The pancreas is obscured. The common duct is also not visualized with n o gross intrahepatic biliary ductal dilatation. The right kidney measures 10 cm without hydronephrosis. There is a complex mid kidney right renal c yst that measures up to 6.3 cm in diameter with internal debris and possible septations. Visualized portion of the aorta and IVC are unremarkable. IMPRESSION: Limited study due to overlying bowel gas. The gallbladder is not visualized. Complex right renal cyst. RPTAT: AA .Nicol Ross MD, Date Time Electronically viewed and signed by .Nicol Ross MD, MD on 05/13/2017 15:16 .J/
[2017-05-13 15:41] VITALS: PULSE 97
[2017-05-13 15:46] VITALS: BP 163/80; PULSE 106; RESP 20
[2017-05-13] MEDS: SOD CHLORIDE 0.9% 1,000 ML IV SCH (15:57)
[2017-05-13] MEDS ORDERED: NACL 0.9% 3 ML SYG IV SCH (16:00)
[2017-05-13 16:04] VITALS: PULSE 88
[2017-05-13 16:06] VITALS: PULSE 88
[2017-05-13] MEDS: CEFTRIAXONE 1 GM/50 ML (PMX) 50 ML IVPB SCH (16:11)
[2017-05-13] MEDS: metroNIDAZOLE 500 MG/NS (PMX) 100 ML IVPB SCH (17:49)
[2017-05-13 18:20] VITALS: Ht 157.5 cm; Wt 40.4 kg
[2017-05-13 20:00] VITALS: BP 134/71; RESP 18
[2017-05-13 20:13] VITALS: PULSE 89
[2017-05-13] MEDS: FAMOTIDINE 20 MG INJ IV SCH (20:22)
[2017-05-14] VITALS (12 sets, daily range): BP systolic 133–148; BP diastolic 66–71; PULSE 88–109; RESP 17–18
[2017-05-14] MEDS: metroNIDAZOLE 500 MG/NS (PMX) 100 ML IVPB SCH ×4 (00:11→18:41)
[2017-05-14] MEDS: morphine 2 MG INJ IV PRN (00:11)
[2017-05-14] MEDS: SOD CHLORIDE 0.9% 1,000 ML IV SCH ×4 (01:45→20:01)
[2017-05-14 06:28] LABS: ABNORMAL IP MESSAGE 1; BASOPHILS % 0.1 % (0.0-2.0); HEMATOCRIT 36.2 % (42.0-52.0); HEMOGLOBIN 11.3 g/dl (14.0-18.0); LYMPHOCYTES # 1.6 10^3/ul (0.8-2.9); LYMPHOCYTES % 7.3 % (15.0-51.0); MEAN CORPUSCULAR HGB CONC 31.2 g/dl (32.0-37.0); MEAN CORPUSCULAR VOLUME 89.8 fl (82.0-101.0); MEAN PLATELET VOLUME 11.2 fl (7.4-10.4); MONOCYTE # 2.3 10^3/ul (0.3-0.9); MONOCYTES % 10.4 % (0.0-11.0); NEUTROPHIL # 17.8 10^3/ul (1.6-7.5); NEUTROPHILS % 81.5 % (39.0-77.0); PLATELET COUNT 290 10^3/UL (140-415); POSITIVE DIFF @See below; RED BLOOD COUNT 4.03 10^6/ul (4.70-6.10); RED CELL DISTRIBUTION WIDTH 14.7 % (11.5-14.5); WHITE BLOOD COUNT 21.8 10^3/ul (4.8-10.8)
[2017-05-14 06:59] LABS: ALBUMIN 2.9 g/dl (3.3-4.9); BILIRUBIN,INDIRECT 0.8 mg/dl (0-1.1); BILIRUBIN,TOTAL 0.8 mg/dl (0.2-1.3); CALCIUM 8.4 mg/dl (8.4-10.2); CREATININE 1.41 mg/dl (0.61-1.24); TOTAL PROTEIN 5.8 g/dl (6.1-8.1)
[2017-05-14] MEDS: FAMOTIDINE 20 MG INJ IV SCH ×2 (08:55→20:01)
[2017-05-14] MEDS: ENOXAPARIN 30 MG/0.3 ML SYG SC SCH (08:59)
--- NOTE | 2017-05-14 11:44 | HP ---
Date/Time of Note Date/Time of Note DATE: 05/14/17 TIME: 11:41 Assessment/Plan VTE Prophylaxis VTE Prophylaxis Intervention: other Lines/Catheters IV Catheter Type (from Nrsg): Peripheral IV Urinary Cath still in place: Yes Reason Cath still needed: skin wounds contaminated by urine Assessment/Plan Chief Complaint/Hosp Course 1) cholecystitis - IV antibiotics - surgical consult 2) diabetes - monitor blood sugar 3) previous cerebrovascular accident - monitor Problems: HPI/ROS Admit Date/Time Admit Date/Time May 13, 2017 at 14:10 Hx of Present Illness Patient with hypertension, diabetes, previous cerebrovascular accident comes in with abdominal pain. Patient is found to have cholecystitis and is admitted for intravenous antibiotics and surgical evaluation. Will continue to follow and treat as needed PMH/Family/Social Past Medical History Cerebrovascular accident Medical History: diabetes, hypertension Social History Smoking Status: Never smoker Exam/Review of Systems Vital Signs Vitals Vital Signs Date Time Temp Pulse Resp B/P Pulse Ox O2 Delivery O2 Flow Rate FiO2 05/14/17 11:32 98.5 101 17 137/70 92 05/13/17 15:46 Room Air Intake and Output 05/13/17 05/13/17 05/14/17 15:00 23:00 07:00 Intake Total 650 ml 900 ml Output Total 500 ml Balance 150 ml 900 ml Exam Constitutional: well developed Head: atraumatic, normocephalic Neck: supple Respiratory: clear to auscultation Cardiovascular: regular rate and rhythm Gastrointestinal: non-tender, soft Extremities: normal pulses Labs Result Diagram: 05/14/17 0534 05/14/17 0534 Medications Medications Current Medications Sodium Chloride (NS) 1,000 ml @ 100 mls/hr Q10H IV Last administered on 01:45; Admin Dose 100 MLS/HR; Start 05/13/17 at 15:45 Ondansetron HCl (Zofran Inj) 4 mg Q6H PRN IV NAUSEA AND/OR VOMITING; Start 05/13 at 16:00 Acetaminophen (Tylenol Tab) 650 mg Q6H PRN PO PAIN LEVEL 1-3 OR FEVER; Start at 16:00 Morphine Sulfate (morphine) 2 mg Q4H PRN IV PAIN LEVEL 7-10 Last administered on 05/14/17 00:11; Admin Dose 2 MG; Start 05/13/17 at 16:00 Famotidine (Pepcid Iv) 20 mg Q12 IV Last administered on 05/14/17 08:55; Admin Dose 20 MG; Start 05/13/17 at 21:00 Enoxaparin Sodium 30 mg 30 mg DAILY SC Last administered on 05/14/17 08:59; Admin Dose 30 MG; Start 05/14/17 at 09:00 Ceftriaxone Sodium 50 ml @ 100 mls/hr Q24H IVPB Last administered on 05/13/17 16:11; Admin Dose 100 MLS/HR; Start 05/13/17 at 16:00 Metronidazole (Flagyl 500 Mg (Pmx)) 100 ml @ 100 mls/hr Q6 IVPB Last administered on 05/14/17 11:21; Admin Dose 100 MLS/HR; Start 05/13/17 at 18:00 MICHELE RUIZ May 14, 2017 11:44
[2017-05-14] MEDS: CEFTRIAXONE 1 GM/50 ML (PMX) 50 ML IVPB SCH (16:03)
--- NOTE | 2017-05-14 17:38 | CONS ---
Date/Time of Note Date/Time of Note DATE: 05/14/17 TIME: 17:38 Assessment/Plan Assessment/Plan Additional Assessment/Plan [facility] INPATIENT CONSULTATION NOTE DATE OF SERVICE: 05/14/2017 PLACE OF SERVICE: [facility], fifth floor telemetry ASSESSMENT AND PLAN: A very-pleasant 72-year-old gentleman with multiple comorbid issues presenting with a clinical picture consistent with acute cholecystitis. Concerning features include rising white blood cell count, acute renal insufficiency, malnutrition with albumin of 2.9 after hydration, and CT findings as outlined below. High surgical risk and at this time, I recommend that we treat this in a staged fashion with percutaneous cholecystostomy tube placement, adequate time for decompression of the gallbladder and medical optimization, and then returned for elective laparoscopic cholecystectomy in a number of weeks. I explained all of this to the patient and family and answered all their questions to the best of my ability. Patient and family appear to understand and agree with the plans. With above assessment, I've recommended the followin. Percutaneous cholecystostomy tube placement (somewhat unusual given lack of significant amount of liver to traverse the tube through) 2. Aggressive medical management 3. I will be happy to manage to drain as an outpatient and will be involved to bring the patient back electively for his laparoscopic cholecystectomy Thank you very much for having me involved in the care of this very pleasant patient and wonderful family. If you have any questions, please feel free to contact me at [phone]. Nature of presenting problem: High severity Please note that, given the extensive number of diagnoses or management options , the moderate amount and/or complexity of data needed to be reviewed, and I risk of complications and/or morbidity or mortality, this qualifies as moderate complexity type of decision-making. Disclaimer: Inadvertent spelling and grammatical errors are likely due to EHR/ dictation software use and do not reflect on the quality of delivered patient care. Also, please note that the electronic time recorded on this node does not necessarily reflect the actual time of the visit. Updated clinical summary: A very-pleasant 72-year-old gentleman with multiple comorbid issues presenting with a clinical picture consistent with acute cholecystitis. Concerning features included rising white blood cell count, acute renal insufficiency, malnutrition with albumin of 2.9 after hydration, and CT findings as outlined below. Comorbidities: 1. Complex right renal cyst. 2. Chilaiditi syndrome. 3. Trace ascites. 4. 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 5. Complex calcified predominately cystic mass arising from the ventral upper third of the right kidney. A contrast-enhanced triple phase CT scan of the kidneys is recommended for further characterization. Additional renal cysts are identified in the left kidney some of which which may contain internal septations. 6. Enlarged prostate gland. 7. Atherosclerotic vascular disease. 8. Bilateral inguinal hernias containing fat. Small midline umbilical hernia containing fat. 9. Diabetes mellitus 10. CVA 11. Hypertension 12. Coronary artery calcifications with obstructive coronary artery disease; previous non-STEMI 13. Status post coronary artery stent placement 14. COPD 15. Appendectomy 30 years ago 16. Left hemiplegia 17. Renal disease CONSULTATION REQUESTED BY: Josiah Henson MD HISTORY OF PRESENT ILLNESS: The patient is a very pleasant 72-year-old gentleman with multiple comorbid issues as outlined above whom we were kindly asked consult regarding management of possible acute cholecystitis. Patient had 1 day history of sharp abdominal pain which is generalized to the right side of the abdomen. No reported vomiting but some nausea. No fevers. No diarrhea or constipation. Chronic issues with urination and dysuria. No blood in the stool or urine. Patient had similar symptoms a week ago and was diagnosed with urinary tract infection and urinary retention. No other major complaints during my visit. ALLERGIES: Penicillins MEDICATIONS Documented in the electronic records and reviewed by me. Please see the electronic records for details, as well as details for inpatient medications which were also reviewed by me. SOCIAL HISTORY:-Tob;-ETOH;-IVDU FAMILY HISTORY: Diabetes There are no other significant medical, surgical or oncologic issues in the family as reported by the patient or reflected in the chart. REVIEW OF SYSTEMS: Other than mentioned above, there were no other pertinent positives or pertinent negatives in an otherwise complete 14 point review of systems. PHYSICAL EXAMINATION GENERAL: The patient appears to be a very pleasant gentleman of descent lying in bed, appearing stated age, and otherwise in no acute distress. BMI: 16.3 VITAL SIGNS: AVSS (please also see auto important data if available as well as the electronic records) HEENT: Normocephalic and atraumatic. Extraocular muscles and hearing are grossly intact bilaterally and symmetrically. Sclerae are nonicteric. Oral cavity is clear; oral mucosa appear to be pink and moist. Dentition: Poor with several missing teeth. NECK: Supple. There is no lymphadenopathy or JVD. There is no submental, submandibular or supraclavicular lymphadenopathy. CHEST: Rises symmetrically with each breath; patient is breathing comfortably. There are no audible wheezes, rales or rhonchi on the gross exam. HEART: Pulse is regular and palpable on the right wrist. Capillary refill is normal. Carotid pulses are palpable bilaterally and symmetrically in the neck. EXTREMITIES: Lower extremities contain no pitting edema around the ankles bilaterally and symmetrically. Left-sided hemiplegia. ABDOMEN: Abdomen is soft, minimally tender to palpation in the mid abdomen and nondistended. No evidence of ascites, organomegaly, caput medusae, engorged subcutaneous veins, or other abnormalities. There are no peritoneal signs or guarding. SKIN: Appears to be pink and feels warm to touch. NEUROLOGIC: Awake, alert, and follows commands appropriately. LABORATORY DATA: See below IMAGING: See electronic chart. Please note that I've personally reviewed all pertinent available images and I agree in general with their overall reported findings. Abdominal ultrasound [facility] 05/13/2017 IMPRESSION: Limited study due to overlying bowel gas. The gallbladder is not visualized. Complex right renal cyst. Abdominal and pelvic CT scan [facility] 05/13/2017 IMPRESSION: 1. Gallbladder wall thickening with stranding in the fat adjacent to the gallbladder and hepatic flexure. Findings are suspicious for acute cholecystitis with a 4.8 mm gallstone lodged in the neck of the gallbladder. An abdominal ultrasound can be performed for confirmation if indicated. Clinical correlation is needed. 2. Chilaiditi syndrome. 3. Trace ascites. 4. 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 5. Complex calcified predominately cystic mass arising from the ventral upper third of the right kidney. A contrast-enhanced triple phase CT scan of the kidneys is recommended for further characterization. Additional renal cysts are identified in the left kidney some of which which may contain internal septations. 6. Enlarged prostate gland. 7. Atherosclerotic vascular disease. 8. Bilateral inguinal hernias containing fat. Small midline umbilical hernia containing fat. 9. A Carmona catheter is identified in the urinary bladder. Consultation Date/Type/Reason Admit Date/Time May 13, 2017 at 14:10 Past Medical History Medical History: diabetes, hypertension Social History Smoking Status: Never smoker Exam/Review of Systems Vital Signs Vitals Vital Signs Date Time Temp Pulse Resp B/P Pulse Ox O2 Delivery O2 Flow Rate FiO2 05/14/17 16:55 95 05/14/17 15:55 97.8 18 139/71 94 05/13/17 15:46 Room Air Intake and Output 05/13/17 05/13/17 05/14/17 15:00 23:00 07:00 Intake Total 650 ml 900 ml Output Total 500 ml Balance 150 ml 900 ml Results Result Diagram: 05/14/17 0534 05/14/17 0534 Results 24 hrs Laboratory Tests Test 05/14/17 05:34 White Blood Count 21.8 #H Red Blood Count 4.03 L Hemoglobin 11.3 L Hematocrit 36.2 L Mean Corpuscular Volume 89.8 Mean Corpuscular Hemoglobin 28.0 L Mean Corpuscular Hemoglobin Concent 31.2 L Red Cell Distribution Width 14.7 H Platelet Count 290 Mean Platelet Volume 11.2 H Neutrophils % 81.5 H Lymphocytes % 7.3 L Monocytes % 10.4 Eosinophils % 0.0 Basophils % 0.1 Nucleated Red Blood Cells % 0.0 Neutrophils # 17.8 H Lymphocytes # 1.6 Monocytes # 2.3 H Eosinophils # 0.0 Basophils # 0.0 Nucleated Red Blood Cells # 0.0 Sodium Level 142 Potassium Level 5.0 Chloride Level 106 Carbon Dioxide Level 20 L Anion Gap 21 H Blood Urea Nitrogen 29 H Creatinine 1.41 H Glucose Level 157 Calcium Level 8.4 Total Bilirubin 0.8 Direct Bilirubin 0.00 Indirect Bilirubin 0.8 Aspartate Amino Transf (AST/SGOT) 41 Alanine Aminotransferase (ALT/SGPT) 34 Alkaline Phosphatase 80 Total Protein 5.8 #L Albumin 2.9 #L Globulin 2.90 Albumin/Globulin Ratio 1.00 Medications Medications Current Medications Sodium Chloride (NS) 1,000 ml @ 100 mls/hr Q10H IV Last administered on t 16:03; Admin Dose 100 MLS/HR; Start 05/13/17 at 15:45 Ondansetron HCl (Zofran Inj) 4 mg Q6H PRN IV NAUSEA AND/OR VOMITING; Start 05/13 at 16:00 Acetaminophen (Tylenol Tab) 650 mg Q6H PRN PO PAIN LEVEL 1-3 OR FEVER; Start at 16:00 Morphine Sulfate (morphine) 2 mg Q4H PRN IV PAIN LEVEL 7-10 Last administered on 05/14/17 00:11; Admin Dose 2 MG; Start 05/13/17 at 16:00 Famotidine (Pepcid Iv) 20 mg Q12 IV Last administered on 05/14/17 08:55; Admin Dose 20 MG; Start 05/13/17 at 21:00 Enoxaparin Sodium 30 mg 30 mg DAILY SC Last administered on 05/14/17 08:59; Admin Dose 30 MG; Start 05/14/17 at 09:00 Ceftriaxone Sodium 50 ml @ 100 mls/hr Q24H IVPB Last administered on 05/14/17 16:03; Admin Dose 100 MLS/HR; Start 05/13/17 at 16:00 Metronidazole (Flagyl 500 Mg (Pmx)) 100 ml @ 100 mls/hr Q6 IVPB Last administered on 05/14/17 11:21; Admin Dose 100 MLS/HR; Start 05/13/17 at 18:00 DANA BARRETO M.D. May 14, 2017 17:38
[2017-05-15] VITALS (35 sets, daily range): BP systolic 78–157; BP diastolic 36–95; PULSE 94–110; RESP 16–30
[2017-05-15] MEDS: metroNIDAZOLE 500 MG/NS (PMX) 100 ML IVPB SCH ×3 (01:00→12:36)
[2017-05-15] MEDS: SOD CHLORIDE 0.9% 1,000 ML IV SCH ×3 (01:01→17:45)
[2017-05-15] MEDS: morphine 2 MG INJ IV PRN (03:20)
[2017-05-15] MEDS ORDERED: ACETAMINOPHEN 1000 MG/100 ML IVPB ONE (07:00)
[2017-05-15] MEDS ORDERED: SEVOFLURANE 15 MIN ONE (07:00)
[2017-05-15] MEDS: FAMOTIDINE 20 MG INJ IV SCH ×2 (08:49→22:21)
[2017-05-15] MEDS: ENOXAPARIN 30 MG/0.3 ML SYG SC SCH (09:00)
--- NOTE | 2017-05-15 12:20 | PN ---
Date/Time of Note Date/Time of Note DATE: 05/15/17 TIME: 12:11 Assessment/Plan VTE Prophylaxis VTE Prophylaxis Intervention: SCD's Lines/Catheters IV [facility] Saline Lock Urinary Cath still in place: Yes Reason Cath still needed: urinary retention Assessment/Plan Chief Complaint/Hosp Course Patient complains of moderate abdominal pain, denies any nausea and vomiting currently is n.p.o. for possible procedure. Assessment/Plan -Acute cholecystitis, continue antibiotics and pain management. Dr. Harden is following in surgical consultation. Plan for a laparoscopic cholecystectomy. Dr. Monae is asked to see patient in cardiology consultation for cardiology clearance prior to procedure. -Obstructive CAD, s/p ptca/stent x 3 to RCA/acute marginal by Dr. Monae on . -CVA with left-sided residual weakness -COPD, continue breathing treatments -Chronic kidney disease, avoid nephrotoxic medication. -Diabetes mellitus type 2, continue Lantus and NovoLog. Further recommendations based on clinical course. Plan of care discussed with Dr. Paz. Problems: Exam/Review of Systems Vital Signs Vitals Vital Signs Date Time Temp Pulse Resp B/P Pulse Ox O2 Delivery O2 Flow Rate FiO2 05/15/17 11:18 98.8 97 16 137/69 94 05/13/17 15:46 Room Air Intake and Output 05/14/17 05/14/17 05/15/17 15:00 23:00 07:00 Intake Total 310 ml 1400 ml Output Total 500 ml 500 ml Balance -190 ml 900 ml Exam Constitutional: alert, oriented Head: normocephalic Eyes: nl conjunctiva Neck: supple Respiratory: normal air movement Cardiovascular: nl pulses, regular rate and rhythm Gastrointestinal: soft, tender Musculoskeletal: muscle weakness Extremities: normal pulses Neurological: nl mental status Results Result Diagram: 05/14/17 0534 05/14/17 0534 Medications Medications Current Medications Sodium Chloride (NS) 1,000 ml @ 100 mls/hr Q10H IV Last administered on t 01:01; Admin Dose 100 MLS/HR; Start 05/13/17 at 15:45 Ondansetron HCl (Zofran Inj) 4 mg Q6H PRN IV NAUSEA AND/OR VOMITING; Start 05/13 at 16:00 Acetaminophen (Tylenol Tab) 650 mg Q6H PRN PO PAIN LEVEL 1-3 OR FEVER; Start at 16:00 Morphine Sulfate (morphine) 2 mg Q4H PRN IV PAIN LEVEL 7-10 Last administered on 05/15/17 03:20; Admin Dose 2 MG; Start 05/13/17 at 16:00 Famotidine (Pepcid Iv) 20 mg Q12 IV Last administered on 05/15/17 08:49; Admin Dose 20 MG; Start 05/13/17 at 21:00 Enoxaparin Sodium 30 mg 30 mg DAILY SC Last administered on 05/14/17 08:59; Admin Dose 30 MG; Start 05/14/17 at 09:00 Ceftriaxone Sodium 50 ml @ 100 mls/hr Q24H IVPB Last administered on 05/14/17 16:03; Admin Dose 100 MLS/HR; Start 05/13/17 at 16:00 Metronidazole (Flagyl 500 Mg (Pmx)) 100 ml @ 100 mls/hr Q6 IVPB Last administered on 05/15/17 05:11; Admin Dose 100 MLS/HR; Start 05/13/17 at 18:00 CALVIN CIFUENTES May 15, 2017 12:20
[2017-05-15] MEDS ORDERED: ROCURONIUM 50 MG INJ ONE ×2 (15:50→18:39)
[2017-05-15] MEDS ORDERED: MIDAZOLAM 1 MG/ML 2 ML INJ ONE (15:50)
[2017-05-15] MEDS ORDERED: PROPOFOL 20 ML ONE (15:50)
[2017-05-15] MEDS ORDERED: FENTAnyl 50 MCG/ML VIAL ONE (15:50)
[2017-05-15] MEDS ORDERED: ROPIVACAINE 0.2% 20 ML VIAL ONE (15:50)
[2017-05-15] MEDS ORDERED: BUPIVACAINE 0.25%/EPI (SDV) 10 ML INJ ONE (16:57)
[2017-05-15] MEDS ORDERED: ETOMIDATE 20 MG INJ ONE (17:57)
[2017-05-15] MEDS ORDERED: metroNIDAZOLE 500 MG/NS (PMX) 100 ML IVPB ONE (18:39)
[2017-05-15] MEDS ORDERED: LABETALOL HCL 20MG INJ ONE (18:45)
[2017-05-15] MEDS ORDERED: hydrALAzine 20 MG INJ ONE (18:46)
[2017-05-15] MEDS ORDERED: MEPERIDINE 25 MG INJ IV PRN (19:00)
[2017-05-15] MEDS ORDERED: morphine (1 MG/ML) 10ML SYRINGE IV PRN ×3 (19:00)
[2017-05-15] MEDS ORDERED: ONDANSETRON 4 MG INJ IV PRN (19:00)
[2017-05-15] MEDS ORDERED: DIPHENHYDRAMINE 50 MG INJ IV PRN (19:00)
[2017-05-15] MEDS ORDERED: ALBUMIN HUMAN 5% 250 ML IV PRN (19:00)
[2017-05-15] MEDS ORDERED: LABETALOL HCL 20MG INJ IV PRN (19:00)
[2017-05-15] MEDS ORDERED: hydrALAzine 20 MG INJ IV PRN (19:00)
[2017-05-15] MEDS ORDERED: FENTAnyl 50 MCG/ML VIAL IV PRN ×3 (19:00)
[2017-05-15] MEDS ORDERED: DEXAMETHASONE 4 MG/ML 1 ML INJ ONE (19:04)
[2017-05-15] MEDS ORDERED: ONDANSETRON 4 MG INJ ONE (19:04)
[2017-05-15] MEDS ORDERED: METOCLOPRAMIDE 10 MG INJ ONE (19:04)
[2017-05-15] MEDS ORDERED: NEOSTIGMINE 3 MG/3 ML SYRINGE ONE (19:10)
[2017-05-15] MEDS ORDERED: GLYCOPYRROLATE 0.4 MG INJ ONE (19:10)
--- NOTE | 2017-05-15 19:27 | OPR ---
Date/Time of Note Date/Time of Note DATE: 05/15/17 TIME: 19:26 Operative Report Procedure Description [facility] INPATIENT OPERATIVE NOTE PLACE OF SERVICE: [facility] DATE OF SURGERY: 05/15/2017 PREOPERATIVE DIAGNOSIS: 1. Acute cholecystitis 2. Chilaiditi syndrome. 3. Trace ascites. 4. 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 5. Complex calcified predominately cystic mass arising from the ventral upper third of the right kidney. A contrast-enhanced triple phase CT scan of the kidneys is recommended for further characterization. Additional renal cysts are identified in the left kidney some of which which may contain internal septations. 6. Enlarged prostate gland. 7. Atherosclerotic vascular disease. 8. Bilateral inguinal hernias containing fat. Small midline umbilical hernia containing fat. 9. Diabetes mellitus 10. CVA 11. Hypertension 12. Coronary artery calcifications with obstructive coronary artery disease; previous non-STEMI 13. Status post coronary artery stent placement 14. COPD 15. Appendectomy 30 years ago 16. Left hemiplegia 17. Renal disease 18. Complex right renal cyst. POSTOPERATIVE DIAGNOSIS: 1. Severe acute on chronic cholecystitis with gangrene and perforation and bile leak 2. Chilaiditi syndrome. 3. Trace ascites. 4. 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 5. Complex calcified predominately cystic mass arising from the ventral upper third of the right kidney. A contrast-enhanced triple phase CT scan of the kidneys is recommended for further characterization. Additional renal cysts are identified in the left kidney some of which which may contain internal septations. 6. Enlarged prostate gland. 7. Atherosclerotic vascular disease. 8. Bilateral inguinal hernias containing fat. Small midline umbilical hernia containing fat. 9. Diabetes mellitus 10. CVA 11. Hypertension 12. Coronary artery calcifications with obstructive coronary artery disease; previous non-STEMI 13. Status post coronary artery stent placement 14. COPD 15. Appendectomy 30 years ago 16. Left hemiplegia 17. Renal disease 18. Complex right renal cyst. OPERATION: 1. Laparoscopic exploration with drainage of gallbladder 2. Lysis of adhesions SURGEON: Dana Barreto M.D. PLACEMENT SECRETARY: None ANESTHESIA: General endotracheal tube anesthesia ANESTHESIOLOGIST: Lulu Chao M.D. BRIEF SUMMARY: An otherwise uncomplicated laparoscopic exploration with drainage of gallbladder and lysis of adhesions was performed with findings of severe acute on chronic cholecystitis with gangrenous cholecystitis, perforation and bile adenitis. Updated clinical summary: A very-pleasant 72-year-old gentleman with multiple comorbid issues presenting with a clinical picture consistent with acute cholecystitis. Concerning features included rising white blood cell count, acute renal insufficiency, malnutrition with albumin of 2.9 after hydration, and CT findings as outlined below. Comorbidities: 1. Complex right renal cyst. 2. Chilaiditi syndrome. 3. Trace ascites. 4. 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 5. Complex calcified predominately cystic mass arising from the ventral upper third of the right kidney. A contrast-enhanced triple phase CT scan of the kidneys is recommended for further characterization. Additional renal cysts are identified in the left kidney some of which which may contain internal septations. 6. Enlarged prostate gland. 7. Atherosclerotic vascular disease. 8. Bilateral inguinal hernias containing fat. Small midline umbilical hernia containing fat. 9. Diabetes mellitus 10. CVA 11. Hypertension 12. Coronary artery calcifications with obstructive coronary artery disease; previous non-STEMI 13. Status post coronary artery stent placement 14. COPD 15. Appendectomy 30 years ago 16. Left hemiplegia 17. Renal disease BRIEF HISTORY: The patient is a very pleasant 72-year-old gentleman with above- mentioned comorbidities who were kindly asked consult regarding management of his abdominal pain which I assessed to be from severe acute cholecystitis. Given significant number of comorbidities, our initial plan was for interventional radiology drainage of the gallbladder with hopes that we would medically stabilize the patient, drained the gallbladder adequately to decrease inflammation, and perhaps make him eligible for an elective laparoscopic cholecystectomy at a later time in the future. Unfortunately, the patient's anatomy was such that the percutaneous drain could not be placed safely. I reviewed the images carefully with Dr. Suazo and I agreed with this assessment. For this reason, we scheduled the patient for a surgical drainage of the gallbladder with the thought that if the patient was stable and the gallbladder appeared to be reasonably easy to resect, to go ahead and continue on with a cholecystectomy.. I met with the patient and family and counseled them regarding the possible options of treatment, and I strongly suggested a laparoscopic, possible open cholecystectomy. We reviewed the operation in detail as well as the risks, benefits, alternatives, and expected outcomes of this operation. After careful consideration of all the risks, benefits, and alternatives, the patient and family appeared to understand those risks and wished to proceed with surgery. For a detailed report of my consultation with patient and family, please refer to my separate consultation note. STATEMENT OF THE INFORMED CONSENT: The patient and family appeared to understand the risks of the operation to include, but not be limited to risk of postoperative pain and scar tissue, possible infection or bleeding requiring other interventions such as opening the wound, placement of drainage catheters, or other operative interventions; possible injury to surrounding to structures including bowel, bladder, bile duct, or blood vessels, or solid organs such as liver, kidney, or pancreas requiring other interventions or procedures; possible leakage of bile from surgical clip sites, suture lines, or worse, from common bile duct injury, causing significant increase in morbidity and mortality and requiring multiple interventions including but not limited to, placement of drainage catheters, imaging studies, as well as operative interventions; possible other source of sepsis such as urinary tract infections or pneumonias, or other sources of potentially life threatening problems such as deep venous thrombus formation causing pulmonary embolism, myocardial arrhythmias and infarctions, and even . We also briefly discussed the potential need to receive blood products and their potential complications of blood transfusion reactions, transmission of infections, or other complications. After careful consideration of all their options, the patient and family appeared to understand and wished to proceed with surgery. DESCRIPTION OF PROCEDURE: After obtaining informed consent, the patient was brought into the operating room and was placed in a normal supine position, where successful general endotracheal tube anesthesia was performed. The patient 's abdominal skin was prepped and draped, from the nipple line down to the level of the groins, in the usual sterile fashion. Intravenous access was already in place, and appropriately chosen and dosed prophylactic intravenous antimicrobials were administered. A line was also placed by anesthesia. We then called a surgical time-out where patient's identification, date of , nature of the operation, allergies, presence of intravenous antimicrobials, presence of needed equipment, and any other concerns were reviewed and agreed upon by all members of the operating room team. We then started the operation by placing a 5-mm skin incision in the right- upper quadrant, subcostal midclavicular line, and introduced a 5-mm [employer] trocar into the peritoneal space, visualizing all the layers of the abdominal wall as we entered. Note that there was no indication of any injury to underlying structures once we entered the peritoneum. We insufflated the abdominal cavity to a maximum pressure of 15 mmHg, again, confirmed lack of any injury to underlying structures prior to visualizing the rest of the abdominal cavity. We found the liver to be as seen on the preoperative images with the midportion almost missing and an area of colon that was going up into the right upper quadrant towards the diaphragm covering what was presumed to be the gallbladder. There was also significant amount of bile in the right upper quadrant abdominal cavity. There was no evidence of malignancy. No evidence of calcifications or significant issues with adhesions, or other abnormalities. The liver appeared to be healthy. With this information, we went a head and placed the other trocars under direct visualization, after injecting their sites with 0.25% Marcaine with epinephrine , placing a 5-mm trocar in the umbilical midline area, and a 5-mm trocar in the midline subxiphoid region. With our instruments in place, we had excellent visualization and access to the right-upper quadrant. We then did lysis of adhesions to gently remove part of the adhesed colon and omentum onto what appeared to be gangrenous wall of an acutely inflamed over chronically inflamed gallbladder with areas of necrosis. As mentioned there was significant amount of bile in the area around the liver. We suctioned his bile off. I made a quick assessment that the gallbladder was not easy to resect and the patient had multiple comorbid issues and relatively not stable enough for what would certainly be a long laparoscopic procedure with high chance of conversion to open as well as risk of injury to underlying portal structures. For this reason we decided to limit the operation to laparoscopic drainage of the gallbladder which we did by using a 10.5 [place]ian pigtail catheter which I inserted through a separate stab incision in the right upper quadrant after injecting the site with quarter percent Marcaine with epinephrine and then guiding this catheter under direct visualization into the mid upper body of the gallbladder. We deployed the pigtail catheter portion and was able to easily aspirate bile which was sent for aerobic, anaerobic, and fungal cultures and was able to flush the drain. There was no leakage of bile around the drain. The holes of the drain appears to be inside of the gallbladder. After making sure that the drain was working well and positioned well, I placed a 19 [place]ian Jd drain through the right upper quadrant midline subcostal 5 mm port site and laid the drain in the vicinity of the gallbladder, secured both drains to the skin using 2-0 nylon suture, ensured that there was adequate hemostasis and bile-stasis prior to removal of all of or equipment, including the pneumoperitoneum, and then washed the wounds with copious amounts of normal saline, followed by reapproximating the skin using interrupted 4-0 Monocryl sutures. Light dressing was then applied. At the end of the operation, both the sponge count and needle count were reportedly correct x2. The patient tolerated the procedure without any reported complications. ESTIMATED BLOOD LOSS: Less than 10 mL. BLOOD OR BLOOD PRODUCT TRANSFUSIONS: None to my knowledge. SPECIMENS: 1. Gallbladder fluid for aerobic, anaerobic, and fungal cultures COMPLICATIONS: None. DISPOSITION: Recovery area. Disclaimer: Inadvertent spelling and grammatical errors are likely due to EHR/ dictation software use and do not reflect on the quality of delivered patient care. DANA BARRETO M.D. May 15, 2017 19:27
[2017-05-15] MEDS ORDERED: NA PHOSPHATE/BIPHOS 133 ML ENEMA PR PRN (19:30)
[2017-05-15] MEDS ORDERED: DOCUSATE SODIUM 100 MG CAP PO PRN (19:30)
[2017-05-15] MEDS ORDERED: HYDROmorphONE 1 MG/ML SYG IV PRN ×2 (19:30)
[2017-05-15] MEDS ORDERED: HYDROCODONE/APAP (5/325) TAB PO PRN (19:30)
[2017-05-15] MEDS: EPHEDrine SULFATE 50 MG/5 ML SYG IV PRN ×2 (19:39→20:22)
[2017-05-15] MEDS ORDERED: PHENYLephrine (100 MCG/ML) 5ML SYG ONE (20:26)
[2017-05-15] MEDS: CEFTRIAXONE 1 GM/50 ML (PMX) 50 ML IVPB SCH (23:10)
[2017-05-16] VITALS (12 sets, daily range): BP systolic 92–107; BP diastolic 51–63; PULSE 77–104; RESP 16–19
[2017-05-16] MEDS: metroNIDAZOLE 500 MG/NS (PMX) 100 ML IVPB SCH ×4 (00:53→18:10)
[2017-05-16] MEDS: SOD CHLORIDE 0.9% 1,000 ML IV SCH (03:45)
[2017-05-16 07:58] LABS: ABNORMAL IP MESSAGE 1; HEMATOCRIT 26.1 % (42.0-52.0); HEMOGLOBIN 8.4 g/dl (14.0-18.0); LYMPHOCYTES # 0.5 10^3/ul (0.8-2.9); LYMPHOCYTES % 3.8 % (15.0-51.0); MEAN CORPUSCULAR HEMOGLOBIN 28.9 pg (29.0-33.0); MEAN CORPUSCULAR HGB CONC 32.2 g/dl (32.0-37.0); MEAN CORPUSCULAR VOLUME 89.7 fl (82.0-101.0); MEAN PLATELET VOLUME 11.1 fl (7.4-10.4); MONOCYTE # 0.8 10^3/ul (0.3-0.9); MONOCYTES % 6.2 % (0.0-11.0); NEUTROPHIL # 11.3 10^3/ul (1.6-7.5); NEUTROPHILS % 89.4 % (39.0-77.0); PLATELET COUNT 264 10^3/UL (140-415); POSITIVE DIFF @See below; RED BLOOD COUNT 2.91 10^6/ul (4.70-6.10); RED CELL DISTRIBUTION WIDTH 15.3 % (11.5-14.5); WHITE BLOOD COUNT 12.7 10^3/ul (4.8-10.8)
[2017-05-16 08:22] LABS: INR 1.64; PROTIME 19.5 Sec (12.2-14.2); PT RATIO 1.5
[2017-05-16 08:23] LABS: PARTIAL THROMBOPLASTIN TIME 43.4 Sec (25.0-35.0)
[2017-05-16 08:24] LABS: ALBUMIN 2.6 g/dl (3.3-4.9); ALBUMIN/GLOBULIN RATIO 0.89; BILIRUBIN,INDIRECT 0.1 mg/dl (0-1.1); BILIRUBIN,TOTAL 0.1 mg/dl (0.2-1.3); CALCIUM 7.2 mg/dl (8.4-10.2); CREATININE 1.42 mg/dl (0.61-1.24); MAGNESIUM 2.4 mg/dl (1.7-2.5); PHOSPHORUS 3.7 mg/dl (2.5-4.9); POTASSIUM 4.1 mmol/L (3.5-5.1); TOTAL PROTEIN 5.5 g/dl (6.1-8.1)
[2017-05-16] MEDS: FAMOTIDINE 20 MG INJ IV SCH ×2 (08:24→20:47)
[2017-05-16] MEDS: ENOXAPARIN 30 MG/0.3 ML SYG SC SCH (08:37)
--- NOTE | 2017-05-16 09:12 | CONS ---
Date/Time of Note Date/Time of Note DATE: 05/16/17 TIME: 09:11 Assessment/Plan Assessment/Plan Additional Assessment/Plan Cardiology : Full Note Dictated #[id number] Pt with CMY, CAd, h/o BOLA - from cardiac standpoint, advise resume ASA and Plavix as soon as possible when ok by surgical team. Consultation Date/Type/Reason Admit Date/Time May 13, 2017 at 14:10 Initial Consult Date Exam/Review of Systems Vital Signs Vitals Vital Signs Date Time Temp Pulse Resp B/P Pulse Ox O2 Delivery O2 Flow Rate FiO2 05/16/17 08:16 88 05/16/17 07:46 98.5 18 95/56 98 05/15/17 20:50 Nasal Cannula 2.0 Intake and Output 05/15/17 05/15/17 05/16/17 14:59 22:59 06:59 Intake Total 1100 ml 300 ml Output Total 765 ml 660 ml Balance 335 ml -360 ml Results Result Diagram: 05/16/17 0732 05/16/17 0732 Results 24 hrs Laboratory Tests Test 05/16/17 07:32 White Blood Count 12.7 #H Red Blood Count 2.91 #L Hemoglobin 8.4 #L Hematocrit 26.1 #L Mean Corpuscular Volume 89.7 Mean Corpuscular Hemoglobin 28.9 L Mean Corpuscular Hemoglobin Concent 32.2 Red Cell Distribution Width 15.3 H Platelet Count 264 Mean Platelet Volume 11.1 H Neutrophils % 89.4 H Lymphocytes % 3.8 L Monocytes % 6.2 Eosinophils % 0.0 Basophils % 0.0 Nucleated Red Blood Cells % 0.0 Neutrophils # 11.3 H Lymphocytes # 0.5 L Monocytes # 0.8 Eosinophils # 0.0 Basophils # 0.0 Nucleated Red Blood Cells # 0.0 Prothrombin Time 19.5 #H Prothrombin Time Ratio 1.5 INR International Normalized Ratio 1.64 Activated Partial Thromboplast Time 43.4 H Sodium Level 143 Potassium Level 4.1 Chloride Level 113 H Carbon Dioxide Level 17 L Anion Gap 17 H Blood Urea Nitrogen 40 H Creatinine 1.42 H Glucose Level 239 H Lactic Acid Level 1.3 Calcium Level 7.2 L Phosphorus Level 3.7 Magnesium Level 2.4 Total Bilirubin 0.1 L Direct Bilirubin 0.00 Indirect Bilirubin 0.1 Aspartate Amino Transf (AST/SGOT) 64 H Alanine Aminotransferase (ALT/SGPT) 37 Alkaline Phosphatase 110 B-Type Natriuretic Peptide 47753 H Total Protein 5.5 L Albumin 2.6 L Globulin 2.90 Albumin/Globulin Ratio 0.89 Medications Medications Current Medications Sodium Chloride (NS) 1,000 ml @ 100 mls/hr Q10H IV Last administered on 03:45; Admin Dose 100 MLS/HR; Start 05/13/17 at 15:45 Ondansetron HCl (Zofran Inj) 4 mg Q6H PRN IV NAUSEA AND/OR VOMITING Last administered on 05/15/17 19:47; Admin Dose 4 MG; Start 05/13/17 at 16:00 Acetaminophen (Tylenol Tab) 650 mg Q6H PRN PO PAIN LEVEL 1-3 OR FEVER; Start at 16:00 Morphine Sulfate (morphine) 2 mg Q4H PRN IV PAIN LEVEL 7-10 Last administered on 05/15/17 03:20; Admin Dose 2 MG; Start 05/13/17 at 16:00 Famotidine (Pepcid Iv) 20 mg Q12 IV Last administered on 05/16/17 08:24; Admin Dose 20 MG; Start 05/13/17 at 21:00 Enoxaparin Sodium 30 mg 30 mg DAILY SC Last administered on 05/16/17 08:37; Admin Dose 30 MG; Start 05/14/17 at 09:00 Ceftriaxone Sodium 50 ml @ 100 mls/hr Q24H IVPB Last administered on 05/15/17 23:10; Admin Dose 100 MLS/HR; Start 05/13/17 at 16:00 Metronidazole (Flagyl 500 Mg (Pmx)) 100 ml @ 100 mls/hr Q6 IVPB Last administered on 05/16/17 06:16; Admin Dose 100 MLS/HR; Start 05/13/17 at 18:00 Acetaminophen/ Hydrocodone Bitart ([place] (5/325)) 1 tab Q4H PRN PO PAIN LEVEL 4 -7; Start 05/15/17 at 19:30 Acetaminophen/ Hydrocodone Bitart ([place] (5/325)) 2 tab Q4H PRN PO PAIN LEVEL 7 -10; Start 05/15/17 at 19:30 Hydromorphone HCl (Dilaudid) 0.5 mg Q2 PRN IV PAIN; Start 05/15/17 at 19:30 Hydromorphone HCl (Dilaudid) 1 mg Q2 PRN IV PAIN; Start 05/15/17 at 19:30 Docusate Sodium (Colace) 100 mg BID PRN PO CONSTIPATION; Start 05/15/17 at 19:30 Bisacodyl (Dulcolax Supp) 10 mg BID PRN CO CONSTIPATION; Start 05/15/17 at 19:30 Sodium Biphosphate/ Sodium Phosphate (Fleet Enema) 133 ml BID PRN CO CONSTIPATION; Start 05/15/17 at 19:30 MITCHELL CASTILLO MD May 16, 2017 09:12
--- NOTE | 2017-05-16 10:07 | CONS ---
DATE OF ADMISSION: 05/13/2017 DATE OF CONSULTATION: 05/16/2017 REFERRING PHYSICIAN: Sandi Henson MD REASON FOR CONSULTATION: Perioperative assessment of coronary artery disease. HISTORY OF PRESENT ILLNESS: The patient is a 72-year-old gentleman, patient of Dr. Monae, who has a history of hypertension, dyslipidemia, history of coronary artery disease, history of PTCA to RCA stenting recently, history of cardiomyopathy with ejection fraction 25 percent, who comes to the hospital now for evaluation of abdominal pain. The patient was noted to have acute cholecystitis and has already undergone surgery. The patient appears to have tolerated the procedure well. Currently the patient feels fairly well. He does not report any chest pain. There has been no perioperative arrhythmia. For now conservative care is expected. Will continue the patient on his medications, will resume full anticoagulation as soon as okay with the surgical team. Other than that, conservative therapy will be continued at this point. Will keep the patient euvolemic. PAST MEDICAL HISTORY: Hypertension, dyslipidemia, history of cardiomyopathy with ejection fraction 25 percent, history of coronary artery disease with prior history of drug-eluting stenting. ALLERGIES: PENICILLIN. SOCIAL HISTORY: The patient does not smoke, drink or use drugs. FAMILY HISTORY: Negative for sudden cardiac or premature coronary artery disease. MEDICATION: Tylenol, Docusate, subcutaneous Lovenox for DVT prophylaxis and morphine. Both aspirin and Plavix were held. REVIEW OF SYSTEMS: GENERAL: The patient has no fever, no chills or abdominal pain. HEENT: Within normal limits. CARDIOVASCULAR: No chest pain. RESPIRATORY: Good breath sounds. GASTROINTESTINAL: No nausea or vomiting, diarrhea or constipation. GENITOURINARY: No dysuria or hematuria. NEUROLOGIC: No focal deficits. PSYCHIATRIC: No history of psychiatric disease. PHYSICAL EXAMINATION: VITAL SIGNS: Temperature 98.5, heart rate 88, blood pressure 95/56. GENERAL: A pleasant gentleman in no acute distress, alert and oriented x3. HEENT: Atraumatic, normocephalic. NECK: Supple. JVP is 7 cm. HEART: Regular, soft diastolic murmur. LUNGS: A few coarse wheezes. ABDOMEN: Distended, bowel sounds are present. There is no hepatosplenomegaly. EXTREMITIES: No cyanosis, clubbing or edema. LABORATORY: White blood cell count 12.2, hemoglobin 8.4, platelets 264,000. INR is 1.64. Creatinine is 1.4. ASSESSMENT AND PLAN: 1. He had a procedure and tolerated it well. The patient has a history of known cardiomyopathy and will put on full anticoagulation as soon as possible. Will discuss with surgical team to see when we can re-initiate aspirin and Plavix. 2. Congestive heart failure. The patient's heart failure is systolic and fairly chronic. 3. Sinus tachycardia, now better. Continue to monitor. 4. Anemia. Hemoglobin is decreased from the time of procedure, might be dilutional. Continue to monitor. No obvious signs of bleeding now. 5. Cholecystitis with infection. Continue to treat. The patient is on antibiotics. 6. Chronic obstructive pulmonary disease. Continue therapy as indicated. No wheezing now. 7. History of cerebrovascular accident. Continue to monitor. Dictated By: Eduin Le MD /asha/arabella /Document#: [id number]
--- NOTE | 2017-05-16 11:24 | CONS ---
Date/Time of Note Date/Time of Note DATE: 05/16/17 TIME: 11:20 Assessment/Plan Assessment/Plan Chief Complaint/Hosp Course 72 y/o 1. CKD with baseline Cr 1.4- 1.5 p/w with Cr 1.6 now back to 1.4 2 Possible UTI 3 Acidosis 4 Abdominal pain s/p Lap cholecystectomy Plan - d/c iv fluids( pt on clears) - ABG to assess acidosis - Will check with PMD regarding baseline Cr - Ucx - d/c gruber if ok with surgeon - Surgical management per surgery Problems: Consultation Date/Type/Reason Admit Date/Time May 13, 2017 at 14:10 Hx of Present Illness 72-year-old gentleman with a history of hypertension, dyslipidemia, history of coronary artery disease, history of PTCA to RCA stenting recently, history of cardiomyopathy with ejection fraction 25 percent, CKD( baseline Cr 1.4-1.6 since 04/24) who comes to f or evaluation of abdominal pain. The patient was noted to have acute cholecystitis and underwent lap cholecystectomy Renal was consulted for CKD, Since 04/24 Cr was 1.4 to 1.5. On admission was 1.6 > today 1.4 Pt is currently on oxygen, denies any chest pain/sob Some painful urination + Past Medical History Medical History: coronary artery disease, diabetes, high cholesterol, hypertension, renal disease Past Surgical History Past Surgical Hx: angioplasty, appendectomy Family History Significant Family History: no pertinent family hx Social History Smoking Status: Never smoker Exam/Review of Systems Vital Signs Vitals Vital Signs Date Time Temp Pulse Resp B/P Pulse Ox O2 Delivery O2 Flow Rate FiO2 05/16/17 08:16 88 05/16/17 07:46 98.5 18 95/56 98 05/15/17 20:50 Nasal Cannula 2.0 Intake and Output 05/15/17 05/15/17 05/16/17 15:00 23:00 07:00 Intake Total 1100 ml 300 ml Output Total 765 ml 660 ml Balance 335 ml -360 ml Exam ENERAL: A pleasant gentleman in no acute distress, alert and oriented x3. HEENT: Atraumatic, normocephalic. NECK: Supple. JVP is 7 cm. HEART: Regular, soft diastolic murmur. LUNGS: A few coarse wheezes. ABDOMEN: Distended, bowel sounds are present. There is no hepatosplenomegaly. EXTREMITIES: No cyanosis, clubbing or edema. Results Result Diagram: 05/16/17 0732 05/16/17 0732 Results 24 hrs Laboratory Tests Test 05/16/17 07:32 White Blood Count 12.7 #H Red Blood Count 2.91 #L Hemoglobin 8.4 #L Hematocrit 26.1 #L Mean Corpuscular Volume 89.7 Mean Corpuscular Hemoglobin 28.9 L Mean Corpuscular Hemoglobin Concent 32.2 Red Cell Distribution Width 15.3 H Platelet Count 264 Mean Platelet Volume 11.1 H Neutrophils % 89.4 H Lymphocytes % 3.8 L Monocytes % 6.2 Eosinophils % 0.0 Basophils % 0.0 Nucleated Red Blood Cells % 0.0 Neutrophils # 11.3 H Lymphocytes # 0.5 L Monocytes # 0.8 Eosinophils # 0.0 Basophils # 0.0 Nucleated Red Blood Cells # 0.0 Prothrombin Time 19.5 #H Prothrombin Time Ratio 1.5 INR International Normalized Ratio 1.64 Activated Partial Thromboplast Time 43.4 H Sodium Level 143 Potassium Level 4.1 Chloride Level 113 H Carbon Dioxide Level 17 L Anion Gap 17 H Blood Urea Nitrogen 40 H Creatinine 1.42 H Glucose Level 239 H Lactic Acid Level 1.3 Calcium Level 7.2 L Phosphorus Level 3.7 Magnesium Level 2.4 Total Bilirubin 0.1 L Direct Bilirubin 0.00 Indirect Bilirubin 0.1 Aspartate Amino Transf (AST/SGOT) 64 H Alanine Aminotransferase (ALT/SGPT) 37 Alkaline Phosphatase 110 B-Type Natriuretic Peptide 81283 H Total Protein 5.5 L Albumin 2.6 L Globulin 2.90 Albumin/Globulin Ratio 0.89 Medications Medications Current Medications Sodium Chloride (NS) 1,000 ml @ 100 mls/hr Q10H IV Last administered on 03:45; Admin Dose 100 MLS/HR; Start 05/13/17 at 15:45 Ondansetron HCl (Zofran Inj) 4 mg Q6H PRN IV NAUSEA AND/OR VOMITING Last administered on 05/15/17 19:47; Admin Dose 4 MG; Start 05/13/17 at 16:00 Acetaminophen (Tylenol Tab) 650 mg Q6H PRN PO PAIN LEVEL 1-3 OR FEVER; Start at 16:00 Morphine Sulfate (morphine) 2 mg Q4H PRN IV PAIN LEVEL 7-10 Last administered on 05/15/17 03:20; Admin Dose 2 MG; Start 05/13/17 at 16:00 Famotidine (Pepcid Iv) 20 mg Q12 IV Last administered on 05/16/17 08:24; Admin Dose 20 MG; Start 05/13/17 at 21:00 Enoxaparin Sodium 30 mg 30 mg DAILY SC Last administered on 05/16/17 08:37; Admin Dose 30 MG; Start 05/14/17 at 09:00 Ceftriaxone Sodium 50 ml @ 100 mls/hr Q24H IVPB Last administered on 05/15/17 23:10; Admin Dose 100 MLS/HR; Start 05/13/17 at 16:00 Metronidazole (Flagyl 500 Mg (Pmx)) 100 ml @ 100 mls/hr Q6 IVPB Last administered on 05/16/17 06:16; Admin Dose 100 MLS/HR; Start 05/13/17 at 18:00 Acetaminophen/ Hydrocodone Bitart ([place] (5/325)) 1 tab Q4H PRN PO PAIN LEVEL 4 -7; Start 05/15/17 at 19:30 Acetaminophen/ Hydrocodone Bitart ([place] (5/325)) 2 tab Q4H PRN PO PAIN LEVEL 7 -10; Start 05/15/17 at 19:30 Hydromorphone HCl (Dilaudid) 0.5 mg Q2 PRN IV PAIN; Start 05/15/17 at 19:30 Hydromorphone HCl (Dilaudid) 1 mg Q2 PRN IV PAIN; Start 05/15/17 at 19:30 Docusate Sodium (Colace) 100 mg BID PRN PO CONSTIPATION; Start 05/15/17 at 19:30 Bisacodyl (Dulcolax Supp) 10 mg BID PRN OR CONSTIPATION; Start 05/15/17 at 19:30 Sodium Biphosphate/ Sodium Phosphate (Fleet Enema) 133 ml BID PRN OR CONSTIPATION; Start 05/15/17 at 19:30 STEPHEN MAYBERRY MD May 16, 2017 11:23
[2017-05-16 13:03] LABS: AADO2 Arterial 45.3 mmHg (7.0-24.0); Allen Test ACCEPTAB; Arterial Base Excess -6.2 mmol/L (-3.0-3); Arterial COHb 0.3 % (0.0-3.0); Arterial Fraction of Oxyhgb 97.4 % (93.0-99.0); Arterial HCO3 17.2 mmol/L (22.0-26.0); Arterial MetHb 0.4 % (0.0-1.5); Arterial Total Hemglobin 8.8 g/dl (12.0-18.0); MODE NASAL CANNULA
--- NOTE | 2017-05-16 15:22 | PN ---
Date/Time of Note Date/Time of Note DATE: 05/16/17 TIME: 15:17 Assessment/Plan VTE Prophylaxis VTE Prophylaxis Intervention: SCD's Lines/Catheters IV [facility]from [facility]): Saline Lock Urinary Cath still in place: Yes Reason Cath still needed: urinary retention Assessment/Plan Chief Complaint/Hosp Course Patient status post laparoscopic exploration with drainage of gallbladder yesterday, pain is well controlled, denies any nausea vomiting, complaints of urinary catheter discomfort. White blood cells decreased. Assessment/Plan -Acute cholecystitis, s/p laparoscopic exploration with drainage of gallbladder by Dr. Harden. Continue to follow-up surgical recommendation. Continue antibiotics. -Obstructive CAD, s/p ptca/stent x 3 to RCA/acute marginal by Dr. Monae on . Dr. Le is following and cardiology consultation. -CVA with left-sided residual weakness -COPD, continue breathing treatments -Chronic kidney disease, avoid nephrotoxic medication. Dr. Toledo is following in nephrology consultation. -Diabetes mellitus type 2, continue Lantus and NovoLog. Further recommendations based on clinical course. Plan of care discussed with Dr. Paz. Problems: Exam/Review of Systems Vital Signs Vitals Vital Signs Date Time Temp Pulse Resp B/P Pulse Ox O2 Delivery O2 Flow Rate FiO2 05/16/17 15:16 98.8 82 17 92/51 99 05/15/17 20:50 Nasal Cannula 2.0 Intake and Output 05/15/17 05/15/17 05/16/17 15:00 23:00 07:00 Intake Total 1100 ml 300 ml Output Total 765 ml 660 ml Balance 335 ml -360 ml Exam Constitutional: alert, oriented Head: normocephalic Neck: supple Respiratory: clear to auscultation Cardiovascular: nl pulses Gastrointestinal: other (LEANN, cholecystostomy drain), soft, tender Musculoskeletal: muscle weakness Extremities: normal pulses Neurological: nl mental status Results Result Diagram: 05/16/17 0732 05/16/17 0732 Results 24 hrs Laboratory Tests Test 05/16/17 07:32 05/16/17 12:00 White Blood Count 12.7 #H Red Blood Count 2.91 #L Hemoglobin 8.4 #L Hematocrit 26.1 #L Mean Corpuscular Volume 89.7 Mean Corpuscular Hemoglobin 28.9 L Mean Corpuscular Hemoglobin Concent 32.2 Red Cell Distribution Width 15.3 H Platelet Count 264 Mean Platelet Volume 11.1 H Neutrophils % 89.4 H Lymphocytes % 3.8 L Monocytes % 6.2 Eosinophils % 0.0 Basophils % 0.0 Nucleated Red Blood Cells % 0.0 Neutrophils # 11.3 H Lymphocytes # 0.5 L Monocytes # 0.8 Eosinophils # 0.0 Basophils # 0.0 Nucleated Red Blood Cells # 0.0 Prothrombin Time 19.5 #H Prothrombin Time Ratio 1.5 INR International Normalized Ratio 1.64 Activated Partial Thromboplast Time 43.4 H Sodium Level 143 Potassium Level 4.1 Chloride Level 113 H Carbon Dioxide Level 17 L Anion Gap 17 H Blood Urea Nitrogen 40 H Creatinine 1.42 H Glucose Level 239 H Lactic Acid Level 1.3 Calcium Level 7.2 L Phosphorus Level 3.7 Magnesium Level 2.4 Total Bilirubin 0.1 L Direct Bilirubin 0.00 Indirect Bilirubin 0.1 Aspartate Amino Transf (AST/SGOT) 64 H Alanine Aminotransferase (ALT/SGPT) 37 Alkaline Phosphatase 110 B-Type Natriuretic Peptide 48728 H Total Protein 5.5 L Albumin 2.6 L Globulin 2.90 Albumin/Globulin Ratio 0.89 Blood Gas Specimen Source Blood arterial Arterial Blood Date Drawn 05/16/2017 12:40:52 PM Arterial Blood pH (Temp corrected) 7.429 Arterial Blood pCO2 (Temp correct) 26.5 L Arterial Blood pO2 (Temp corrected) 115.9 H Arterial Blood HCO3 17.2 L Arterial Blood Base Excess -6.2 L Arterial Blood Oxygen Saturation 98.1 H Ervin Test ACCEPTAB Arterial Blood Gas Puncture Site Right Radial Arterial Blood Carboxyhemoglobin 0.3 Arterial Blood Methemoglobin 0.4 Blood Gas A-a O2 Differential 45.3 H Oxyhemoglobin Percent 97.4 Total Hemoglobin 8.8 L Blood Gas Temperature 37.0 Blood Gas Modality NASAL CANNULA FiO2 27.0 Blood Gas Notified Whom JLD Blood Gas Notified Time 05/16/2017 1:03:25 PM Medications Medications Current Medications Ondansetron HCl (Zofran Inj) 4 mg Q6H PRN IV NAUSEA AND/OR VOMITING Last administered on 05/15/17t 19:47; Admin Dose 4 MG; Start 05/13/17 at 16:00 Acetaminophen (Tylenol Tab) 650 mg Q6H PRN PO PAIN LEVEL 1-3 OR FEVER; Start at 16:00 Morphine Sulfate (morphine) 2 mg Q4H PRN IV PAIN LEVEL 7-10 Last administered on 05/15/17 03:20; Admin Dose 2 MG; Start 05/13/17 at 16:00 Famotidine (Pepcid Iv) 20 mg Q12 IV Last administered on 05/16/17 08:24; Admin Dose 20 MG; Start 05/13/17 at 21:00 Enoxaparin Sodium 30 mg 30 mg DAILY SC Last administered on 05/16/17 08:37; Admin Dose 30 MG; Start 05/14/17 at 09:00 Ceftriaxone Sodium 50 ml @ 100 mls/hr Q24H IVPB Last administered on 05/15/17 23:10; Admin Dose 100 MLS/HR; Start 05/13/17 at 16:00 Metronidazole (Flagyl 500 Mg (Pmx)) 100 ml @ 100 mls/hr Q6 IVPB Last administered on 05/16/17 12:59; Admin Dose 100 MLS/HR; Start 05/13/17 at 18:00 Acetaminophen/ Hydrocodone Bitart ([place] (5/325)) 1 tab Q4H PRN PO PAIN LEVEL 4 -7; Start 05/15/17 at 19:30 Acetaminophen/ Hydrocodone Bitart ([place] (5/325)) 2 tab Q4H PRN PO PAIN LEVEL 7 -10; Start 05/15/17 at 19:30 Hydromorphone HCl (Dilaudid) 0.5 mg Q2 PRN IV PAIN; Start 05/15/17 at 19:30 Hydromorphone HCl (Dilaudid) 1 mg Q2 PRN IV PAIN; Start 05/15/17 at 19:30 Docusate Sodium (Colace) 100 mg BID PRN [place] CONSTIPATION; Start 05/15/17 at 19:30 Bisacodyl (Dulcolax Supp) 10 mg BID PRN [place] CONSTIPATION; Start 05/15/17 at 19:30 Sodium Biphosphate/ Sodium Phosphate (Fleet Enema) 133 ml BID PRN [place] CONSTIPATION; Start 05/15/17 at 19:30 CALVIN CIFUENTES May 16, 2017 15:22
[2017-05-16] MEDS: CEFTRIAXONE 1 GM/50 ML (PMX) 50 ML IVPB SCH (15:55)
--- NOTE | 2017-05-16 16:31 | PN ---
Date/Time of Note Date/Time of Note DATE: 05/16/17 TIME: 16:31 Assessment/Plan Lines/Catheters IV Catheter Type (from Nrs): Saline Lock Carmona in Place (from Nrs): Yes Assessment/Plan Assessment/Plan [facility] Progress Note Date of Service: 05/16/2017 Place of service: [facility] 5 W. telemetry Today's Assessment & Plan: Appears to have remained stable overnight and improved overall. Gallbladder drain and surgical drain with appropriate drainage. White blood cell count lower. No indication for acute surgical intervention at this time. Would recommend waiting several weeks with appropriate drainage prior to hopefully doing an elective laparoscopic cholecystectomy in about 4-6 weeks. Explained to patient and his and answered all questions. Patient and his appear to understand and agreed with the plans. With above assessment, I've recommended the followin. Continue current cares 2. Continue broad-spectrum antimicrobial coverage 3. Drain care and education for patient and family 4. Home health set up 5. Labs in a.m. Thank you very much for having me involved in the care of this very pleasant patient and wonderful family. If you have any questions, please feel free to contact me at [phone]. Nature of presenting problem: High severity Please note that, given the multiple number of diagnoses or management options, the extensive amount and/or complexity of data needed to be reviewed, and high risk of complications and/or morbidity or mortality, this qualifies as high complexity type of decision-making. Disclaimer: Inadvertent spelling and grammatical errors are likely due to EHR/ dictation software use and do not reflect on the quality of delivered patient care. Also, please note that the electronic time recorded on this node does not necessarily reflect the actual time of the visit. Updated clinical summary: A very-pleasant 72-year-old gentleman with multiple comorbid issues presenting with a clinical picture consistent with acute cholecystitis. Concerning features included rising white blood cell count, acute renal insufficiency, malnutrition with albumin of 2.9 after hydration, and CT findings as outlined below. Comorbidities: 1. Severe acute on chronic cholecystitis with gangrene and perforation and bile leak. S/p an otherwise uncomplicated laparoscopic exploration with drainage of gallbladder and lysis of adhesions on 05/15/17 at [facility] with findings of severe acute on chronic cholecystitis with gangrenous cholecystitis, perforation and bile peritonitis 2. Chilaiditi syndrome. 3. Trace ascites. 4. 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 5. Complex calcified predominately cystic mass arising from the ventral upper third of the right kidney. A contrast-enhanced triple phase CT scan of the kidneys is recommended for further characterization. Additional renal cysts are identified in the left kidney some of which which may contain internal septations. 6. Enlarged prostate gland. 7. Atherosclerotic vascular disease. 8. Bilateral inguinal hernias containing fat. Small midline umbilical hernia containing fat. 9. Diabetes mellitus 10. CVA 11. Hypertension 12. Coronary artery calcifications with obstructive coronary artery disease; previous non-STEMI 13. Status post coronary artery stent placement 14. COPD 15. Appendectomy 30 years ago 16. Left hemiplegia 17. Renal disease 18. Complex right renal cyst. Subjective: No major events or complaints; no major abd pain and under control with medications; no n/v/d; no sob or cp; - flatus; - BM; minimal activity Objective: Vitals: See below I's & O's: See below Exam: GENERAL: On exam, the patient was sitting in a chair and appeared to be comfortable and in no acute distress. ABDOMEN: Soft, nontender and nondistended. Incisions and drain sites are clean , dry and intact without any evidence of erythema, edema, discharge, or hernia. Surgical drain ss. Percutaneous gallbladder drain bilious. There are no peritoneal signs or guarding. SKIN: Skin appears to be pink and feels warm to touch. NEUROLOGIC: Patient is awake, alert, and follows commands appropriately. Labs: See below Exam/Review of Systems Vital Signs Vitals Vital Signs Date Time Temp Pulse Resp B/P Pulse Ox O2 Delivery O2 Flow Rate FiO2 05/16/17 16:16 83 05/16/17 15:16 98.8 17 92/51 99 05/15/17 20:50 Nasal Cannula 2.0 Intake and Output 05/15/17 05/15/17 05/16/17 15:00 23:00 07:00 Intake Total 1100 ml 300 ml Output Total 765 ml 660 ml Balance 335 ml -360 ml Results Result Diagram: 05/16/17 0732 05/16/17 0732 DANA BARRETO M.D. May 16, 2017 16:31
--- NOTE | 2017-05-16 17:37 | RADRPT ---
Vent Rate: 102 bpm RR Interval: 0 msec WA Interval: 150 msec QRS Duration: 72 msec QT Interval: 326 msec QTC Interval: 424 msec P-R-T [place]: 23 - 0 - 92 degrees Sinus tachycardia Inferior infarct , age undetermined Anterior infarct , age undetermined Abnormal ECG Electronically Signed By: Cyril Samano [id number]
--- NOTE | 2017-05-16 19:55 | OPPN ---
Date/Time of Note Date/Time of Note DATE: 05/16/17 TIME: 19:49 Post-Anesthesia Notes Post-Anesthesia Note Last documented vital signs Vital Signs Date Time Temp Pulse Resp B/P Pulse Ox O2 Delivery O2 Flow Rate FiO2 05/16/17 16:16 83 05/16/17 15:16 98.8 17 92/51 99 05/15/17 20:50 Nasal Cannula 2.0 Activity: WNL Respiratory function: WNL Cardiovascular function: WNL Mental status: Baseline Pain reasonably controlled: Yes Hydration appropriate: Yes Nausea/Vomiting absent: Yes DENNIS ALLISON MD May 16, 2017 19:55
--- NOTE | 2017-05-16 20:00 | CONS ---
Date/Time of Note Date/Time of Note DATE: 05/16/17 TIME: 19:46 Assessment/Plan Assessment/Plan Chief Complaint/Hosp Course 72-year-old male admitted with abdominal pain CT scan showed a complex cyst arising from the ventral upper third of the right kidney measuring 4.6 x 5.8 x 7.6cm and it has internal calcifications The patient had a renal ultrasound on April 30, 2017 and that was reported as benign bilateral renal cysts and a cyst on the right side measured 4.3 cm Also the patient did have a renal ultrasound on October 05, 2013 and that was reported as the right kidney has a cyst that measures 6 x 4.6 x 5.1 cm Therefore this cyst on the right kidney is 3 and half year old and based on the measurements it may have increased a little bit over time. Recommend to repeat the ultrasound in about 6 months and may be also the CT scan and if there is any suspicious finding may do CT-guided aspiration of the cyst Problems: Consultation Date/Type/Reason Admit Date/Time May 13, 2017 at 14:10 Date of Consultation: May 16, 2017 Type of Consultation: Urology Reason for Consultation Right renal cyst with calcifications in it Referring Provider: QUIANA MURCIA MD This is a 72-year-old male who presented to the hospital with acute abdominal pain and was diagnosed with acute cholecystitis. He underwent the drainage of the gallbladder. The patient had a CT scan of the abdomen and pelvis on admission as well as a renal ultrasound. The CT scan showed: 1. Gallbladder wall thickening with stranding in the fat adjacent to the gallbladder and hepatic flexure. Findings are suspicious for acute cholecystitis with a 4.8 mm gallstone lodged in the neck of the gallbladder. An abdominal ultrasound can be performed for confirmation if indicated. Clinical correlation is needed. 2. Chilaiditi syndrome. 3. Trace ascites. 4. 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 5. Complex calcified predominately cystic mass arising from the ventral upper third of the right kidney. A contrast-enhanced triple phase CT scan of the kidneys is recommended for further characterization. Additional renal cysts are identified in the left kidney some of which which may contain internal septations. 6. Enlarged prostate gland. 7. Atherosclerotic vascular disease. 8. Bilateral inguinal hernias containing fat. Small midline umbilical hernia containing fat. 9. A Carmona catheter is identified in the urinary bladder. RPTAT:AAJJ Physician Tamanna Date Time Electronically viewed and signed by Josias Mattson Physician on 05/13/2017 13:38 A urological consultation was requested because of the renal cyst. Constitutional: no complaints Eyes: no complaints ENT: no complaints Respiratory: no complaints Cardiovascular: no complaints, other (History of hypertension) Gastrointestinal: pain (On admission) Genitourinary: other (Patient states he has nocturia about 5 times a night and during the day he urinates very often and sometimes he says for every 5-10 minutes. He complains of dysuria. No history of gross hematuria. The urinary stream is slow and he feels he does not empty his bladder well) Musculoskeletal: no complaints Skin: no complaints Neurologic: focal-weakness (Left hemiplegia), no complaints, other Endocrine: no complaints Lymphatic: no complaints Psychological: no complaints Past Medical History Medical History: coronary artery disease, diabetes, high cholesterol, hypertension, renal disease Past Surgical History Past Surgical Hx: angioplasty, appendectomy, other (Recent drainage of the gallbladder) Family History Significant Family History: no pertinent family hx Social History Alcohol Use: none Smoking Status: Never smoker Exam/Review of Systems Vital Signs Vitals Vital Signs Date Time Temp Pulse Resp B/P Pulse Ox O2 Delivery O2 Flow Rate FiO2 05/16/17 16:16 83 05/16/17 15:16 98.8 17 92/51 99 05/15/17 20:50 Nasal Cannula 2.0 Intake and Output 05/15/17 05/15/17 05/16/17 15:00 23:00 07:00 Intake Total 1100 ml 300 ml Output Total 765 ml 660 ml Balance 335 ml -360 ml Exam Constitutional: alert, oriented Psych: no complaints Head: normocephalic Eyes: nl conjunctiva ENMT: nl external ears & nose Neck: non-tender, supple Respiratory: normal air movement Cardiovascular: nl pulses Gastrointestinal: other (Patient has a LEANN drain and the gallbladder drainage tubing), soft Genitourinary - Male: nl penis, nl scrotum, other (Rectal exam reveals soft prostate, prostate is enlarged) Musculoskeletal: nl extremities to inspection, other (Left hemiplegia) Extremities: other (Left hemiplegia) Skin: nl turgor Results Result Diagram: 05/16/17 0732 05/16/17 0732 Results 24 hrs Laboratory Tests Test 05/16/17 07:32 05/16/17 12:00 White Blood Count 12.7 #H Red Blood Count 2.91 #L Hemoglobin 8.4 #L Hematocrit 26.1 #L Mean Corpuscular Volume 89.7 Mean Corpuscular Hemoglobin 28.9 L Mean Corpuscular Hemoglobin Concent 32.2 Red Cell Distribution Width 15.3 H Platelet Count 264 Mean Platelet Volume 11.1 H Neutrophils % 89.4 H Lymphocytes % 3.8 L Monocytes % 6.2 Eosinophils % 0.0 Basophils % 0.0 Nucleated Red Blood Cells % 0.0 Neutrophils # 11.3 H Lymphocytes # 0.5 L Monocytes # 0.8 Eosinophils # 0.0 Basophils # 0.0 Nucleated Red Blood Cells # 0.0 Prothrombin Time 19.5 #H Prothrombin Time Ratio 1.5 INR International Normalized Ratio 1.64 Activated Partial Thromboplast Time 43.4 H Sodium Level 143 Potassium Level 4.1 Chloride Level 113 H Carbon Dioxide Level 17 L Anion Gap 17 H Blood Urea Nitrogen 40 H Creatinine 1.42 H Glucose Level 239 H Lactic Acid Level 1.3 Calcium Level 7.2 L Phosphorus Level 3.7 Magnesium Level 2.4 Total Bilirubin 0.1 L Direct Bilirubin 0.00 Indirect Bilirubin 0.1 Aspartate Amino Transf (AST/SGOT) 64 H Alanine Aminotransferase (ALT/SGPT) 37 Alkaline Phosphatase 110 B-Type Natriuretic Peptide 59342 H Total Protein 5.5 L Albumin 2.6 L Globulin 2.90 Albumin/Globulin Ratio 0.89 Blood Gas Specimen Source Blood arterial Arterial Blood Date Drawn 05/16/2017 12:40:52 PM Arterial Blood pH (Temp corrected) 7.429 Arterial Blood pCO2 (Temp correct) 26.5 L Arterial Blood pO2 (Temp corrected) 115.9 H Arterial Blood HCO3 17.2 L Arterial Blood Base Excess -6.2 L Arterial Blood Oxygen Saturation 98.1 H Ervin Test ACCEPTAB Arterial Blood Gas Puncture Site Right Radial Arterial Blood Carboxyhemoglobin 0.3 Arterial Blood Methemoglobin 0.4 Blood Gas A-a O2 Differential 45.3 H Oxyhemoglobin Percent 97.4 Total Hemoglobin 8.8 L Blood Gas Temperature 37.0 Blood Gas Modality NASAL CANNULA FiO2 27.0 Blood Gas Notified Whom JLD Blood Gas Notified Time 05/16/2017 1:03:25 PM Medications Medications Current Medications Ondansetron HCl (Zofran Inj) 4 mg Q6H PRN IV NAUSEA AND/OR VOMITING Last administered on 05/15/17 19:47; Admin Dose 4 MG; Start 05/13/17 at 16:00 Acetaminophen (Tylenol Tab) 650 mg Q6H PRN PO PAIN LEVEL 1-3 OR FEVER; Start at 16:00 Morphine Sulfate (morphine) 2 mg Q4H PRN IV PAIN LEVEL 7-10 Last administered on 05/15/17 03:20; Admin Dose 2 MG; Start 05/13/17 at 16:00 Famotidine (Pepcid Iv) 20 mg Q12 IV Last administered on 05/16/17 08:24; Admin Dose 20 MG; Start 05/13/17 at 21:00 Enoxaparin Sodium 30 mg 30 mg DAILY SC Last administered on 05/16/17 08:37; Admin Dose 30 MG; Start 05/14/17 at 09:00 Ceftriaxone Sodium 50 ml @ 100 mls/hr Q24H IVPB Last administered on 05/16/17 15:55; Admin Dose 100 MLS/HR; Start 05/13/17 at 16:00 Metronidazole (Flagyl 500 Mg (Pmx)) 100 ml @ 100 mls/hr Q6 IVPB Last administered on 05/16/17 18:10; Admin Dose 100 MLS/HR; Start 05/13/17 at 18:00 Acetaminophen/ Hydrocodone Bitart ([place] (5/325)) 1 tab Q4H PRN PO PAIN LEVEL 4 -7; Start 05/15/17 at 19:30 Acetaminophen/ Hydrocodone Bitart ([place] (5/325)) 2 tab Q4H PRN PO PAIN LEVEL 7 -10; Start 05/15/17 at 19:30 Hydromorphone HCl (Dilaudid) 0.5 mg Q2 PRN IV PAIN; Start 05/15/17 at 19:30 Hydromorphone HCl (Dilaudid) 1 mg Q2 PRN IV PAIN; Start 05/15/17 at 19:30 Docusate Sodium (Colace) 100 mg BID PRN PO CONSTIPATION; Start 05/15/17 at 19:30 Bisacodyl (Dulcolax Supp) 10 mg BID PRN [place] CONSTIPATION; Start 05/15/17 at 19:30 Sodium Biphosphate/ Sodium Phosphate (Fleet Enema) 133 ml BID PRN [place] CONSTIPATION; Start 05/15/17 at 19:30 AMANDA PAZ MD May 16, 2017 19:59
[2017-05-17] VITALS (11 sets, daily range): BP systolic 90–124; BP diastolic 51–68; PULSE 66–77; RESP 17–19
[2017-05-17] MEDS: metroNIDAZOLE 500 MG/NS (PMX) 100 ML IVPB SCH ×4 (00:12→17:06)
[2017-05-17 08:03] LABS: BASOPHILS % 0.1 % (0.0-2.0); EOSINOPHILS % 0.3 % (0.0-7.0); HEMOGLOBIN 8.6 g/dl (14.0-18.0); LYMPHOCYTES # 0.8 10^3/ul (0.8-2.9); LYMPHOCYTES % 6.4 % (15.0-51.0); MEAN CORPUSCULAR HEMOGLOBIN 28.9 pg (29.0-33.0); MEAN CORPUSCULAR HGB CONC 31.9 g/dl (32.0-37.0); MEAN CORPUSCULAR VOLUME 90.6 fl (82.0-101.0); MEAN PLATELET VOLUME 11.2 fl (7.4-10.4); MONOCYTE # 1.2 10^3/ul (0.3-0.9); MONOCYTES % 9.5 % (0.0-11.0); NEUTROPHIL # 10.3 10^3/ul (1.6-7.5); NEUTROPHILS % 82.9 % (39.0-77.0); PLATELET COUNT 249 10^3/UL (140-415); RED BLOOD COUNT 2.98 10^6/ul (4.70-6.10); RED CELL DISTRIBUTION WIDTH 15.6 % (11.5-14.5); WHITE BLOOD COUNT 12.4 10^3/ul (4.8-10.8)
[2017-05-17 08:30] LABS: CALCIUM 7.3 mg/dl (8.4-10.2); CREATININE 1.44 mg/dl (0.61-1.24); POTASSIUM 3.8 mmol/L (3.5-5.1)
[2017-05-17] MEDS: FAMOTIDINE 20 MG INJ IV SCH ×2 (08:35→20:50)
[2017-05-17] MEDS: ENOXAPARIN 30 MG/0.3 ML SYG SC SCH (08:39)
--- NOTE | 2017-05-17 10:05 | CONS ---
Date/Time of Note Date/Time of Note DATE: 05/17/17 TIME: 10:01 Assessment/Plan Assessment/Plan Chief Complaint/Hosp Course 72 y/o 1. CKD III with baseline Cr 1.4- 1.5 p/w with Cr 1.6 now back to 1.4> kidney function stable 2 Possible UTI 3 Non gap metabolic Acidosis likely due to renal disease 4 Abdominal pain s/p Lap exploration of Gall bladder with lysis of adhesion 5 Complex renal cyst on CT scan 6 CAD s/p PCI of RCI Plan - Please start Bictra 15 ml bid for NAG - U cx pending - Urolgy recommended repeating CT scan in 1 year - d/c gruber if ok with surgeon - Surgical management per surgery Problems: Consultation Date/Type/Reason Admit Date/Time May 13, 2017 at 14:10 Initial Consult Date 05/14/17 Type of Consultation: Nephrology Referring Provider: QUIANA MURCIA MD 24 HR Interval Summary Free Text/Dictation Feels better today, on regular diet Not ambulated yet Exam/Review of Systems Vital Signs Vitals Vital Signs Date Time Temp Pulse Resp B/P Pulse Ox O2 Delivery O2 Flow Rate FiO2 05/17/17 08:26 66 05/17/17 07:47 97.5 18 107/58 100 05/15/17 20:50 Nasal Cannula 2.0 Intake and Output 05/16/17 05/16/17 05/17/17 15:00 23:00 07:00 Intake Total 1100 ml 500 ml Output Total 545 ml 420 ml Balance 555 ml 80 ml Exam NERAL: A pleasant gentleman in no acute distress, alert and oriented x3. HEENT: Atraumatic, normocephalic. NECK: Supple. JVP is 7 cm. HEART: Regular, soft diastolic murmur. LUNGS: A few coarse wheezes. ABDOMEN: Distended, bowel sounds are present. There is no hepatosplenomegaly.s/p drainage EXTREMITIES: No cyanosis, clubbing or edema. Results Result Diagram: 05/17/17 0731 05/17/17 0731 Results 24 hrs Laboratory Tests Test 05/16/17 12:00 05/17/17 07:31 Blood Gas Specimen Source Blood arterial Arterial Blood Date Drawn 05/16/2017 12:40:52 PM Arterial Blood pH (Temp corrected) 7.429 Arterial Blood pCO2 (Temp correct) 26.5 L Arterial Blood pO2 (Temp corrected) 115.9 H Arterial Blood HCO3 17.2 L Arterial Blood Base Excess -6.2 L Arterial Blood Oxygen Saturation 98.1 H Ervin Test ACCEPTAB Arterial Blood Gas Puncture Site Right Radial Arterial Blood Carboxyhemoglobin 0.3 Arterial Blood Methemoglobin 0.4 Blood Gas A-a O2 Differential 45.3 H Oxyhemoglobin Percent 97.4 Total Hemoglobin 8.8 L Blood Gas Temperature 37.0 Blood Gas Modality NASAL CANNULA FiO2 27.0 Blood Gas Notified Whom JLD Blood Gas Notified Time 05/16/2017 1:03:25 PM White Blood Count 12.4 H Red Blood Count 2.98 L Hemoglobin 8.6 L Hematocrit 27.0 L Mean Corpuscular Volume 90.6 Mean Corpuscular Hemoglobin 28.9 L Mean Corpuscular Hemoglobin Concent 31.9 L Red Cell Distribution Width 15.6 H Platelet Count 249 Mean Platelet Volume 11.2 H Neutrophils % 82.9 H Lymphocytes % 6.4 L Monocytes % 9.5 Eosinophils % 0.3 Basophils % 0.1 Nucleated Red Blood Cells % 0.0 Neutrophils # 10.3 H Lymphocytes # 0.8 Monocytes # 1.2 H Eosinophils # 0.0 Basophils # 0.0 Nucleated Red Blood Cells # 0.0 Sodium Level 139 Potassium Level 3.8 Chloride Level 112 H Carbon Dioxide Level 16 L Anion Gap 15 Blood Urea Nitrogen 41 H Creatinine 1.44 H Glucose Level 254 H Calcium Level 7.3 L Medications Medications Current Medications Ondansetron HCl (Zofran Inj) 4 mg Q6H PRN IV NAUSEA AND/OR VOMITING Last administered on 05/15/17 19:47; Admin Dose 4 MG; Start 05/13/17 at 16:00 Acetaminophen (Tylenol Tab) 650 mg Q6H PRN PO PAIN LEVEL 1-3 OR FEVER; Start at 16:00 Morphine Sulfate (morphine) 2 mg Q4H PRN IV PAIN LEVEL 7-10 Last administered on 05/15/17 03:20; Admin Dose 2 MG; Start 05/13/17 at 16:00 Famotidine (Pepcid Iv) 20 mg Q12 IV Last administered on 05/17/17 08:35; Admin Dose 20 MG; Start 05/13/17 at 21:00 Enoxaparin Sodium 30 mg 30 mg DAILY SC Last administered on 05/17/17 08:39; Admin Dose 30 MG; Start 05/14/17 at 09:00 Ceftriaxone Sodium 50 ml @ 100 mls/hr Q24H IVPB Last administered on 05/16/17 15:55; Admin Dose 100 MLS/HR; Start 05/13/17 at 16:00 Metronidazole (Flagyl 500 Mg (Pmx)) 100 ml @ 100 mls/hr Q6 IVPB Last administered on 05/17/17 05:44; Admin Dose 100 MLS/HR; Start 05/13/17 at 18:00 Acetaminophen/ Hydrocodone Bitart ([place] (5/325)) 1 tab Q4H PRN PO PAIN LEVEL 4 -7; Start 05/15/17 at 19:30 Acetaminophen/ Hydrocodone Bitart ([place] (5/325)) 2 tab Q4H PRN PO PAIN LEVEL 7 -10; Start 05/15/17 at 19:30 Hydromorphone HCl (Dilaudid) 0.5 mg Q2 PRN IV PAIN; Start 05/15/17 at 19:30 Hydromorphone HCl (Dilaudid) 1 mg Q2 PRN IV PAIN; Start 05/15/17 at 19:30 Docusate Sodium (Colace) 100 mg BID PRN PO CONSTIPATION; Start 05/15/17 at 19:30 Bisacodyl (Dulcolax Supp) 10 mg BID PRN [place] CONSTIPATION; Start 05/15/17 at 19:30 Sodium Biphosphate/ Sodium Phosphate (Fleet Enema) 133 ml BID PRN [place] CONSTIPATION; Start 05/15/17 at 19:30 STEPHEN MAYBERRY MD May 17, 2017 10:05
[2017-05-17] MEDS: HYDROCODONE/APAP (5/325) TAB PO PRN ×2 (10:22→20:49)
[2017-05-17] MEDS ORDERED: GLUCOSE GEL 15 GRAM TUBE BUCCAL PRN (11:30)
[2017-05-17] MEDS ORDERED: GLUCAGON 1 MG INJ IM PRN (11:30)
[2017-05-17] MEDS ORDERED: GLUCOSE GEL 15 GRAM TUBE PO PRN ×2 (11:30)
[2017-05-17] MEDS ORDERED: DEXTROSE 50% 50 ML SYRINGE IV PRN ×2 (11:30)
--- NOTE | 2017-05-17 11:55 | CONS ---
Date/Time of Note Date/Time of Note DATE: 05/17/17 TIME: 11:50 Assessment/Plan Assessment/Plan Chief Complaint/Hosp Course IMp: 1.post-op s/p drainage of gallbladder/lysis of adhesions 2.H/O stent to RCA 3.HTN 4.HL 5.cardiomyopathy with low ef 25% by echo 04/18/17 REcc: -Tele -routine post-op care -Follow volume status closely -start BB/ACEI when able to take PO's -continue abx's -Pain control Problems: Consultation Date/Type/Reason Admit Date/Time May 13, 2017 at 14:10 Initial Consult Date 05/16/17 Type of Consultation: cardiology Reason for Consultation s/p stent Referring Provider: QUIANA MURCIA MD Exam/Review of Systems Vital Signs Vitals Vital Signs Date Time Temp Pulse Resp B/P Pulse Ox O2 Delivery O2 Flow Rate FiO2 05/17/17 11:18 98.3 74 17 104/54 96 05/15/17 20:50 Nasal Cannula 2.0 Intake and Output 05/16/17 05/16/17 05/17/17 14:59 22:59 06:59 Intake Total 1100 ml 500 ml Output Total 545 ml 420 ml Balance 555 ml 80 ml Exam Review of Systems: CONSTITUTIONAL: No fevers, chills. PULMONARY: No sob CARDIOVASCULAR: No chest pain/palpitations GASTROINTESTINAL: mmild abd pain. GENITOURINARY: No hematuria/dysuria. MUSCULOSKELETAL: No myagias/arthalgias. PSYCHIATRIC: The patient denies depression. NEUROLOGIC: No weakness Constitutional: alert Psych: no complaints Head: normocephalic ENMT: mucosa pink and moist Neck: jvd, supple Respiratory: diminished breath sounds Cardiovascular: regular rate and rhythm Gastrointestinal: other (covered by dressing), soft, tender Musculoskeletal: muscle tone Extremities: edema (none) Neurological: other (No foc al deficits) Results Result Diagram: 05/17/17 0731 05/17/17 0731 Results 24 hrs Laboratory Tests Test 05/16/17 12:00 05/17/17 07:31 Blood Gas Specimen Source Blood arterial Arterial Blood Date Drawn 05/16/2017 12:40:52 PM Arterial Blood pH (Temp corrected) 7.429 Arterial Blood pCO2 (Temp correct) 26.5 L Arterial Blood pO2 (Temp corrected) 115.9 H Arterial Blood HCO3 17.2 L Arterial Blood Base Excess -6.2 L Arterial Blood Oxygen Saturation 98.1 H Ervin Test ACCEPTAB Arterial Blood Gas Puncture Site Right Radial Arterial Blood Carboxyhemoglobin 0.3 Arterial Blood Methemoglobin 0.4 Blood Gas A-a O2 Differential 45.3 H Oxyhemoglobin Percent 97.4 Total Hemoglobin 8.8 L Blood Gas Temperature 37.0 Blood Gas Modality NASAL CANNULA FiO2 27.0 Blood Gas Notified Whom JLD Blood Gas Notified Time 05/16/2017 1:03:25 PM White Blood Count 12.4 H Red Blood Count 2.98 L Hemoglobin 8.6 L Hematocrit 27.0 L Mean Corpuscular Volume 90.6 Mean Corpuscular Hemoglobin 28.9 L Mean Corpuscular Hemoglobin Concent 31.9 L Red Cell Distribution Width 15.6 H Platelet Count 249 Mean Platelet Volume 11.2 H Neutrophils % 82.9 H Lymphocytes % 6.4 L Monocytes % 9.5 Eosinophils % 0.3 Basophils % 0.1 Nucleated Red Blood Cells % 0.0 Neutrophils # 10.3 H Lymphocytes # 0.8 Monocytes # 1.2 H Eosinophils # 0.0 Basophils # 0.0 Nucleated Red Blood Cells # 0.0 Sodium Level 139 Potassium Level 3.8 Chloride Level 112 H Carbon Dioxide Level 16 L Anion Gap 15 Blood Urea Nitrogen 41 H Creatinine 1.44 H Glucose Level 254 H Calcium Level 7.3 L Medications Medications Current Medications Ondansetron HCl (Zofran Inj) 4 mg Q6H PRN IV NAUSEA AND/OR VOMITING Last administered on 05/15/17 19:47; Admin Dose 4 MG; Start 05/13/17 at 16:00 Acetaminophen (Tylenol Tab) 650 mg Q6H PRN PO PAIN LEVEL 1-3 OR FEVER; Start at 16:00 Morphine Sulfate (morphine) 2 mg Q4H PRN IV PAIN LEVEL 7-10 Last administered on 05/15/17 03:20; Admin Dose 2 MG; Start 05/13/17 at 16:00 Famotidine (Pepcid Iv) 20 mg Q12 IV Last administered on 05/17/17 08:35; Admin Dose 20 MG; Start 05/13/17 at 21:00 Enoxaparin Sodium 30 mg 30 mg DAILY SC Last administered on 05/17/17 08:39; Admin Dose 30 MG; Start 05/14/17 at 09:00 Ceftriaxone Sodium 50 ml @ 100 mls/hr Q24H IVPB Last administered on 05/16/17 15:55; Admin Dose 100 MLS/HR; Start 05/13/17 at 16:00 Metronidazole (Flagyl 500 Mg (Pmx)) 100 ml @ 100 mls/hr Q6 IVPB Last administered on 05/17/17 05:44; Admin Dose 100 MLS/HR; Start 05/13/17 at 18:00 Acetaminophen/ Hydrocodone Bitart ([place] (5/325)) 1 tab Q4H PRN PO PAIN LEVEL 4 -7; Start 05/15/17 at 19:30 Acetaminophen/ Hydrocodone Bitart ([place] (5/325)) 2 tab Q4H PRN PO PAIN LEVEL 7 -10 Last administered on 05/17/17 10:22; Admin Dose 2 TAB; Start 05/15/17 at 19: 30 Hydromorphone HCl (Dilaudid) 0.5 mg Q2 PRN IV PAIN; Start 05/15/17 at 19:30 Hydromorphone HCl (Dilaudid) 1 mg Q2 PRN IV PAIN; Start 05/15/17 at 19:30 Docusate Sodium (Colace) 100 mg BID PRN PO CONSTIPATION; Start 05/15/17 at 19:30 Bisacodyl (Dulcolax Supp) 10 mg BID PRN [place] CONSTIPATION; Start 05/15/17 at 19:30 Sodium Biphosphate/ Sodium Phosphate (Fleet Enema) 133 ml BID PRN [place] CONSTIPATION; Start 05/15/17 at 19:30 Citric Acid/ Sodium Citrate (Bicitra) 30 ml BID PO ; Start 05/17/17 at 21:00 Diagnostic Test (Pha) (Accu-Chek) 1 ea 02 XX ; Start 05/18/17 at 02:00 Diagnostic Test (Pha) (Accu-Chek) 1 ea 02 XX ; Start 05/18/17 at 02:00 Miscellaneous Information 1 ea NOTE XX ; Start 05/17/17 at 11:30 Glucose (Glutose) 15 gm Q15M PRN PO DECREASED GLUCOSE; Start 05/17/17 at 11:30 Glucose (Glutose) 22.5 gm Q15M PRN PO DECREASED GLUCOSE; Start 05/17/17 at 11:30 Dextrose (D50w Syringe) 25 ml Q15M PRN IV DECREASED GLUCOSE; Start 05/17/17 at 11:30 Dextrose (D50w Syringe) 50 ml Q15M PRN IV DECREASED GLUCOSE; Start 05/17/17 at 11:30 Glucagon (Glucagen) 1 mg Q15M PRN IM DECREASED GLUCOSE; Start 05/17/17 at 11:30 Glucose (Glutose) 15 gm Q15M PRN BUCCAL DECREASED GLUCOSE; Start 05/17/17 at 11: 30 LESLIE LEONG May 17, 2017 11:54
[2017-05-17] MEDS: INSULIN ASPART [NOVOLOG] 3 ML PEN SC SCH ×4 (12:48→20:57)
--- NOTE | 2017-05-17 13:55 | PN ---
Date/Time of Note Date/Time of Note DATE: 05/17/17 TIME: 13:52 Assessment/Plan VTE Prophylaxis VTE Prophylaxis Intervention: SCD's Lines/Catheters [facility] Saline Lock Urinary Cath still in place: Yes Reason Cath still needed: urinary retention Assessment/Plan Chief Complaint/Hosp Course Patient's complains of occasional pain at the drain ends insertion site, otherwise denies any pains stated overall decrease in abdominal pain compared to admission. Patient with elevated blood sugar, will continue Lantus and NovoLog pre-meal NovoLog as well as NovoLog per sliding scale. He was unable to void after Carmona catheter was discontinued yesterday, Carmona catheter is currently reinserted patient has adequate urine output. Patient patient and patient's questions were answered at the bedside using account manager. Assessment/Plan -Acute cholecystitis, s/p laparoscopic exploration with drainage of gallbladder by Dr. Harden. Continue to follow-up surgical recommendation. Continue antibiotics. -Obstructive CAD, s/p ptca/stent x 3 to RCA/acute marginal by Dr. Monae on . Dr. Monae is following and cardiology consultation. -CVA with left-sided residual weakness -COPD, continue breathing treatments -Chronic kidney disease, avoid nephrotoxic medication. Dr. Toledo is following in nephrology consultation. -Diabetes mellitus type 2, continue Lantus and NovoLog. Further recommendations based on clinical course. Plan of care discussed with Dr. Paz. Problems: Exam/Review of Systems Vital Signs Vitals Vital Signs Date Time Temp Pulse Resp B/P Pulse Ox O2 Delivery O2 Flow Rate FiO2 05/17/17 12:09 77 05/17/17 11:18 98.3 17 104/54 96 05/15/17 20:50 Nasal Cannula 2.0 Intake and Output 05/16/17 05/16/17 05/17/17 15:00 23:00 07:00 Intake Total 1100 ml 500 ml Output Total 545 ml 420 ml Balance 555 ml 80 ml Exam Constitutional: alert, oriented Head: normocephalic Neck: supple Respiratory: clear to auscultation Cardiovascular: nl pulses Gastrointestinal: other (LEANN, cholecystostomy drain), soft, tender Musculoskeletal: muscle weakness Extremities: normal pulses Neurological: nl mental status Results Result Diagram: 05/17/1773005/17/17730 Results 24 hrs Laboratory Tests Test 05/17/17 07:31 05/17/17 12:41 White Blood Count 12.4 H Red Blood Count 2.98 L Hemoglobin 8.6 L Hematocrit 27.0 L Mean Corpuscular Volume 90.6 Mean Corpuscular Hemoglobin 28.9 L Mean Corpuscular Hemoglobin Concent 31.9 L Red Cell Distribution Width 15.6 H Platelet Count 249 Mean Platelet Volume 11.2 H Neutrophils % 82.9 H Lymphocytes % 6.4 L Monocytes % 9.5 Eosinophils % 0.3 Basophils % 0.1 Nucleated Red Blood Cells % 0.0 Neutrophils # 10.3 H Lymphocytes # 0.8 Monocytes # 1.2 H Eosinophils # 0.0 Basophils # 0.0 Nucleated Red Blood Cells # 0.0 Sodium Level 139 Potassium Level 3.8 Chloride Level 112 H Carbon Dioxide Level 16 L Anion Gap 15 Blood Urea Nitrogen 41 H Creatinine 1.44 H Glucose Level 254 H Calcium Level 7.3 L Bedside Glucose 300 H Medications Medications Current Medications Ondansetron HCl (Zofran Inj) 4 mg Q6H PRN IV NAUSEA AND/OR VOMITING Last administered on 05/15/17 19:47; Admin Dose 4 MG; Start 05/13/17 at 16:00 Acetaminophen (Tylenol Tab) 650 mg Q6H PRN PO PAIN LEVEL 1-3 OR FEVER; Start at 16:00 Morphine Sulfate (morphine) 2 mg Q4H PRN IV PAIN LEVEL 7-10 Last administered on 05/15/17 03:20; Admin Dose 2 MG; Start 05/13/17 at 16:00 Famotidine (Pepcid Iv) 20 mg Q12 IV Last administered on 05/17/17 08:35; Admin Dose 20 MG; Start 05/13/17 at 21:00 Enoxaparin Sodium 30 mg 30 mg DAILY SC Last administered on 05/17/17 08:39; Admin Dose 30 MG; Start 05/14/17 at 09:00 Ceftriaxone Sodium 50 ml @ 100 mls/hr Q24H IVPB Last administered on 05/16/17 15:55; Admin Dose 100 MLS/HR; Start 05/13/17 at 16:00 Metronidazole (Flagyl 500 Mg (Pmx)) 100 ml @ 100 mls/hr Q6 IVPB Last administered on 05/17/17 11:53; Admin Dose 100 MLS/HR; Start 05/13/17 at 18:00 Acetaminophen/ Hydrocodone Bitart ([place] (5/325)) 1 tab Q4H PRN PO PAIN LEVEL 4 -7; Start 05/15/17 at 19:30 Acetaminophen/ Hydrocodone Bitart ([place] (5/325)) 2 tab Q4H PRN PO PAIN LEVEL 7 -10 Last administered on 05/17/17 10:22; Admin Dose 2 TAB; Start 05/15/17 at 19: 30 Hydromorphone HCl (Dilaudid) 0.5 mg Q2 PRN IV PAIN; Start 05/15/17 at 19:30 Hydromorphone HCl (Dilaudid) 1 mg Q2 PRN IV PAIN; Start 05/15/17 at 19:30 Docusate Sodium (Colace) 100 mg BID PRN PO CONSTIPATION; Start 05/15/17 at 19:30 Bisacodyl (Dulcolax Supp) 10 mg BID PRN [place] CONSTIPATION; Start 05/15/17 at 19:30 Sodium Biphosphate/ Sodium Phosphate (Fleet Enema) 133 ml BID PRN [place] CONSTIPATION; Start 05/15/17 at 19:30 Citric Acid/ Sodium Citrate (Bicitra) 30 ml BID PO ; Start 05/17/17 at 21:00 Diagnostic Test (Pha) (Accu-Chek) 1 ea 02 XX ; Start 05/18/17 at 02:00 Diagnostic Test (Pha) (Accu-Chek) 1 ea 02 XX ; Start 05/18/17 at 02:00 Miscellaneous Information 1 ea NOTE XX ; Start 05/17/17 at 11:30 Glucose (Glutose) 15 gm Q15M PRN PO DECREASED GLUCOSE; Start 05/17/17 at 11:30 Glucose (Glutose) 22.5 gm Q15M PRN PO DECREASED GLUCOSE; Start 05/17/17 at 11:30 Dextrose (D50w Syringe) 25 ml Q15M PRN IV DECREASED GLUCOSE; Start 05/17/17 at 11:30 Dextrose (D50w Syringe) 50 ml Q15M PRN IV DECREASED GLUCOSE; Start 05/17/17 at 11:30 Glucagon (Glucagen) 1 mg Q15M PRN IM DECREASED GLUCOSE; Start 05/17/17 at 11:30 Glucose (Glutose) 15 gm Q15M PRN BUCCAL DECREASED GLUCOSE; Start 05/17/17 at 11: 30 Lisinopril (Zestril) 2.5 mg DAILY PO ; Start 05/18/17 at 09:00 Carvedilol (Coreg) 3.125 mg BID PO ; Start 05/17/17 at 21:00 Insulin Glargine (Lantus) 12 unit DAILY SC ; Start 05/17/17 at 20:00; Status UNV CALVIN CIFUENTES May 17, 2017 13:55
[2017-05-17] MEDS: SOD CHLORIDE 0.45% 1,000 ML IV SCH (14:05)
[2017-05-17] MEDS: CEFTRIAXONE 1 GM/50 ML (PMX) 50 ML IVPB SCH (16:04)
--- NOTE | 2017-05-17 20:06 | PN ---
Date/Time of Note Date/Time of Note DATE: 05/17/17 TIME: 20:02 Assessment/Plan Lines/Catheters IV Catheter Type (from Nrs): Saline Lock Carmona in Place (from Nrs): Yes Assessment/Plan Assessment/Plan [facility] Progress Note Date of Service: 05/17/2017 Place of service: [facility] 5 W. telemetry Today's Assessment & Plan: Stable and improving. Gallbladder drain and surgical drain with appropriate drainage. White blood cell count improving. No indication for acute surgical intervention at this time. Would recommend waiting several weeks with appropriate drainage prior to hopefully doing an elective laparoscopic cholecystectomy in about 4-6 weeks. Explained to patient and answered all questions. Patient appeared to understand and agreed with the plans. With above assessment, I've recommended the followin. Continue current cares 2. Consider weaning broad-spectrum antimicrobial coverage and convert to orals 3. Drain care and education for patient and family 4. Home health set up 5. Labs in a.m. 6. Discharge planning with drains in place and outpatient follow up with me in 1-2 weeks post discharge Thank you very much for having me involved in the care of this very pleasant patient and wonderful family. If you have any questions, please feel free to contact me at [phone]. Nature of presenting problem: High severity Please note that, given the multiple number of diagnoses or management options, the extensive amount and/or complexity of data needed to be reviewed, and high risk of complications and/or morbidity or mortality, this qualifies as high complexity type of decision-making. Disclaimer: Inadvertent spelling and grammatical errors are likely due to EHR/ dictation software use and do not reflect on the quality of delivered patient care. Also, please note that the electronic time recorded on this node does not necessarily reflect the actual time of the visit. Updated clinical summary: A very-pleasant 72-year-old gentleman with multiple comorbid issues presenting with a clinical picture consistent with acute cholecystitis. Concerning features included rising white blood cell count, acute renal insufficiency, malnutrition with albumin of 2.9 after hydration, and CT findings as outlined below. Comorbidities: 1. Severe acute on chronic cholecystitis with gangrene and perforation and bile leak. S/p an otherwise uncomplicated laparoscopic exploration with drainage of gallbladder and lysis of adhesions on 05/15/17 at [facility] with findings of severe acute on chronic cholecystitis with gangrenous cholecystitis, perforation and bile peritonitis 2. Chilaiditi syndrome. 3. Trace ascites. 4. 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 5. Complex calcified predominately cystic mass arising from the ventral upper third of the right kidney. A contrast-enhanced triple phase CT scan of the kidneys is recommended for further characterization. Additional renal cysts are identified in the left kidney some of which which may contain internal septations. 6. Enlarged prostate gland. 7. Atherosclerotic vascular disease. 8. Bilateral inguinal hernias containing fat. Small midline umbilical hernia containing fat. 9. Diabetes mellitus 10. CVA 11. Hypertension 12. Coronary artery calcifications with obstructive coronary artery disease; previous non-STEMI 13. Status post coronary artery stent placement 14. COPD 15. Appendectomy 30 years ago 16. Left hemiplegia 17. Renal disease 18. Complex right renal cyst. Subjective: No major events or complaints; no major abd pain and under control with medications; no n/v/d; no sob or cp; + flatus; - BM; minimal activity Objective: Vitals: See below I's & O's: See below Exam: GENERAL: On exam, the patient was sitting in a chair and appeared to be comfortable and in no acute distress. ABDOMEN: Soft, nontender and nondistended. Incisions and drain sites are clean , dry and intact without any evidence of erythema, edema, discharge, or hernia. Surgical drain ss. Percutaneous gallbladder drain bilious. There are no peritoneal signs or guarding. SKIN: Skin appears to be pink and feels warm to touch. NEUROLOGIC: Patient is awake, alert, and follows commands appropriately. Labs: See below Exam/Review of Systems Vital Signs Vitals Vital Signs Date Time Temp Pulse Resp B/P Pulse Ox O2 Delivery O2 Flow Rate FiO2 05/17/17 16:27 77 05/17/17 14:57 98.6 18 90/51 98 05/15/17 20:50 Nasal Cannula 2.0 Intake and Output 05/16/17 05/16/17 05/17/17 15:00 23:00 07:00 Intake Total 1100 ml 500 ml Output Total 545 ml 420 ml Balance 555 ml 80 ml Results Result Diagram: 05/17/17 0731 05/17/17 0731 DANA BARRETO M.D. May 17, 2017 20:06
[2017-05-17] MEDS: CITRIC ACID/NA CITRATE 30 ML CUP PO SCH (20:49)
[2017-05-17] MEDS: INSULIN GLARGINE [LANtus] 3 ML PEN SC SCH (21:00)
[2017-05-18] VITALS (12 sets, daily range): BP systolic 98–121; BP diastolic 56–61; PULSE 66–72; RESP 18–19
[2017-05-18] MEDS ORDERED: ACCU-CHEK XX SCH (02:00)
[2017-05-18] MEDS: ACCU-CHEK XX SCH (02:00)
[2017-05-18] MEDS: SOD CHLORIDE 0.45% 1,000 ML IV SCH ×2 (06:40→11:41)
[2017-05-18] MEDS: metroNIDAZOLE 500 MG/NS (PMX) 100 ML IVPB SCH ×4 (06:45→18:24)
[2017-05-18 07:37] LABS: BASOPHILS % 0.1 % (0.0-2.0); EOSINOPHILS # 0.7 10^3/ul (0.0-0.5); EOSINOPHILS % 7.7 % (0.0-7.0); HEMATOCRIT 27.2 % (42.0-52.0); HEMOGLOBIN 8.5 g/dl (14.0-18.0); LYMPHOCYTES # 1.4 10^3/ul (0.8-2.9); LYMPHOCYTES % 15.8 % (15.0-51.0); MEAN CORPUSCULAR HEMOGLOBIN 27.9 pg (29.0-33.0); MEAN CORPUSCULAR HGB CONC 31.3 g/dl (32.0-37.0); MEAN CORPUSCULAR VOLUME 89.2 fl (82.0-101.0); MEAN PLATELET VOLUME 10.8 fl (7.4-10.4); MONOCYTES % 11.4 % (0.0-11.0); NEUTROPHIL # 5.8 10^3/ul (1.6-7.5); NEUTROPHILS % 64.7 % (39.0-77.0); PLATELET COUNT 278 10^3/UL (140-415); RED BLOOD COUNT 3.05 10^6/ul (4.70-6.10); RED CELL DISTRIBUTION WIDTH 15.7 % (11.5-14.5); WHITE BLOOD COUNT 8.9 10^3/ul (4.8-10.8)
[2017-05-18] MEDS: INSULIN ASPART [NOVOLOG] 3 ML PEN SC SCH ×7 (07:55→21:00)
[2017-05-18 07:59] LABS: PARTIAL THROMBOPLASTIN TIME 39.5 Sec (25.0-35.0)
[2017-05-18 08:02] LABS: CALCIUM 7.7 mg/dl (8.4-10.2); CREATININE 1.42 mg/dl (0.61-1.24); POTASSIUM 4.3 mmol/L (3.5-5.1)
[2017-05-18] MEDS: FAMOTIDINE 20 MG INJ IV SCH (08:35)
[2017-05-18] MEDS: CITRIC ACID/NA CITRATE 30 ML CUP PO SCH ×2 (08:36→21:11)
[2017-05-18] MEDS: LISINOPRIL 5 MG TAB PO SCH (08:38)
[2017-05-18] MEDS: INSULIN GLARGINE [LANtus] 3 ML PEN SC SCH (08:48)
[2017-05-18 08:55] LABS: INR 1.3; PROTIME 16.3 Sec (12.2-14.2); PT RATIO 1.3
[2017-05-18] MEDS: ENOXAPARIN 30 MG/0.3 ML SYG SC SCH (09:40)
--- NOTE | 2017-05-18 12:16 | CONS ---
Date/Time of Note Date/Time of Note DATE: 05/18/17 TIME: 12:14 Assessment/Plan Assessment/Plan Chief Complaint/Hosp Course IMp: 1.post-op s/p drainage of gallbladder/lysis of adhesions 2.H/O stent to RCA 3.HTN 4.HL 5.cardiomyopathy with low ef 25% by echo 04/18/17-good volume status by exam today REcc: -Tele -routine post-op care -Follow volume status closely -Continue low dose BB/ACEI -continue abx's -Pain control Problems: Consultation Date/Type/Reason Admit Date/Time May 13, 2017 at 14:10 Initial Consult Date 05/16/17 Type of Consultation: cardiology Reason for Consultation cad/h/o stent Referring Provider: QUIANA MURCIA MD Exam/Review of Systems Vital Signs Vitals Vital Signs Date Time Temp Pulse Resp B/P Pulse Ox O2 Delivery O2 Flow Rate FiO2 05/18/17 12:06 72 05/18/17 11:05 98.0 18 107/60 96 05/15/17 20:50 Nasal Cannula 2.0 Intake and Output 05/17/17 05/17/17 05/18/17 15:00 23:00 07:00 Intake Total 1400 ml 1280 ml Output Total 860 ml 900 ml Balance 540 ml 380 ml Exam Review of Systems: CONSTITUTIONAL: No fevers, chills. PULMONARY: No sob CARDIOVASCULAR: No chest pain/palpitations GASTROINTESTINAL: No nausea/vomiting. GENITOURINARY: No hematuria/dysuria. MUSCULOSKELETAL: No myagias/arthalgias. PSYCHIATRIC: The patient denies depression. NEUROLOGIC: No weakness Constitutional: alert Psych: no complaints Head: normocephalic ENMT: mucosa pink and moist Neck: jvd (9 cm water), supple Respiratory: diminished breath sounds Cardiovascular: regular rate and rhythm Gastrointestinal: non-tender, soft Musculoskeletal: muscle tone (normal) Extremities: edema (none) Neurological: other (No focal deficits) Results Result Diagram: 05/18/17 0653 05/18/17 0653 Results 24 hrs Laboratory Tests Test 05/17/17 12:41 05/17/17 16:56 05/17/17 20:56 05/18/17 06:30 Bedside Glucose 300 H 165 157 Prothrombin Time 16.3 H Prothrombin Time Ratio 1.3 INR International Normalized Ratio 1.30 Activated Partial Thromboplast Time 39.5 H Test 05/18/17 06:53 05/18/17 08:30 05/18/17 11:47 White Blood Count 8.9 # Red Blood Count 3.05 L Hemoglobin 8.5 L Hematocrit 27.2 L Mean Corpuscular Volume 89.2 Mean Corpuscular Hemoglobin 27.9 L Mean Corpuscular Hemoglobin Concent 31.3 L Red Cell Distribution Width 15.7 H Platelet Count 278 Mean Platelet Volume 10.8 H Neutrophils % 64.7 Lymphocytes % 15.8 Monocytes % 11.4 H Eosinophils % 7.7 H Basophils % 0.1 Nucleated Red Blood Cells % 0.0 Neutrophils # 5.8 Lymphocytes # 1.4 Monocytes # 1.0 H Eosinophils # 0.7 H Basophils # 0.0 Nucleated Red Blood Cells # 0.0 Sodium Level 142 Potassium Level 4.3 Chloride Level 111 H Carbon Dioxide Level 22 Anion Gap 13 Blood Urea Nitrogen 36 H Creatinine 1.42 H Glucose Level 130 # Hemoglobin A1c 7.8 H Calcium Level 7.7 L Bedside Glucose 127 144 Medications Medications Current Medications Ondansetron HCl (Zofran Inj) 4 mg Q6H PRN IV NAUSEA AND/OR VOMITING Last administered on 05/15/17 19:47; Admin Dose 4 MG; Start 05/13/17 at 16:00 Acetaminophen (Tylenol Tab) 650 mg Q6H PRN PO PAIN LEVEL 1-3 OR FEVER; Start at 16:00 Morphine Sulfate (morphine) 2 mg Q4H PRN IV PAIN LEVEL 7-10 Last administered on 05/15/17 03:20; Admin Dose 2 MG; Start 05/13/17 at 16:00 Famotidine (Pepcid Iv) 20 mg Q12 IV Last administered on 05/18/17 08:35; Admin Dose 20 MG; Start 05/13/17 at 21:00 Enoxaparin Sodium 30 mg 30 mg DAILY SC Last administered on 05/18/17 09:40; Admin Dose 30 MG; Start 05/14/17 at 09:00 Ceftriaxone Sodium 50 ml @ 100 mls/hr Q24H IVPB Last administered on 05/17/17 16:04; Admin Dose 100 MLS/HR; Start 05/13/17 at 16:00 Metronidazole (Flagyl 500 Mg (Pmx)) 100 ml @ 100 mls/hr Q6 IVPB Last administered on 05/18/17 06:45; Admin Dose 100 MLS/HR; Start 05/13/17 at 18:00 Acetaminophen/ Hydrocodone Bitart ([place] (5/325)) 1 tab Q4H PRN PO PAIN LEVEL 4 -7; Start 05/15/17 at 19:30 Acetaminophen/ Hydrocodone Bitart ([place] (5/325)) 2 tab Q4H PRN PO PAIN LEVEL 7 -10 Last administered on 05/17/17 20:49; Admin Dose 2 TAB; Start 05/15/17 at 19: 30 Hydromorphone HCl (Dilaudid) 0.5 mg Q2 PRN IV PAIN; Start 05/15/17 at 19:30 Hydromorphone HCl (Dilaudid) 1 mg Q2 PRN IV PAIN; Start 05/15/17 at 19:30 Docusate Sodium (Colace) 100 mg BID PRN PO CONSTIPATION; Start 05/15/17 at 19:30 Bisacodyl (Dulcolax Supp) 10 mg BID PRN [place] CONSTIPATION; Start 05/15/17 at 19:30 Sodium Biphosphate/ Sodium Phosphate (Fleet Enema) 133 ml BID PRN [place] CONSTIPATION; Start 05/15/17 at 19:30 Citric Acid/ Sodium Citrate (Bicitra) 30 ml BID PO Last administered on 08:36; Admin Dose 30 ML; Start 05/17/17 at 21:00 Diagnostic Test (Pha) (Accu-Chek) 1 ea 02 XX ; Start 05/18/17 at 02:00 Miscellaneous Information 1 ea NOTE XX ; Start 05/17/17 at 11:30 Glucose (Glutose) 15 gm Q15M PRN PO DECREASED GLUCOSE; Start 05/17/17 at 11:30 Glucose (Glutose) 22.5 gm Q15M PRN PO DECREASED GLUCOSE; Start 05/17/17 at 11:30 Dextrose (D50w Syringe) 25 ml Q15M PRN IV DECREASED GLUCOSE; Start 05/17/17 at 11:30 Dextrose (D50w Syringe) 50 ml Q15M PRN IV DECREASED GLUCOSE; Start 05/17/17 at 11:30 Glucagon (Glucagen) 1 mg Q15M PRN IM DECREASED GLUCOSE; Start 05/17/17 at 11:30 Glucose (Glutose) 15 gm Q15M PRN BUCCAL DECREASED GLUCOSE; Start 05/17/17 at 11: 30 Lisinopril (Zestril) 2.5 mg DAILY PO Last administered on 05/18/17 08:38; Admin Dose 2.5 MG; Start 05/18/17 at 09:00 Carvedilol (Coreg) 3.125 mg BID PO Last administered on 05/18/17 08:37; Admin Dose 3.125 MG; Start 05/17/17 at 21:00 Insulin Glargine 12 unit 12 unit DAILY SC Last administered on 05/18/17 08:48 ; Admin Dose 12 UNIT; Start 05/17/17 at 20:00 Sodium Chloride (1/2 NS) 1,000 ml @ 60 mls/hr [id number] IV Last administered on 05/17/17 14:05; Admin Dose 60 MLS/HR; Start 05/17/17 at 14:00 LESLIE LEONG May 18, 2017 12:16
[2017-05-18] MEDS: CEFTRIAXONE 1 GM/50 ML (PMX) 50 ML IVPB SCH (16:33)
--- NOTE | 2017-05-18 18:42 | PN ---
Date/Time of Note Date/Time of Note DATE: 05/18/17 TIME: 18:41 Assessment/Plan Lines/Catheters IV Catheter Type (from [facility]): Peripheral IV [place] in Place (from [facility]): Yes Assessment/Plan Assessment/Plan [facility] Progress Note Date of Service: 05/18/2017 Place of service: [facility] 5 W. telemetry Today's Assessment & Plan: Stable and improving. Gallbladder drain and surgical drain with appropriate drainage. White blood cell count normalizing. No indication for acute surgical intervention at this time. Would recommend waiting several weeks with appropriate drainage prior to hopefully doing an elective laparoscopic cholecystectomy in about 4-6 weeks. I plan on taking out the surgical drain tomorrow and from my standpoint the patient may discharge from the hospital at that time. Explained to patient and answered all questions. Patient appeared to understand and agreed with the plans. With above assessment, I've recommended the followin. Continue current cares 2. Consider weaning broad-spectrum antimicrobial coverage and convert to orals 3. Drain care and education for patient and family 4. Home health set up 5. Labs in a.m. 6. Discharge planning with drains in place and outpatient follow up with me in 1-2 weeks post discharge Thank you very much for having me involved in the care of this very pleasant patient and wonderful family. If you have any questions, please feel free to contact me at [phone]. Nature of presenting problem: High severity Please note that, given the multiple number of diagnoses or management options, the extensive amount and/or complexity of data needed to be reviewed, and high risk of complications and/or morbidity or mortality, this qualifies as high complexity type of decision-making. Disclaimer: Inadvertent spelling and grammatical errors are likely due to EHR/ dictation software use and do not reflect on the quality of delivered patient care. Also, please note that the electronic time recorded on this node does not necessarily reflect the actual time of the visit. Updated clinical summary: A very-pleasant 72-year-old gentleman with multiple comorbid issues presenting with a clinical picture consistent with acute cholecystitis. Concerning features included rising white blood cell count, acute renal insufficiency, malnutrition with albumin of 2.9 after hydration, and CT findings as outlined below. Comorbidities: 1. Severe acute on chronic cholecystitis with gangrene and perforation and bile leak. S/p an otherwise uncomplicated laparoscopic exploration with drainage of gallbladder and lysis of adhesions on 05/15/17 at [facility] with findings of severe acute on chronic cholecystitis with gangrenous cholecystitis, perforation and bile peritonitis 2. Chilaiditi syndrome. 3. Trace ascites. 4. 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 5. Complex calcified predominately cystic mass arising from the ventral upper third of the right kidney. A contrast-enhanced triple phase CT scan of the kidneys is recommended for further characterization. Additional renal cysts are identified in the left kidney some of which which may contain internal septations. 6. Enlarged prostate gland. 7. Atherosclerotic vascular disease. 8. Bilateral inguinal hernias containing fat. Small midline umbilical hernia containing fat. 9. Diabetes mellitus 10. CVA 11. Hypertension 12. Coronary artery calcifications with obstructive coronary artery disease; previous non-STEMI 13. Status post coronary artery stent placement 14. COPD 15. Appendectomy 30 years ago 16. Left hemiplegia 17. Renal disease 18. Complex right renal cyst. Subjective: No major events or complaints; no major abd pain and under control with medications; no n/v/d; no sob or cp; + flatus; + BM; minimal activity Objective: Vitals: See below I's & O's: See below Exam: GENERAL: On exam, the patient was sitting in a chair and appeared to be comfortable and in no acute distress. ABDOMEN: Soft, nontender and nondistended. Incisions and drain sites are clean , dry and intact without any evidence of erythema, edema, discharge, or hernia. Surgical drain ss. Percutaneous gallbladder drain bilious. There are no peritoneal signs or guarding. SKIN: Skin appears to be pink and feels warm to touch. NEUROLOGIC: Patient is awake, alert, and follows commands appropriately. Labs: See below Exam/Review of Systems Vital Signs Vitals Vital Signs Date Time Temp Pulse Resp B/P Pulse Ox O2 Delivery O2 Flow Rate FiO2 05/18/17 16:04 68 05/18/17 15:01 98.0 18 98/56 96 05/15/17 20:50 Nasal Cannula 2.0 Intake and Output 05/17/17 05/17/17 05/18/17 15:00 23:00 07:00 Intake Total 1400 ml 1280 ml Output Total 860 ml 900 ml Balance 540 ml 380 ml Results Result Diagram: 05/18/17 0653 05/18/17 0653 DANA BARRETO M.D. May 18, 2017 18:42
--- NOTE | 2017-05-18 20:05 | CONS ---
Date/Time of Note Date/Time of Note DATE: 05/18/17 TIME: 20:01 Assessment/Plan Assessment/Plan Chief Complaint/Hosp Course 72 y/o 1. CKD III with baseline Cr 1.4- 1.5 p/w with Cr 1.6 now back to 1.4> kidney function stable 2. Non gap metabolic Acidosis likely due to renal disease 4 Abdominal pain s/p Lap exploration of Gall bladder with lysis of adhesion now with LEANN drain 5 Complex renal cyst on CT scan 6 CAD s/p PCI of RCI Plan - c.w bictra for acidosis - DM control per primary - Ambulate - Urolgy recommended repeating CT scan in 1 year - Will f/u pt as OPD for CKD once dced - Surgical management per surgery Problems: Consultation Date/Type/Reason Admit Date/Time May 13, 2017 at 14:10 Initial Consult Date 05/13/17 Type of Consultation: Nephrolgy Referring Provider: QUIANA MURCIA MD 24 HR Interval Summary Free Text/Dictation Feels better today Reinserted gruber Exam/Review of Systems Vital Signs Vitals Vital Signs Date Time Temp Pulse Resp B/P Pulse Ox O2 Delivery O2 Flow Rate FiO2 05/18/17 16:04 68 05/18/17 15:01 98.0 18 98/56 96 05/15/17 20:50 Nasal Cannula 2.0 Intake and Output 05/17/17 05/17/17 05/18/17 15:00 23:00 07:00 Intake Total 1400 ml 1280 ml Output Total 860 ml 900 ml Balance 540 ml 380 ml Results GeNERAL: A pleasant gentleman in no acute distress, alert and oriented x3. HEENT: Atraumatic, normocephalic. NECK: Supple. HEART: Regular, soft diastolic murmur. LUNGS: Clear ABDOMEN: Distended, bowel sounds are present. There is no hepatosplenomegaly.s/p drainage LEANN+ EXTREMITIES: No cyanosis, clubbing or edema. Result Diagram: 05/18/17 0653 05/18/17 0653 Results 24 hrs Laboratory Tests Test 05/17/17 20:56 05/18/17 06:30 05/18/17 06:53 05/18/17 08:30 Bedside Glucose 157 127 Prothrombin Time 16.3 H Prothrombin Time Ratio 1.3 INR International Normalized Ratio 1.30 Activated Partial Thromboplast Time 39.5 H White Blood Count 8.9 # Red Blood Count 3.05 L Hemoglobin 8.5 L Hematocrit 27.2 L Mean Corpuscular Volume 89.2 Mean Corpuscular Hemoglobin 27.9 L Mean Corpuscular Hemoglobin Concent 31.3 L Red Cell Distribution Width 15.7 H Platelet Count 278 Mean Platelet Volume 10.8 H Neutrophils % 64.7 Lymphocytes % 15.8 Monocytes % 11.4 H Eosinophils % 7.7 H Basophils % 0.1 Nucleated Red Blood Cells % 0.0 Neutrophils # 5.8 Lymphocytes # 1.4 Monocytes # 1.0 H Eosinophils # 0.7 H Basophils # 0.0 Nucleated Red Blood Cells # 0.0 Sodium Level 142 Potassium Level 4.3 Chloride Level 111 H Carbon Dioxide Level 22 Anion Gap 13 Blood Urea Nitrogen 36 H Creatinine 1.42 H Glucose Level 130 # Hemoglobin A1c 7.8 H Calcium Level 7.7 L Test 05/18/17 11:47 05/18/17 18:21 Bedside Glucose 144 78 Medications Medications Current Medications Ondansetron HCl (Zofran Inj) 4 mg Q6H PRN IV NAUSEA AND/OR VOMITING Last administered on 05/15/17 19:47; Admin Dose 4 MG; Start 05/13/17 at 16:00 Acetaminophen (Tylenol Tab) 650 mg Q6H PRN PO PAIN LEVEL 1-3 OR FEVER; Start at 16:00 Morphine Sulfate (morphine) 2 mg Q4H PRN IV PAIN LEVEL 7-10 Last administered on 05/15/17 03:20; Admin Dose 2 MG; Start 05/13/17 at 16:00 Enoxaparin Sodium 30 mg 30 mg DAILY SC Last administered on 05/18/17 09:40; Admin Dose 30 MG; Start 05/14/17 at 09:00 Ceftriaxone Sodium 50 ml @ 100 mls/hr Q24H IVPB Last administered on 16:33; Admin Dose 100 MLS/HR; Start 05/13/17 at 16:00 Metronidazole (Flagyl 500 Mg (Pmx)) 100 ml @ 100 mls/hr Q6 IVPB Last administered on 05/18/17 18:24; Admin Dose 100 MLS/HR; Start 05/13/17 at 18:00 Acetaminophen/ Hydrocodone Bitart ([place] (5/325)) 1 tab Q4H PRN PO PAIN LEVEL 4 -7; Start 05/15/17 at 19:30 Acetaminophen/ Hydrocodone Bitart ([place] (5/325)) 2 tab Q4H PRN PO PAIN LEVEL 7 -10 Last administered on 05/17/17 20:49; Admin Dose 2 TAB; Start 05/15/17 at 19: 30 Hydromorphone HCl (Dilaudid) 0.5 mg Q2 PRN IV PAIN; Start 05/15/17 at 19:30 Hydromorphone HCl (Dilaudid) 1 mg Q2 PRN IV PAIN; Start 05/15/17 at 19:30 Docusate Sodium (Colace) 100 mg BID PRN PO CONSTIPATION; Start 05/15/17 at 19:30 Bisacodyl (Dulcolax Supp) 10 mg BID PRN [place] CONSTIPATION; Start 05/15/17 at 19:30 Sodium Biphosphate/ Sodium Phosphate (Fleet Enema) 133 ml BID PRN [place] CONSTIPATION; Start 05/15/17 at 19:30 Citric Acid/ Sodium Citrate (Bicitra) 30 ml BID PO Last administered on 08:36; Admin Dose 30 ML; Start 05/17/17 at 21:00 Diagnostic Test (Pha) (Accu-Chek) 1 ea 02 XX ; Start 05/18/17 at 02:00 Miscellaneous Information 1 ea NOTE XX ; Start 05/17/17 at 11:30 Glucose (Glutose) 15 gm Q15M PRN PO DECREASED GLUCOSE; Start 05/17/17 at 11:30 Glucose (Glutose) 22.5 gm Q15M PRN PO DECREASED GLUCOSE; Start 05/17/17 at 11:30 Dextrose (D50w Syringe) 25 ml Q15M PRN IV DECREASED GLUCOSE; Start 05/17/17 at 11:30 Dextrose (D50w Syringe) 50 ml Q15M PRN IV DECREASED GLUCOSE; Start 05/17/17 at 11:30 Glucagon (Glucagen) 1 mg Q15M PRN IM DECREASED GLUCOSE; Start 05/17/17 at 11:30 Glucose (Glutose) 15 gm Q15M PRN BUCCAL DECREASED GLUCOSE; Start 05/17/17 at 11: 30 Lisinopril (Zestril) 2.5 mg DAILY PO Last administered on 05/18/17 08:38; Admin Dose 2.5 MG; Start 05/18/17 at 09:00 Carvedilol (Coreg) 3.125 mg BID PO Last administered on 05/18/17 08:37; Admin Dose 3.125 MG; Start 05/17/17 at 21:00 Insulin Glargine 12 unit 12 unit DAILY SC Last administered on 05/18/17 08:48 ; Admin Dose 12 UNIT; Start 05/17/17 at 20:00 Sodium Chloride (1/2 NS) 1,000 ml @ 60 mls/hr [id number] IV Last administered on 05/18/17 11:41; Admin Dose 60 MLS/HR; Start 05/17/17 at 14:00 Famotidine (Pepcid Iv) 20 mg DAILY IV ; Start 05/19/17 at 09:00 STEPHEN MAYBERRY MD May 18, 2017 20:05
[2017-05-19] VITALS (10 sets, daily range): BP systolic 120–131; BP diastolic 57–68; PULSE 63–76; RESP 18–20
[2017-05-19] MEDS: ACCU-CHEK XX SCH (01:03)
[2017-05-19] MEDS: metroNIDAZOLE 500 MG/NS (PMX) 100 ML IVPB SCH ×4 (05:53→17:32)
[2017-05-19] MEDS: INSULIN ASPART [NOVOLOG] 3 ML PEN SC SCH ×7 (07:55→20:47)
[2017-05-19] MEDS: SOD CHLORIDE 0.45% 1,000 ML IV SCH (08:26)
[2017-05-19] MEDS: CITRIC ACID/NA CITRATE 30 ML CUP PO SCH ×2 (08:46→20:47)
[2017-05-19] MEDS: LISINOPRIL 5 MG TAB PO SCH (08:49)
[2017-05-19] MEDS: ENOXAPARIN 30 MG/0.3 ML SYG SC SCH (08:52)
[2017-05-19] MEDS: INSULIN GLARGINE [LANtus] 3 ML PEN SC SCH (08:53)
[2017-05-19] MEDS ORDERED: FAMOTIDINE 20 MG INJ IV SCH (09:00)
--- NOTE | 2017-05-19 12:33 | CONS ---
Date/Time of Note Date/Time of Note DATE: 05/19/17 TIME: 12:31 Assessment/Plan Assessment/Plan Chief Complaint/Hosp Course IMp: 1.post-op s/p drainage of gallbladder/lysis of adhesions 2.H/O stent to RCA 3.HTN 4.HL 5.cardiomyopathy with low ef 25% by echo 04/18/17 REcc: -Tele -routine post-op care -Follow volume status closely and spot dose lasix as necessary -Continue low dose BB/ACEI -continue abx's -Pain control Problems: Consultation Date/Type/Reason Admit Date/Time May 13, 2017 at 14:10 Initial Consult Date 05/16/17 Type of Consultation: cardiology Reason for Consultation cad Referring Provider: QUIANA MURCIA MD Exam/Review of Systems Vital Signs Vitals Vital Signs Date Time Temp Pulse Resp B/P Pulse Ox O2 Delivery O2 Flow Rate FiO2 05/19/17 11:31 98.3 82 18 123/67 97 05/15/17 20:50 Nasal Cannula 2.0 Intake and Output 05/18/17 05/18/17 05/19/17 14:59 22:59 06:59 Intake Total 980 ml 800 ml 1480 ml Output Total 1000 ml 750 ml Balance 980 ml -200 ml 730 ml Exam Review of Systems: CONSTITUTIONAL: No fevers, chills. PULMONARY: No sob CARDIOVASCULAR: No chest pain/palpitations GASTROINTESTINAL: No nausea/vomiting. GENITOURINARY: No hematuria/dysuria. MUSCULOSKELETAL: No myagias/arthalgias. PSYCHIATRIC: The patient denies depression. NEUROLOGIC: No weakness Constitutional: alert Psych: no complaints Head: normocephalic ENMT: mucosa pink and moist Neck: jvd (9 cm water), supple Respiratory: clear to auscultation Cardiovascular: regular rate and rhythm Gastrointestinal: non-tender, soft Musculoskeletal: muscle tone (normal) Extremities: edema (none) Neurological: other (No foca deficits) Results Result Diagram: 05/18/17 0653 05/18/17 0653 Results 24 hrs Laboratory Tests Test 05/18/17 18:21 05/18/17 20:52 05/19/17 08:15 05/19/17 12:26 Bedside Glucose 78 109 102 128 Medications Medications Current Medications Ondansetron HCl (Zofran Inj) 4 mg Q6H PRN IV NAUSEA AND/OR VOMITING Last administered on 05/15/17 19:47; Admin Dose 4 MG; Start 05/13/17 at 16:00 Acetaminophen (Tylenol Tab) 650 mg Q6H PRN PO PAIN LEVEL 1-3 OR FEVER; Start at 16:00 Morphine Sulfate (morphine) 2 mg Q4H PRN IV PAIN LEVEL 7-10 Last administered on 05/15/17 03:20; Admin Dose 2 MG; Start 05/13/17 at 16:00 Enoxaparin Sodium 30 mg 30 mg DAILY SC Last administered on 05/19/17 08:52; Admin Dose 30 MG; Start 05/14/17 at 09:00 Ceftriaxone Sodium 50 ml @ 100 mls/hr Q24H IVPB Last administered on 16:33; Admin Dose 100 MLS/HR; Start 05/13/17 at 16:00 Metronidazole (Flagyl 500 Mg (Pmx)) 100 ml @ 100 mls/hr Q6 IVPB Last administered on 05/19/17 12:28; Admin Dose 100 MLS/HR; Start 05/13/17 at 18:00 Acetaminophen/ Hydrocodone Bitart ([place] (5/325)) 1 tab Q4H PRN PO PAIN LEVEL 4 -7; Start 05/15/17 at 19:30 Acetaminophen/ Hydrocodone Bitart ([place] (5/325)) 2 tab Q4H PRN PO PAIN LEVEL 7 -10 Last administered on 05/17/17 20:49; Admin Dose 2 TAB; Start 05/15/17 at 19: 30 Hydromorphone HCl (Dilaudid) 0.5 mg Q2 PRN IV PAIN; Start 05/15/17 at 19:30 Hydromorphone HCl (Dilaudid) 1 mg Q2 PRN IV PAIN; Start 05/15/17 at 19:30 Docusate Sodium (Colace) 100 mg BID PRN PO CONSTIPATION; Start 05/15/17 at 19:30 Bisacodyl (Dulcolax Supp) 10 mg BID PRN [place] CONSTIPATION; Start 05/15/17 at 19:30 Sodium Biphosphate/ Sodium Phosphate (Fleet Enema) 133 ml BID PRN [place] CONSTIPATION; Start 05/15/17 at 19:30 Citric Acid/ Sodium Citrate (Bicitra) 30 ml BID PO Last administered on 08:46; Admin Dose 30 ML; Start 05/17/17 at 21:00 Diagnostic Test (Pha) (Accu-Chek) 1 ea 02 XX ; Start 05/18/17 at 02:00 Miscellaneous Information 1 ea NOTE XX ; Start 05/17/17 at 11:30 Glucose (Glutose) 15 gm Q15M PRN PO DECREASED GLUCOSE; Start 05/17/17 at 11:30 Glucose (Glutose) 22.5 gm Q15M PRN PO DECREASED GLUCOSE; Start 05/17/17 at 11:30 Dextrose (D50w Syringe) 25 ml Q15M PRN IV DECREASED GLUCOSE; Start 05/17/17 at 11:30 Dextrose (D50w Syringe) 50 ml Q15M PRN IV DECREASED GLUCOSE; Start 05/17/17 at 11:30 Glucagon (Glucagen) 1 mg Q15M PRN IM DECREASED GLUCOSE; Start 05/17/17 at 11:30 Glucose (Glutose) 15 gm Q15M PRN BUCCAL DECREASED GLUCOSE; Start 05/17/17 at 11: 30 Lisinopril (Zestril) 2.5 mg DAILY PO Last administered on 05/19/17 08:49; Admin Dose 2.5 MG; Start 05/18/17 at 09:00 Carvedilol (Coreg) 3.125 mg BID PO Last administered on 05/19/17 08:47; Admin Dose 3.125 MG; Start 05/17/17 at 21:00 Insulin Glargine 12 unit 12 unit DAILY SC Last administered on 05/19/17 08:53 ; Admin Dose 12 UNIT; Start 05/17/17 at 20:00 Sodium Chloride (1/2 NS) 1,000 ml @ 60 mls/hr [id number] IV Last administered on 05/19/17 08:26; Admin Dose 60 MLS/HR; Start 05/17/17 at 14:00 Famotidine (Pepcid Iv) 20 mg DAILY IV Last administered on 05/19/17 08:55; Admin Dose 20 MG; Start 05/19/17 at 09:00 LESLIE LEONG May 19, 2017 12:32
--- NOTE | 2017-05-19 12:38 | CONS ---
Date/Time of Note Date/Time of Note DATE: 05/19/17 TIME: 12:36 Assessment/Plan Assessment/Plan Chief Complaint/Hosp Course 1. CKD mild 2. Urinary retention 4. Abdominal pain s/p Lap exploration of Gall bladder with lysis of adhesion now with LEANN drain 5. Complex renal cyst on CT scan 6. CAD 7. SIRS 8. JT Problems: Additional Assessment/Plan 1. Optimization kidney function Consultation Date/Type/Reason Admit Date/Time May 13, 2017 at 14:10 Initial Consult Date 05/16/17 Type of Consultation: nephrology Reason for Consultation Dr [place] Referring Provider: QUIANA MURCIA MD Exam/Review of Systems Vital Signs Vitals Vital Signs Date Time Temp Pulse Resp B/P Pulse Ox O2 Delivery O2 Flow Rate FiO2 05/19/17 11:31 98.3 82 18 123/67 97 05/15/17 20:50 Nasal Cannula 2.0 Intake and Output 05/18/17 05/18/17 05/19/17 15:00 23:00 07:00 Intake Total 800 ml 1480 ml Output Total 1000 ml 750 ml Balance -200 ml 730 ml Exam Constitutional: alert, oriented (name only) Eyes: nl conjunctiva Neck: supple Respiratory: diminished breath sounds Cardiovascular: regular rate and rhythm Gastrointestinal: other (JT anf bulb), soft Genitourinary - Male: nl penis Results Result Diagram: 05/18/17 0653 05/18/17 0653 Results 24 hrs Laboratory Tests Test 05/18/17 18:21 05/18/17 20:52 05/19/17 08:15 05/19/17 12:26 Bedside Glucose 78 109 102 128 Medications Medications Current Medications Ondansetron HCl (Zofran Inj) 4 mg Q6H PRN IV NAUSEA AND/OR VOMITING Last administered on 05/15/17 19:47; Admin Dose 4 MG; Start 05/13/17 at 16:00 Acetaminophen (Tylenol Tab) 650 mg Q6H PRN PO PAIN LEVEL 1-3 OR FEVER; Start at 16:00 Morphine Sulfate (morphine) 2 mg Q4H PRN IV PAIN LEVEL 7-10 Last administered on 05/15/17 03:20; Admin Dose 2 MG; Start 05/13/17 at 16:00 Enoxaparin Sodium 30 mg 30 mg DAILY SC Last administered on 05/19/17 08:52; Admin Dose 30 MG; Start 05/14/17 at 09:00 Ceftriaxone Sodium 50 ml @ 100 mls/hr Q24H IVPB Last administered on 16:33; Admin Dose 100 MLS/HR; Start 05/13/17 at 16:00 Metronidazole (Flagyl 500 Mg (Pmx)) 100 ml @ 100 mls/hr Q6 IVPB Last administered on 05/19/17 12:28; Admin Dose 100 MLS/HR; Start 05/13/17 at 18:00 Acetaminophen/ Hydrocodone Bitart ([place] (5/325)) 1 tab Q4H PRN PO PAIN LEVEL 4 -7; Start 05/15/17 at 19:30 Acetaminophen/ Hydrocodone Bitart ([place] (5/325)) 2 tab Q4H PRN PO PAIN LEVEL 7 -10 Last administered on 05/17/17 20:49; Admin Dose 2 TAB; Start 05/15/17 at 19: 30 Hydromorphone HCl (Dilaudid) 0.5 mg Q2 PRN IV PAIN; Start 05/15/17 at 19:30 Hydromorphone HCl (Dilaudid) 1 mg Q2 PRN IV PAIN; Start 05/15/17 at 19:30 Docusate Sodium (Colace) 100 mg BID PRN PO CONSTIPATION; Start 05/15/17 at 19:30 Bisacodyl (Dulcolax Supp) 10 mg BID PRN [place] CONSTIPATION; Start 05/15/17 at 19:30 Sodium Biphosphate/ Sodium Phosphate (Fleet Enema) 133 ml BID PRN [place] CONSTIPATION; Start 05/15/17 at 19:30 Citric Acid/ Sodium Citrate (Bicitra) 30 ml BID PO Last administered on 08:46; Admin Dose 30 ML; Start 05/17/17 at 21:00 Diagnostic Test (Pha) (Accu-Chek) 1 ea 02 XX ; Start 05/18/17 at 02:00 Miscellaneous Information 1 ea NOTE XX ; Start 05/17/17 at 11:30 Glucose (Glutose) 15 gm Q15M PRN PO DECREASED GLUCOSE; Start 05/17/17 at 11:30 Glucose (Glutose) 22.5 gm Q15M PRN PO DECREASED GLUCOSE; Start 05/17/17 at 11:30 Dextrose (D50w Syringe) 25 ml Q15M PRN IV DECREASED GLUCOSE; Start 05/17/17 at 11:30 Dextrose (D50w Syringe) 50 ml Q15M PRN IV DECREASED GLUCOSE; Start 05/17/17 at 11:30 Glucagon (Glucagen) 1 mg Q15M PRN IM DECREASED GLUCOSE; Start 05/17/17 at 11:30 Glucose (Glutose) 15 gm Q15M PRN BUCCAL DECREASED GLUCOSE; Start 05/17/17 at 11: 30 Lisinopril (Zestril) 2.5 mg DAILY PO Last administered on 05/19/17 08:49; Admin Dose 2.5 MG; Start 05/18/17 at 09:00 Carvedilol (Coreg) 3.125 mg BID PO Last administered on 05/19/17 08:47; Admin Dose 3.125 MG; Start 05/17/17 at 21:00 Insulin Glargine (Lantus) 12 unit DAILY SC Last administered on 05/19/17 08:53 ; Admin Dose 12 UNIT; Start 05/17/17 at 20:00 Famotidine (Pepcid Iv) 20 mg DAILY IV Last administered on 05/19/17 08:55; Admin Dose 20 MG; Start 05/19/17 at 09:00 IQRA ROMERO May 19, 2017 12:38
--- NOTE | 2017-05-19 13:17 | PN ---
Date/Time of Note Date/Time of Note DATE: 05/19/17 TIME: 13:15 Assessment/Plan VTE Prophylaxis VTE Prophylaxis Intervention: SCD's Lines/Catheters IV Catheter Type (from [facility]): Peripheral IV Urinary Cath still in place: Yes Reason Cath still needed: urinary retention Assessment/Plan Chief Complaint/Hosp Course Patient's continues to have large amount of output from LEANN asked RN to empty, patient denies any chest pain abdominal pain is well controlled. Assessment/Plan -Urinary retention, patient had a [place] catheter DC in the beginning of the week however continues to have urinary retention and the Carmona was reinserted. Dr. Castillo is following in urology consultation. -Acute cholecystitis, s/p laparoscopic exploration with drainage of gallbladder by Dr. Harden. Continue to follow-up surgical recommendation. Continue antibiotics. -Obstructive CAD, s/p ptca/stent x 3 to RCA/acute marginal by Dr. Monae on . Dr. Monae is following and cardiology consultation. -CVA with left-sided residual weakness -COPD, continue breathing treatments -Chronic kidney disease, avoid nephrotoxic medication. Dr. Toledo is following in nephrology consultation. -Diabetes mellitus type 2, continue Lantus and NovoLog. Further recommendations based on clinical course. Plan of care discussed with Dr. Paz. Problems: Exam/Review of Systems Vital Signs Vitals Vital Signs Date Time Temp Pulse Resp B/P Pulse Ox O2 Delivery O2 Flow Rate FiO2 05/19/17 12:44 76 05/19/17 11:31 98.3 18 123/67 97 05/15/17 20:50 Nasal Cannula 2.0 Intake and Output 05/18/17 05/18/17 05/19/17 15:00 23:00 07:00 Intake Total 800 ml 1480 ml Output Total 1000 ml 750 ml Balance -200 ml 730 ml Exam Constitutional: alert, oriented Head: normocephalic Neck: supple Respiratory: clear to auscultation Cardiovascular: nl pulses Gastrointestinal: other (LEANN, cholecystostomy drain), soft, tender Musculoskeletal: muscle weakness Extremities: normal pulses Neurological: nl mental status Results Result Diagram: 05/18/17 0653 05/18/17 0653 Results 24 hrs Laboratory Tests Test 05/18/17 18:21 05/18/17 20:52 05/19/17 08:15 05/19/17 12:26 Bedside Glucose 78 109 102 128 Medications Medications Current Medications Ondansetron HCl (Zofran Inj) 4 mg Q6H PRN IV NAUSEA AND/OR VOMITING Last administered on 05/15/17 19:47; Admin Dose 4 MG; Start 05/13/17 at 16:00 Acetaminophen (Tylenol Tab) 650 mg Q6H PRN PO PAIN LEVEL 1-3 OR FEVER; Start at 16:00 Morphine Sulfate (morphine) 2 mg Q4H PRN IV PAIN LEVEL 7-10 Last administered on 05/15/17 03:20; Admin Dose 2 MG; Start 05/13/17 at 16:00 Enoxaparin Sodium 30 mg 30 mg DAILY SC Last administered on 05/19/17 08:52; Admin Dose 30 MG; Start 05/14/17 at 09:00 Ceftriaxone Sodium 50 ml @ 100 mls/hr Q24H IVPB Last administered on 16:33; Admin Dose 100 MLS/HR; Start 05/13/17 at 16:00 Metronidazole (Flagyl 500 Mg (Pmx)) 100 ml @ 100 mls/hr Q6 IVPB Last administered on 05/19/17 12:28; Admin Dose 100 MLS/HR; Start 05/13/17 at 18:00 Acetaminophen/ Hydrocodone Bitart ([place] (5/325)) 1 tab Q4H PRN PO PAIN LEVEL 4 -7; Start 05/15/17 at 19:30 Acetaminophen/ Hydrocodone Bitart ([place] (5/325)) 2 tab Q4H PRN PO PAIN LEVEL 7 -10 Last administered on 05/17/17 20:49; Admin Dose 2 TAB; Start 05/15/17 at 19: 30 Hydromorphone HCl (Dilaudid) 0.5 mg Q2 PRN IV PAIN; Start 05/15/17 at 19:30 Hydromorphone HCl (Dilaudid) 1 mg Q2 PRN IV PAIN; Start 05/15/17 at 19:30 Docusate Sodium (Colace) 100 mg BID PRN PO CONSTIPATION; Start 05/15/17 at 19:30 Bisacodyl (Dulcolax Supp) 10 mg BID PRN [place] CONSTIPATION; Start 05/15/17 at 19:30 Sodium Biphosphate/ Sodium Phosphate (Fleet Enema) 133 ml BID PRN [place] CONSTIPATION; Start 05/15/17 at 19:30 Citric Acid/ Sodium Citrate (Bicitra) 30 ml BID PO Last administered on 08:46; Admin Dose 30 ML; Start 05/17/17 at 21:00 Diagnostic Test (Pha) (Accu-Chek) 1 ea 02 XX ; Start 05/18/17 at 02:00 Miscellaneous Information 1 ea NOTE XX ; Start 05/17/17 at 11:30 Glucose (Glutose) 15 gm Q15M PRN PO DECREASED GLUCOSE; Start 05/17/17 at 11:30 Glucose (Glutose) 22.5 gm Q15M PRN PO DECREASED GLUCOSE; Start 05/17/17 at 11:30 Dextrose (D50w Syringe) 25 ml Q15M PRN IV DECREASED GLUCOSE; Start 05/17/17 at 11:30 Dextrose (D50w Syringe) 50 ml Q15M PRN IV DECREASED GLUCOSE; Start 05/17/17 at 11:30 Glucagon (Glucagen) 1 mg Q15M PRN IM DECREASED GLUCOSE; Start 05/17/17 at 11:30 Glucose (Glutose) 15 gm Q15M PRN BUCCAL DECREASED GLUCOSE; Start 05/17/17 at 11: 30 Lisinopril (Zestril) 2.5 mg DAILY PO Last administered on 05/19/17 08:49; Admin Dose 2.5 MG; Start 05/18/17 at 09:00 Carvedilol (Coreg) 3.125 mg BID PO Last administered on 05/19/17 08:47; Admin Dose 3.125 MG; Start 05/17/17 at 21:00 Insulin Glargine (Lantus) 12 unit DAILY SC Last administered on 05/19/17 08:53 ; Admin Dose 12 UNIT; Start 05/17/17 at 20:00 Famotidine (Pepcid Iv) 20 mg DAILY IV Last administered on 05/19/17 08:55; Admin Dose 20 MG; Start 05/19/17 at 09:00 CALVIN CIFUENTES May 19, 2017 13:17
--- NOTE | 2017-05-19 14:22 | PN ---
Date/Time of Note Date/Time of Note DATE: 05/19/17 TIME: 14:20 Assessment/Plan Lines/Catheters IV Catheter Type (from [facility]): Peripheral IV Carmona in Place (from [facility]): Yes Assessment/Plan Assessment/Plan [facility] Progress Note Date of Service: 05/19/2017 Place of service: [facility] 5 W. telemetry Today's Assessment & Plan: Stable and improving. Gallbladder drain and surgical drain with appropriate drainage, and I discontinued the surgical drain today. White blood cell count normal. No indication for acute surgical intervention at this time. Would recommend waiting several weeks with appropriate drainage prior to hopefully doing an elective laparoscopic cholecystectomy in about 4-6 weeks. Patient may discharge home from my standpoint. Explained to patient and answered all questions. Patient appeared to understand and agreed with the plans. With above assessment, I've recommended the followin. Continue current cares 2. Consider weaning broad-spectrum antimicrobial coverage and convert to orals 3. Drain care and education for patient and family 4. Home health set up 5. Labs in a.m. 6. Discharge planning with drains in place and outpatient follow up with me in 1-2 weeks post discharge 7. I will monitor patient remotely over the weekend and will revisit as needed ; may discharge home from my standpoint Thank you very much for having me involved in the care of this very pleasant patient and wonderful family. If you have any questions, please feel free to contact me at [phone]. Nature of presenting problem: High severity Please note that, given the multiple number of diagnoses or management options, the extensive amount and/or complexity of data needed to be reviewed, and high risk of complications and/or morbidity or mortality, this qualifies as high complexity type of decision-making. Disclaimer: Inadvertent spelling and grammatical errors are likely due to EHR/ dictation software use and do not reflect on the quality of delivered patient care. Also, please note that the electronic time recorded on this node does not necessarily reflect the actual time of the visit. Updated clinical summary: A very-pleasant 72-year-old gentleman with multiple comorbid issues presenting with a clinical picture consistent with acute cholecystitis. Concerning features included rising white blood cell count, acute renal insufficiency, malnutrition with albumin of 2.9 after hydration, and CT findings as outlined below. Surgical drain discontinued 05/19/2017. Comorbidities: 1. Severe acute on chronic cholecystitis with gangrene and perforation and bile leak. S/p an otherwise uncomplicated laparoscopic exploration with drainage of gallbladder and lysis of adhesions on 05/15/17 at [facility] with findings of severe acute on chronic cholecystitis with gangrenous cholecystitis, perforation and bile peritonitis 2. Chilaiditi syndrome. 3. Trace ascites. 4. 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 5. Complex calcified predominately cystic mass arising from the ventral upper third of the right kidney. A contrast-enhanced triple phase CT scan of the kidneys is recommended for further characterization. Additional renal cysts are identified in the left kidney some of which which may contain internal septations. 6. Enlarged prostate gland. 7. Atherosclerotic vascular disease. 8. Bilateral inguinal hernias containing fat. Small midline umbilical hernia containing fat. 9. Diabetes mellitus 10. CVA 11. Hypertension 12. Coronary artery calcifications with obstructive coronary artery disease; previous non-STEMI 13. Status post coronary artery stent placement 14. COPD 15. Appendectomy 30 years ago 16. Left hemiplegia 17. Renal disease 18. Complex right renal cyst. Subjective: No major events or complaints; no major abd pain and under control with medications; no n/v/d; no sob or cp; + flatus; + BM; minimal activity Objective: Vitals: See below I's & O's: See below Exam: GENERAL: On exam, the patient was sitting in a chair and appeared to be comfortable and in no acute distress. ABDOMEN: Soft, nontender and nondistended. Incisions and drain sites are clean , dry and intact without any evidence of erythema, edema, discharge, or hernia. Surgical drain ss; discontinued at bedside without any difficulty. Percutaneous gallbladder drain bilious. There are no peritoneal signs or guarding. SKIN: Skin appears to be pink and feels warm to touch. NEUROLOGIC: Patient is awake, alert, and follows commands appropriately. Labs: See below Exam/Review of Systems Vital Signs Vitals Vital Signs Date Time Temp Pulse Resp B/P Pulse Ox O2 Delivery O2 Flow Rate FiO2 05/19/17 12:44 76 05/19/17 11:31 98.3 18 123/67 97 05/15/17 20:50 Nasal Cannula 2.0 Intake and Output 05/18/17 05/18/17 05/19/17 15:00 23:00 07:00 Intake Total 800 ml 1480 ml Output Total 1000 ml 750 ml Balance -200 ml 730 ml Results Result Diagram: 05/18/17 0653 05/18/17 0653 DANA BARRETO M.D. May 19, 2017 14:22
[2017-05-19] MEDS: CEFTRIAXONE 1 GM/50 ML (PMX) 50 ML IVPB SCH (16:32)
[2017-05-20] VITALS (12 sets, daily range): BP systolic 118–131; BP diastolic 60–68; PULSE 69–82; RESP 18–20
[2017-05-20] MEDS: metroNIDAZOLE 500 MG/NS (PMX) 100 ML IVPB SCH ×4 (00:42→18:37)
[2017-05-20] MEDS: ACCU-CHEK XX SCH (02:00)
[2017-05-20 07:10] LABS: BASOPHILS % 0.1 % (0.0-2.0); EOSINOPHILS # 0.4 10^3/ul (0.0-0.5); EOSINOPHILS % 5.3 % (0.0-7.0); HEMOGLOBIN 9.7 g/dl (14.0-18.0); LYMPHOCYTES # 1.4 10^3/ul (0.8-2.9); LYMPHOCYTES % 18.9 % (15.0-51.0); MEAN CORPUSCULAR HEMOGLOBIN 28.1 pg (29.0-33.0); MEAN CORPUSCULAR HGB CONC 32.3 g/dl (32.0-37.0); MEAN PLATELET VOLUME 10.2 fl (7.4-10.4); MONOCYTE # 0.9 10^3/ul (0.3-0.9); NEUTROPHIL # 4.6 10^3/ul (1.6-7.5); NEUTROPHILS % 63.3 % (39.0-77.0); PLATELET COUNT 354 10^3/UL (140-415); RED BLOOD COUNT 3.45 10^6/ul (4.70-6.10); RED CELL DISTRIBUTION WIDTH 15.4 % (11.5-14.5); WHITE BLOOD COUNT 7.2 10^3/ul (4.8-10.8)
[2017-05-20 07:37] LABS: CALCIUM 7.7 mg/dl (8.4-10.2); CREATININE 1.08 mg/dl (0.61-1.24); POTASSIUM 3.7 mmol/L (3.5-5.1)
[2017-05-20] MEDS: INSULIN ASPART [NOVOLOG] 3 ML PEN SC SCH ×7 (07:55→21:00)
[2017-05-20] MEDS: INSULIN GLARGINE [LANtus] 3 ML PEN SC SCH (08:56)
[2017-05-20] MEDS: ENOXAPARIN 30 MG/0.3 ML SYG SC SCH (08:59)
[2017-05-20] MEDS: CITRIC ACID/NA CITRATE 30 ML CUP PO SCH ×2 (09:00→21:05)
[2017-05-20] MEDS: FAMOTIDINE 20 MG TAB PO SCH (09:03)
[2017-05-20] MEDS: LISINOPRIL 5 MG TAB PO SCH (09:04)
--- NOTE | 2017-05-20 12:57 | CONS ---
Date/Time of Note Date/Time of Note DATE: 05/20/17 TIME: 12:56 Assessment/Plan Assessment/Plan Chief Complaint/Hosp Course 1. CKD mild 2. Urinary retention 4. Abdominal pain s/p Lap exploration of Gall bladder with lysis of adhesion now with LEANN drain 5. Complex renal cyst on CT scan 6. CAD 7. SIRS 8. JT 9. DM type II, controlled Problems: Additional Assessment/Plan 1. optimization kidney function Consultation Date/Type/Reason Admit Date/Time May 13, 2017 at 14:10 Initial Consult Date 05/16/17 Type of Consultation: nephrology Reason for Consultation Dr Toledo Referring Provider: QUIANA MURCIA MD 24 HR Interval Summary Constitutional: no complaints Exam/Review of Systems Vital Signs Vitals Vital Signs Date Time Temp Pulse Resp B/P Pulse Ox O2 Delivery O2 Flow Rate FiO2 05/20/17 11:37 98.6 81 19 129/64 99 Intake and Output 05/19/17 05/19/17 05/20/17 15:00 23:00 07:00 Intake Total 700 ml 600 ml Output Total 950 ml 1000 ml Balance -250 ml -400 ml Exam Constitutional: alert, oriented Respiratory: clear to auscultation Cardiovascular: regular rate and rhythm Results Result Diagram: 05/20/1721 05/20/17 0621 Results 24 hrs Laboratory Tests Test 05/19/17 17:24 05/19/17 20:46 05/20/17 06:21 05/20/17 08:23 Bedside Glucose 165 104 79 White Blood Count 7.2 Red Blood Count 3.45 L Hemoglobin 9.7 L Hematocrit 30.0 L Mean Corpuscular Volume 87.0 Mean Corpuscular Hemoglobin 28.1 L Mean Corpuscular Hemoglobin Concent 32.3 Red Cell Distribution Width 15.4 H Platelet Count 354 # Mean Platelet Volume 10.2 Neutrophils % 63.3 Lymphocytes % 18.9 Monocytes % 12.0 H Eosinophils % 5.3 Basophils % 0.1 Nucleated Red Blood Cells % 0.0 Neutrophils # 4.6 Lymphocytes # 1.4 Monocytes # 0.9 Eosinophils # 0.4 Basophils # 0.0 Nucleated Red Blood Cells # 0.0 Sodium Level 136 Potassium Level 3.7 Chloride Level 107 Carbon Dioxide Level 25 Anion Gap 8 Blood Urea Nitrogen 17 # Creatinine 1.08 Glucose Level 81 # Calcium Level 7.7 L Test 05/20/17 12:28 Bedside Glucose 134 Medications Medications Current Medications Ondansetron HCl (Zofran Inj) 4 mg Q6H PRN IV NAUSEA AND/OR VOMITING Last administered on 05/15/17 19:47; Admin Dose 4 MG; Start 05/13/17 at 16:00 Acetaminophen (Tylenol Tab) 650 mg Q6H PRN PO PAIN LEVEL 1-3 OR FEVER; Start at 16:00 Morphine Sulfate (morphine) 2 mg Q4H PRN IV PAIN LEVEL 7-10 Last administered on 05/15/17 03:20; Admin Dose 2 MG; Start 05/13/17 at 16:00 Enoxaparin Sodium 30 mg 30 mg DAILY SC Last administered on 05/20/17 08:59; Admin Dose 30 MG; Start 05/14/17 at 09:00 Ceftriaxone Sodium 50 ml @ 100 mls/hr Q24H IVPB Last administered on 16:32; Admin Dose 100 MLS/HR; Start 05/13/17 at 16:00 Metronidazole (Flagyl 500 Mg (Pmx)) 100 ml @ 100 mls/hr Q6 IVPB Last administered on 05/20/17 12:41; Admin Dose 100 MLS/HR; Start 05/13/17 at 18:00 Acetaminophen/ Hydrocodone Bitart ([place] (5/325)) 1 tab Q4H PRN PO PAIN LEVEL 4 -7; Start 05/15/17 at 19:30 Acetaminophen/ Hydrocodone Bitart ([place] (5/325)) 2 tab Q4H PRN PO PAIN LEVEL 7 -10 Last administered on 05/17/17 20:49; Admin Dose 2 TAB; Start 05/15/17 at 19: 30 Hydromorphone HCl (Dilaudid) 0.5 mg Q2 PRN IV PAIN; Start 05/15/17 at 19:30 Hydromorphone HCl (Dilaudid) 1 mg Q2 PRN IV PAIN; Start 05/15/17 at 19:30 Docusate Sodium (Colace) 100 mg BID PRN PO CONSTIPATION; Start 05/15/17 at 19:30 Bisacodyl (Dulcolax Supp) 10 mg BID PRN [place] CONSTIPATION; Start 05/15/17 at 19:30 Sodium Biphosphate/ Sodium Phosphate (Fleet Enema) 133 ml BID PRN [place] CONSTIPATION; Start 05/15/17 at 19:30 Citric Acid/ Sodium Citrate (Bicitra) 30 ml BID PO Last administered on 20:47; Admin Dose 30 ML; Start 05/17/17 at 21:00 Diagnostic Test (Pha) (Accu-Chek) 1 ea 02 XX ; Start 05/18/17 at 02:00 Miscellaneous Information 1 ea NOTE XX ; Start 05/17/17 at 11:30 Glucose (Glutose) 15 gm Q15M PRN PO DECREASED GLUCOSE; Start 05/17/17 at 11:30 Glucose (Glutose) 22.5 gm Q15M PRN PO DECREASED GLUCOSE; Start 05/17/17 at 11:30 Dextrose (D50w Syringe) 25 ml Q15M PRN IV DECREASED GLUCOSE; Start 05/17/17 at 11:30 Dextrose (D50w Syringe) 50 ml Q15M PRN IV DECREASED GLUCOSE; Start 05/17/17 at 11:30 Glucagon (Glucagen) 1 mg Q15M PRN IM DECREASED GLUCOSE; Start 05/17/17 at 11:30 Glucose (Glutose) 15 gm Q15M PRN BUCCAL DECREASED GLUCOSE; Start 05/17/17 at 11: 30 Lisinopril (Zestril) 2.5 mg DAILY PO Last administered on 05/20/17 09:04; Admin Dose 2.5 MG; Start 05/18/17 at 09:00 Carvedilol (Coreg) 3.125 mg BID PO Last administered on 05/20/17 09:03; Admin Dose 3.125 MG; Start 05/17/17 at 21:00 Insulin Glargine (Lantus) 12 unit DAILY SC Last administered on 05/20/17 08:56 ; Admin Dose 12 UNIT; Start 05/17/17 at 20:00 Famotidine (Pepcid) 20 mg DAILY PO Last administered on 05/20/17 09:03; Admin Dose 20 MG; Start 05/20/17 at 09:00 IQRA ROMERO May 20, 2017 12:57
--- NOTE | 2017-05-20 15:49 | PN ---
Date/Time of Note Date/Time of Note DATE: 05/20/17 TIME: 15:46 Assessment/Plan VTE Prophylaxis VTE Prophylaxis Intervention: other Lines/Catheters IV [facility] Type (from [facility] [place] Urinary Cath still in place: Yes Reason Cath still needed: urinary retention Assessment/Plan Assessment/Plan -Acute cholecystitis, s/p laparoscopic exploration with drainage of gallbladder by Dr. Harden. - Continue to follow-up surgical recommendation. Continue antibiotics. -Urinary retention, patient had a Carmona catheter DC in the beginning of the week however continues to have urinary retention and the Carmona was reinserted. - Dr. Castillo is following in urology consultation. -Obstructive CAD, s/p ptca/stent x 3 to RCA/acute marginal by Dr. Monae on . - Dr. Monae is following and cardiology consultation. -CVA with left-sided residual weakness -COPD, continue breathing treatments -Chronic kidney disease, avoid nephrotoxic medication. - Dr. Toledo is following in nephrology consultation. -Diabetes mellitus type 2, continue Lantus and NovoLog. Further recommendations based on clinical course. Plan of care discussed with Dr. Paz. Subjective 24 Hr Interval Summary Free Text/Dictation alert, sleeping, easily responsive, denies any abdominal pain /chest pain, afebrile, dw staff Cardiovascular: no complaints Gastrointestinal: pain Musculoskeletal: no complaints Exam/Review of Systems Vital Signs Vitals Vital Signs Date Time Temp Pulse Resp B/P Pulse Ox O2 Delivery O2 Flow Rate FiO2 05/20/17 15:17 98.2 86 19 118/65 99 Intake and Output 05/19/17 05/19/17 05/20/17 15:00 23:00 07:00 Intake Total 700 ml 600 ml Output Total 950 ml 1000 ml Balance -250 ml -400 ml Exam Constitutional: alert, oriented Respiratory: clear to auscultation, normal air movement Cardiovascular: nl pulses, regular rate and rhythm Gastrointestinal: other (surgical abdomen), soft Musculoskeletal: nl extremities to inspection Extremities: normal pulses Results Result Diagram: 05/20/17 0621 05/20/1721 Results 24 hrs Laboratory Tests Test 05/19/17 17:24 05/19/17 20:46 05/20/17 06:21 05/20/17 08:23 Bedside Glucose 165 104 79 White Blood Count 7.2 Red Blood Count 3.45 L Hemoglobin 9.7 L Hematocrit 30.0 L Mean Corpuscular Volume 87.0 Mean Corpuscular Hemoglobin 28.1 L Mean Corpuscular Hemoglobin Concent 32.3 Red Cell Distribution Width 15.4 H Platelet Count 354 # Mean Platelet Volume 10.2 Neutrophils % 63.3 Lymphocytes % 18.9 Monocytes % 12.0 H Eosinophils % 5.3 Basophils % 0.1 Nucleated Red Blood Cells % 0.0 Neutrophils # 4.6 Lymphocytes # 1.4 Monocytes # 0.9 Eosinophils # 0.4 Basophils # 0.0 Nucleated Red Blood Cells # 0.0 Sodium Level 136 Potassium Level 3.7 Chloride Level 107 Carbon Dioxide Level 25 Anion Gap 8 Blood Urea Nitrogen 17 # Creatinine 1.08 Glucose Level 81 # Calcium Level 7.7 L Test 05/20/17 12:28 Bedside Glucose 134 Medications Medications Current Medications Ondansetron HCl (Zofran Inj) 4 mg Q6H PRN IV NAUSEA AND/OR VOMITING Last administered on 05/15/17 19:47; Admin Dose 4 MG; Start 05/13/17 at 16:00 Acetaminophen (Tylenol Tab) 650 mg Q6H PRN PO PAIN LEVEL 1-3 OR FEVER; Start at 16:00 Morphine Sulfate (morphine) 2 mg Q4H PRN IV PAIN LEVEL 7-10 Last administered on 05/15/17 03:20; Admin Dose 2 MG; Start 05/13/17 at 16:00 Enoxaparin Sodium 30 mg 30 mg DAILY SC Last administered on 05/20/17 08:59; Admin Dose 30 MG; Start 05/14/17 at 09:00 Ceftriaxone Sodium 50 ml @ 100 mls/hr Q24H IVPB Last administered on 16:32; Admin Dose 100 MLS/HR; Start 05/13/17 at 16:00 Metronidazole (Flagyl 500 Mg (Pmx)) 100 ml @ 100 mls/hr Q6 IVPB Last administered on 05/20/17 12:41; Admin Dose 100 MLS/HR; Start 05/13/17 at 18:00 Acetaminophen/ Hydrocodone Bitart ([place] (5/325)) 1 tab Q4H PRN PO PAIN LEVEL 4 -7; Start 05/15/17 at 19:30 Acetaminophen/ Hydrocodone Bitart ([place] (5/325)) 2 tab Q4H PRN PO PAIN LEVEL 7 -10 Last administered on 05/17/17 20:49; Admin Dose 2 TAB; Start 05/15/17 at 19: 30 Hydromorphone HCl (Dilaudid) 0.5 mg Q2 PRN IV PAIN; Start 05/15/17 at 19:30 Hydromorphone HCl (Dilaudid) 1 mg Q2 PRN IV PAIN; Start 05/15/17 at 19:30 Docusate Sodium (Colace) 100 mg BID PRN PO CONSTIPATION; Start 05/15/17 at 19:30 Bisacodyl (Dulcolax Supp) 10 mg BID PRN [place] CONSTIPATION; Start 05/15/17 at 19:30 Sodium Biphosphate/ Sodium Phosphate (Fleet Enema) 133 ml BID PRN [place] CONSTIPATION; Start 05/15/17 at 19:30 Citric Acid/ Sodium Citrate (Bicitra) 30 ml BID PO Last administered on 20:47; Admin Dose 30 ML; Start 05/17/17 at 21:00 Diagnostic Test (Pha) (Accu-Chek) 1 ea 02 XX ; Start 05/18/17 at 02:00 Miscellaneous Information 1 ea NOTE XX ; Start 05/17/17 at 11:30 Glucose (Glutose) 15 gm Q15M PRN PO DECREASED GLUCOSE; Start 05/17/17 at 11:30 Glucose (Glutose) 22.5 gm Q15M PRN PO DECREASED GLUCOSE; Start 05/17/17 at 11:30 Dextrose (D50w Syringe) 25 ml Q15M PRN IV DECREASED GLUCOSE; Start 05/17/17 at 11:30 Dextrose (D50w Syringe) 50 ml Q15M PRN IV DECREASED GLUCOSE; Start 05/17/17 at 11:30 Glucagon (Glucagen) 1 mg Q15M PRN IM DECREASED GLUCOSE; Start 05/17/17 at 11:30 Glucose (Glutose) 15 gm Q15M PRN BUCCAL DECREASED GLUCOSE; Start 05/17/17 at 11: 30 Lisinopril (Zestril) 2.5 mg DAILY PO Last administered on 05/20/17 09:04; Admin Dose 2.5 MG; Start 05/18/17 at 09:00 Carvedilol (Coreg) 3.125 mg BID PO Last administered on 05/20/17 09:03; Admin Dose 3.125 MG; Start 05/17/17 at 21:00 Insulin Glargine (Lantus) 12 unit DAILY SC Last administered on 05/20/17 08:56 ; Admin Dose 12 UNIT; Start 05/17/17 at 20:00 Famotidine (Pepcid) 20 mg DAILY PO Last administered on 05/20/17 09:03; Admin Dose 20 MG; Start 05/20/17 at 09:00 EUFEMIA WALKER May 20, 2017 15:49
--- NOTE | 2017-05-20 15:57 | CONS ---
Date/Time of Note Date/Time of Note DATE: 05/20/17 TIME: 15:53 Assessment/Plan Assessment/Plan Additional Assessment/Plan CAD s/p stenting of RCA Ischemic Cardiomyopathy Hypertension Hyperlipidemia Anemia s/p drainage of gallbladder with lysis of adhesions Continue Coreg Continue Lisinopril Continue Insulin Continue Antibiotics Continue GI and DVT Prophylaxis Consultation Date/Type/Reason Admit Date/Time May 13, 2017 at 14:10 Constitutional: no complaints Eyes: no complaints ENT: no complaints Respiratory: no complaints Cardiovascular: no complaints Gastrointestinal: pain Genitourinary: other (Patient states he has nocturia about 5 times a night and during the day he urinates very often and sometimes he says for every 5-10 minutes. He complains of dysuria. No history of gross hematuria. The urinary stream is slow and he feels he does not empty his bladder well) Musculoskeletal: no complaints Skin: no complaints Neurologic: focal-weakness (Left hemiplegia), no complaints, other Endocrine: no complaints Lymphatic: no complaints Psychological: no complaints Past Medical History Medical History: coronary artery disease, diabetes, high cholesterol, hypertension, renal disease Past Surgical History Past Surgical Hx: angioplasty, appendectomy, other (Recent drainage of the gallbladder) Social History Alcohol Use: none Smoking Status: Never smoker Exam/Review of Systems Vital Signs Vitals Vital Signs Date Time Temp Pulse Resp B/P Pulse Ox O2 Delivery O2 Flow Rate FiO2 05/20/17 15:17 98.2 86 19 118/65 99 Intake and Output 05/19/17 05/19/17 05/20/17 15:00 23:00 07:00 Intake Total 700 ml 600 ml Output Total 950 ml 1000 ml Balance -250 ml -400 ml Exam Constitutional: alert, oriented Head: atraumatic, normocephalic Neck: non-tender, supple Respiratory: clear to auscultation Cardiovascular: regular rate and rhythm Gastrointestinal: nl liver, spleen, non-tender, soft Extremities: normal pulses Results Result Diagram: 05/20/17 0621 05/20/17 0621 Results 24 hrs Laboratory Tests Test 05/19/17 17:24 05/19/17 20:46 05/20/17 06:21 05/20/17 08:23 Bedside Glucose 165 104 79 White Blood Count 7.2 Red Blood Count 3.45 L Hemoglobin 9.7 L Hematocrit 30.0 L Mean Corpuscular Volume 87.0 Mean Corpuscular Hemoglobin 28.1 L Mean Corpuscular Hemoglobin Concent 32.3 Red Cell Distribution Width 15.4 H Platelet Count 354 # Mean Platelet Volume 10.2 Neutrophils % 63.3 Lymphocytes % 18.9 Monocytes % 12.0 H Eosinophils % 5.3 Basophils % 0.1 Nucleated Red Blood Cells % 0.0 Neutrophils # 4.6 Lymphocytes # 1.4 Monocytes # 0.9 Eosinophils # 0.4 Basophils # 0.0 Nucleated Red Blood Cells # 0.0 Sodium Level 136 Potassium Level 3.7 Chloride Level 107 Carbon Dioxide Level 25 Anion Gap 8 Blood Urea Nitrogen 17 # Creatinine 1.08 Glucose Level 81 # Calcium Level 7.7 L Test 05/20/17 12:28 Bedside Glucose 134 Medications Medications Current Medications Ondansetron HCl (Zofran Inj) 4 mg Q6H PRN IV NAUSEA AND/OR VOMITING Last administered on 05/15/17 19:47; Admin Dose 4 MG; Start 05/13/17 at 16:00 Acetaminophen (Tylenol Tab) 650 mg Q6H PRN PO PAIN LEVEL 1-3 OR FEVER; Start at 16:00 Morphine Sulfate (morphine) 2 mg Q4H PRN IV PAIN LEVEL 7-10 Last administered on 05/15/17 03:20; Admin Dose 2 MG; Start 05/13/17 at 16:00 Enoxaparin Sodium 30 mg 30 mg DAILY SC Last administered on 05/20/17 08:59; Admin Dose 30 MG; Start 05/14/17 at 09:00 Ceftriaxone Sodium 50 ml @ 100 mls/hr Q24H IVPB Last administered on 16:32; Admin Dose 100 MLS/HR; Start 05/13/17 at 16:00 Metronidazole (Flagyl 500 Mg (Pmx)) 100 ml @ 100 mls/hr Q6 IVPB Last administered on 05/20/17 12:41; Admin Dose 100 MLS/HR; Start 05/13/17 at 18:00 Acetaminophen/ Hydrocodone Bitart ([place] (5/325)) 1 tab Q4H PRN PO PAIN LEVEL 4 -7; Start 05/15/17 at 19:30 Acetaminophen/ Hydrocodone Bitart ([place] (5/325)) 2 tab Q4H PRN PO PAIN LEVEL 7 -10 Last administered on 05/17/17 20:49; Admin Dose 2 TAB; Start 05/15/17 at 19: 30 Hydromorphone HCl (Dilaudid) 0.5 mg Q2 PRN IV PAIN; Start 05/15/17 at 19:30 Hydromorphone HCl (Dilaudid) 1 mg Q2 PRN IV PAIN; Start 05/15/17 at 19:30 Docusate Sodium (Colace) 100 mg BID PRN PO CONSTIPATION; Start 05/15/17 at 19:30 Bisacodyl (Dulcolax Supp) 10 mg BID PRN [place] CONSTIPATION; Start 05/15/17 at 19:30 Sodium Biphosphate/ Sodium Phosphate (Fleet Enema) 133 ml BID PRN [place] CONSTIPATION; Start 05/15/17 at 19:30 Citric Acid/ Sodium Citrate (Bicitra) 30 ml BID PO Last administered on 20:47; Admin Dose 30 ML; Start 05/17/17 at 21:00 Diagnostic Test (Pha) (Accu-Chek) 1 ea 02 XX ; Start 05/18/17 at 02:00 Miscellaneous Information 1 ea NOTE XX ; Start 05/17/17 at 11:30 Glucose (Glutose) 15 gm Q15M PRN PO DECREASED GLUCOSE; Start 05/17/17 at 11:30 Glucose (Glutose) 22.5 gm Q15M PRN PO DECREASED GLUCOSE; Start 05/17/17 at 11:30 Dextrose (D50w Syringe) 25 ml Q15M PRN IV DECREASED GLUCOSE; Start 05/17/17 at 11:30 Dextrose (D50w Syringe) 50 ml Q15M PRN IV DECREASED GLUCOSE; Start 05/17/17 at 11:30 Glucagon (Glucagen) 1 mg Q15M PRN IM DECREASED GLUCOSE; Start 05/17/17 at 11:30 Glucose (Glutose) 15 gm Q15M PRN BUCCAL DECREASED GLUCOSE; Start 05/17/17 at 11: 30 Lisinopril (Zestril) 2.5 mg DAILY PO Last administered on 05/20/17 09:04; Admin Dose 2.5 MG; Start 05/18/17 at 09:00 Carvedilol (Coreg) 3.125 mg BID PO Last administered on 05/20/17 09:03; Admin Dose 3.125 MG; Start 05/17/17 at 21:00 Insulin Glargine (Lantus) 12 unit DAILY SC Last administered on 05/20/17 08:56 ; Admin Dose 12 UNIT; Start 05/17/17 at 20:00 Famotidine (Pepcid) 20 mg DAILY PO Last administered on 05/20/17 09:03; Admin Dose 20 MG; Start 05/20/17 at 09:00 BURT GARCIA M.D. May 20, 2017 15:57
[2017-05-20] MEDS: CEFTRIAXONE 1 GM/50 ML (PMX) 50 ML IVPB SCH (16:18)
[2017-05-20] MEDS: BISACODYL 10 MG SUPP PR PRN (16:23)
[2017-05-21] VITALS (14 sets, daily range): BP systolic 99–132; BP diastolic 54–67; PULSE 63–100; RESP 15–20
[2017-05-21] MEDS: metroNIDAZOLE 500 MG/NS (PMX) 100 ML IVPB SCH ×4 (01:21→18:05)
[2017-05-21] MEDS: ACCU-CHEK XX SCH (02:00)
[2017-05-21 06:40] LABS: BASOPHILS % 0.3 % (0.0-2.0); EOSINOPHILS # 0.4 10^3/ul (0.0-0.5); EOSINOPHILS % 5.4 % (0.0-7.0); HEMATOCRIT 29.6 % (42.0-52.0); HEMOGLOBIN 9.5 g/dl (14.0-18.0); LYMPHOCYTES # 1.7 10^3/ul (0.8-2.9); LYMPHOCYTES % 22.6 % (15.0-51.0); MEAN CORPUSCULAR HEMOGLOBIN 27.9 pg (29.0-33.0); MEAN CORPUSCULAR HGB CONC 32.1 g/dl (32.0-37.0); MEAN CORPUSCULAR VOLUME 86.8 fl (82.0-101.0); MEAN PLATELET VOLUME 10.5 fl (7.4-10.4); MONOCYTES % 13.3 % (0.0-11.0); NEUTROPHIL # 4.3 10^3/ul (1.6-7.5); NEUTROPHILS % 57.9 % (39.0-77.0); PLATELET COUNT 359 10^3/UL (140-415); RED BLOOD COUNT 3.41 10^6/ul (4.70-6.10); RED CELL DISTRIBUTION WIDTH 15.8 % (11.5-14.5); WHITE BLOOD COUNT 7.4 10^3/ul (4.8-10.8)
[2017-05-21 07:19] LABS: CALCIUM 7.9 mg/dl (8.4-10.2); CREATININE 1.09 mg/dl (0.61-1.24); POTASSIUM 4.1 mmol/L (3.5-5.1)
[2017-05-21] MEDS: INSULIN ASPART [NOVOLOG] 3 ML PEN SC SCH ×7 (07:55→21:00)
[2017-05-21] MEDS: ENOXAPARIN 30 MG/0.3 ML SYG SC SCH (08:25)
[2017-05-21] MEDS: INSULIN GLARGINE [LANtus] 3 ML PEN SC SCH (08:25)
[2017-05-21] MEDS: LISINOPRIL 5 MG TAB PO SCH (08:31)
[2017-05-21] MEDS: FAMOTIDINE 20 MG TAB PO SCH (08:31)
[2017-05-21] MEDS: CITRIC ACID/NA CITRATE 30 ML CUP PO SCH ×2 (08:32→22:03)
--- NOTE | 2017-05-21 10:52 | PN ---
Date/Time of Note Date/Time of Note DATE: 05/21/17 TIME: 10:50 Assessment/Plan Lines/Catheters IV Catheter Type (from [facility]): Saline Lock [place] in Place (from [facility]): Yes Assessment/Plan Assessment/Plan [facility] Progress Note Date of Service: 05/21/2017 Place of service: [facility] 5 W. telemetry Today's Assessment & Plan: Stable and improving. Gallbladder drain with appropriate drainage. No indication for acute surgical intervention at this time. Would recommend waiting several weeks with appropriate drainage prior to hopefully doing an elective laparoscopic cholecystectomy in about 4-6 weeks. Patient may discharge home from my standpoint. Did not wake patient up today. With above assessment, I've recommended the followin. Continue current cares 2. Consider weaning broad-spectrum antimicrobial coverage and convert to orals 3. Drain care and education for patient and family 4. Home health set up 5. Labs in a.m. 6. Discharge planning with drains in place and outpatient follow up with me in 1-2 weeks post discharge 7. I will monitor patient remotely over the weekend and will revisit as needed ; may discharge home from my standpoint Thank you very much for having me involved in the care of this very pleasant patient and wonderful family. If you have any questions, please feel free to contact me at [phone]. Nature of presenting problem: High severity Please note that, given the multiple number of diagnoses or management options, the extensive amount and/or complexity of data needed to be reviewed, and high risk of complications and/or morbidity or mortality, this qualifies as high complexity type of decision-making. Disclaimer: Inadvertent spelling and grammatical errors are likely due to EHR/ dictation software use and do not reflect on the quality of delivered patient care. Also, please note that the electronic time recorded on this node does not necessarily reflect the actual time of the visit. Updated clinical summary: A very-pleasant 72-year-old gentleman with multiple comorbid issues presenting with a clinical picture consistent with acute cholecystitis. Concerning features included rising white blood cell count, acute renal insufficiency, malnutrition with albumin of 2.9 after hydration, and CT findings as outlined below. Surgical drain discontinued 05/19/2017. Comorbidities: 1. Severe acute on chronic cholecystitis with gangrene and perforation and bile leak. S/p an otherwise uncomplicated laparoscopic exploration with drainage of gallbladder and lysis of adhesions on 05/15/17 at [facility] with findings of severe acute on chronic cholecystitis with gangrenous cholecystitis, perforation and bile peritonitis 2. Chilaiditi syndrome. 3. Trace ascites. 4. 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 5. Complex calcified predominately cystic mass arising from the ventral upper third of the right kidney. A contrast-enhanced triple phase CT scan of the kidneys is recommended for further characterization. Additional renal cysts are identified in the left kidney some of which which may contain internal septations. 6. Enlarged prostate gland. 7. Atherosclerotic vascular disease. 8. Bilateral inguinal hernias containing fat. Small midline umbilical hernia containing fat. 9. Diabetes mellitus 10. CVA 11. Hypertension 12. Coronary artery calcifications with obstructive coronary artery disease; previous non-STEMI 13. Status post coronary artery stent placement 14. COPD 15. Appendectomy 30 years ago 16. Left hemiplegia 17. Renal disease 18. Complex right renal cyst. Subjective: No major events or reported complaints. Did not wake patient up today. Objective: Vitals: See below I's & O's: See below Exam: GENERAL: On exam, the patient was laying in bed and sleeping comfortably. Did not wake patient up today. Labs: See below Exam/Review of Systems Vital Signs Vitals Vital Signs Date Time Temp Pulse Resp B/P Pulse Ox O2 Delivery O2 Flow Rate FiO2 05/21/17 08:12 68 05/21/17 07:30 97.9 18 120/67 99 05/20/17 20:10 Room Air Intake and Output 05/20/17 05/20/17 05/21/17 15:00 23:00 07:00 Intake Total 1200 ml Output Total 1000 ml Balance 200 ml Results Result Diagram: 05/21/17 0601 05/21/17 0601 DANA BARRETO M.D. May 21, 2017 10:52
[2017-05-21] MEDS: CEFTRIAXONE 1 GM/50 ML (PMX) 50 ML IVPB SCH (16:04)
[2017-05-21] MEDS: BISACODYL 10 MG SUPP PR PRN (16:05)
--- NOTE | 2017-05-21 16:16 | CONS ---
Date/Time of Note Date/Time of Note DATE: 05/21/17 TIME: 16:15 Assessment/Plan Assessment/Plan Additional Assessment/Plan CAD s/p stenting of RCA Ischemic Cardiomyopathy Hypertension Hyperlipidemia Anemia s/p drainage of gallbladder with lysis of adhesions Continue Coreg Continue Lisinopril Continue Insulin Continue Antibiotics Continue GI and DVT Prophylaxis Consultation Date/Type/Reason Admit Date/Time May 13, 2017 at 14:10 Initial Consult Date 05/16/17 Type of Consultation: nephrology Referring Provider: QUIANA MURCIA MD Exam/Review of Systems Vital Signs Vitals Vital Signs Date Time Temp Pulse Resp B/P Pulse Ox O2 Delivery O2 Flow Rate FiO2 05/21/17 15:54 98.0 78 20 113/66 99 05/20/17 20:10 Room Air Intake and Output 05/20/17 05/20/17 05/21/17 15:00 23:00 07:00 Intake Total 1200 ml Output Total 1000 ml Balance 200 ml Exam Psych: no complaints Head: atraumatic, normocephalic Respiratory: clear to auscultation Cardiovascular: regular rate and rhythm Gastrointestinal: nl liver, spleen, non-tender, soft Extremities: normal pulses Results Result Diagram: 05/21/17 0601 05/21/17 0601 Results 24 hrs Laboratory Tests Test 05/20/17 18:31 05/20/17 21:04 05/21/17 06:01 05/21/17 08:18 Bedside Glucose 144 108 114 White Blood Count 7.4 Red Blood Count 3.41 L Hemoglobin 9.5 L Hematocrit 29.6 L Mean Corpuscular Volume 86.8 Mean Corpuscular Hemoglobin 27.9 L Mean Corpuscular Hemoglobin Concent 32.1 Red Cell Distribution Width 15.8 H Platelet Count 359 Mean Platelet Volume 10.5 H Neutrophils % 57.9 Lymphocytes % 22.6 Monocytes % 13.3 H Eosinophils % 5.4 Basophils % 0.3 Nucleated Red Blood Cells % 0.0 Neutrophils # 4.3 Lymphocytes # 1.7 Monocytes # 1.0 H Eosinophils # 0.4 Basophils # 0.0 Nucleated Red Blood Cells # 0.0 Sodium Level 137 Potassium Level 4.1 Chloride Level 106 Carbon Dioxide Level 26 Anion Gap 9 Blood Urea Nitrogen 16 Creatinine 1.09 Glucose Level 102 Calcium Level 7.9 L Test 05/21/17 11:48 Bedside Glucose 177 Medications Medications Current Medications Ondansetron HCl (Zofran Inj) 4 mg Q6H PRN IV NAUSEA AND/OR VOMITING Last administered on 05/15/17 19:47; Admin Dose 4 MG; Start 05/13/17 at 16:00 Acetaminophen (Tylenol Tab) 650 mg Q6H PRN PO PAIN LEVEL 1-3 OR FEVER; Start at 16:00 Morphine Sulfate (morphine) 2 mg Q4H PRN IV PAIN LEVEL 7-10 Last administered on 05/15/17 03:20; Admin Dose 2 MG; Start 05/13/17 at 16:00 Enoxaparin Sodium 30 mg 30 mg DAILY SC Last administered on 05/21/17 08:25; Admin Dose 30 MG; Start 05/14/17 at 09:00 Ceftriaxone Sodium 50 ml @ 100 mls/hr Q24H IVPB Last administered on 16:04; Admin Dose 100 MLS/HR; Start 05/13/17 at 16:00 Metronidazole (Flagyl 500 Mg (Pmx)) 100 ml @ 100 mls/hr Q6 IVPB Last administered on 05/21/17 11:50; Admin Dose 100 MLS/HR; Start 05/13/17 at 18:00 Acetaminophen/ Hydrocodone Bitart ([place] (5/325)) 1 tab Q4H PRN PO PAIN LEVEL 4 -7; Start 05/15/17 at 19:30 Acetaminophen/ Hydrocodone Bitart ([place] (5/325)) 2 tab Q4H PRN PO PAIN LEVEL 7 -10 Last administered on 05/17/17 20:49; Admin Dose 2 TAB; Start 05/15/17 at 19: 30 Hydromorphone HCl (Dilaudid) 0.5 mg Q2 PRN IV PAIN; Start 05/15/17 at 19:30 Hydromorphone HCl (Dilaudid) 1 mg Q2 PRN IV PAIN; Start 05/15/17 at 19:30 Docusate Sodium (Colace) 100 mg BID PRN PO CONSTIPATION; Start 05/15/17 at 19:30 Bisacodyl (Dulcolax Supp) 10 mg BID PRN [place] CONSTIPATION Last administered on 16:05; Admin Dose 10 MG; Start 05/15/17 at 19:30 Sodium Biphosphate/ Sodium Phosphate (Fleet Enema) 133 ml BID PRN IN CONSTIPATION; Start 05/15/17 at 19:30 Citric Acid/ Sodium Citrate (Bicitra) 30 ml BID PO Last administered on 08:32; Admin Dose 30 ML; Start 05/17/17 at 21:00 Diagnostic Test (Pha) (Accu-Chek) 1 ea 02 XX ; Start 05/18/17 at 02:00 Miscellaneous Information 1 ea NOTE XX ; Start 05/17/17 at 11:30 Glucose (Glutose) 15 gm Q15M PRN PO DECREASED GLUCOSE; Start 05/17/17 at 11:30 Glucose (Glutose) 22.5 gm Q15M PRN PO DECREASED GLUCOSE; Start 05/17/17 at 11:30 Dextrose (D50w Syringe) 25 ml Q15M PRN IV DECREASED GLUCOSE; Start 05/17/17 at 11:30 Dextrose (D50w Syringe) 50 ml Q15M PRN IV DECREASED GLUCOSE; Start 05/17/17 at 11:30 Glucagon (Glucagen) 1 mg Q15M PRN IM DECREASED GLUCOSE; Start 05/17/17 at 11:30 Glucose (Glutose) 15 gm Q15M PRN BUCCAL DECREASED GLUCOSE; Start 05/17/17 at 11: 30 Lisinopril (Zestril) 2.5 mg DAILY PO Last administered on 05/21/17 08:31; Admin Dose 2.5 MG; Start 05/18/17 at 09:00 Carvedilol (Coreg) 3.125 mg BID PO Last administered on 05/21/17 08:31; Admin Dose 3.125 MG; Start 05/17/17 at 21:00 Insulin Glargine (Lantus) 12 unit DAILY SC Last administered on 05/21/17 08:25 ; Admin Dose 12 UNIT; Start 05/17/17 at 20:00 Famotidine (Pepcid) 20 mg DAILY PO Last administered on 05/21/17 08:31; Admin Dose 20 MG; Start 05/20/17 at 09:00 BURT GARCIA M.D. May 21, 2017 16:16
--- NOTE | 2017-05-21 16:56 | CONS ---
Date/Time of Note Date/Time of Note DATE: 05/21/17 TIME: 16:54 Assessment/Plan Assessment/Plan Chief Complaint/Hosp Course S/P MARLEN BETTER COPD S/P GALLBLADDER DRAINAGE PLAN LYTE STABLE Problems: Consultation Date/Type/Reason Admit Date/Time May 13, 2017 at 14:10 Initial Consult Date 05/16/17 Type of Consultation: nephrology Referring Provider: QUIANA MURCIA MD 24 HR Interval Summary Constitutional: no complaints Exam/Review of Systems Vital Signs Vitals Vital Signs Date Time Temp Pulse Resp B/P Pulse Ox O2 Delivery O2 Flow Rate FiO2 05/21/17 16:12 82 05/21/17 15:54 98.0 20 113/66 99 05/20/17 20:10 Room Air Intake and Output 05/20/17 05/20/17 05/21/17 15:00 23:00 07:00 Intake Total 1200 ml Output Total 1000 ml Balance 200 ml Exam Respiratory: clear to auscultation Cardiovascular: regular rate and rhythm Gastrointestinal: soft Musculoskeletal: nl extremities to inspection Results Result Diagram: 05/21/17 0601 05/21/17 0601 Results 24 hrs Laboratory Tests Test 05/20/17 18:31 05/20/17 21:04 05/21/17 06:01 05/21/17 08:18 Bedside Glucose 144 108 114 White Blood Count 7.4 Red Blood Count 3.41 L Hemoglobin 9.5 L Hematocrit 29.6 L Mean Corpuscular Volume 86.8 Mean Corpuscular Hemoglobin 27.9 L Mean Corpuscular Hemoglobin Concent 32.1 Red Cell Distribution Width 15.8 H Platelet Count 359 Mean Platelet Volume 10.5 H Neutrophils % 57.9 Lymphocytes % 22.6 Monocytes % 13.3 H Eosinophils % 5.4 Basophils % 0.3 Nucleated Red Blood Cells % 0.0 Neutrophils # 4.3 Lymphocytes # 1.7 Monocytes # 1.0 H Eosinophils # 0.4 Basophils # 0.0 Nucleated Red Blood Cells # 0.0 Sodium Level 137 Potassium Level 4.1 Chloride Level 106 Carbon Dioxide Level 26 Anion Gap 9 Blood Urea Nitrogen 16 Creatinine 1.09 Glucose Level 102 Calcium Level 7.9 L Test 05/21/17 11:48 Bedside Glucose 177 Medications Medications Current Medications Ondansetron HCl (Zofran Inj) 4 mg Q6H PRN IV NAUSEA AND/OR VOMITING Last administered on 05/15/17 19:47; Admin Dose 4 MG; Start 05/13/17 at 16:00 Acetaminophen (Tylenol Tab) 650 mg Q6H PRN PO PAIN LEVEL 1-3 OR FEVER; Start at 16:00 Morphine Sulfate (morphine) 2 mg Q4H PRN IV PAIN LEVEL 7-10 Last administered on 05/15/17 03:20; Admin Dose 2 MG; Start 05/13/17 at 16:00 Enoxaparin Sodium 30 mg 30 mg DAILY SC Last administered on 05/21/17 08:25; Admin Dose 30 MG; Start 05/14/17 at 09:00 Ceftriaxone Sodium 50 ml @ 100 mls/hr Q24H IVPB Last administered on 16:04; Admin Dose 100 MLS/HR; Start 05/13/17 at 16:00 Metronidazole (Flagyl 500 Mg (Pmx)) 100 ml @ 100 mls/hr Q6 IVPB Last administered on 05/21/17 11:50; Admin Dose 100 MLS/HR; Start 05/13/17 at 18:00 Acetaminophen/ Hydrocodone Bitart ([place] (5/325)) 1 tab Q4H PRN PO PAIN LEVEL 4 -7; Start 05/15/17 at 19:30 Acetaminophen/ Hydrocodone Bitart ([place] (5/325)) 2 tab Q4H PRN PO PAIN LEVEL 7 -10 Last administered on 05/17/17 20:49; Admin Dose 2 TAB; Start 05/15/17 at 19: 30 Hydromorphone HCl (Dilaudid) 0.5 mg Q2 PRN IV PAIN; Start 05/15/17 at 19:30 Hydromorphone HCl (Dilaudid) 1 mg Q2 PRN IV PAIN; Start 05/15/17 at 19:30 Docusate Sodium (Colace) 100 mg BID PRN PO CONSTIPATION; Start 05/15/17 at 19:30 Bisacodyl (Dulcolax Supp) 10 mg BID PRN [place] CONSTIPATION Last administered on 16:05; Admin Dose 10 MG; Start 05/15/17 at 19:30 Sodium Biphosphate/ Sodium Phosphate (Fleet Enema) 133 ml BID PRN [place] CONSTIPATION; Start 05/15/17 at 19:30 Citric Acid/ Sodium Citrate (Bicitra) 30 ml BID PO Last administered on 08:32; Admin Dose 30 ML; Start 05/17/17 at 21:00 Diagnostic Test (Pha) (Accu-Chek) 1 ea 02 XX ; Start 05/18/17 at 02:00 Miscellaneous Information 1 ea NOTE XX ; Start 05/17/17 at 11:30 Glucose (Glutose) 15 gm Q15M PRN PO DECREASED GLUCOSE; Start 05/17/17 at 11:30 Glucose (Glutose) 22.5 gm Q15M PRN PO DECREASED GLUCOSE; Start 05/17/17 at 11:30 Dextrose (D50w Syringe) 25 ml Q15M PRN IV DECREASED GLUCOSE; Start 05/17/17 at 11:30 Dextrose (D50w Syringe) 50 ml Q15M PRN IV DECREASED GLUCOSE; Start 05/17/17 at 11:30 Glucagon (Glucagen) 1 mg Q15M PRN IM DECREASED GLUCOSE; Start 05/17/17 at 11:30 Glucose (Glutose) 15 gm Q15M PRN BUCCAL DECREASED GLUCOSE; Start 05/17/17 at 11: 30 Lisinopril (Zestril) 2.5 mg DAILY PO Last administered on 05/21/17 08:31; Admin Dose 2.5 MG; Start 05/18/17 at 09:00 Carvedilol (Coreg) 3.125 mg BID PO Last administered on 05/21/17 08:31; Admin Dose 3.125 MG; Start 05/17/17 at 21:00 Insulin Glargine (Lantus) 12 unit DAILY SC Last administered on 05/21/17 08:25 ; Admin Dose 12 UNIT; Start 05/17/17 at 20:00 Famotidine (Pepcid) 20 mg DAILY PO Last administered on 05/21/17 08:31; Admin Dose 20 MG; Start 05/20/17 at 09:00 ELISSA NINO MD May 21, 2017 16:55
--- NOTE | 2017-05-21 17:55 | PN ---
Date/Time of Note Date/Time of Note DATE: 05/21/17 TIME: 17:50 Assessment/Plan VTE Prophylaxis VTE Prophylaxis Intervention: other Lines/Catheters [facility] Type [facility]from [facility] Saline Lock Urinary Cath still in place: Yes Reason Cath still needed: urinary retention Assessment/Plan Assessment/Plan Acute cholecystitis, s/p laparoscopic exploration with drainage of gallbladder by Dr. Harden. - Continue to follow-up surgical recommendation. Continue antibiotics. -Urinary retention, patient had a Carmona catheter DC in the beginning of the week however continues to have urinary retention and the Carmona was reinserted. - Dr. Castillo is following in urology consultation. -Obstructive CAD, s/p ptca/stent x 3 to RCA/acute marginal by Dr. Monae on . - Dr. Monae is following and cardiology consultation. -CVA with left-sided residual weakness -COPD, continue breathing treatments -Chronic kidney disease, avoid nephrotoxic medication. - Dr. Toledo is following in nephrology consultation. -Diabetes mellitus type 2, continue Lantus and NovoLog. Further recommendations based on clinical course. Plan of care discussed with Dr. Paz. Subjective 24 Hr Interval Summary Free Text/Dictation alert, c/o abdominal pain at surgery site, denies any chest pain, afebrile, dw staff Respiratory: no complaints Cardiovascular: no complaints Gastrointestinal: pain Genitourinary: no complaints Musculoskeletal: no complaints Skin: no complaints Exam/Review of Systems Vital Signs Vitals Vital Signs Date Time Temp Pulse Resp B/P Pulse Ox O2 Delivery O2 Flow Rate FiO2 05/21/17 16:12 82 05/21/17 15:54 98.0 20 113/66 99 05/20/17 20:10 Room Air Intake and Output 05/20/17 05/20/17 05/21/17 15:00 23:00 07:00 Intake Total 1200 ml Output Total 1000 ml Balance 200 ml Exam Constitutional: alert, well developed Respiratory: clear to auscultation, normal air movement Cardiovascular: nl pulses, regular rate and rhythm Gastrointestinal: soft, tender (surgical abdomen) Extremities: normal pulses Neurological: nl mental status, nl speech Results Result Diagram: 05/21/17 0601 05/21/17 0601 Results 24 hrs Laboratory Tests Test 05/20/17 18:31 05/20/17 21:04 05/21/17 06:01 05/21/17 08:18 Bedside Glucose 144 108 114 White Blood Count 7.4 Red Blood Count 3.41 L Hemoglobin 9.5 L Hematocrit 29.6 L Mean Corpuscular Volume 86.8 Mean Corpuscular Hemoglobin 27.9 L Mean Corpuscular Hemoglobin Concent 32.1 Red Cell Distribution Width 15.8 H Platelet Count 359 Mean Platelet Volume 10.5 H Neutrophils % 57.9 Lymphocytes % 22.6 Monocytes % 13.3 H Eosinophils % 5.4 Basophils % 0.3 Nucleated Red Blood Cells % 0.0 Neutrophils # 4.3 Lymphocytes # 1.7 Monocytes # 1.0 H Eosinophils # 0.4 Basophils # 0.0 Nucleated Red Blood Cells # 0.0 Sodium Level 137 Potassium Level 4.1 Chloride Level 106 Carbon Dioxide Level 26 Anion Gap 9 Blood Urea Nitrogen 16 Creatinine 1.09 Glucose Level 102 Calcium Level 7.9 L Test 05/21/17 11:48 Bedside Glucose 177 Medications Medications Current Medications Ondansetron HCl (Zofran Inj) 4 mg Q6H PRN IV NAUSEA AND/OR VOMITING Last administered on 05/15/17 19:47; Admin Dose 4 MG; Start 05/13/17 at 16:00 Acetaminophen (Tylenol Tab) 650 mg Q6H PRN PO PAIN LEVEL 1-3 OR FEVER; Start at 16:00 Morphine Sulfate (morphine) 2 mg Q4H PRN IV PAIN LEVEL 7-10 Last administered on 05/15/17 03:20; Admin Dose 2 MG; Start 05/13/17 at 16:00 Enoxaparin Sodium 30 mg 30 mg DAILY SC Last administered on 05/21/17 08:25; Admin Dose 30 MG; Start 05/14/17 at 09:00 Ceftriaxone Sodium 50 ml @ 100 mls/hr Q24H IVPB Last administered on 16:04; Admin Dose 100 MLS/HR; Start 05/13/17 at 16:00 Metronidazole (Flagyl 500 Mg (Pmx)) 100 ml @ 100 mls/hr Q6 IVPB Last administered on 05/21/17 11:50; Admin Dose 100 MLS/HR; Start 05/13/17 at 18:00 Acetaminophen/ Hydrocodone Bitart ([place] (5/325)) 1 tab Q4H PRN PO PAIN LEVEL 4 -7; Start 05/15/17 at 19:30 Acetaminophen/ Hydrocodone Bitart ([place] (5/325)) 2 tab Q4H PRN PO PAIN LEVEL 7 -10 Last administered on 05/17/17 20:49; Admin Dose 2 TAB; Start 05/15/17 at 19: 30 Hydromorphone HCl (Dilaudid) 0.5 mg Q2 PRN IV PAIN; Start 05/15/17 at 19:30 Hydromorphone HCl (Dilaudid) 1 mg Q2 PRN IV PAIN; Start 05/15/17 at 19:30 Docusate Sodium (Colace) 100 mg BID PRN PO CONSTIPATION; Start 05/15/17 at 19:30 Bisacodyl (Dulcolax Supp) 10 mg BID PRN [place] CONSTIPATION Last administered on 16:05; Admin Dose 10 MG; Start 05/15/17 at 19:30 Sodium Biphosphate/ Sodium Phosphate (Fleet Enema) 133 ml BID PRN [place] CONSTIPATION; Start 05/15/17 at 19:30 Citric Acid/ Sodium Citrate (Bicitra) 30 ml BID PO Last administered on 08:32; Admin Dose 30 ML; Start 05/17/17 at 21:00 Diagnostic Test (Pha) (Accu-Chek) 1 ea 02 XX ; Start 05/18/17 at 02:00 Miscellaneous Information 1 ea NOTE XX ; Start 05/17/17 at 11:30 Glucose (Glutose) 15 gm Q15M PRN PO DECREASED GLUCOSE; Start 05/17/17 at 11:30 Glucose (Glutose) 22.5 gm Q15M PRN PO DECREASED GLUCOSE; Start 05/17/17 at 11:30 Dextrose (D50w Syringe) 25 ml Q15M PRN IV DECREASED GLUCOSE; Start 05/17/17 at 11:30 Dextrose (D50w Syringe) 50 ml Q15M PRN IV DECREASED GLUCOSE; Start 05/17/17 at 11:30 Glucagon (Glucagen) 1 mg Q15M PRN IM DECREASED GLUCOSE; Start 05/17/17 at 11:30 Glucose (Glutose) 15 gm Q15M PRN BUCCAL DECREASED GLUCOSE; Start 05/17/17 at 11: 30 Lisinopril (Zestril) 2.5 mg DAILY PO Last administered on 05/21/17 08:31; Admin Dose 2.5 MG; Start 05/18/17 at 09:00 Carvedilol (Coreg) 3.125 mg BID PO Last administered on 05/21/17 08:31; Admin Dose 3.125 MG; Start 05/17/17 at 21:00 Insulin Glargine (Lantus) 12 unit DAILY SC Last administered on 05/21/17 08:25 ; Admin Dose 12 UNIT; Start 05/17/17 at 20:00 Famotidine (Pepcid) 20 mg DAILY PO Last administered on 05/21/17 08:31; Admin Dose 20 MG; Start 05/20/17 at 09:00 EUFEMIA WALKER May 21, 2017 17:55
[2017-05-22] VITALS (12 sets, daily range): BP systolic 118–126; BP diastolic 56–77; PULSE 68–80; RESP 18–20
[2017-05-22] MEDS: metroNIDAZOLE 500 MG/NS (PMX) 100 ML IVPB SCH ×3 (00:26→11:14)
[2017-05-22] MEDS: ACCU-CHEK XX SCH (02:00)
[2017-05-22 07:41] LABS: BASOPHILS % 0.1 % (0.0-2.0); EOSINOPHILS # 0.3 10^3/ul (0.0-0.5); EOSINOPHILS % 4.2 % (0.0-7.0); HEMOGLOBIN 9.3 g/dl (14.0-18.0); LYMPHOCYTES # 1.6 10^3/ul (0.8-2.9); MEAN CORPUSCULAR HEMOGLOBIN 27.8 pg (29.0-33.0); MEAN CORPUSCULAR HGB CONC 32.1 g/dl (32.0-37.0); MEAN CORPUSCULAR VOLUME 86.8 fl (82.0-101.0); MEAN PLATELET VOLUME 10.2 fl (7.4-10.4); MONOCYTE # 1.1 10^3/ul (0.3-0.9); MONOCYTES % 13.3 % (0.0-11.0); NEUTROPHILS % 61.7 % (39.0-77.0); PLATELET COUNT 376 10^3/UL (140-415); RED BLOOD COUNT 3.34 10^6/ul (4.70-6.10); RED CELL DISTRIBUTION WIDTH 15.9 % (11.5-14.5); WHITE BLOOD COUNT 8.1 10^3/ul (4.8-10.8)
[2017-05-22] MEDS: INSULIN ASPART [NOVOLOG] 3 ML PEN SC SCH ×7 (07:55→22:00)
[2017-05-22 08:07] LABS: CALCIUM 7.9 mg/dl (8.4-10.2); CREATININE 1.09 mg/dl (0.61-1.24); POTASSIUM 4.1 mmol/L (3.5-5.1)
[2017-05-22] MEDS: INSULIN GLARGINE [LANtus] 3 ML PEN SC SCH (08:34)
[2017-05-22] MEDS: CITRIC ACID/NA CITRATE 30 ML CUP PO SCH ×2 (08:52→22:09)
[2017-05-22] MEDS: LISINOPRIL 5 MG TAB PO SCH (08:53)
[2017-05-22] MEDS: FAMOTIDINE 20 MG TAB PO SCH (09:01)
[2017-05-22] MEDS: ENOXAPARIN 30 MG/0.3 ML SYG SC SCH (09:13)
--- NOTE | 2017-05-22 15:52 | PN ---
Date/Time of Note Date/Time of Note DATE: 05/22/17 TIME: 15:49 Assessment/Plan VTE Prophylaxis VTE Prophylaxis Intervention: SCD's Lines/Catheters IV C[facility]ter Type (from [facility]): Saline Lock Urinary Cath still in place: Yes Reason Cath still needed: urinary retention Assessment/Plan Chief Complaint/Hosp Course Patient remains hemodynamically stable, sinus rhythm, patient still had a Carmona catheter, patient is from home and would like to go home upon discharge, okay to transfer to medical surgical floor. Will change antibiotics to p.o., continue to monitor. Assessment/Plan -Urinary retention, Dr. Castillo is following in urology consultation. -Acute cholecystitis, s/p laparoscopic exploration with drainage of gallbladder by Dr. Harden. Continue to follow-up surgical recommendation. -Obstructive CAD, s/p ptca/stent x 3 to RCA/acute marginal by Dr. Monae on . Dr. Monae is following and cardiology consultation. -CVA with left-sided residual weakness -COPD, continue breathing treatments -Chronic kidney disease, avoid nephrotoxic medication. Dr. Toledo is following in nephrology consultation. -Diabetes mellitus type 2, continue Lantus and NovoLog. Further recommendations based on clinical course. Plan of care discussed with Dr. Paz. Problems: Exam/Review of Systems Vital Signs Vitals Vital Signs Date Time Temp Pulse Resp B/P Pulse Ox O2 Delivery O2 Flow Rate FiO2 05/22/17 12:12 75 05/22/17 11:24 98.3 20 123/66 98 05/20/17 20:10 Room Air Intake and Output 05/21/17 05/21/17 05/22/17 15:00 23:00 07:00 Intake Total 450 ml 400 ml Output Total 700 ml 610 ml Balance -250 ml -210 ml Exam Constitutional: alert, oriented Head: normocephalic Neck: supple Respiratory: clear to auscultation Cardiovascular: nl pulses Gastrointestinal: other (LEANN, cholecystostomy drain), soft, tender Musculoskeletal: muscle weakness Extremities: normal pulses Neurological: nl mental status Results Result Diagram: 05/22/17 0703 05/22/17 0703 Results 24 hrs Laboratory Tests Test 05/21/17 17:55 05/21/17 22:00 05/22/17 07:03 05/22/17 08:27 Bedside Glucose 110 89 108 White Blood Count 8.1 Red Blood Count 3.34 L Hemoglobin 9.3 L Hematocrit 29.0 L Mean Corpuscular Volume 86.8 Mean Corpuscular Hemoglobin 27.8 L Mean Corpuscular Hemoglobin Concent 32.1 Red Cell Distribution Width 15.9 H Platelet Count 376 Mean Platelet Volume 10.2 Neutrophils % 61.7 Lymphocytes % 20.0 Monocytes % 13.3 H Eosinophils % 4.2 Basophils % 0.1 Nucleated Red Blood Cells % 0.0 Neutrophils # 5.0 Lymphocytes # 1.6 Monocytes # 1.1 H Eosinophils # 0.3 Basophils # 0.0 Nucleated Red Blood Cells # 0.0 Sodium Level 136 Potassium Level 4.1 Chloride Level 104 Carbon Dioxide Level 29 Anion Gap 7 L Blood Urea Nitrogen 15 Creatinine 1.09 Glucose Level 120 Calcium Level 7.9 L Test 05/22/17 11:13 05/22/17 12:25 Bedside Glucose 96 87 Medications Medications Current Medications Ondansetron HCl (Zofran Inj) 4 mg Q6H PRN IV NAUSEA AND/OR VOMITING Last administered on 05/15/17 19:47; Admin Dose 4 MG; Start 05/13/17 at 16:00 Acetaminophen (Tylenol Tab) 650 mg Q6H PRN PO PAIN LEVEL 1-3 OR FEVER; Start at 16:00 Morphine Sulfate (morphine) 2 mg Q4H PRN IV PAIN LEVEL 7-10 Last administered on 05/15/17 03:20; Admin Dose 2 MG; Start 05/13/17 at 16:00 Enoxaparin Sodium 30 mg 30 mg DAILY SC Last administered on 05/22/17 09:13; Admin Dose 30 MG; Start 05/14/17 at 09:00 Ceftriaxone Sodium 50 ml @ 100 mls/hr Q24H IVPB Last administered on 16:04; Admin Dose 100 MLS/HR; Start 05/13/17 at 16:00 Metronidazole (Flagyl 500 Mg (Pmx)) 100 ml @ 100 mls/hr Q6 IVPB Last administered on 05/22/17 11:14; Admin Dose 100 MLS/HR; Start 05/13/17 at 18:00 Acetaminophen/ Hydrocodone Bitart ([place] (5/325)) 1 tab Q4H PRN PO PAIN LEVEL 4 -7; Start 05/15/17 at 19:30 Acetaminophen/ Hydrocodone Bitart ([place] (5/325)) 2 tab Q4H PRN PO PAIN LEVEL 7 -10 Last administered on 05/17/17 20:49; Admin Dose 2 TAB; Start 05/15/17 at 19: 30 Hydromorphone HCl (Dilaudid) 0.5 mg Q2 PRN IV PAIN; Start 05/15/17 at 19:30 Hydromorphone HCl (Dilaudid) 1 mg Q2 PRN IV PAIN; Start 05/15/17 at 19:30 Docusate Sodium (Colace) 100 mg BID PRN PO CONSTIPATION Last administered on 05:48; Admin Dose 100 MG; Start 05/15/17 at 19:30 Bisacodyl (Dulcolax Supp) 10 mg BID PRN [place] CONSTIPATION Last administered on 16:05; Admin Dose 10 MG; Start 05/15/17 at 19:30 Sodium Biphosphate/ Sodium Phosphate (Fleet Enema) 133 ml BID PRN [place] CONSTIPATION; Start 05/15/17 at 19:30 Citric Acid/ Sodium Citrate (Bicitra) 30 ml BID PO Last administered on 08:52; Admin Dose 30 ML; Start 05/17/17 at 21:00 Diagnostic Test (Pha) (Accu-Chek) 1 ea 02 XX ; Start 05/18/17 at 02:00 Miscellaneous Information 1 ea NOTE XX ; Start 05/17/17 at 11:30 Glucose (Glutose) 15 gm Q15M PRN PO DECREASED GLUCOSE; Start 05/17/17 at 11:30 Glucose (Glutose) 22.5 gm Q15M PRN PO DECREASED GLUCOSE; Start 05/17/17 at 11:30 Dextrose (D50w Syringe) 25 ml Q15M PRN IV DECREASED GLUCOSE; Start 05/17/17 at 11:30 Dextrose (D50w Syringe) 50 ml Q15M PRN IV DECREASED GLUCOSE; Start 05/17/17 at 11:30 Glucagon (Glucagen) 1 mg Q15M PRN IM DECREASED GLUCOSE; Start 05/17/17 at 11:30 Glucose (Glutose) 15 gm Q15M PRN BUCCAL DECREASED GLUCOSE; Start 05/17/17 at 11: 30 Lisinopril (Zestril) 2.5 mg DAILY PO Last administered on 05/22/17 08:53; Admin Dose 2.5 MG; Start 05/18/17 at 09:00 Carvedilol (Coreg) 3.125 mg BID PO Last administered on 05/22/17 08:52; Admin Dose 3.125 MG; Start 05/17/17 at 21:00 Insulin Glargine (Lantus) 12 unit DAILY SC Last administered on 05/22/17 08:34 ; Admin Dose 12 UNIT; Start 05/17/17 at 20:00 Famotidine (Pepcid) 20 mg DAILY PO Last administered on 05/22/17 09:01; Admin Dose 20 MG; Start 05/20/17 at 09:00 CALVIN CIFUENTES May 22, 2017 15:52
--- NOTE | 2017-05-22 16:26 | CONS ---
Date/Time of Note Date/Time of Note DATE: 05/22/17 TIME: 16:25 Assessment/Plan Assessment/Plan Additional Assessment/Plan 1.post-op s/p drainage of gallbladder/lysis of adhesions - surgical team follows 2.H/O stent to RCA - on Rxl no CP now 3.HTN - well rx - con't med rx 4.HL 5.cardiomyopathy with low ef 25% by echo 04/18/17 - will keep euvolemic as tolerated Consultation Date/Type/Reason Admit Date/Time May 13, 2017 at 14:10 Type of Consultation: nephrology Referring Provider: QUIANA MURCIA MD 24 HR Interval Summary Free Text/Dictation NO acute events - no CP, no ectopy on tele ROS: No fever, no chills, no nausea, no vomiting, no diarrhea/constipation No recent weight changes No chest pain, no PND, no orthopnea No dizziness, blurred vision No thirst, no heat or cold intolerance Exam/Review of Systems Vital Signs Vitals Vital Signs Date Time Temp Pulse Resp B/P Pulse Ox O2 Delivery O2 Flow Rate FiO2 05/22/17 15:59 98.7 74 20 118/56 97 05/20/17 20:10 Room Air Intake and Output 05/21/17 05/21/17 05/22/17 15:00 23:00 07:00 Intake Total 450 ml 400 ml Output Total 700 ml 610 ml Balance -250 ml -210 ml Exam General: WN/WD/NAD, AOx 3 HEENT: Unicetric/atraumatic/EOMI (follows commands) NECK: JVD elevated, no thyromegaly Lymph: no lymphadenopathy HEART: regular with no S3, II/ systolic murmur at apex LUNGS: Coarse sounds ABD: soft, NT, ND, +BS : Intact Neuro: non focal SKIN: chronic changes EXT: trace edema Results Result Diagram: 05/22/17 0703 05/22/17 0703 Results 24 hrs Laboratory Tests Test 05/21/17 17:55 05/21/17 22:00 05/22/17 07:03 05/22/17 08:27 Bedside Glucose 110 89 108 White Blood Count 8.1 Red Blood Count 3.34 L Hemoglobin 9.3 L Hematocrit 29.0 L Mean Corpuscular Volume 86.8 Mean Corpuscular Hemoglobin 27.8 L Mean Corpuscular Hemoglobin Concent 32.1 Red Cell Distribution Width 15.9 H Platelet Count 376 Mean Platelet Volume 10.2 Neutrophils % 61.7 Lymphocytes % 20.0 Monocytes % 13.3 H Eosinophils % 4.2 Basophils % 0.1 Nucleated Red Blood Cells % 0.0 Neutrophils # 5.0 Lymphocytes # 1.6 Monocytes # 1.1 H Eosinophils # 0.3 Basophils # 0.0 Nucleated Red Blood Cells # 0.0 Sodium Level 136 Potassium Level 4.1 Chloride Level 104 Carbon Dioxide Level 29 Anion Gap 7 L Blood Urea Nitrogen 15 Creatinine 1.09 Glucose Level 120 Calcium Level 7.9 L Test 05/22/17 11:13 05/22/17 12:25 Bedside Glucose 96 87 Medications Medications Current Medications Ondansetron HCl (Zofran Inj) 4 mg Q6H PRN IV NAUSEA AND/OR VOMITING Last administered on 05/15/17 19:47; Admin Dose 4 MG; Start 05/13/17 at 16:00 Acetaminophen (Tylenol Tab) 650 mg Q6H PRN PO PAIN LEVEL 1-3 OR FEVER; Start at 16:00 Morphine Sulfate (morphine) 2 mg Q4H PRN IV PAIN LEVEL 7-10 Last administered on 05/15/17 03:20; Admin Dose 2 MG; Start 05/13/17 at 16:00 Enoxaparin Sodium (Lovenox) 30 mg DAILY SC Last administered on 05/22/17 09:13 ; Admin Dose 30 MG; Start 05/14/17 at 09:00 Acetaminophen/ Hydrocodone Bitart ([place] (5/325)) 1 tab Q4H PRN PO PAIN LEVEL 4 -7; Start 05/15/17 at 19:30 Acetaminophen/ Hydrocodone Bitart ([place] (5/325)) 2 tab Q4H PRN PO PAIN LEVEL 7 -10 Last administered on 05/17/17 20:49; Admin Dose 2 TAB; Start 05/15/17 at 19: 30 Hydromorphone HCl (Dilaudid) 0.5 mg Q2 PRN IV PAIN; Start 05/15/17 at 19:30 Hydromorphone HCl (Dilaudid) 1 mg Q2 PRN IV PAIN; Start 05/15/17 at 19:30 Docusate Sodium (Colace) 100 mg BID PRN PO CONSTIPATION Last administered on 05:48; Admin Dose 100 MG; Start 05/15/17 at 19:30 Bisacodyl (Dulcolax Supp) 10 mg BID PRN [place] CONSTIPATION Last administered on 16:05; Admin Dose 10 MG; Start 05/15/17 at 19:30 Sodium Biphosphate/ Sodium Phosphate (Fleet Enema) 133 ml BID PRN [place] CONSTIPATION; Start 05/15/17 at 19:30 Citric Acid/ Sodium Citrate (Bicitra) 30 ml BID PO Last administered on 08:52; Admin Dose 30 ML; Start 05/17/17 at 21:00 Diagnostic Test (Pha) (Accu-Chek) 1 ea 02 XX ; Start 05/18/17 at 02:00 Miscellaneous Information 1 ea NOTE XX ; Start 05/17/17 at 11:30 Glucose (Glutose) 15 gm Q15M PRN PO DECREASED GLUCOSE; Start 05/17/17 at 11:30 Glucose (Glutose) 22.5 gm Q15M PRN PO DECREASED GLUCOSE; Start 05/17/17 at 11:30 Dextrose (D50w Syringe) 25 ml Q15M PRN IV DECREASED GLUCOSE; Start 05/17/17 at 11:30 Dextrose (D50w Syringe) 50 ml Q15M PRN IV DECREASED GLUCOSE; Start 05/17/17 at 11:30 Glucagon (Glucagen) 1 mg Q15M PRN IM DECREASED GLUCOSE; Start 05/17/17 at 11:30 Glucose (Glutose) 15 gm Q15M PRN BUCCAL DECREASED GLUCOSE; Start 05/17/17 at 11: 30 Lisinopril (Zestril) 2.5 mg DAILY PO Last administered on 05/22/17 08:53; Admin Dose 2.5 MG; Start 05/18/17 at 09:00 Carvedilol (Coreg) 3.125 mg BID PO Last administered on 05/22/17 08:52; Admin Dose 3.125 MG; Start 05/17/17 at 21:00 Insulin Glargine (Lantus) 12 unit DAILY SC Last administered on 05/22/17 08:34 ; Admin Dose 12 UNIT; Start 05/17/17 at 20:00 Famotidine (Pepcid) 20 mg DAILY PO Last administered on 8/14/17at 09:01; Admin Dose 20 MG; Start 05/20/17 at 09:00 Metronidazole (Flagyl) 500 mg Q8 PO ; Start 05/22/17 at 22:00 Cephalexin (Keflex) 500 mg Q8 PO ; Start 05/22/17 at 22:00 Bethanechol Chloride (Urecholine) 10 mg TID PO ; Start 05/22/17 at 21:00 MITCHELL CASTILLO MD May 22, 2017 16:26
--- NOTE | 2017-05-22 19:10 | PN ---
Date/Time of Note Date/Time of Note DATE: 05/22/17 TIME: 19:05 Assessment/Plan VTE Prophylaxis VTE Prophylaxis Intervention: ambulation Lines/Catheters [facility]from [facility] Saline Lock Urinary Cath still in place: Yes Reason Cath still needed: urinary retention Assessment/Plan Chief Complaint/Hosp Course 72-year-old male admitted with abdominal pain CT scan showed a complex cyst arising from the ventral upper third of the right kidney measuring 4.6 x 5.8 x 7.6cm and it has internal calcifications The patient had a renal ultrasound on April 30, 2017 and that was reported as benign bilateral renal cysts and a cyst on the right side measured 4.3 cm Also the patient did have a renal ultrasound on October 05, 2013 and that was reported as the right kidney has a cyst that measures 6 x 4.6 x 5.1 cm Therefore this cyst on the right kidney is 3 and half year old and based on the measurements it may have increased a little bit over time. Recommend to repeat the ultrasound in about 6 months and may be also the CT scan and if there is any suspicious finding may do CT-guided aspiration of the cyst Urinary retention, we will remove the Carmona catheter at midnight and check his voiding and the postvoid residual was a bladder scan. If the postvoid residual is over 300 mL blue straight cath or if he does not void and the bladder scan shows over 500 mL do a straight cath as well If he voids well then he could go home Problems: Subjective 24 Hr Interval Summary Constitutional: no complaints Eyes: no complaints ENT: no complaints Respiratory: no complaints Cardiovascular: No chest pain Gastrointestinal: no complaints Genitourinary: other (Patient has an indwelling Carmona catheter supposedly for urinary retention) Musculoskeletal: no complaints Skin: no complaints Neurologic: no complaints Lymphatic: no complaints Psychological: no complaints Exam/Review of Systems Vital Signs Vitals Vital Signs Date Time Temp Pulse Resp B/P Pulse Ox O2 Delivery O2 Flow Rate FiO2 05/22/17 16:13 68 05/22/17 15:59 98.7 20 118/56 97 05/20/17 20:10 Room Air Intake and Output 05/21/17 05/21/17 05/22/17 15:00 23:00 07:00 Intake Total 450 ml 400 ml Output Total 700 ml 610 ml Balance -250 ml -210 ml Exam Constitutional: alert, oriented Psych: no complaints Head: normocephalic Eyes: nl conjunctiva ENMT: nl external ears & nose Neck: non-tender, supple Respiratory: normal air movement Cardiovascular: No edema Gastrointestinal: soft Genitourinary - Male: other (Carmona catheter in place and draining clear urine, patient has an enlarged prostate), No CVA tenderness Musculoskeletal: nl extremities to inspection Extremities: No calf tenderness, No edema Results Result Diagram: 05/22/17 0703 05/22/17 0703 Results 24 hrs Laboratory Tests Test 05/21/17 22:00 05/22/17 07:03 05/22/17 08:27 05/22/17 11:13 Bedside Glucose 89 108 96 White Blood Count 8.1 Red Blood Count 3.34 L Hemoglobin 9.3 L Hematocrit 29.0 L Mean Corpuscular Volume 86.8 Mean Corpuscular Hemoglobin 27.8 L Mean Corpuscular Hemoglobin Concent 32.1 Red Cell Distribution Width 15.9 H Platelet Count 376 Mean Platelet Volume 10.2 Neutrophils % 61.7 Lymphocytes % 20.0 Monocytes % 13.3 H Eosinophils % 4.2 Basophils % 0.1 Nucleated Red Blood Cells % 0.0 Neutrophils # 5.0 Lymphocytes # 1.6 Monocytes # 1.1 H Eosinophils # 0.3 Basophils # 0.0 Nucleated Red Blood Cells # 0.0 Sodium Level 136 Potassium Level 4.1 Chloride Level 104 Carbon Dioxide Level 29 Anion Gap 7 L Blood Urea Nitrogen 15 Creatinine 1.09 Glucose Level 120 Calcium Level 7.9 L Test 05/22/17 12:25 05/22/17 17:57 Bedside Glucose 87 130 Medications Medications Current Medications Ondansetron HCl (Zofran Inj) 4 mg Q6H PRN IV NAUSEA AND/OR VOMITING Last administered on 05/15/17 19:47; Admin Dose 4 MG; Start 05/13/17 at 16:00 Acetaminophen (Tylenol Tab) 650 mg Q6H PRN PO PAIN LEVEL 1-3 OR FEVER; Start at 16:00 Morphine Sulfate (morphine) 2 mg Q4H PRN IV PAIN LEVEL 7-10 Last administered on 05/15/17 03:20; Admin Dose 2 MG; Start 05/13/17 at 16:00 Enoxaparin Sodium (Lovenox) 30 mg DAILY SC Last administered on 05/22/17 09:13 ; Admin Dose 30 MG; Start 05/14/17 at 09:00 Acetaminophen/ Hydrocodone Bitart ([place] (5/325)) 1 tab Q4H PRN PO PAIN LEVEL 4 -7; Start 05/15/17 at 19:30 Acetaminophen/ Hydrocodone Bitart ([place] (5/325)) 2 tab Q4H PRN PO PAIN LEVEL 7 -10 Last administered on 05/17/17 20:49; Admin Dose 2 TAB; Start 05/15/17 at 19: 30 Hydromorphone HCl (Dilaudid) 0.5 mg Q2 PRN IV PAIN; Start 05/15/17 at 19:30 Hydromorphone HCl (Dilaudid) 1 mg Q2 PRN IV PAIN; Start 05/15/17 at 19:30 Docusate Sodium (Colace) 100 mg BID PRN PO CONSTIPATION Last administered on 05:48; Admin Dose 100 MG; Start 05/15/17 at 19:30 Bisacodyl (Dulcolax Supp) 10 mg BID PRN [place] CONSTIPATION Last administered on 16:05; Admin Dose 10 MG; Start 05/15/17 at 19:30 Sodium Biphosphate/ Sodium Phosphate (Fleet Enema) 133 ml BID PRN [place] CONSTIPATION; Start 05/15/17 at 19:30 Citric Acid/ Sodium Citrate (Bicitra) 30 ml BID PO Last administered on 08:52; Admin Dose 30 ML; Start 05/17/17 at 21:00 Diagnostic Test (Pha) (Accu-Chek) 1 ea 02 XX ; Start 05/18/17 at 02:00 Miscellaneous Information 1 ea NOTE XX ; Start 05/17/17 at 11:30 Glucose (Glutose) 15 gm Q15M PRN PO DECREASED GLUCOSE; Start 05/17/17 at 11:30 Glucose (Glutose) 22.5 gm Q15M PRN PO DECREASED GLUCOSE; Start 05/17/17 at 11:30 Dextrose (D50w Syringe) 25 ml Q15M PRN IV DECREASED GLUCOSE; Start 05/17/17 at 11:30 Dextrose (D50w Syringe) 50 ml Q15M PRN IV DECREASED GLUCOSE; Start 05/17/17 at 11:30 Glucagon (Glucagen) 1 mg Q15M PRN IM DECREASED GLUCOSE; Start 05/17/17 at 11:30 Glucose (Glutose) 15 gm Q15M PRN BUCCAL DECREASED GLUCOSE; Start 05/17/17 at 11: 30 Lisinopril (Zestril) 2.5 mg DAILY PO Last administered on 05/22/17 08:53; Admin Dose 2.5 MG; Start 05/18/17 at 09:00 Carvedilol (Coreg) 3.125 mg BID PO Last administered on 05/22/17 08:52; Admin Dose 3.125 MG; Start 05/17/17 at 21:00 Insulin Glargine (Lantus) 12 unit DAILY SC Last administered on 05/22/17 08:34 ; Admin Dose 12 UNIT; Start 05/17/17 at 20:00 Famotidine (Pepcid) 20 mg DAILY PO Last administered on 05/22/17 09:01; Admin Dose 20 MG; Start 05/20/17 at 09:00 Metronidazole (Flagyl) 500 mg Q8 PO ; Start 05/22/17 at 22:00 Cephalexin (Keflex) 500 mg Q8 PO ; Start 05/22/17 at 22:00 Bethanechol Chloride (Urecholine) 10 mg TID PO ; Start 05/22/17 at 21:00 AMANDA PAZ MD May 22, 2017 19:10
--- NOTE | 2017-05-22 19:17 | CONS ---
Date/Time of Note Date/Time of Note DATE: 05/22/17 TIME: 19:17 Assessment/Plan Assessment/Plan Chief Complaint/Hosp Course S/P MARLEN BETTER COPD S/P GALLBLADDER DRAINAGE PLAN LYTE STABLE per surgery Problems: Consultation Date/Type/Reason Admit Date/Time May 13, 2017 at 14:10 Initial Consult Date 05/16/17 Type of Consultation: nephrology Referring Provider: QUIANA MURCIA MD 24 HR Interval Summary Constitutional: no complaints Exam/Review of Systems Vital Signs Vitals Vital Signs Date Time Temp Pulse Resp B/P Pulse Ox O2 Delivery O2 Flow Rate FiO2 05/22/17 16:13 68 05/22/17 15:59 98.7 20 118/56 97 05/20/17 20:10 Room Air Intake and Output 05/21/17 05/21/17 05/22/17 15:00 23:00 07:00 Intake Total 450 ml 400 ml Output Total 700 ml 610 ml Balance -250 ml -210 ml Exam Respiratory: clear to auscultation Cardiovascular: regular rate and rhythm Gastrointestinal: soft Results Result Diagram: 05/22/17 0703 05/22/17 0703 Results 24 hrs Laboratory Tests Test 05/21/17 22:00 05/22/17 07:03 05/22/17 08:27 05/22/17 11:13 Bedside Glucose 89 108 96 White Blood Count 8.1 Red Blood Count 3.34 L Hemoglobin 9.3 L Hematocrit 29.0 L Mean Corpuscular Volume 86.8 Mean Corpuscular Hemoglobin 27.8 L Mean Corpuscular Hemoglobin Concent 32.1 Red Cell Distribution Width 15.9 H Platelet Count 376 Mean Platelet Volume 10.2 Neutrophils % 61.7 Lymphocytes % 20.0 Monocytes % 13.3 H Eosinophils % 4.2 Basophils % 0.1 Nucleated Red Blood Cells % 0.0 Neutrophils # 5.0 Lymphocytes # 1.6 Monocytes # 1.1 H Eosinophils # 0.3 Basophils # 0.0 Nucleated Red Blood Cells # 0.0 Sodium Level 136 Potassium Level 4.1 Chloride Level 104 Carbon Dioxide Level 29 Anion Gap 7 L Blood Urea Nitrogen 15 Creatinine 1.09 Glucose Level 120 Calcium Level 7.9 L Test 05/22/17 12:25 05/22/17 17:57 Bedside Glucose 87 130 Medications Medications Current Medications Ondansetron HCl (Zofran Inj) 4 mg Q6H PRN IV NAUSEA AND/OR VOMITING Last administered on 05/15/17 19:47; Admin Dose 4 MG; Start 05/13/17 at 16:00 Acetaminophen (Tylenol Tab) 650 mg Q6H PRN PO PAIN LEVEL 1-3 OR FEVER; Start at 16:00 Morphine Sulfate (morphine) 2 mg Q4H PRN IV PAIN LEVEL 7-10 Last administered on 05/15/17 03:20; Admin Dose 2 MG; Start 05/13/17 at 16:00 Enoxaparin Sodium (Lovenox) 30 mg DAILY SC Last administered on 05/22/17 09:13 ; Admin Dose 30 MG; Start 05/14/17 at 09:00 Acetaminophen/ Hydrocodone Bitart ([place] (5/325)) 1 tab Q4H PRN PO PAIN LEVEL 4 -7; Start 05/15/17 at 19:30 Acetaminophen/ Hydrocodone Bitart ([place] (5/325)) 2 tab Q4H PRN PO PAIN LEVEL 7 -10 Last administered on 05/17/17 20:49; Admin Dose 2 TAB; Start 05/15/17 at 19: 30 Hydromorphone HCl (Dilaudid) 0.5 mg Q2 PRN IV PAIN; Start 05/15/17 at 19:30 Hydromorphone HCl (Dilaudid) 1 mg Q2 PRN IV PAIN; Start 05/15/17 at 19:30 Docusate Sodium (Colace) 100 mg BID PRN PO CONSTIPATION Last administered on 05:48; Admin Dose 100 MG; Start 05/15/17 at 19:30 Bisacodyl (Dulcolax Supp) 10 mg BID PRN [place] CONSTIPATION Last administered on 16:05; Admin Dose 10 MG; Start 05/15/17 at 19:30 Sodium Biphosphate/ Sodium Phosphate (Fleet Enema) 133 ml BID PRN [place] CONSTIPATION; Start 05/15/17 at 19:30 Citric Acid/ Sodium Citrate (Bicitra) 30 ml BID PO Last administered on 08:52; Admin Dose 30 ML; Start 05/17/17 at 21:00 Diagnostic Test (Pha) (Accu-Chek) 1 ea 02 XX ; Start 05/18/17 at 02:00 Miscellaneous Information 1 ea NOTE XX ; Start 05/17/17 at 11:30 Glucose (Glutose) 15 gm Q15M PRN PO DECREASED GLUCOSE; Start 05/17/17 at 11:30 Glucose (Glutose) 22.5 gm Q15M PRN PO DECREASED GLUCOSE; Start 05/17/17 at 11:30 Dextrose (D50w Syringe) 25 ml Q15M PRN IV DECREASED GLUCOSE; Start 05/17/17 at 11:30 Dextrose (D50w Syringe) 50 ml Q15M PRN IV DECREASED GLUCOSE; Start 05/17/17 at 11:30 Glucagon (Glucagen) 1 mg Q15M PRN IM DECREASED GLUCOSE; Start 05/17/17 at 11:30 Glucose (Glutose) 15 gm Q15M PRN BUCCAL DECREASED GLUCOSE; Start 05/17/17 at 11: 30 Lisinopril (Zestril) 2.5 mg DAILY PO Last administered on 05/22/17 08:53; Admin Dose 2.5 MG; Start 05/18/17 at 09:00 Carvedilol (Coreg) 3.125 mg BID PO Last administered on 05/22/17 08:52; Admin Dose 3.125 MG; Start 05/17/17 at 21:00 Insulin Glargine (Lantus) 12 unit DAILY SC Last administered on 05/22/17 08:34 ; Admin Dose 12 UNIT; Start 05/17/17 at 20:00 Famotidine (Pepcid) 20 mg DAILY PO Last administered on 05/22/17 09:01; Admin Dose 20 MG; Start 05/20/17 at 09:00 Metronidazole (Flagyl) 500 mg Q8 PO ; Start 05/22/17 at 22:00 Cephalexin (Keflex) 500 mg Q8 PO ; Start 05/22/17 at 22:00 Bethanechol Chloride (Urecholine) 10 mg TID PO ; Start 05/22/17 at 21:00 ELISSA NINO MD May 22, 2017 19:17
[2017-05-22] MEDS ORDERED: CEFTRIAXONE 1 GM/50 ML (PMX) 50 ML IVPB SCH (20:30)
[2017-05-22] MEDS: CEPHALEXIN 500 MG CAP PO SCH (22:09)
[2017-05-22] MEDS: metroNIDAZOLE 500 MG TAB PO SCH (22:09)
[2017-05-22] MEDS: BETHANECHOL 10 MG TAB PO SCH (22:10)
[2017-05-23] MEDS: ACCU-CHEK XX SCH (02:00)
[2017-05-23 03:00] VITALS: BP 120/65; RESP 22
[2017-05-23] MEDS: CEPHALEXIN 500 MG CAP PO SCH ×3 (05:36→21:09)
[2017-05-23] MEDS: metroNIDAZOLE 500 MG TAB PO SCH ×3 (05:36→21:08)
[2017-05-23 07:04] LABS: BASOPHILS % 0.4 % (0.0-2.0); EOSINOPHILS # 0.4 10^3/ul (0.0-0.5); EOSINOPHILS % 5.3 % (0.0-7.0); HEMATOCRIT 30.3 % (42.0-52.0); HEMOGLOBIN 9.7 g/dl (14.0-18.0); LYMPHOCYTES # 1.8 10^3/ul (0.8-2.9); LYMPHOCYTES % 25.9 % (15.0-51.0); MEAN CORPUSCULAR HEMOGLOBIN 27.9 pg (29.0-33.0); MEAN CORPUSCULAR VOLUME 87.1 fl (82.0-101.0); MEAN PLATELET VOLUME 10.3 fl (7.4-10.4); MONOCYTE # 1.3 10^3/ul (0.3-0.9); MONOCYTES % 18.5 % (0.0-11.0); NEUTROPHILS % 49.2 % (39.0-77.0); PLATELET COUNT 368 10^3/UL (140-415); RED BLOOD COUNT 3.48 10^6/ul (4.70-6.10); RED CELL DISTRIBUTION WIDTH 16.2 % (11.5-14.5)
[2017-05-23 07:24] LABS: CALCIUM 8.2 mg/dl (8.4-10.2); CREATININE 1.22 mg/dl (0.61-1.24); POTASSIUM 4.2 mmol/L (3.5-5.1)
[2017-05-23 08:00] VITALS: BP 134/63; RESP 19
[2017-05-23] MEDS: INSULIN ASPART [NOVOLOG] 3 ML PEN SC SCH ×7 (08:00→21:00)
[2017-05-23] MEDS: FAMOTIDINE 20 MG TAB PO SCH (08:30)
[2017-05-23] MEDS: CITRIC ACID/NA CITRATE 30 ML CUP PO SCH ×2 (08:30→21:05)
[2017-05-23] MEDS: BETHANECHOL 10 MG TAB PO SCH ×3 (08:30→21:04)
[2017-05-23] MEDS: LISINOPRIL 5 MG TAB PO SCH (08:31)
[2017-05-23] MEDS: ENOXAPARIN 30 MG/0.3 ML SYG SC SCH (08:34)
[2017-05-23] MEDS: INSULIN GLARGINE [LANtus] 3 ML PEN SC SCH (08:36)
--- NOTE | 2017-05-23 10:09 | CONS ---
Date/Time of Note Date/Time of Note DATE: 05/23/17 TIME: 10:07 Assessment/Plan Assessment/Plan Additional Assessment/Plan 1.post-op s/p drainage of gallbladder/lysis of adhesions - surgical team follows - better now 2.H/O stent to RCA - on Rxl no CP now, no intervention planned. 3.HTN - well rx - con't med rx 4.HL 5.cardiomyopathy with low ef 25% by echo 04/18/17 - will keep euvolemic as tolerated - tolerated procedure well Consultation Date/Type/Reason Admit Date/Time May 13, 2017 at 14:10 Type of Consultation: nephrology Referring Provider: QUIANA MURCIA MD 24 HR Interval Summary Free Text/Dictation NO acute events - bP in good range - no CP - doubt ischemia ROS: No fever, no chills, no nausea, no vomiting, no diarrhea/constipation No recent weight changes No chest pain, no PND, no orthopnea No dizziness, blurred vision No thirst, no heat or cold intolerance Exam/Review of Systems Vital Signs Vitals Vital Signs Date Time Temp Pulse Resp B/P Pulse Ox O2 Delivery O2 Flow Rate FiO2 05/23/17 08:00 98.4 79 19 134/63 96 05/20/17 20:10 Room Air Intake and Output 05/22/17 05/22/17 05/23/17 15:00 23:00 07:00 Intake Total 700 ml 300 ml Output Total 1000 ml 960 ml Balance -300 ml -660 ml Exam General: WN/WD/NAD, AOx 2-3 HEENT: Unicetric/atraumatic/EOMI (follow commands) NECK: JVD elevated, no thyromegaly Lymph: no lymphadenopathy HEART: regular with no S3, II/ systolic murmur at apex LUNGS: Coarse sounds ABD: soft, NT, ND, +BS, post op : Intact Neuro: non focal SKIN: chronic changes EXT: trace edema Results Result Diagram: 05/23/17 0520 05/23/17 0542 Results 24 hrs Laboratory Tests Test 05/22/17 11:13 05/22/17 12:25 05/22/17 17:57 05/22/17 22:04 Bedside Glucose 96 87 130 96 Test 05/23/17 05:20 05/23/17 05:42 05/23/17 08:29 White Blood Count 7.0 Red Blood Count 3.48 L Hemoglobin 9.7 L Hematocrit 30.3 L Mean Corpuscular Volume 87.1 Mean Corpuscular Hemoglobin 27.9 L Mean Corpuscular Hemoglobin Concent 32.0 Red Cell Distribution Width 16.2 H Platelet Count 368 Mean Platelet Volume 10.3 Neutrophils % 49.2 Lymphocytes % 25.9 Monocytes % 18.5 H Eosinophils % 5.3 Basophils % 0.4 Nucleated Red Blood Cells % 0.0 Neutrophils # (Manual) 3.5 Lymphocytes # 1.8 Monocytes # 1.3 H Eosinophils # 0.4 Basophils # 0.0 Nucleated Red Blood Cells # 0.0 Sodium Level 139 Potassium Level 4.2 Chloride Level 100 Carbon Dioxide Level 29 Anion Gap 14 # Blood Urea Nitrogen 14 Creatinine 1.22 Glucose Level 104 Calcium Level 8.2 L Bedside Glucose 122 Medications Medications Current Medications Ondansetron HCl (Zofran Inj) 4 mg Q6H PRN IV NAUSEA AND/OR VOMITING Last administered on 05/15/17 19:47; Admin Dose 4 MG; Start 05/13/17 at 16:00 Acetaminophen (Tylenol Tab) 650 mg Q6H PRN PO PAIN LEVEL 1-3 OR FEVER; Start at 16:00 Morphine Sulfate (morphine) 2 mg Q4H PRN IV PAIN LEVEL 7-10 Last administered on 05/15/17 03:20; Admin Dose 2 MG; Start 05/13/17 at 16:00 Enoxaparin Sodium (Lovenox) 30 mg DAILY SC Last administered on 05/23/17 08:34 ; Admin Dose 30 MG; Start 05/14/17 at 09:00 Acetaminophen/ Hydrocodone Bitart ([place] (5/325)) 1 tab Q4H PRN PO PAIN LEVEL 4 -7; Start 05/15/17 at 19:30 Acetaminophen/ Hydrocodone Bitart ([place] (5/325)) 2 tab Q4H PRN PO PAIN LEVEL 7 -10 Last administered on 05/17/17 20:49; Admin Dose 2 TAB; Start 05/15/17 at 19: 30 Hydromorphone HCl (Dilaudid) 0.5 mg Q2 PRN IV PAIN; Start 05/15/17 at 19:30 Hydromorphone HCl (Dilaudid) 1 mg Q2 PRN IV PAIN; Start 05/15/17 at 19:30 Docusate Sodium (Colace) 100 mg BID PRN PO CONSTIPATION Last administered on 05:48; Admin Dose 100 MG; Start 05/15/17 at 19:30 Bisacodyl (Dulcolax Supp) 10 mg BID PRN [place] CONSTIPATION Last administered on 16:05; Admin Dose 10 MG; Start 05/15/17 at 19:30 Sodium Biphosphate/ Sodium Phosphate (Fleet Enema) 133 ml BID PRN [place] CONSTIPATION; Start 05/15/17 at 19:30 Citric Acid/ Sodium Citrate (Bicitra) 30 ml BID PO Last administered on 08:30; Admin Dose 30 ML; Start 05/17/17 at 21:00 Diagnostic Test (Pha) (Accu-Chek) 1 ea 02 XX ; Start 05/18/17 at 02:00 Miscellaneous Information 1 ea NOTE XX ; Start 05/17/17 at 11:30 Glucose (Glutose) 15 gm Q15M PRN PO DECREASED GLUCOSE; Start 05/17/17 at 11:30 Glucose (Glutose) 22.5 gm Q15M PRN PO DECREASED GLUCOSE; Start 05/17/17 at 11:30 Dextrose (D50w Syringe) 25 ml Q15M PRN IV DECREASED GLUCOSE; Start 05/17/17 at 11:30 Dextrose (D50w Syringe) 50 ml Q15M PRN IV DECREASED GLUCOSE; Start 05/17/17 at 11:30 Glucagon (Glucagen) 1 mg Q15M PRN IM DECREASED GLUCOSE; Start 05/17/17 at 11:30 Glucose (Glutose) 15 gm Q15M PRN BUCCAL DECREASED GLUCOSE; Start 05/17/17 at 11: 30 Lisinopril (Zestril) 2.5 mg DAILY PO Last administered on 05/23/17 08:31; Admin Dose 2.5 MG; Start 05/18/17 at 09:00 Carvedilol (Coreg) 3.125 mg BID PO Last administered on 05/23/17 08:32; Admin Dose 3.125 MG; Start 05/17/17 at 21:00 Insulin Glargine (Lantus) 12 unit DAILY SC Last administered on 05/23/17 08:36 ; Admin Dose 12 UNIT; Start 05/17/17 at 20:00 Famotidine (Pepcid) 20 mg DAILY PO Last administered on 05/23/17 08:30; Admin Dose 20 MG; Start 05/20/17 at 09:00 Metronidazole (Flagyl) 500 mg Q8 PO Last administered on 05/23/17 05:36; Admin Dose 500 MG; Start 05/22/17 at 22:00 Cephalexin (Keflex) 500 mg Q8 PO Last administered on 05/23/17 05:36; Admin Dose 500 MG; Start 05/22/17 at 22:00 Bethanechol Chloride (Urecholine) 10 mg TID PO Last administered on 05/23/17 08:30; Admin Dose 10 MG; Start 05/22/17 at 21:00 MITCHELL CASTILLO MD May 23, 2017 10:09
[2017-05-23 14:00] VITALS: BP 138/64; RESP 19
--- NOTE | 2017-05-23 17:15 | PN ---
Date/Time of Note Date/Time of Note DATE: 05/23/17 TIME: 17:13 Assessment/Plan VTE Prophylaxis VTE Prophylaxis Intervention: SCD's Lines/Catheters [facility] Saline Lock Urinary Cath still in place: No Assessment/Plan Chief Complaint/Hosp Course Carmona DC'd, continue to monitor postvoid residual over the next 24 hours. Assessment/Plan -Urinary retention, Dr. Castillo is following in urology consultation. -Acute cholecystitis, s/p laparoscopic exploration with drainage of gallbladder by Dr. Harden. Continue to follow-up surgical recommendation. -Obstructive CAD, s/p ptca/stent x 3 to RCA/acute marginal by Dr. Monae on . Dr. Monae is following and cardiology consultation. -CVA with left-sided residual weakness -COPD, continue breathing treatments -Chronic kidney disease, avoid nephrotoxic medication. Dr. Toledo is following in nephrology consultation. -Diabetes mellitus type 2, continue Lantus and NovoLog. Further recommendations based on clinical course. Plan of care discussed with Dr. Paz. Problems: Exam/Review of Systems Vital Signs Vitals Vital Signs Date Time Temp Pulse Resp B/P Pulse Ox O2 Delivery O2 Flow Rate FiO2 05/23/17 14:00 98.1 79 19 138/64 98 05/20/17 20:10 Room Air Intake and Output 05/22/17 05/22/17 05/23/17 15:00 23:00 07:00 Intake Total 700 ml 300 ml Output Total 1000 ml 960 ml Balance -300 ml -660 ml Exam Constitutional: alert, oriented Head: normocephalic Neck: supple Respiratory: clear to auscultation Cardiovascular: nl pulses Gastrointestinal: other (LEANN, cholecystostomy drain), soft, tender Musculoskeletal: muscle weakness Extremities: normal pulses Neurological: nl mental status Results Result Diagram: 05/23/17 0520 05/23/17 0542 Results 24 hrs Laboratory Tests Test 05/22/17 17:57 05/22/17 22:04 05/23/17 05:20 05/23/17 05:42 Bedside Glucose 130 96 White Blood Count 7.0 Red Blood Count 3.48 L Hemoglobin 9.7 L Hematocrit 30.3 L Mean Corpuscular Volume 87.1 Mean Corpuscular Hemoglobin 27.9 L Mean Corpuscular Hemoglobin Concent 32.0 Red Cell Distribution Width 16.2 H Platelet Count 368 Mean Platelet Volume 10.3 Neutrophils % 49.2 Lymphocytes % 25.9 Monocytes % 18.5 H Eosinophils % 5.3 Basophils % 0.4 Nucleated Red Blood Cells % 0.0 Neutrophils # (Manual) 3.5 Lymphocytes # 1.8 Monocytes # 1.3 H Eosinophils # 0.4 Basophils # 0.0 Nucleated Red Blood Cells # 0.0 Sodium Level 139 Potassium Level 4.2 Chloride Level 100 Carbon Dioxide Level 29 Anion Gap 14 # Blood Urea Nitrogen 14 Creatinine 1.22 Glucose Level 104 Calcium Level 8.2 L Test 05/23/17 08:29 05/23/17 12:12 Bedside Glucose 122 216 Medications Medications Current Medications Ondansetron HCl (Zofran Inj) 4 mg Q6H PRN IV NAUSEA AND/OR VOMITING Last administered on 05/15/17 19:47; Admin Dose 4 MG; Start 05/13/17 at 16:00 Acetaminophen (Tylenol Tab) 650 mg Q6H PRN PO PAIN LEVEL 1-3 OR FEVER; Start at 16:00 Morphine Sulfate (morphine) 2 mg Q4H PRN IV PAIN LEVEL 7-10 Last administered on 05/15/17 03:20; Admin Dose 2 MG; Start 05/13/17 at 16:00 Enoxaparin Sodium (Lovenox) 30 mg DAILY SC Last administered on 05/23/17 08:34 ; Admin Dose 30 MG; Start 05/14/17 at 09:00 Acetaminophen/ Hydrocodone Bitart ([place] (5/325)) 1 tab Q4H PRN PO PAIN LEVEL 4 -7; Start 05/15/17 at 19:30 Acetaminophen/ Hydrocodone Bitart ([place] (5/325)) 2 tab Q4H PRN PO PAIN LEVEL 7 -10 Last administered on 05/17/17 20:49; Admin Dose 2 TAB; Start 05/15/17 at 19: 30 Hydromorphone HCl (Dilaudid) 0.5 mg Q2 PRN IV PAIN; Start 05/15/17 at 19:30 Hydromorphone HCl (Dilaudid) 1 mg Q2 PRN IV PAIN; Start 05/15/17 at 19:30 Docusate Sodium (Colace) 100 mg BID PRN PO CONSTIPATION Last administered on 05:48; Admin Dose 100 MG; Start 05/15/17 at 19:30 Bisacodyl (Dulcolax Supp) 10 mg BID PRN [place] CONSTIPATION Last administered on 16:05; Admin Dose 10 MG; Start 05/15/17 at 19:30 Sodium Biphosphate/ Sodium Phosphate (Fleet Enema) 133 ml BID PRN [place] CONSTIPATION; Start 05/15/17 at 19:30 Citric Acid/ Sodium Citrate (Bicitra) 30 ml BID PO Last administered on 08:30; Admin Dose 30 ML; Start 05/17/17 at 21:00 Diagnostic Test (Pha) (Accu-Chek) 1 ea 02 XX ; Start 05/18/17 at 02:00 Miscellaneous Information 1 ea NOTE XX ; Start 05/17/17 at 11:30 Glucose (Glutose) 15 gm Q15M PRN PO DECREASED GLUCOSE; Start 05/17/17 at 11:30 Glucose (Glutose) 22.5 gm Q15M PRN PO DECREASED GLUCOSE; Start 05/17/17 at 11:30 Dextrose (D50w Syringe) 25 ml Q15M PRN IV DECREASED GLUCOSE; Start 05/17/17 at 11:30 Dextrose (D50w Syringe) 50 ml Q15M PRN IV DECREASED GLUCOSE; Start 05/17/17 at 11:30 Glucagon (Glucagen) 1 mg Q15M PRN IM DECREASED GLUCOSE; Start 05/17/17 at 11:30 Glucose (Glutose) 15 gm Q15M PRN BUCCAL DECREASED GLUCOSE; Start 05/17/17 at 11: 30 Lisinopril (Zestril) 2.5 mg DAILY PO Last administered on 05/23/17 08:31; Admin Dose 2.5 MG; Start 05/18/17 at 09:00 Carvedilol (Coreg) 3.125 mg BID PO Last administered on 05/23/17 08:32; Admin Dose 3.125 MG; Start 05/17/17 at 21:00 Insulin Glargine (Lantus) 12 unit DAILY SC Last administered on 05/23/17 08:36 ; Admin Dose 12 UNIT; Start 05/17/17 at 20:00 Famotidine (Pepcid) 20 mg DAILY PO Last administered on 05/23/17 08:30; Admin Dose 20 MG; Start 05/20/17 at 09:00 Metronidazole (Flagyl) 500 mg Q8 PO Last administered on 05/23/17 13:41; Admin Dose 500 MG; Start 05/22/17 at 22:00 Cephalexin (Keflex) 500 mg Q8 PO Last administered on 05/23/17 13:41; Admin Dose 500 MG; Start 05/22/17 at 22:00 Bethanechol Chloride (Urecholine) 10 mg TID PO Last administered on 05/23/17 13:41; Admin Dose 10 MG; Start 05/22/17 at 21:00 CALVIN CIFUENTES May 23, 2017 17:15
--- NOTE | 2017-05-23 19:09 | PN ---
Date/Time of Note Date/Time of Note DATE: 05/23/17 TIME: 19:05 Assessment/Plan VTE Prophylaxis VTE Prophylaxis Intervention: anti-embolic stocking Lines/Catheters [facility] Urinary Cath still in place: No Assessment/Plan Chief Complaint/Hosp Course 72-year-old male admitted with abdominal pain CT scan showed a complex cyst arising from the ventral upper third of the right kidney measuring 4.6 x 5.8 x 7.6cm and it has internal calcifications The patient had a renal ultrasound on April 30, 2017 and that was reported as benign bilateral renal cysts and a cyst on the right side measured 4.3 cm Also the patient did have a renal ultrasound on October 05, 2013 and that was reported as the right kidney has a cyst that measures 6 x 4.6 x 5.1 cm Therefore this cyst on the right kidney is 3 and half year old and based on the measurements it may have increased a little bit over time. Recommend to repeat the ultrasound in about 6 months and may be also the CT scan and if there is any suspicious finding may do CT-guided aspiration of the cyst Urinary retention, this has resolved and the patient has been able to urinate. His postvoid residual ranged between 116 mL and 205 mL, therefore there is no urinary retention and from a urological standpoint he may be discharged Problems: Subjective 24 Hr Interval Summary Free Text/Dictation Patient had an indwelling Carmona catheter which was removed and is being watched to see if he is able to urinate. He did urinate and his postvoid residual today has been 116 mL and 205 mL Constitutional: no complaints Eyes: no complaints ENT: no complaints Respiratory: no complaints Cardiovascular: no complaints Gastrointestinal: no complaints Genitourinary: dysuria (Mild), No hematuria Musculoskeletal: no complaints Skin: no complaints Exam/Review of Systems Vital Signs Vitals Vital Signs Date Time Temp Pulse Resp B/P Pulse Ox O2 Delivery O2 Flow Rate FiO2 05/23/17 14:00 98.1 79 19 138/64 98 05/20/17 20:10 Room Air Intake and Output 05/22/17 05/22/17 05/23/17 15:00 23:00 07:00 Intake Total 700 ml 300 ml Output Total 1000 ml 960 ml Balance -300 ml -660 ml Exam Constitutional: alert, oriented Psych: no complaints Head: normocephalic Eyes: nl conjunctiva ENMT: nl external ears & nose Neck: supple Respiratory: normal air movement Cardiovascular: nl pulses Gastrointestinal: soft Genitourinary - Male: other (Voiding often and small amount, the urine is clear , the postvoid residual ranged between 116 and 205 mL) Musculoskeletal: nl extremities to inspection Extremities: No calf tenderness Results Result Diagram: 05/23/17 0520 05/23/17 0542 Results 24 hrs Laboratory Tests Test 05/22/17 22:04 05/23/17 05:20 05/23/17 05:42 05/23/17 08:29 Bedside Glucose 96 122 White Blood Count 7.0 Red Blood Count 3.48 L Hemoglobin 9.7 L Hematocrit 30.3 L Mean Corpuscular Volume 87.1 Mean Corpuscular Hemoglobin 27.9 L Mean Corpuscular Hemoglobin Concent 32.0 Red Cell Distribution Width 16.2 H Platelet Count 368 Mean Platelet Volume 10.3 Neutrophils % 49.2 Lymphocytes % 25.9 Monocytes % 18.5 H Eosinophils % 5.3 Basophils % 0.4 Nucleated Red Blood Cells % 0.0 Neutrophils # (Manual) 3.5 Lymphocytes # 1.8 Monocytes # 1.3 H Eosinophils # 0.4 Basophils # 0.0 Nucleated Red Blood Cells # 0.0 Sodium Level 139 Potassium Level 4.2 Chloride Level 100 Carbon Dioxide Level 29 Anion Gap 14 # Blood Urea Nitrogen 14 Creatinine 1.22 Glucose Level 104 Calcium Level 8.2 L Test 05/23/17 12:12 05/23/17 18:40 Bedside Glucose 216 184 Medications Medications Current Medications Ondansetron HCl (Zofran Inj) 4 mg Q6H PRN IV NAUSEA AND/OR VOMITING Last administered on 05/15/17 19:47; Admin Dose 4 MG; Start 05/13/17 at 16:00 Acetaminophen (Tylenol Tab) 650 mg Q6H PRN PO PAIN LEVEL 1-3 OR FEVER; Start at 16:00 Morphine Sulfate (morphine) 2 mg Q4H PRN IV PAIN LEVEL 7-10 Last administered on 05/15/17 03:20; Admin Dose 2 MG; Start 05/13/17 at 16:00 Enoxaparin Sodium (Lovenox) 30 mg DAILY SC Last administered on 05/23/17 08:34 ; Admin Dose 30 MG; Start 05/14/17 at 09:00 Acetaminophen/ Hydrocodone Bitart ([place] (5/325)) 1 tab Q4H PRN PO PAIN LEVEL 4 -7; Start 05/15/17 at 19:30 Acetaminophen/ Hydrocodone Bitart ([place] (5/325)) 2 tab Q4H PRN PO PAIN LEVEL 7 -10 Last administered on 05/17/17 20:49; Admin Dose 2 TAB; Start 05/15/17 at 19: 30 Hydromorphone HCl (Dilaudid) 0.5 mg Q2 PRN IV PAIN; Start 05/15/17 at 19:30 Hydromorphone HCl (Dilaudid) 1 mg Q2 PRN IV PAIN; Start 05/15/17 at 19:30 Docusate Sodium (Colace) 100 mg BID PRN PO CONSTIPATION Last administered on 05:48; Admin Dose 100 MG; Start 05/15/17 at 19:30 Bisacodyl (Dulcolax Supp) 10 mg BID PRN [place] CONSTIPATION Last administered on 16:05; Admin Dose 10 MG; Start 05/15/17 at 19:30 Sodium Biphosphate/ Sodium Phosphate (Fleet Enema) 133 ml BID PRN [place] CONSTIPATION; Start 05/15/17 at 19:30 Citric Acid/ Sodium Citrate (Bicitra) 30 ml BID PO Last administered on 08:30; Admin Dose 30 ML; Start 05/17/17 at 21:00 Diagnostic Test (Pha) (Accu-Chek) 1 ea 02 XX ; Start 05/18/17 at 02:00 Miscellaneous Information 1 ea NOTE XX ; Start 05/17/17 at 11:30 Glucose (Glutose) 15 gm Q15M PRN PO DECREASED GLUCOSE; Start 05/17/17 at 11:30 Glucose (Glutose) 22.5 gm Q15M PRN PO DECREASED GLUCOSE; Start 05/17/17 at 11:30 Dextrose (D50w Syringe) 25 ml Q15M PRN IV DECREASED GLUCOSE; Start 05/17/17 at 11:30 Dextrose (D50w Syringe) 50 ml Q15M PRN IV DECREASED GLUCOSE; Start 05/17/17 at 11:30 Glucagon (Glucagen) 1 mg Q15M PRN IM DECREASED GLUCOSE; Start 05/17/17 at 11:30 Glucose (Glutose) 15 gm Q15M PRN BUCCAL DECREASED GLUCOSE; Start 05/17/17 at 11: 30 Lisinopril (Zestril) 2.5 mg DAILY PO Last administered on 05/23/17 08:31; Admin Dose 2.5 MG; Start 05/18/17 at 09:00 Carvedilol (Coreg) 3.125 mg BID PO Last administered on 05/23/17 08:32; Admin Dose 3.125 MG; Start 05/17/17 at 21:00 Insulin Glargine (Lantus) 12 unit DAILY SC Last administered on 05/23/17 08:36 ; Admin Dose 12 UNIT; Start 05/17/17 at 20:00 Famotidine (Pepcid) 20 mg DAILY PO Last administered on 05/23/17 08:30; Admin Dose 20 MG; Start 05/20/17 at 09:00 Metronidazole (Flagyl) 500 mg Q8 PO Last administered on 05/23/17 13:41; Admin Dose 500 MG; Start 05/22/17 at 22:00 Cephalexin (Keflex) 500 mg Q8 PO Last administered on 05/23/17 13:41; Admin Dose 500 MG; Start 05/22/17 at 22:00 Bethanechol Chloride (Urecholine) 10 mg TID PO Last administered on 05/23/17 13:41; Admin Dose 10 MG; Start 05/22/17 at 21:00 AMANDA PAZ MD May 23, 2017 19:09
[2017-05-23 19:49] VITALS: BP 120/58; RESP 20
--- NOTE | 2017-05-23 23:26 | CONS ---
Date/Time of Note Date/Time of Note DATE: 05/23/17 TIME: 23:25 Assessment/Plan Assessment/Plan Chief Complaint/Hosp Course S/P MARLEN BETTER COPD S/P GALLBLADDER DRAINAGE PLAN LYTE STABLE Problems: Consultation Date/Type/Reason Admit Date/Time May 13, 2017 at 14:10 Initial Consult Date 05/16/17 Type of Consultation: nephrology Referring Provider: QUIANA MURCIA MD 24 HR Interval Summary Constitutional: no complaints Exam/Review of Systems Vital Signs Vitals Vital Signs Date Time Temp Pulse Resp B/P Pulse Ox O2 Delivery O2 Flow Rate FiO2 05/23/17 19:49 98.6 73 20 120/58 97 05/20/17 20:10 Room Air Intake and Output 05/22/17 05/22/17 05/23/17 15:00 23:00 07:00 Intake Total 700 ml 300 ml Output Total 1000 ml 960 ml Balance -300 ml -660 ml Exam Neck: supple Respiratory: clear to auscultation Results Result Diagram: 05/23/17 0520 05/23/17 0542 Results 24 hrs Laboratory Tests Test 05/23/17 05:20 05/23/17 05:42 05/23/17 08:29 05/23/17 12:12 White Blood Count 7.0 Red Blood Count 3.48 L Hemoglobin 9.7 L Hematocrit 30.3 L Mean Corpuscular Volume 87.1 Mean Corpuscular Hemoglobin 27.9 L Mean Corpuscular Hemoglobin Concent 32.0 Red Cell Distribution Width 16.2 H Platelet Count 368 Mean Platelet Volume 10.3 Neutrophils % 49.2 Lymphocytes % 25.9 Monocytes % 18.5 H Eosinophils % 5.3 Basophils % 0.4 Nucleated Red Blood Cells % 0.0 Neutrophils # (Manual) 3.5 Lymphocytes # 1.8 Monocytes # 1.3 H Eosinophils # 0.4 Basophils # 0.0 Nucleated Red Blood Cells # 0.0 Sodium Level 139 Potassium Level 4.2 Chloride Level 100 Carbon Dioxide Level 29 Anion Gap 14 # Blood Urea Nitrogen 14 Creatinine 1.22 Glucose Level 104 Calcium Level 8.2 L Bedside Glucose 122 216 Test 05/23/17 18:40 05/23/17 21:02 Bedside Glucose 184 147 Medications Medications Current Medications Ondansetron HCl (Zofran Inj) 4 mg Q6H PRN IV NAUSEA AND/OR VOMITING Last administered on 05/15/17 19:47; Admin Dose 4 MG; Start 05/13/17 at 16:00 Acetaminophen (Tylenol Tab) 650 mg Q6H PRN PO PAIN LEVEL 1-3 OR FEVER; Start at 16:00 Morphine Sulfate (morphine) 2 mg Q4H PRN IV PAIN LEVEL 7-10 Last administered on 05/15/17 03:20; Admin Dose 2 MG; Start 05/13/17 at 16:00 Enoxaparin Sodium (Lovenox) 30 mg DAILY SC Last administered on 05/23/17 08:34 ; Admin Dose 30 MG; Start 05/14/17 at 09:00 Acetaminophen/ Hydrocodone Bitart ([place] (5/325)) 1 tab Q4H PRN PO PAIN LEVEL 4 -7; Start 05/15/17 at 19:30 Acetaminophen/ Hydrocodone Bitart ([place] (5/325)) 2 tab Q4H PRN PO PAIN LEVEL 7 -10 Last administered on 05/17/17 20:49; Admin Dose 2 TAB; Start 05/15/17 at 19: 30 Hydromorphone HCl (Dilaudid) 0.5 mg Q2 PRN IV PAIN; Start 05/15/17 at 19:30 Hydromorphone HCl (Dilaudid) 1 mg Q2 PRN IV PAIN; Start 05/15/17 at 19:30 Docusate Sodium (Colace) 100 mg BID PRN PO CONSTIPATION Last administered on 05:48; Admin Dose 100 MG; Start 05/15/17 at 19:30 Bisacodyl (Dulcolax Supp) 10 mg BID PRN [place] CONSTIPATION Last administered on 16:05; Admin Dose 10 MG; Start 05/15/17 at 19:30 Sodium Biphosphate/ Sodium Phosphate (Fleet Enema) 133 ml BID PRN [place] CONSTIPATION; Start 05/15/17 at 19:30 Citric Acid/ Sodium Citrate (Bicitra) 30 ml BID PO Last administered on 21:05; Admin Dose 30 ML; Start 05/17/17 at 21:00 Diagnostic Test (Pha) (Accu-Chek) 1 ea 02 XX ; Start 05/18/17 at 02:00 Miscellaneous Information 1 ea NOTE XX ; Start 05/17/17 at 11:30 Glucose (Glutose) 15 gm Q15M PRN PO DECREASED GLUCOSE; Start 05/17/17 at 11:30 Glucose (Glutose) 22.5 gm Q15M PRN PO DECREASED GLUCOSE; Start 05/17/17 at 11:30 Dextrose (D50w Syringe) 25 ml Q15M PRN IV DECREASED GLUCOSE; Start 05/17/17 at 11:30 Dextrose (D50w Syringe) 50 ml Q15M PRN IV DECREASED GLUCOSE; Start 05/17/17 at 11:30 Glucagon (Glucagen) 1 mg Q15M PRN IM DECREASED GLUCOSE; Start 05/17/17 at 11:30 Glucose (Glutose) 15 gm Q15M PRN BUCCAL DECREASED GLUCOSE; Start 05/17/17 at 11: 30 Lisinopril (Zestril) 2.5 mg DAILY PO Last administered on 05/23/17 08:31; Admin Dose 2.5 MG; Start 05/18/17 at 09:00 Carvedilol (Coreg) 3.125 mg BID PO Last administered on 05/23/17 21:04; Admin Dose 3.125 MG; Start 05/17/17 at 21:00 Insulin Glargine (Lantus) 12 unit DAILY SC Last administered on 05/23/17 08:36 ; Admin Dose 12 UNIT; Start 05/17/17 at 20:00 Famotidine (Pepcid) 20 mg DAILY PO Last administered on 05/23/17 08:30; Admin Dose 20 MG; Start 05/20/17 at 09:00 Metronidazole (Flagyl) 500 mg Q8 PO Last administered on 05/23/17 21:08; Admin Dose 500 MG; Start 05/22/17 at 22:00 Cephalexin (Keflex) 500 mg Q8 PO Last administered on 05/23/17 21:09; Admin Dose 500 MG; Start 05/22/17 at 22:00 Bethanechol Chloride (Urecholine) 10 mg TID PO Last administered on 05/23/17 21:04; Admin Dose 10 MG; Start 05/22/17 at 21:00 ELISSA NINO MD May 23, 2017 23:26
[2017-05-24] MEDS: ACCU-CHEK XX SCH (02:00)
[2017-05-24 02:23] VITALS: BP 130/69; RESP 18
[2017-05-24 06:04] LABS: BASOPHILS % 0.3 % (0.0-2.0); EOSINOPHILS # 0.4 10^3/ul (0.0-0.5); EOSINOPHILS % 6.5 % (0.0-7.0); HEMOGLOBIN 9.1 g/dl (14.0-18.0); LYMPHOCYTES # 1.8 10^3/ul (0.8-2.9); MEAN CORPUSCULAR HEMOGLOBIN 27.5 pg (29.0-33.0); MEAN CORPUSCULAR HGB CONC 31.4 g/dl (32.0-37.0); MEAN CORPUSCULAR VOLUME 87.6 fl (82.0-101.0); MEAN PLATELET VOLUME 10.2 fl (7.4-10.4); MONOCYTE # 1.1 10^3/ul (0.3-0.9); MONOCYTES % 17.7 % (0.0-11.0); NEUTROPHILS % 46.2 % (39.0-77.0); PLATELET COUNT 380 10^3/UL (140-415); RED BLOOD COUNT 3.31 10^6/ul (4.70-6.10); RED CELL DISTRIBUTION WIDTH 16.2 % (11.5-14.5)
[2017-05-24] MEDS: metroNIDAZOLE 500 MG TAB PO SCH ×2 (06:27→13:47)
[2017-05-24] MEDS: CEPHALEXIN 500 MG CAP PO SCH ×2 (06:27→13:47)
[2017-05-24 06:33] LABS: CALCIUM 8.3 mg/dl (8.4-10.2); CREATININE 1.09 mg/dl (0.61-1.24); POTASSIUM 4.2 mmol/L (3.5-5.1)
[2017-05-24 08:28] VITALS: BP 136/74; RESP 16
[2017-05-24] MEDS: CITRIC ACID/NA CITRATE 30 ML CUP PO SCH (09:00)
[2017-05-24] MEDS: LISINOPRIL 5 MG TAB PO SCH (09:35)
[2017-05-24] MEDS: BETHANECHOL 10 MG TAB PO SCH ×2 (09:35→13:47)
[2017-05-24] MEDS: ENOXAPARIN 30 MG/0.3 ML SYG SC SCH (09:48)
[2017-05-24] MEDS: INSULIN ASPART [NOVOLOG] 3 ML PEN SC SCH ×4 (09:48→12:09)
[2017-05-24] MEDS: INSULIN GLARGINE [LANtus] 3 ML PEN SC SCH (09:49)
[2017-05-24] MEDS: FAMOTIDINE 20 MG TAB PO SCH (09:50)
[2017-05-24 14:50] VITALS: BP 117/63; RESP 18
--- NOTE | 2017-05-24 15:16 | CONS ---
Date/Time of Note Date/Time of Note DATE: 05/24/17 TIME: 15:15 Assessment/Plan Assessment/Plan Additional Assessment/Plan 1.Ppost-op s/p drainage of gallbladder/lysis of adhesions - surgical team follows - better now - OFF TELE 2.H/O stent to RCA - on Rxl no CP now, no intervention planned. NO CP noted. 3.HTN - well rx - con't med rx - IN [place] RANGE 4.HL 5.cardiomyopathy with low ef 25% by echo 04/18/17 - will keep euvolemic as tolerated - tolerated procedure well Consultation Date/Type/Reason Admit Date/Time May 13, 2017 at 14:10 Type of Consultation: nephrology Referring Provider: QUIANA MURCIA MD 24 HR Interval Summary Free Text/Dictation NO acute change - OFF Tetle now - no CP, post op care in place ROS: No fever, no chills, no nausea, no vomiting, no diarrhea/constipation No recent weight changes No chest pain, no PND, no orthopnea No dizziness, blurred vision No thirst, no heat or cold intolerance Exam/Review of Systems Vital Signs Vitals Vital Signs Date Time Temp Pulse Resp B/P Pulse Ox O2 Delivery O2 Flow Rate FiO2 05/24/17 14:50 98.6 84 18 117/63 98 05/20/17 20:10 Room Air Intake and Output 05/23/17 05/23/17 05/24/17 15:00 23:00 07:00 Intake Total 710 ml 340 ml Output Total 700 ml 450 ml Balance 10 ml -110 ml Exam General: WN/WD/NAD, AOx 3 HEENT: Unicetric/atraumatic/EOMI (follows commands) NECK: JVD elevated, no thyromegaly Lymph: no lymphadenopathy HEART: regular with no S3, II/ systolic murmur at apex LUNGS: Coarse sounds ABD: soft, NT, ND, +BS : Intact Neuro: non focal SKIN: chronic changes EXT: trace edema Results Result Diagram: 05/24/17 0532 05/24/17 0532 Results 24 hrs Laboratory Tests Test 05/23/17 18:40 05/23/17 21:02 05/24/17 05:32 05/24/17 09:45 Bedside Glucose 184 147 148 White Blood Count 6.0 Red Blood Count 3.31 L Hemoglobin 9.1 L Hematocrit 29.0 L Mean Corpuscular Volume 87.6 Mean Corpuscular Hemoglobin 27.5 L Mean Corpuscular Hemoglobin Concent 31.4 L Red Cell Distribution Width 16.2 H Platelet Count 380 Mean Platelet Volume 10.2 Neutrophils % 46.2 Lymphocytes % 29.0 Monocytes % 17.7 H Eosinophils % 6.5 Basophils % 0.3 Nucleated Red Blood Cells % 0.0 Neutrophils # (Manual) 2.8 Lymphocytes # 1.8 Monocytes # 1.1 H Eosinophils # 0.4 Basophils # 0.0 Nucleated Red Blood Cells # 0.0 Sodium Level 137 Potassium Level 4.2 Chloride Level 104 Carbon Dioxide Level 29 Anion Gap 8 Blood Urea Nitrogen 11 Creatinine 1.09 Glucose Level 119 Calcium Level 8.3 L Test 05/24/17 12:06 Bedside Glucose 203 Medications Medications Current Medications Ondansetron HCl (Zofran Inj) 4 mg Q6H PRN IV NAUSEA AND/OR VOMITING Last administered on 05/15/17 19:47; Admin Dose 4 MG; Start 05/13/17 at 16:00 Acetaminophen (Tylenol Tab) 650 mg Q6H PRN PO PAIN LEVEL 1-3 OR FEVER; Start at 16:00 Morphine Sulfate (morphine) 2 mg Q4H PRN IV PAIN LEVEL 7-10 Last administered on 05/15/17 03:20; Admin Dose 2 MG; Start 05/13/17 at 16:00 Enoxaparin Sodium (Lovenox) 30 mg DAILY SC Last administered on 05/24/17 09:48 ; Admin Dose 30 MG; Start 05/14/17 at 09:00 Acetaminophen/ Hydrocodone Bitart ([place] (5/325)) 1 tab Q4H PRN PO PAIN LEVEL 4 -7; Start 05/15/17 at 19:30 Acetaminophen/ Hydrocodone Bitart ([place] (5/325)) 2 tab Q4H PRN PO PAIN LEVEL 7 -10 Last administered on 05/17/17 20:49; Admin Dose 2 TAB; Start 05/15/17 at 19: 30 Hydromorphone HCl (Dilaudid) 0.5 mg Q2 PRN IV PAIN; Start 05/15/17 at 19:30 Hydromorphone HCl (Dilaudid) 1 mg Q2 PRN IV PAIN; Start 05/15/17 at 19:30 Docusate Sodium (Colace) 100 mg BID PRN PO CONSTIPATION Last administered on 05:48; Admin Dose 100 MG; Start 05/15/17 at 19:30 Bisacodyl (Dulcolax Supp) 10 mg BID PRN [place] CONSTIPATION Last administered on 16:05; Admin Dose 10 MG; Start 05/15/17 at 19:30 Sodium Biphosphate/ Sodium Phosphate (Fleet Enema) 133 ml BID PRN [place] CONSTIPATION; Start 05/15/17 at 19:30 Citric Acid/ Sodium Citrate (Bicitra) 30 ml BID PO Last administered on 21:05; Admin Dose 30 ML; Start 05/17/17 at 21:00 Diagnostic Test (Pha) (Accu-Chek) 1 ea 02 XX ; Start 05/18/17 at 02:00 Miscellaneous Information 1 ea NOTE XX ; Start 05/17/17 at 11:30 Glucose (Glutose) 15 gm Q15M PRN PO DECREASED GLUCOSE; Start 05/17/17 at 11:30 Glucose (Glutose) 22.5 gm Q15M PRN PO DECREASED GLUCOSE; Start 05/17/17 at 11:30 Dextrose (D50w Syringe) 25 ml Q15M PRN IV DECREASED GLUCOSE; Start 05/17/17 at 11:30 Dextrose (D50w Syringe) 50 ml Q15M PRN IV DECREASED GLUCOSE; Start 05/17/17 at 11:30 Glucagon (Glucagen) 1 mg Q15M PRN IM DECREASED GLUCOSE; Start 05/17/17 at 11:30 Glucose (Glutose) 15 gm Q15M PRN BUCCAL DECREASED GLUCOSE; Start 05/17/17 at 11: 30 Lisinopril (Zestril) 2.5 mg DAILY PO Last administered on 05/24/17 09:35; Admin Dose 2.5 MG; Start 05/18/17 at 09:00 Carvedilol (Coreg) 3.125 mg BID PO Last administered on 05/24/17 09:36; Admin Dose 3.125 MG; Start 05/17/17 at 21:00 Insulin Glargine (Lantus) 12 unit DAILY SC Last administered on 05/24/17 09:49 ; Admin Dose 12 UNIT; Start 05/17/17 at 20:00 Famotidine (Pepcid) 20 mg DAILY PO Last administered on 05/24/17 09:50; Admin Dose 20 MG; Start 05/20/17 at 09:00 Metronidazole (Flagyl) 500 mg Q8 PO Last administered on 05/24/17 13:47; Admin Dose 500 MG; Start 05/22/17 at 22:00 Cephalexin (Keflex) 500 mg Q8 PO Last administered on 05/24/17 13:47; Admin Dose 500 MG; Start 05/22/17 at 22:00 Bethanechol Chloride (Urecholine) 10 mg TID PO Last administered on 05/24/17 13:47; Admin Dose 10 MG; Start 05/22/17 at 21:00 MITCHELL CASTILLO MD May 24, 2017 15:16
[2017-05-24] MEDS ORDERED: METR500T PO (16:39)
[2017-05-24] MEDS ORDERED: CARV3.1260 PO (16:39)
[2017-05-24] MEDS ORDERED: CEPH500C PO (16:39)
[2017-05-24] MEDS ORDERED: LISI-313 PO (16:39)
--- NOTE | 2017-05-24 22:07 | DS ---
Date/Time of Note Date/Time of Note DATE: 05/24/17 TIME: 22:04 Discharge Summary Admission/Discharge Info Admit Date/Time May 13, 2017 at 14:10 Discharge Date/Time May 24, 2017 at 18:11 Patient Condition: Stable Hx of Present Illness Patient with hypertension, diabetes, previous cerebrovascular accident comes in with abdominal pain. Patient is found to have cholecystitis and is admitted for intravenous antibiotics and surgical evaluation. Will continue to follow and treat as needed Hospital Course -Acute cholecystitis, s/p laparoscopic exploration with drainage of gallbladder by Dr. Harden. Pt d/elizabeth home with drain, f/up with Dr Harden in 1-2 weeks, possible cholecystectomy in 4 weeks. Pt d/elizabeth home with home health services for drain care. -Urinary retention, resolved. Dr. Castillo is following in urology consultation. -Obstructive CAD, s/p ptca/stent x 3 to RCA/acute marginal by Dr. Monae on . Dr. Monae is following and cardiology consultation. -CVA with left-sided residual weakness -COPD, continue breathing treatments -Chronic kidney disease, avoid nephrotoxic medication. Dr. Toledo is following in nephrology consultation. -Diabetes mellitus type 2, continue Lantus and NovoLog. Home Meds Active Scripts Cephalexin* (Cephalexin*) 500 Mg Capsule, 500 MG PO Q8 for 7 Days, CAP Prov:CALVIN CIFUENTES 05/24/17 Carvedilol* (Carvedilol*) 3.125 Mg Tablet, 3.125 MG PO BID for 30 Days, TAB Prov:CALVIN CIFUENTES 05/24/17 Metronidazole* (Flagyl*) 500 Mg Tablet, 500 MG PO Q8 for 7 Days, TAB Prov:OMID CIFUENTESA 05/24/17 Lisinopril* (Lisinopril*) 5 Mg Tablet, 2.5 MG PO DAILY for 30 Days, TAB Prov:CALVIN CIFUENTES 05/24/17 Linagliptin (TRADJENTA) 5 Mg Tablet, 5 MG PO DAILY for 30 Days, TAB Prov:CALVIN CIFUENTES 05/01/17 Aspirin* (Aspirin* EC) 81 Mg Tablet., 81 MG PO DAILY for 30 Days, TAB Prov:CALVIN CIFUENTES 05/01/17 Pioglitazone Hcl* (Actos*) 15 Mg Tablet, 15 MG PO DAILY for 30 Days, TAB Prov:JOHNNY CIFUENTESETLANA 05/01/17 Insulin Glargine* (Lantus*) 100 Unit/Ml Soln, 12 UNIT SC DAILY@08 for 30 Days Prov:JOSE GJOHNNY BLANCOCALVIN 05/01/17 Insulin Aspart* (Novolog Insulin Pen*) 100 Unit/Ml Soln, 4 UNIT SC WITH MEALS for 30 Days Prov:JOHNNY CIFUENTESETLANA 05/01/17 Clopidogrel Bisulfate (Clopidogrel) 75 Mg Tablet, 75 MG PO DAILY for 30 Days, TAB Prov:05/01/17 Reported Medications Simvastatin (Simvastatin) 40 Mg Tablet, 40 MG PO HS 09/29/13 Discontinued Scripts Lisinopril* (Lisinopril*) 20 Mg Tablet, 40 MG PO DAILY for 30 Days, TAB Prov:JOSE GCALVIN 05/01/17 Follow-up Plan Dr Harden in 1-2 weeks. Primary Care Provider Carrington Gutiérrez Pending Labs Laboratory Tests Test 05/24/17 05:32 05/24/17 09:45 05/24/17 12:06 White Blood Count 6.010^3/ul (4.8-10.8) Red Blood Count 3.3110^6/ul (4.70-6.10) Hemoglobin 9.1g/dl (14.0-18.0) Hematocrit 29.0% (42.0-52.0) Mean Corpuscular Volume 87.6fl (82.0-101.0) Mean Corpuscular Hemoglobin 27.5pg (29.0-33.0) Mean Corpuscular Hemoglobin Concent 31.4g/dl (32.0-37.0) Red Cell Distribution Width 16.2% (11.5-14.5) Platelet Count 60146^3/UL (140-415) Mean Platelet Volume 10.2fl (7.4-10.4) Neutrophils % 46.2% (39.0-77.0) Lymphocytes % 29.0% (15.0-51.0) Monocytes % 17.7% (0.0-11.0) Eosinophils % 6.5% (0.0-7.0) Basophils % 0.3% (0.0-2.0) Nucleated Red Blood Cells % 0.0/100WBC (0.0-0.0) Neutrophils # (Manual) 2.810^3/ul (1.7-7.5) Lymphocytes # 1.810^3/ul (0.8-2.9) Monocytes # 1.110^3/ul (0.3-0.9) Eosinophils # 0.410^3/ul (0.0-0.5) Basophils # 0.010^3/ul (0.0-0.1) Nucleated Red Blood Cells # 0.010^3/ul (0.0-0.0) Sodium Level 137mmol/L (135-144) Potassium Level 4.2mmol/L (3.5-5.1) Chloride Level 104mmol/L (97-110) Carbon Dioxide Level 29mmol/L (21-31) Anion Gap 8 (8-16) Blood Urea Nitrogen 11mg/dl (7-20) Creatinine 1.09mg/dl (0.61-1.24) Glucose Level 119mg/dl (70-220) Calcium Level 8.3mg/dl (8.4-10.2) Bedside Glucose 148mg/dL (70-220) 203mg/dL (70-220) CALVIN CIFUENTES May 24, 2017 22:07
== END 2017-05-24 18:11 | disposition home health service (06) | DRG 444 ==
LOC: E/R 09:58 → TEL 14:10 → PP2 05-22 20:13
PROVIDERS: ADMIT Internal Medicine; ATTEND Internal Medicine
PROC: 0F9440Z Drainage of Gallbladder with Drainage Device, Percutaneous Endoscopic Approach (ICD-10-PCS; principal; 2017-05-15 16:30)
DX: K81.2 Acute cholecystitis with chronic cholecystitis (principal); K82.2 Perforation of gallbladder; E43 Unspecified severe protein-calorie malnutrition; N17.9 Acute kidney failure, unspecified; E87.2 Acidosis; I13.0 Hypertensive heart and chronic kidney disease with heart failure and stage 1 through stage 4 chronic kidney disease, or unspecified chronic kidney disease; R65.10 Systemic inflammatory response syndrome (SIRS) of non-infectious origin without acute organ dysfunction; R18.8 Other ascites; I50.22 Chronic systolic (congestive) heart failure; I69.354 Hemiplegia and hemiparesis following cerebral infarction affecting left non-dominant side; Q43.3 Congenital malformations of intestinal fixation; N39.0 Urinary tract infection, site not specified; Z68.1 Body mass index [BMI] 19.9 or less, adult; B39.9 Histoplasmosis, unspecified; E11.22 Type 2 diabetes mellitus with diabetic chronic kidney disease; I25.10 Atherosclerotic heart disease of native coronary artery without angina pectoris; N18.3 Chronic kidney disease, stage 3 (moderate); Z79.4 Long term (current) use of insulin; J44.9 Chronic obstructive pulmonary disease, unspecified; Z95.5 Presence of coronary angioplasty implant and graft; K82.8 Other specified diseases of gallbladder; N28.1 Cyst of kidney, acquired; N40.0 Benign prostatic hyperplasia without lower urinary tract symptoms; I70.90 Unspecified atherosclerosis; K40.20 Bilateral inguinal hernia, without obstruction or gangrene, not specified as recurrent; K42.9 Umbilical hernia without obstruction or gangrene; R00.0 Tachycardia, unspecified; D64.9 Anemia, unspecified; E78.5 Hyperlipidemia, unspecified; I25.5 Ischemic cardiomyopathy; I25.2 Old myocardial infarction; D73.89 Other diseases of spleen; R33.9 Retention of urine, unspecified
CPT/HCPCS: 36415; 36600; 74176; 76705; 80048; 80053; 81001; 82803; 82962; 83036; 83605; 83690; 83735; 83880; 84100; 85025; 85610; 85730; 87070; 87075; 87086; 87102; 93005; 96374; 96375; 96376; 97116; 97162; 97530; J0131; J0360; J0696; J1100; J1644; J1650; J1815; J1956; J2250; J2270; J2370; J2405; J2710; J2765; J2795; J3010; J7030

== ENCOUNTER 2017-05-31 15:05 | Outpatient (CLI) | payer MEDICARE, OTHER ==
[~2017-05-31] VITALS: Ht 157.5 cm; Wt 61.4 kg
[~2017-05-31 15:05] MED LIST changes: +CARV3.1260 PO; +CEPH500C PO; +CLOP75TA27 PO; +GLU5XL PO; +LISI-313 PO; +LISI40TA PO; +METF500T4 PO; +METR500T PO
[2017-05-31 15:45] VITALS: BP 122/63; PULSE 82; RESP 18; Ht 157.5 cm; Wt 61.4 kg
--- NOTE | 2017-05-31 15:52 | PN ---
Date/Time of Note Date/Time of Note DATE: 05/31/17 TIME: 15:40 Assessment/Plan Assessment/Plan Assessment/Plan [facility] Progress Note Date of Service: 05/31/2017 Place of service: [facility] Today's Assessment & Plan: Stable and improving. Looks much improved compared to preop. Gallbladder drain and surgical with appropriate drainage which appears to be bile and indicates open cystic duct. No indication for acute surgical intervention at this time. Would recommend waiting 2 more weeks with appropriate drainage prior to hopefully doing drain sinogram and perhaps a CT scan in preparation for possible elective laparoscopic cholecystectomy at week or 2 after that. Explained to patient and his and answered all questions. Patient and his appeared to understand and agreed with the plans. With above assessment, I've recommended the followin. Continue current cares 2. Continue drain management as an outpatient 3. Drain sinogram and abdominal CT scan in 2 weeks with visit with us afterwards 3. Possible laparoscopic cholecystectomy after #3 above Thank you very much for having me involved in the care of this very pleasant patient and wonderful family. If you have any questions, please feel free to contact me at [phone]. Nature of presenting problem: High severity Please note that, given the multiple number of diagnoses or management options, the extensive amount and/or complexity of data needed to be reviewed, and high risk of complications and/or morbidity or mortality, this qualifies as high complexity type of decision-making. Disclaimer: Inadvertent spelling and grammatical errors are likely due to EHR/ dictation software use and do not reflect on the quality of delivered patient care. Also, please note that the electronic time recorded on this node does not necessarily reflect the actual time of the visit. Updated clinical summary: A very-pleasant 72-year-old gentleman with multiple comorbid issues presenting with a clinical picture consistent with acute cholecystitis. Concerning features included rising white blood cell count, acute renal insufficiency, malnutrition with albumin of 2.9 after hydration, and CT findings as outlined below. Surgical drain discontinued 05/19/2017. Comorbidities: 1. Severe acute on chronic cholecystitis with gangrene and perforation and bile leak. S/p an otherwise uncomplicated laparoscopic exploration with drainage of gallbladder and lysis of adhesions on 05/15/17 at [facility] with findings of severe acute on chronic cholecystitis with gangrenous cholecystitis, perforation and bile peritonitis 2. Chilaiditi syndrome. 3. Trace ascites. 4. 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 5. Complex calcified predominately cystic mass arising from the ventral upper third of the right kidney. A contrast-enhanced triple phase CT scan of the kidneys is recommended for further characterization. Additional renal cysts are identified in the left kidney some of which which may contain internal septations. 6. Enlarged prostate gland. 7. Atherosclerotic vascular disease. 8. Bilateral inguinal hernias containing fat. Small midline umbilical hernia containing fat. 9. Diabetes mellitus 10. CVA 11. Hypertension 12. Coronary artery calcifications with obstructive coronary artery disease; previous non-STEMI 13. Status post coronary artery stent placement 14. COPD 15. Appendectomy 30 years ago 16. Left hemiplegia 17. Renal disease 18. Complex right renal cyst. Subjective: No major events or complaints since discharge; no major abd pain and under control with medications; no n/v/d; no sob or cp; + flatus; + BM; minimal activity; drain output has been small, approximately 20-30 cc per day. Objective: Vitals: See below Exam: GENERAL: On exam, the patient was sitting in a chair and appeared to be comfortable and in no acute distress. ABDOMEN: Soft, nontender and nondistended. Incisions and drain sites are clean , dry and intact without any evidence of erythema, edema, discharge, or hernia. Percutaneous gallbladder drain bilious. There are no peritoneal signs or guarding. SKIN: Skin appears to be pink and feels warm to touch. NEUROLOGIC: Patient is awake, alert, and follows commands appropriately. DANA BARRETO M.D. May 31, 2017 15:52
== END 2017-05-31 17:00 | disposition home or self-care (01) ==
LOC: HPC 15:05
PROVIDERS: ATTEND Transplant Surgery
DX: K81.9 Cholecystitis, unspecified (principal); I70.90 Unspecified atherosclerosis; I10 Essential (primary) hypertension; E11.9 Type 2 diabetes mellitus without complications; K40.20 Bilateral inguinal hernia, without obstruction or gangrene, not specified as recurrent; N40.0 Benign prostatic hyperplasia without lower urinary tract symptoms; R18.8 Other ascites; Q43.3 Congenital malformations of intestinal fixation; I25.10 Atherosclerotic heart disease of native coronary artery without angina pectoris; J44.9 Chronic obstructive pulmonary disease, unspecified; Z86.73 Personal history of transient ischemic attack (TIA), and cerebral infarction without residual deficits; Z98.61 Coronary angioplasty status
CPT/HCPCS: G0463

== ENCOUNTER → 2017-06-20 | Outpatient (CLI) | payer MEDICARE, OTHER ==
[~2017-06-20] MED LIST changes: -CEPH500C PO; -CLOP75TA27 PO; -GLU5XL PO; +IOHEXOL 300MG/ML 30 ML BTL ONE; -LISI20TA11 PO; -LISI40TA PO; -METF500T4 PO; -METR500T PO
--- NOTE | 2017-06-20 17:06 | RADRPT ---
PROCEDURE: Fluoroscopic guided cholecystogram. CLINICAL INDICATION: Check cholecystostomy tube position. TECHNIQUE: 11 images of the right upper quadrant were obtained with fluoroscopic guidance during i njection of 20 ml of Omnipaque-300 into the cholecystostomy tube. Fluoroscopy time is 0.2 minutes. COMPARISON: CT scan of the abdomen and pelvis done earlier the same day. FINDINGS: The cholecystostomy tube is in satisfactory position within the gallbladder. The cystic duct is huang nt. Contrast enters the common bile duct and duodenum. There is no filling defect. There is mild ref lux into the common hepatic duct which also appears normal IMPRESSION: 1. Cholecystostomy tube in satisfactory position. 2. Patent cystic duct and common bile duct. RPTAT: QQ .Norberto Suazo MD, Date Time Electronically viewed and signed by .Norberto Suazo MD, on 06/20/2017 17:05 .R/
--- NOTE | 2017-06-20 18:01 | RADRPT ---
PROCEDURE: CT Abdomen and Pelvis without contrast. CLINICAL INDICATION: Abdominal and pelvic pain. Postop. TECHNIQUE: CT scan of the abdomen and pelvis without contrast was performed. Coronal and sagittal reformatted images were obtained from the axial source images. Images were reviewed on a [employer] PACS workstation. Total exam DLP is 541.32 mGy-cm. CTDIvol is 9.48 mGy. One or more of the fo llowin dose reduction techniques were used: Automated exposure control, adjustment of the mA and/or kV according to patient size, use of iterative reconstruction technique. COMPARISON: 05/13/2017. FINDINGS: The lung bases are normal. There is no pleural effusion. The liver is normal in size and attenuation. There is no focal hepatic lesion. The cholecystostomy tube is noted in satisfactory position. The gallbladder is contracted. The bile ducts are normal. The spleen is normal in size. Multiple punctate calcifications are present in the spleen from previo us granulomatous disease. Both adrenals are normal with no enlargement or mass. The pancreas is unremarkable with no mass or evidence of pancreatitis. There is no solid renal mass, hydronephrosis, or calculus. There are benign bilateral renal cysts. The abdominal aorta is not dilated. Calcification is present in the aorta consistent with atheroscle rosis. There is no retroperitoneal lymphadenopathy or mass. There is no pelvic lymphadenopathy or mass. The bladder and distal ureters are normal. The periappendiceal region is unremarkable with no evidence of appendicitis. The bowel and mesentery are normal. There is no free fluid or free gas. There are mild degenerative changes of the spine. There is no fracture or lytic lesion. IMPRESSION: 1. Cholecystostomy tube in satisfactory position. Contracted gallbladder. 2. Of the calcifications in the spleen from previous granulomatous disease. 3. Benign bilateral renal cysts. 4. Atherosclerosis. 5. Mild degenerative changes of the spine. RPTAT: QQ .Norberto uSazo MD, MD Date Time Electronically viewed and signed by .Norberto Suazo MD, on 06/20/2017 18:01 .R/
== END | disposition home or self-care (01) ==
LOC: C/S 09:40
PROVIDERS: ATTEND Transplant Surgery
DX: K81.9 Cholecystitis, unspecified (principal)
CPT/HCPCS: 74176; 74320; Q9967

== ENCOUNTER → 2017-06-21 | Outpatient (CLI) | payer MEDICARE, OTHER ==
[~2017-06-21] MED LIST changes: -IOHEXOL 300MG/ML 30 ML BTL ONE
[2017-06-21 11:42] VITALS: BP 146/67; PULSE 71; RESP 18
--- NOTE | 2017-06-21 12:10 | PN ---
Date/Time of Note Date/Time of Note DATE: 06/21/17 TIME: 11:59 Assessment/Plan Assessment/Plan Assessment/Plan [facility] Progress Note Date of Service: 06/21/2017 Place of service: [facility] Today's Assessment & Plan: Stable and significantly improved. Patient underwent a thorough evaluation of his cholecystostomy tube and I had a discussion about this with Dr. Suazo. We both agreed that the gallbladder was significantly deflated and that there were no other further significant warning signs about it. The cystic duct appeared to be open and the common bile duct was easily visualized. I had a long discussion with the patient and his reviewing options. They are very anxious and would like to avoid surgery if at all possible. I tried to explain to them that I still believe that the patient could handle stress of an elective laparoscopic cholecystectomy, but they seem to be more interested in avoiding operation at essentially all costs. Since the patient is doing so well and the appearance of the drain sinogram was favorable, I recommended that we take the tube out with the understanding that there would be a small chance that same issue might arise again in the future. We also discussed potential for leaving the tubing indefinitely but this was not a good option and therefore dismissed. I remove the drain at bedside today without any difficulties and I will discharge the patient to the care of his capable primary care physicians and will be available to assist if at all needed in the future. Answered all questions. Patient and family appear to understand and agree with the plans. With above assessment, I've recommended the followin. F/u with PCP 2. F/u with us prn Thank you very much for having me involved in the care of this very pleasant patient and wonderful family. If you have any questions, please feel free to contact me at [phone]. Nature of presenting problem: High severity Please note that, given the multiple number of diagnoses or management options, the extensive amount and/or complexity of data needed to be reviewed, and high risk of complications and/or morbidity or mortality, this qualifies as high complexity type of decision-making. Disclaimer: Inadvertent spelling and grammatical errors are likely due to EHR/ dictation software use and do not reflect on the quality of delivered patient care. Also, please note that the electronic time recorded on this node does not necessarily reflect the actual time of the visit. Updated clinical summary: A very-pleasant 72-year-old gentleman with multiple comorbid issues presenting with a clinical picture consistent with acute cholecystitis. Concerning features included rising white blood cell count, acute renal insufficiency, malnutrition with albumin of 2.9 after hydration, and CT findings as outlined below. Surgical drain discontinued 05/19/2017. Percutaneous cholecystostomy drain sinogram 06/20/2017 [facility] showed normal-appearing gallbladder with open cystic duct and common bile duct. Comorbidities: 1. Severe acute on chronic cholecystitis with gangrene and perforation and bile leak. S/p an otherwise uncomplicated laparoscopic exploration with drainage of gallbladder and lysis of adhesions on 05/15/17 at [facility] with findings of severe acute on chronic cholecystitis with gangrenous cholecystitis, perforation and bile peritonitis 2. Chilaiditi syndrome. 3. Trace ascites. 4. 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 5. Complex calcified predominately cystic mass arising from the ventral upper third of the right kidney. A contrast-enhanced triple phase CT scan of the kidneys is recommended for further characterization. Additional renal cysts are identified in the left kidney some of which which may contain internal septations. 6. Enlarged prostate gland. 7. Atherosclerotic vascular disease. 8. Bilateral inguinal hernias containing fat. Small midline umbilical hernia containing fat. 9. Diabetes mellitus 10. CVA 11. Hypertension 12. Coronary artery calcifications with obstructive coronary artery disease; previous non-STEMI 13. Status post coronary artery stent placement 14. COPD 15. Appendectomy 30 years ago 16. Left hemiplegia 17. Renal disease 18. Complex right renal cyst. 19. Percutaneous cholecystostomy drain sinogram 06/20/2017 [facility] showed normal-appearing gallbladder with open cystic duct and common bile duct. Subjective: No major events or complaints since discharge; no major abd pain and under control with medications; no n/v/d; no sob or cp; + flatus; + BM; minimal activity; drain output has been small, approximately 20-30 cc per day. Drain sinogram as above. Objective: Vitals: See below Exam: GENERAL: On exam, the patient was sitting in a chair and appeared to be comfortable and in no acute distress. ABDOMEN: Soft, nontender and nondistended. Incisions and drain sites are clean , dry and intact without any evidence of erythema, edema, discharge, or hernia. Percutaneous gallbladder drain bilious. There are no peritoneal signs or guarding. Drain removed at bedside without any difficulty. SKIN: Skin appears to be pink and feels warm to touch. NEUROLOGIC: Patient is awake, alert, and follows commands appropriately. Exam/Review of Systems Vital Signs Vitals Vital Signs Date Time Temp Pulse Resp B/P Pulse Ox O2 Delivery O2 Flow Rate FiO2 06/21/17 11:42 98.2 71 18 146/67 98 Room Air DANA BARRETO M.D. Jun 21, 2017 12:10
== END | disposition home or self-care (01) ==
LOC: HPC 11:34
PROVIDERS: ATTEND Transplant Surgery
DX: K81.1 Chronic cholecystitis (principal); I70.8 Atherosclerosis of other arteries; E11.8 Type 2 diabetes mellitus with unspecified complications; K40.20 Bilateral inguinal hernia, without obstruction or gangrene, not specified as recurrent; I10 Essential (primary) hypertension; I25.10 Atherosclerotic heart disease of native coronary artery without angina pectoris; J44.9 Chronic obstructive pulmonary disease, unspecified; N40.0 Benign prostatic hyperplasia without lower urinary tract symptoms; Z98.61 Coronary angioplasty status; Z86.73 Personal history of transient ischemic attack (TIA), and cerebral infarction without residual deficits; G81.94 Hemiplegia, unspecified affecting left nondominant side; N28.9 Disorder of kidney and ureter, unspecified; N28.1 Cyst of kidney, acquired; Q43.3 Congenital malformations of intestinal fixation; D73.89 Other diseases of spleen